=== PATIENT | male | born 1950 | race African-American/Black ===

== ENCOUNTER 2016-07-27 13:54 | Inpatient (IN) | payer OTHER ==
[2016-07-27] MEDS ORDERED: ALBUTEROL SO4 2.5/IPRATROPIUM 0.5 INH SOL 3 ML VIAL.NEB. NEB ONE ×2 (13:58→14:14)
[2016-07-27] MEDS ORDERED: methylPREDNISolone NA SUCC 125 MG/2 ML VIAL ONE (14:02)
[2016-07-27] MEDS ORDERED: ALBUTEROL SO4 0.083% IH SOL 2.5 MG/3 ML VIAL.NEB. NEB ONE ×2 (14:02→14:14)
[2016-07-27] MEDS ORDERED: LEVOFLOXACIN 750 MG IVPB 150 ML IVPB ONE ×2 (14:05→14:11)
[2016-07-27] MEDS ORDERED: DEXAMETHASONE SOD PHOSPHATE 10 MG/1 ML VIAL ONE (14:10)
[2016-07-27] MEDS ORDERED: methylPREDNISolone NA SUCC 125 MG/2 ML VIAL IVPB ONE (14:14)
[2016-07-27 14:16] LABS: VENOUS BLOOD GAS HCO3 17.8 meq/L (19-25)
[2016-07-27 14:17] LABS: VENOUS PH 7.39 (7.32-7.42)
[2016-07-27 14:24] LABS: BASOPHIL 0.1 % (0-2.0); MCH 26.3 pg (25.7-33.7); MCHC 32.4 g/dl (32.0-35.9); MEAN CELL VOLUME 81.2 fl (80-96); MEAN PLT VOLUME 8.1 fl (7.5-11.1); NEUTROPHILS 86.9 % (42.8-82.8); PLATELET COUNT 204 K/MM3 (134-434); RDW 14.3 % (11.9-15.9); WHITE BLOOD COUNT 12.4 K/mm3 (4.0-10.0)
--- NOTE | 2016-07-27 14:40 | PDOC ---
History of Present Illness - History of Present Illness Initial Comments: 07/27/16 14:50 The patient is a 66 year old male, with a significant past medical history of sarcoidosis of the lungs, hypertension, and prior intubations, who presents to the emergency department via ems from home with progressive feeling of generalized body aches and weakness for 6 days with subacute onset of shortness of breath today. The patient presents with who states the patient is febrile and has been experiencing diarrhea and vomiting after eating. The patients states he is noncompliant with medication and reports he was taking coricidin BPH for virus-like symptoms, with no relief. As per ems the patient was placed on CPap and given nebulizer in the field. He denies chest pain, headache and dizziness. He denies fever, chills, and constipation. He denies dysuria, frequency, urgency and hematuria. Allergies: NKDA Social history: social alcohol consumption. Denies tobacco and illicit drug use. PCP - Dr. Campuzano <Claudette Santos - Last Filed: 07/27/16 19:27> <James Ayers - Last Filed: 07/27/16 19:50> <Deric Salazar - Last Filed: 07/27/16 23:10> - General Chief Complaint: Shortness of Breath Stated Complaint: Shortness of Breath Time Seen by Provider: 07/27/16 14:05 Past History <Claudette Santos - Last Filed: 07/27/16 19:27> - Past Medical History Anemia: No Asthma: No Cancer: No Cardiac Disorders: No CVA: No COPD: No CHF: No Dementia: No Diabetes: No GI Disorders: No Disorders: No HTN: Yes Hypercholesterolemia: No Liver Disease: No Seizures: No Thyroid Disease: No - Surgical History Abdominal Surgery: No Appendectomy: No Cardiac Surgery: No Cholecystectomy: No Lung Surgery: No Neurologic Surgery: No Orthopedic Surgery: Yes (L ANKLE ORIF, BILAR SHOULDER ARTHROSCOPY, BILAT KNEE ARHTROSCOPY) - Psycho/Social/Smoking Cessation Hx Anxiety: No Suicidal Ideation: No Smoking History: Never smoked Hx Alcohol Use: No Drug/Substance Use Hx: No Substance Use Type: None Hx Substance Use Treatment: No <James Ayers - Last Filed: 07/27/16 19:50> <Deric Salazar - Last Filed: 07/27/16 23:10> - Past Medical History Allergies/Adverse Reactions: Allergies Allergy/AdvReac Type Severity Reaction Status Date / Time No Known Drug Allergies Allergy Verified 11/26/13 09:46 Home Medications: Ambulatory Orders Nifedipine ER [Procardia XL -] 60 mg PO HS 11/03/13 Cyclobenzaprine HCl [Flexeril -] 10 mg PO TID PRN 11/13/13 Oxycodone HCl/Acetaminophen [Percocet 5-325 mg Tablet -] 1 - 2 tab PO Q4H #20 tablet 11/26/13 Review of Systems - Review of Systems Able to Perform ROS?: No (CPAP in place) <Claudette Santos - Last Filed: 07/27/16 19:27> *Physical Exam - Vital Signs Last Vital Signs Temp Pulse Resp BP Pulse Ox 113 H 100 07/27/16 14:13 07/27/16 14:13 - Physical Exam Comments: 07/27/16 14:51 GENERAL: (+) anxious appearing. Awake, alert, and fully oriented, in no acute distress HEAD: No signs of trauma EYES: PERRLA, EOMI, sclera anicteric, conjunctiva clear ENT: Auricles normal inspection, hearing grossly normal, nares patent, oropharynx clear without exudates. Moist mucosa NECK: Normal ROM, supple, no lymphadenopathy, JVD, or masses LUNGS: (+) course breath sounds. Breath sounds equal, clear to auscultation bilaterally. No wheezes, and no crackles HEART: (+) tachycardic rate and regular rhythm, normal S1 and S2, no murmurs, rubs or gallops ABDOMEN: Soft, nontender, normoactive bowel sounds. No guarding, no rebound. No masses EXTREMITIES: Normal range of motion, no edema. No clubbing or cyanosis. No cords, erythema, or tenderness NEUROLOGICAL: Cranial nerves II through XII grossly intact. Normal speech, normal gait SKIN: Warm, Dry, normal turgor, no rashes or lesions noted. <Claudette Santos - Last Filed: 07/27/16 19:27> - Vital Signs Last Vital Signs Temp Pulse Resp BP Pulse Ox 113 H 100 07/27/16 14:13 07/27/16 14:13 <James Ayers - Last Filed: 07/27/16 19:50> - Vital Signs Last Vital Signs Temp Pulse Resp BP Pulse Ox 104 H 39 H 134/74 92 L 07/27/16 18:07 07/27/16 18:07 07/27/16 23:05 07/27/16 21:20 <Deric Salazar - Last Filed: 07/27/16 23:10> ED Treatment Course - LABORATORY CBC & Chemistry Diagram: 07/27/16 14:15 07/27/16 14:15 - ADDITIONAL ORDERS Additional order review: Laboratory Results 07/27/16 14:10 VBG pH 7.39 POC VBG pCO2 30.4 L POC VBG pO2 44.8 Mixed VBG HCO3 17.8 L 07/27/16 14:15 RBC 5.06 MCV 81.2 MCHC 32.4 RDW 14.3 MPV 8.1 Neutrophils % 86.9 H D Lymphocytes % 7.3 L D Monocytes % 5.7 Eosinophils % 0.0 D Basophils % 0.1 - RADIOLOGY Radiograph Interpretation: 07/27/16 16:57 CXR was read by Dr. Randle at 15:01 Impression: Progressive congestive and infiltrative findings. 07/27/16 18:26 Chest CTA was read by Dr. Choi at 18:20 Impression: extensive bilateral airspace disease with minimal left pleural effusion. Focal nodular mass in the right upper lobe abutting the fissue is again seen measuring 2.2 x 1.5 cm without change. There is no evidence of pulmonary embolism. <Claudette Santos - Last Filed: 07/27/16 19:27> - LABORATORY CBC & Chemistry Diagram: 07/27/16 14:15 07/27/16 14:15 - ADDITIONAL ORDERS Additional order review: Laboratory Results 07/27/16 14:10 VBG pH 7.39 POC VBG pCO2 30.4 L POC VBG pO2 44.8 Mixed VBG HCO3 17.8 L 07/27/16 14:15 RBC 5.06 MCV 81.2 MCHC 32.4 RDW 14.3 MPV 8.1 Neutrophils % 86.9 H D Lymphocytes % 7.3 L D Monocytes % 5.7 Eosinophils % 0.0 D Basophils % 0.1 - RADIOLOGY Radiology Studies Ordered: Category Date Time Status CHEST X-RAY PORTABLE* [RAD] Stat Radiology 07/27/16 14:08 Ordered <ArmenJames - Last Filed: 07/27/16 19:50> - LABORATORY CBC & Chemistry Diagram: 07/27/16 14:15 07/27/16 14:15 - ADDITIONAL ORDERS Additional order review: Laboratory Results 07/27/16 07/27/16 07/27/16 20:40 20:40 18:49 INR PTT (Actin FS) Puncture Site Right radial ABG pH 7.46 H ABG pCO2 at Pt Temp 32.7 L ABG pO2 at Pt Temp 62.0 L ABG HCO3 22.8 ABG O2 Sat (Measured) 90.6 ABG O2 Content 14.5 L ABG Base Excess -0.1 Vazquez Test Positive VBG pH POC VBG pCO2 POC VBG pO2 Mixed VBG HCO3 Carboxyhemoglobin 1.6 Methemoglobin 0.5 O2 Delivery Device Bipap Oxygen Flow Rate [address] Vent Rate 14 PEEP 0.0 Pressure Support Vent 12/8 Sodium Potassium Chloride Carbon Dioxide Anion Gap BUN Creatinine Creat Clearance w eGFR Random Glucose Lactic Acid 5.941 H* Calcium Total Bilirubin AST ALT Alkaline Phosphatase Creatine Kinase Creatine Kinase Index CK-MB (CK-2) CK-MB (CK-2) Rel Index Troponin I Total Protein Albumin 07/27/16 07/27/16 07/27/16 14:15 14:15 14:15 INR PTT (Actin FS) Puncture Site ABG pH ABG pCO2 at Pt Temp ABG pO2 at Pt Temp ABG HCO3 ABG O2 Sat (Measured) ABG O2 Content ABG Base Excess Vazquez Test VBG pH POC VBG pCO2 POC VBG pO2 Mixed VBG HCO3 Carboxyhemoglobin Methemoglobin O2 Delivery Device Oxygen Flow Rate Vent Mode Vent Rate PEEP Pressure Support Vent Sodium 136 Potassium 3.5 Chloride 96 L Carbon Dioxide 19 L D Anion Gap 21 H BUN 22 H D Creatinine 1.4 H D Creat Clearance w eGFR 50.70 Random Glucose 161 H D Lactic Acid 10.414 H* Calcium 8.4 L Total Bilirubin 1.0 D AST 88 H D ALT 33 D Alkaline Phosphatase 102 D Creatine Kinase 657 H Creatine Kinase Index 0.5 CK-MB (CK-2) 3.531 CK-MB (CK-2) Rel Index Cancelled Troponin I 0.08 H Total Protein 7.8 Albumin 3.3 L 07/27/16 07/27/16 14:15 14:10 INR 1.26 H PTT (Actin FS) 26.1 L Puncture Site ABG pH ABG pCO2 at Pt Temp ABG pO2 at Pt Temp ABG HCO3 ABG O2 Sat (Measured) ABG O2 Content ABG Base Excess Vazquez Test VBG pH 7.39 POC VBG pCO2 30.4 L POC VBG pO2 44.8 Mixed VBG HCO3 17.8 L Carboxyhemoglobin Methemoglobin O2 Delivery Device Oxygen Flow Rate Vent Mode Vent Rate PEEP Pressure Support Vent Sodium Potassium Chloride Carbon Dioxide Anion Gap BUN Creatinine Creat Clearance w eGFR Random Glucose Lactic Acid Calcium Total Bilirubin AST ALT Alkaline Phosphatase Creatine Kinase Creatine Kinase Index CK-MB (CK-2) CK-MB (CK-2) Rel Index Troponin I Total Protein Albumin 07/27/16 15:20 Influenza Types A,B Antigen (NIKI) - Final Nasopharyngeal Swab - Final 07/27/16 14:15 RBC 5.06 MCV 81.2 MCHC 32.4 RDW 14.3 MPV 8.1 Neutrophils % 86.9 H D Lymphocytes % 7.3 L D Monocytes % 5.7 Eosinophils % 0.0 D Basophils % 0.1 - Medications Given in the ED: ED Medications Discontinued Medications Generic Name Dose Route Start Last Admin Trade Name Freq PRN Reason Stop Dose Admin Albuterol Sulfate 2 amp 07/27/16 14:14 07/27/16 14:15 Ventolin 0.083% Nebulizer Soln - NEB 07/27/16 14:15 2 amp ONCE ONE Administration Albuterol/Ipratropium 1 amp 07/27/16 14:14 07/27/16 14:00 Duoneb - NEB 07/27/16 14:15 1 amp ONCE ONE Administration Levofloxacin 150 mls @ 100 mls/hr 07/27/16 14:11 07/27/16 14:20 Levaquin 750 Mg Premixed Ivpb - IVPB 07/27/16 15:40 100 mls/hr ONCE ONE Administration Sodium Chloride 3,000 mls @ 1,000 mls/hr 07/27/16 15:20 07/27/16 15:20 Normal Saline - IV 07/27/16 18:19 1,000 mls/hr ASDIR STA Administration Lorazepam 1 mg 07/27/16 17:06 07/27/16 15:20 Ativan Injection - IVPUSH 07/27/16 17:07 1 mg ONCE ONE Administration Lorazepam 1 mg 07/27/16 17:07 07/27/16 17:16 Ativan Injection - IVPUSH 07/27/16 17:08 1 mg ONCE ONE Administration Methylprednisolone Sodium Succinate 125 mg 07/27/16 14:14 07/27/16 14:00 Solu-Medrol - IVPB 07/27/16 14:15 125 mg ONCE ONE Administration Oseltamivir Phosphate 75 mg 07/27/16 15:58 07/27/16 16:32 Tamiflu - PO 07/27/16 15:59 75 mg ONCE ONE Administration <Deric Salazar - Last Filed: 07/27/16 23:10> Medical Decision Making - Medical Decision Making 07/27/16 14:52 The patient is a 66 year old male who presents to the ED via ems with viral like symptoms, generalized body aches and weakness since Sunday. As per the patient's family member, the patient would not come to the ED sooner. The patients medical history is significant for sarcoidosis of the lungs, hypertension, and prior intubations (last in 2004). I will obtain CBC, CMP, VBG, ABG, lactic acid, PTT/INR, to rule out sarcoidosis , viral infection or pneumonia. The patient was placed on BIPAP and is doing well. 07/27/16 19:27 Dr. Mustafa was called at this time and the patient's case was discussed. I believe the patient would benefit from ICU admission and Dr. Mustafa accepts the admission. <Claudette Santos - Last Filed: 07/27/16 19:27> *DC/Admit/Observation/Transfer - Attestations Scribe Attestion: 07/27/16 14:53 Documentation prepared by Claudette Santos, acting as medical pathology teacher for James Ayers MD <Claudette Santos - Last Filed: 07/27/16 19:27> - Discharge Dispostion Admit: Yes - Attestations Physician Attestion: 07/27/16 14:40 I, Dr. James Ayers, attest that this document has been prepared under my direction and personally reviewed by me in its entirety. I further attest, that it accurately reflects all work, treatment, procedures and medical decision -making performed by me. <James Ayers - Last Filed: 07/27/16 19:50> <Deric Salazar - Last Filed: 07/27/16 23:10> Diagnosis at time of Disposition: Pulmonary sarcoidosis, Influenza B, Hypoxia - Discharge Dispostion Condition at time of disposition: Improved - Referrals Referrals: Lemuel Campuzano MD [Primary Care Provider] -
[2016-07-27] MEDS ORDERED: LORAZEPAM CARPU-JECT 2 MG/ML DISP.SYRIN ONE ×2 (15:01→23:40)
[2016-07-27 15:03] LABS: ALBUMIN 3.3 g/dl (3.4-5.0); CALCIUM 8.4 mg/dL (8.5-10.1)
[2016-07-27 15:09] LABS: INR 1.26 (0.82-1.09); PROTHROMBIN TIME (PATIENT) 13.9 SEC (9.98-11.88)
[2016-07-27 15:12] LABS: ACTIVATED PTT 26.1 SECONDS (26.9-34.4)
[2016-07-27] MEDS ORDERED: SODIUM CHLORIDE 3,000 ML IV STA (15:20)
[2016-07-27 15:24] LABS: COCKROFT - GAULT 66.59; CREATININE 1.4 mg/dL (0.7-1.3); TOT PROT 7.8 g/dl (6.4-8.2); TROPONIN I 0.08 ng/ml (0.00-0.05)
[2016-07-27] MEDS ORDERED: OSELTAMIVIR PHOSPHATE 75 MG CAPSULE PO ONE (15:58)
--- NOTE | 2016-07-27 16:11 | EKG ---
Test Reason : Blood Pressure : / mmHG Vent. Rate : 111 BPM Atrial Rate : 111 BPM P-R Int : 142 ms QRS Dur : 086 ms QT Int : 322 ms P-R-T Axes : 053 046 027 degrees QTc Int : 437 ms SINUS TACHYCARDIA NONSPECIFIC T WAVE ABNORMALITY ABNORMAL ECG WHEN COMPARED WITH ECG OF 13-NOV-2013 15:47, NO SIGNIFICANT CHANGE WAS FOUND Confirmed by CATALINO FOLEY MD ([id number]) on 07/27/2016 4:11:08 PM Referred By: Confirmed By:CATALINO FOLEY MD
[2016-07-27] MEDS ORDERED: OSELTAMIVIR PHOSPHATE 75 MG CAPSULE ONE ×2 (16:28→22:53)
[2016-07-27] MEDS ORDERED: LORAZEPAM CARPU-JECT 2 MG/ML DISP.SYRIN IVPUSH ONE ×2 (17:06→17:07)
--- NOTE | 2016-07-27 20:45 | PN ---
<Graciela Dacosta - Last Filed: 07/27/16 20:39> Teaching Attending Note Name of Resident: Leopoldo Zimmerman Problem List - Problems (1) Influenza B Code(s): J10.1 - FLU DUE TO OTH IDENT INFLUENZA VIRUS W OTH RESP MANIFEST (2) Pulmonary sarcoidosis Code(s): D86.0 - SARCOIDOSIS OF LUNG Critical Care Total Critical Care Time (in minutes): 45 Critical Care Statement: The care of this patient involved high complexity decision making to prevent further life threatening deterioration of the patient 's condition and/or to evalute & treat vital organ system(s) failure or risk of failure. <Libby Urbina - Last Filed: 07/27/16 22:14> Teaching Attending Note ATTENDING PHYSICIAN STATEMENT I saw and evaluated the patient. I reviewed the resident's note and discussed the case with the resident. I agree with the resident's findings and plan as documented. SUBJECTIVE: 66 yo M with a PMhx of lung sarcoidosis who presents with generalized weakness for the past 5 days. The patient reports body aches, productive cough (red- tinged), vomiting (nonbloody, nonbilious) and diarrhea during the course of these days. Patient took Nyquil for his cold-like symptoms however denies any relief. Patient states his weakness has progressively worsened and reports new onset SOB today. He presented to the ED for further evaluation. He denies chest pain, headache or dizziness. He denies constipation. He denies dysuria, frequency, urgency or hematuria. PMHx: HTN PSHx: L ankle and R shoulder ORIF Social hx: Denies toxic habits. Retired and living at home. Family hx: Sister (lung sarcoidosis) Allergies: None OBJECTIVE: Last Vital Signs Temp Pulse Resp BP Pulse Ox 104 H 39 H 94/56 90 L 07/27/16 18:07 07/27/16 18:07 07/27/16 18:07 07/27/16 18:07 GENERAL: Awake, alert, and fully oriented, in no acute distress on BiPAP on 50% FiO2. HEENT: Atraumatic. PERRLA, EOMI. Moist mucosa. No JVD LUNGS: +Bilateral basal crackles. No distress, speaks full sentences. HEART: Regular rate and rhythm, normal S1 and S2, no murmurs, rubs or gallops, peripheral pulses normal and equal bilaterally. ABDOMEN: Soft, nontender, normoactive bowel sounds. No guarding, no rebound. No masses EXTREMITIES: +Clubbing of fingernails in RUE and LUE. + R shoulder ORIF and L ankle ORIF. Normal inspection, Normal range of motion, no edema. No r cyanosis. + Normal capillary refill. NEUROLOGICAL: Cranial nerves II through XII grossly intact. Normal speech, gait deffered no focal sensorimotor deficits SKIN: Surgical scar on R shoulder. Warm, Dry, normal turgor, no rashes or lesions noted. CBCD WBC 12.4 K/mm3 (4.0-10.0) H D 07/27/16 14:15 RBC 5.06 M/mm3 (4.00-5.60) 07/27/16 14:15 Hgb 13.3 GM/dL (11.7-16.9) 07/27/16 14:15 Hct 41.1 % (35.4-49) 07/27/16 14:15 MCV 81.2 fl (80-96) 07/27/16 14:15 MCHC 32.4 g/dl (32.0-35.9) 07/27/16 14:15 RDW 14.3 % (11.9-15.9) 07/27/16 14:15 Plt Count 204 K/MM3 (134-434) D 07/27/16 14:15 MPV 8.1 fl (7.5-11.1) 07/27/16 14:15 CMP Sodium 136 mmol/L (136-145) 07/27/16 14:15 Potassium 3.5 mmol/L (3.5-5.1) 07/27/16 14:15 Chloride 96 mmol/L (98-107) L 07/27/16 14:15 Carbon Dioxide 19 mmol/L (21-32) L D 07/27/16 14:15 Anion Gap 21 (8-16) H 07/27/16 14:15 BUN 22 mg/dL (7-18) H D 07/27/16 14:15 Creatinine 1.4 mg/dL (0.7-1.3) H D 07/27/16 14:15 Creat Clearance w eGFR 50.70 (>60) 07/27/16 14:15 Calcium 8.4 mg/dL (8.5-10.1) L 07/27/16 14:15 Total Bilirubin 1.0 mg/dL (0.2-1.0) D 07/27/16 14:15 AST 88 U/L (15-37) H D 07/27/16 14:15 ALT 33 U/L (12-78) D 07/27/16 14:15 Alkaline Phosphatase 102 U/L (45-117) D 07/27/16 14:15 Total Protein 7.8 g/dl (6.4-8.2) 07/27/16 14:15 Albumin 3.3 g/dl (3.4-5.0) L 07/27/16 14:15 Imaging: Chest Xray Impression: Progressive congestive and infiltrative findings. Chest/ Thorax CTA Impression: Limited examination, as described above. There is extensive bilateral airspace disease with minimal left pleural effusion. Focal nodular mass in the right upper lobe abutting the fissure is again seen measuring approximately 2.2 x 1.5 cm , without interval change. Mediastinal lymph nodes, as described above. Findings are compatible with likely worsening sarcoidosis involvement of the lung. Superimposed pneumonia cannot be ruled out. Airspace disease is significantly limiting evaluation of the distal pulmonary artery branches that are also poorly evaluated due to motion/breathing artifacts. There is no gross evidence of a pulmonary embolus within the main pulmonary artery and its proximal bifurcations, bilaterally. ASSESSMENT AND PLAN: 66 yo M with a PMHx of sarcoidosis and HTN who is being admitted for CAP. Continuous fluids at 150 cc/hr Levofloxacin Tamiflu Nebulization Q6 BiPAP as per ICU outreach consultant Recheck lactic Q2 hrs until below 2 Continue home meds Get baseline echocardiogram in AM ID Consult Pulmonary Consult - Lipid panel Documentation prepared by Libby Urbina, acting as certified medical dosimetrist for Graciela Dacosta MD.
[2016-07-27 20:47] LABS: ARTERIAL BLD GAS O2 SATURATION 90.6 % (90-98.9); ARTERIAL BLOOD GAS BASE EXCESS -0.1 meq/l (-2-2); ARTERIAL BLOOD GAS HCO3 22.8 meq/L (22-26); ARTERIAL BLOOD GAS pH 7.46 (7.35-7.45)
[2016-07-27 20:48] LABS: ALLENS TEST POSITIVE; ART PUNCT SITE RIGHT RADIAL; LPM/O2% 50; PT. ON O2? YES; TYPE OF O2 BIPAP; VENT RATE 14
[2016-07-27 20:50] LABS: METHEMOGLOBIN 0.5 % (0.4-1.5)
[2016-07-27] MEDS ORDERED: SODIUM CHLORIDE 1,000 ML IV SCH ×2 (21:30→22:20)
--- NOTE | 2016-07-27 21:56 | HP ---
CHIEF COMPLAINT: generalized weakness and shortness of breath PCP: Dr. Campuzano HISTORY OF PRESENT ILLNESS: 66 y/o M w/PMH of sarcoidosis and HTN presents to ER for progressively worsening generalized weakness and shortness of breath. He began having weakness and cough approximately 5-6 days ago. His cough was productive and sputum was slightly red in color. He also had fevers and chills throughout this time. He also had teary eyes and runny nose 5-6 days ago but no sore throat. He took nyquil with some relief of symptoms. He also felt like he had some shortness of breath yesterday and it has worsened today. He denies these type of symptoms in the past and says this is the first time he has had these symptoms. He did not get his flu vaccine for this year. Pt also had one episode of vomiting and diarrhea, both without blood. He denies CP, abd pain, light-headedness, dizziness, palpitations, pain with deep inspiration. He does not use oxygen at home. ER course was notable for: (1) CXR, Chest CTA (2) ativan, decadron, duo-neb x1, alb neb x1, solu-medrol 125, tamiflu, levaquin 750, NS (3) PAST MEDICAL HISTORY: sarcoidosis, HTN PAST SURGICAL HISTORY: L ankle ORIF, B/L shoulder arthroscopy, B/L knee arthroscopy Social History: Smoking: denies Alcohol: social Drugs: denies Family History: Siblings with sarcoidosis Allergies No Known Drug Allergies Allergy (Verified 11/26/13 09:46) HOME MEDICATIONS: Home Medications Medication Instructions Recorded Nifedipine ER [Procardia XL -] 60 mg PO HS 11/03/13 Cyclobenzaprine HCl [Flexeril -] 10 mg PO TID PRN 11/13/13 Oxycodone HCl/Acetaminophen 1 - 2 tab PO Q4H #20 tablet 11/26/13 [Percocet 5-325 mg Tablet -] REVIEW OF SYSTEMS CONSTITUTIONAL: fevers, chills, generalized weakness Absent: diaphoresis, malaise, loss of appetite, weight change HEENT: rhinorrhea Absent: nasal congestion, throat pain, throat swelling, difficulty swallowing, mouth swelling, ear pain, eye pain, visual changes CARDIOVASCULAR: Absent: chest pain, syncope, palpitations, irregular heart rate, lightheadedness , peripheral edema RESPIRATORY: cough, shortness of breath Absent: dyspnea with exertion, orthopnea, wheezing, stridor GASTROINTESTINAL: vomiting, diarrhea Absent: abdominal pain, abdominal distension, nausea, constipation, melena, hematochezia GENITOURINARY: Absent: dysuria, frequency, urgency, hesitancy, hematuria, flank pain, genital pain MUSCULOSKELETAL: Absent: myalgia, arthralgia, joint swelling, back pain, neck pain SKIN: Absent: rash, itching, pallor HEMATOLOGIC/IMMUNOLOGIC: Absent: easy bleeding, easy bruising, lymphadenopathy, frequent infections ENDOCRINE: Absent: unexplained weight gain, unexplained weight loss, heat intolerance, cold intolerance NEUROLOGIC: Absent: headache, focal weakness or paresthesias, dizziness, unsteady gait, seizure, mental status changes, bladder or bowel incontinence PSYCHIATRIC: Absent: anxiety, depression, suicidal or homicidal ideation, hallucinations. PHYSICAL EXAMINATION Vital Signs Temperature Pulse Rate 104 H 07/27/16 18:07 Respiratory Rate 39 H 07/27/16 18:07 Blood Pressure 94/56 07/27/16 18:07 O2 Sat by Pulse Oximetry (%) 92 L 07/27/16 21:20 GENERAL: Awake, alert, and fully oriented, on bipap HEAD: Normal with no signs of trauma. EYES: extraocular movements intact, sclera anicteric, conjunctiva clear. No lid lag. EARS, NOSE, THROAT: Ears normal, nares patent NECK: Normal range of motion LUNGS: b/l basilar crackles, no wheezing HEART: tachycardic, normal S1 and S2 without murmur (murmurs were difficult to appreciate over bipap inspirations), rub or gallop. ABDOMEN: Soft, nontender, not distended, normoactive bowel sounds, no guarding, no rebound, no masses. No hepatomegaly or splenomegaly. MUSCULOSKELETAL: Normal range of motion at all joints. No CVA tenderness. B/L shoulder ORIF. UPPER EXTREMITIES: 2+ pulses, warm, well-perfused. No cyanosis. No clubbing. No peripheral edema. B/L clubbing of fingernails LOWER EXTREMITIES: 2+ pulses, warm, well-perfused. No calf tenderness. No peripheral edema. NEUROLOGICAL: Cranial nerves II-XII grossly intact. Normal speech. Gait not observed. PSYCHIATRIC: Cooperative. Good eye contact. Appropriate mood and affect. SKIN: Warm, dry, normal turgor, no rashes or lesions noted, normal capillary refill. CBC, BMP 07/27/16 14:15 07/27/16 14:15 INR 07/27/16 14:15 INR 1.26 H LFTs 07/27/16 14:15 AST 88 H D ALT 33 D Alkaline Phosphatase 102 D Lactic Acid 07/27/16 07/27/16 07/27/16 14:15 18:49 23:48 Lactic Acid 10.414 H* 5.941 H* 3.236 H* Laboratory Tests 07/27/16 07/27/16 14:15 23:48 Creatine Kinase 657 H Creatine Kinase Index 0.5 CK-MB (CK-2) 3.531 Troponin I 0.08 H 0.07 H ABG Results ABG pH 7.46 (7.35-7.45) H 07/27/16 20:40 ABG pCO2 at Pt Temp 32.7 mmHg (35-45) L 07/27/16 20:40 ABG pO2 at Pt Temp 62.0 mmHg (80-100) L 07/27/16 20:40 ABG HCO3 22.8 meq/L (22-26) 07/27/16 20:40 ABG O2 Sat (Measured) 90.6 % (90-98.9) 07/27/16 20:40 ABG O2 Content 14.5 % vol (15-22) L 07/27/16 20:40 ABG Base Excess -0.1 meq/l (-2-2) 07/27/16 20:40 Microbiology 07/27/16 15:20 Nasopharyngeal Swab Influenza Types A,B Antigen (NIKI) - Final 07/27/16 15:20 Nasopharyngeal Swab - Final Imaging: CXR 07/27/16: B/L infiltrates, Congestive changes Chest CTA 07/27/16: -paratracheal lymph node w/calcification, 3cm in size, stable -multiple b/l hilar calcified lymph nodes consistent w/sarcoidosis -superimposed pna cannot be ruled out -small L pleural effusion -2.2 x 1.5 cm nodular masslike density in RUL -B/L airspace disease -No evidence of PE Active Medications Chlorhexidine Gluconate (Hibiclens For Decolonization -) 1 applic TP HS [facility] Heparin Sodium (Porcine) (Heparin -) 5,000 unit SQ TID [facility] Sodium Chloride (Normal Saline -) 1,000 mls @ 125 mls/hr IV ASDIR [facility] Levofloxacin (Levaquin 750 Mg Premixed Ivpb -) 150 mls @ 100 mls/hr IVPB DAILY@ 0800 [facility] Mupirocin (Bactroban Ointment (For Decolonization) -) 1 applic NS BID [facility] Stop: 08/01/16 21:59 Oseltamivir Phosphate (Tamiflu -) 75 mg PO BID [facility] Stop: 08/01/16 21:59 ASSESSMENT/PLAN: 66 y/o M w/PMH of sarcoidosis and HTN presents to ER for progressively worsening generalized weakness and shortness of breath. Admitted to ICU for sepsis secondary to flu and CAP with respiratory failure. -Severe sepsis secondary to flu w/superimposed CAP -Tachycardic, WBC elevated, Tachypneic + FLU B+, b/l infiltrates -NS @ 150 ml/hr -Levaquin 750 mg IV qd, ID Consulted (Dr. Ibanez) -Tamiflu 75 mg bid -Trend LA, trending down at this time (10.4 --> 5.9 --> 3.2) -CXR in AM -f/u BCx, SpCx, UCx -Acute hypoxic respiratory failure -secondary to flu, cap -Bipap as per ICU team recommendation -alb nebs q6h PRN -ABG in AM -Pulm consulted (Dr. Campuzano) -Elevated Trops -most likely due to demand ischemia -trend trops (currently 0.08 --> 0.07), lipid panel in AM ordered -Echo -BIANCA -Cr 1.4, baseline ~0.8 -most likely secondary to severe sepsis -monitor, on fluids -avoid nephrotoxic agents -Elevated AST -most likely secondary to severe sepsis; monitor -Hx of Sarcoidosis -Pulm Consulted -HTN -pt on procardia at home, will hold in light of severe sepsis -DVT ppx -Heparin sq tid -FEN -NS @ 150 ml/hr -corrected Ca: 8.96; Hypochloremia: 96, on NS, monitor -Dispo -Admit to ICU Visit type - Emergency Visit Emergency Visit: Yes ED Registration Date: 07/27/16 Care time: The patient presented to the Emergency Department on the above date and was hospitalized for further evaluation of their emergent condition. - New Patient This patient is new to me today: Yes Date on this admission: 07/28/16 - Critical Care Critical Care patient: No
[2016-07-27] MEDS ORDERED: HEPARIN NA (PORCINE) 5,000 UNITS/ML 1ML VIAL ONE (22:53)
[2016-07-27] MEDS: HEPARIN NA (PORCINE) 5,000 UNITS/ML 1ML VIAL SQ SCH (23:04)
[2016-07-27] MEDS: OSELTAMIVIR PHOSPHATE 75 MG CAPSULE PO SCH (23:05)
[2016-07-27 23:28] LABS: URINE APPEARANCE CLEAR; URINE BILIRUBIN NEGATIVE (NEGATIVE); URINE BLOOD NEGATIVE (NEGATIVE); URINE COLOR YELLOW; URINE GLUCOSE (UA) NEGATIVE (NEGATIVE); URINE KETONE NEGATIVE (NEGATIVE); URINE LEUK ESTERASE NEGATIVE (NEGATIVE); URINE NITRITE NEGATIVE (NEGATIVE); URINE PROTEIN 2+ (NEGATIVE); URINE UROBILINOGEN 4.0 E.U/dl E.U./dl (0.2-1.0)
[2016-07-27 23:32] LABS: URINE HYALINE CAST 4 /lpf; URINE MUCUS RARE; URINE RBC 1 /hpf (0-3); URINE WBC 2 /hpf (3-5)
[2016-07-28] MEDS ORDERED: LORAZEPAM CARPU-JECT 2 MG/ML DISP.SYRIN IVPUSH ONE (00:05)
[2016-07-28] MEDS ORDERED: ALBUTEROL SO4 0.083% IH SOL 2.5 MG/3 ML VIAL.NEB. NEB PRN (04:03)
[2016-07-28 06:53] LABS: BASOPHIL 0.1 % (0-2.0); MCH 26.9 pg (25.7-33.7); MCHC 33.5 g/dl (32.0-35.9); MEAN CELL VOLUME 80.3 fl (80-96); MEAN PLT VOLUME 8.5 fl (7.5-11.1); NEUTROPHILS 91.3 % (42.8-82.8); PLATELET COUNT 170 K/MM3 (134-434); RDW 14.4 % (11.9-15.9); WHITE BLOOD COUNT 8.7 K/mm3 (4.0-10.0)
[2016-07-28] MEDS ORDERED: HEPARIN NA (PORCINE) 5,000 UNITS/ML 1ML VIAL ONE (06:55)
[2016-07-28 06:59] LABS: MAGNESIUM 2.5 mg/dL (1.8-2.4); PHOSPHOROUS 2.4 mg/dL (2.5-4.9)
[2016-07-28 07:02] LABS: ALBUMIN 2.9 g/dl (3.4-5.0); ANION GAP 14 (8-16); BILIRUBIN,TOTAL 0.6 mg/dL (0.2-1.0); CALCIUM 7.6 mg/dL (8.5-10.1); CO2 22 mmol/L (21-32); COCKROFT - GAULT 133.19; CREATININE 0.7 mg/dL (0.7-1.3); GLUCOSE,RANDOM 138 mg/dL (74-106); SGOT/AST 68 U/L (15-37); SGPT/ALT 32 U/L (12-78); TOT PROT 7.3 g/dl (6.4-8.2)
[2016-07-28 07:03] LABS: CHOLESTEROL 97 mg/dL (50-200); LDL CHOLESTEROL (ONLY SJRH) 52 mg/dL (5-100)
[2016-07-28 07:05] LABS: ALK PHOS 106 U/L (45-117); TROPONIN I 0.08 ng/ml (0.00-0.05)
[2016-07-28] MEDS: HEPARIN NA (PORCINE) 5,000 UNITS/ML 1ML VIAL SQ SCH ×3 (07:05→21:52)
[2016-07-28 07:14] LABS: ARTERIAL BLOOD GAS BASE EXCESS 0.9 meq/l (-2-2); ARTERIAL BLOOD GAS HCO3 22.9 meq/L (22-26); ARTERIAL BLOOD GAS pH 7.51 (7.35-7.45)
[2016-07-28 07:15] LABS: ALLENS TEST POSITIVE; ART PUNCT SITE RIGHT RADIAL; LPM/O2% 50%; MECH. VENT. BIPAP; PT. ON O2? YES; TYPE OF O2 BIPAP; VENT RATE 14
[2016-07-28 07:20] LABS: ARTERIAL BLOOD GAS PO2 58.1 mmHg (80-100)
[2016-07-28] MEDS ORDERED: LEVOFLOXACIN 750 MG IVPB 150 ML IVPB ONE (08:06)
[2016-07-28] MEDS: LEVOFLOXACIN 750 MG IVPB 150 ML IVPB SCH (08:09)
[2016-07-28] MEDS ORDERED: SODIUM CHLORIDE 1,000 ML IV SCH (09:39)
[2016-07-28] MEDS: OSELTAMIVIR PHOSPHATE 75 MG CAPSULE PO SCH ×2 (10:10→22:08)
[2016-07-28 10:43] VITALS: BMI 24.3
[2016-07-28] MEDS: ACETAMINOPHEN 1000 MG/100 ML VIAL (NON FORMULARY) IVPB PRN ×2 (11:30→21:52)
[2016-07-28] MEDS ORDERED: ACETAMINOPHEN INJECTION 100 ML IVPB ONE (11:53)
[2016-07-28 12:14] LABS: TROPONIN I 0.07 ng/ml (0.00-0.05)
--- NOTE | 2016-07-28 13:44 | PN ---
Teaching Attending Note Name of Resident: Shiva Sidhu ATTENDING PHYSICIAN STATEMENT I saw and evaluated the patient. I reviewed the resident's note and discussed the case with the resident. I agree with the resident's findings and plan as documented. SUBJECTIVE: no fever or chills, feels tired. SOB improved . denies abd pain . anxious OBJECTIVE: minimal distress, using accessory mucles , tachypnic slightly dry MM, no facial droop, symmetric face . CV: regular rhythm , tachycardic . No JVD Lungs: CTAB Abd : soft, NT, slightly distended ext : no edema , no tremor ASSESSMENT AND PLAN: 66 y/o man with h/o HTN, sarcoidosis , who presented with 5-day hx of fever , cough, runny nose and was found to have severe sepsis and Flu B . 1- Severe sepsis: from Flu B, and possible influenza Pneumonia . i this patient with base line abnormal CT scan of chest, superimposed bacterial PNA can 't be r/o . - cont levaquin - check mycoplasma , igM Abxs , and legionella , pneumococcal Ag - follow blood cx . - sputum cx - IVF - lactate normalized - tamiflu x 5 days 2- Acute hypoxic resp failure : due to influenza . Tried venti-mask and Non re- breather which did not help as he remained tachypnic - resume BiPAP . - ICU admission . - monitor ABG 3- trop leak : likely from sepsis . EKG with tachycardia , NL axis , and flat T waves in V4, V5 . - trop trended down, echo reviewed, with no wall motion abnormalities. - no further e/u at this time 4- BIANCA: from sepsis and voume depletion . cr normalized 5- electrolytes abn: replete 6- distended colon on CT scan of abd , will get KUB. to reevaluate ICU level of care Critical Care Total Critical Care Time (in minutes): 50 Critical Care Statement: The care of this patient involved high complexity decision making to prevent further life threatening deterioration of the patient 's condition and/or to evalute & treat vital organ system(s) failure or risk of failure.
[2016-07-28] MEDS ORDERED: traMADol HCL 50 MG TABLET PO ONE (14:30)
--- NOTE | 2016-07-28 15:59 | PN ---
Physical Exam: SUBJECTIVE: Patient seen and examined at bedside feels better OBJECTIVE: Vital Signs Period Temp Pulse Resp BP Sys/Villalobos Pulse Ox Last 24 Hr 98.6 F-100 F 98-113 20-36 119-160/66-79 92-100 GENERAL: The patient is awake, alert, and fully oriented, mild distress seem anxious. NECK: supple. LUNGS: Breath sounds equal CTAB Bronchial breath sounds. HEART: Regular rate and rhythm, S1, S2 without murmur ABDOMEN: Soft, nontender, nondistended, normoactive bowel sounds EXTREMITIES: warm, well-perfused, no edema. 2+ DP pulses on left DP could not be palpated on right but is well perfused NEUROLOGICAL: Cranial nerves II through XII grossly intact. SKIN: Warm, dry Laboratory Results - last 24 hr 07/27/16 07/27/16 07/27/16 20:40 20:40 23:48 WBC RBC Hgb Hct MCV MCHC RDW Plt Count MPV Neutrophils % Lymphocytes % Monocytes % Eosinophils % Basophils % Puncture Site Right radial ABG pH 7.46 H ABG pCO2 at Pt Temp 32.7 L ABG pO2 at Pt Temp 62.0 L ABG HCO3 22.8 ABG O2 Sat (Measured) 90.6 ABG O2 Content 14.5 L ABG Base Excess -0.1 Vazquez Test Positive Carboxyhemoglobin 1.6 Methemoglobin 0.5 O2 Delivery Device Bipap Oxygen Flow Rate [address] Vent Rate 14 Mechanical Rate PEEP 0.0 Pressure Support Vent 12/8 Sodium Potassium Chloride Carbon Dioxide Anion Gap BUN Creatinine Creat Clearance w eGFR Random Glucose Lactic Acid 3.236 H* Calcium Phosphorus Magnesium Total Bilirubin AST ALT Alkaline Phosphatase Creatine Kinase Creatine Kinase Index CK-MB (CK-2) CK-MB (CK-2) Rel Index Troponin I Total Protein Albumin Triglycerides Cholesterol Total LDL Cholesterol HDL Cholesterol 07/27/16 07/28/16 07/28/16 23:48 06:15 06:15 WBC 8.7 RBC 4.50 Hgb 12.1 Hct 36.2 MCV 80.3 MCHC 33.5 RDW 14.4 Plt Count 170 MPV 8.5 Neutrophils % 91.3 H Lymphocytes % 4.7 L D Monocytes % 3.9 Eosinophils % 0.0 Basophils % 0.1 Puncture Site ABG pH ABG pCO2 at Pt Temp ABG pO2 at Pt Temp ABG HCO3 ABG O2 Sat (Measured) ABG O2 Content ABG Base Excess Vazquez Test Carboxyhemoglobin Methemoglobin O2 Delivery Device Oxygen Flow Rate Vent Mode Vent Rate Mechanical Rate PEEP Pressure Support Vent Sodium 140 Potassium 3.8 Chloride 104 Carbon Dioxide 22 Anion Gap 14 BUN 19 H Creatinine 0.7 D Creat Clearance w eGFR > 60 Random Glucose 138 H Lactic Acid Calcium 7.6 L Phosphorus Magnesium Total Bilirubin 0.6 D AST 68 H D ALT 32 Alkaline Phosphatase 106 Creatine Kinase Creatine Kinase Index CK-MB (CK-2) CK-MB (CK-2) Rel Index Troponin I 0.07 H 0.08 H Total Protein 7.3 Albumin 2.9 L Triglycerides Cholesterol Total LDL Cholesterol HDL Cholesterol 07/28/16 07/28/16 07/28/16 06:15 06:15 06:15 WBC RBC Hgb Hct MCV MCHC RDW Plt Count MPV Neutrophils % Lymphocytes % Monocytes % Eosinophils % Basophils % Puncture Site ABG pH ABG pCO2 at Pt Temp ABG pO2 at Pt Temp ABG HCO3 ABG O2 Sat (Measured) ABG O2 Content ABG Base Excess Vazquez Test Carboxyhemoglobin Methemoglobin O2 Delivery Device Oxygen Flow Rate Vent Mode Vent Rate Mechanical Rate PEEP Pressure Support Vent Sodium Potassium Chloride Carbon Dioxide Anion Gap BUN Creatinine Creat Clearance w eGFR Random Glucose Lactic Acid 1.810 Calcium Phosphorus 2.4 L Magnesium 2.5 H Total Bilirubin AST ALT Alkaline Phosphatase Creatine Kinase Creatine Kinase Index CK-MB (CK-2) CK-MB (CK-2) Rel Index Troponin I Total Protein Albumin Triglycerides 79 D Cholesterol 97 D Total LDL Cholesterol 52 D HDL Cholesterol 39 L D 07/28/16 07/28/16 07/28/16 07:00 11:30 11:30 WBC RBC Hgb Hct MCV MCHC RDW Plt Count MPV Neutrophils % Lymphocytes % Monocytes % Eosinophils % Basophils % Puncture Site Right radial ABG pH 7.51 H ABG pCO2 at Pt Temp 28.7 L ABG pO2 at Pt Temp 58.1 L ABG HCO3 22.9 ABG O2 Sat (Measured) 91.0 ABG O2 Content 14.1 L ABG Base Excess 0.9 Vazquez Test Positive Carboxyhemoglobin Methemoglobin O2 Delivery Device Bipap Oxygen Flow Rate 50% Vent Mode S/t Vent Rate 14 Mechanical Rate Bipap PEEP 0.0 Pressure Support Vent 12/8 Sodium Potassium Chloride Carbon Dioxide Anion Gap BUN Creatinine Creat Clearance w eGFR Random Glucose Lactic Acid Calcium Phosphorus Magnesium Total Bilirubin AST ALT Alkaline Phosphatase Creatine Kinase 512 H D Creatine Kinase Index 0.7 CK-MB (CK-2) 3.7 H CK-MB (CK-2) Rel Index Cancelled Troponin I 0.07 H Total Protein Albumin Triglycerides Cholesterol Total LDL Cholesterol HDL Cholesterol Active Medications Generic Name Dose Route Start Last Admin Trade Name Freq PRN Reason Stop Dose Admin Acetaminophen 1,000 mg 07/28/16 10:53 07/28/16 11:30 Ofirmev Injection - IVPB 07/29/16 04:54 1,000 mg Q6H PRN Administration FEVER OR PAIN Albuterol Sulfate 1 amp 07/28/16 04:03 Ventolin 0.083% Nebulizer Soln - NEB Q6H PRN SHORT OF BREATH/WHEEZING Chlorhexidine Gluconate 1 applic 07/27/16 22:00 Hibiclens For Decolonization - TP HS [facility] Heparin Sodium (Porcine) 5,000 unit 07/27/16 22:00 07/28/16 13:18 Heparin - SQ 5,000 unit TID [facility] Administration Levofloxacin 150 mls @ 100 mls/hr 07/28/16 08:00 07/28/16 08:09 Levaquin 750 Mg Premixed Ivpb - IVPB 100 mls/hr DAILY@0800 [facility] Administration Sodium Chloride 1,000 mls @ 75 mls/hr 07/28/16 09:39 07/28/16 10:10 Normal Saline - IV 75 mls/hr ASDIR [facility] Administration Mupirocin 1 applic 07/27/16 22:00 Bactroban Ointment (For Decolonization) - NS 08/01/16 21:59 BID DONAL Nifedipine 60 mg 07/28/16 22:00 Procardia Xl - PO HS [facility] Oseltamivir Phosphate 75 mg 07/27/16 22:00 07/28/16 10:10 Tamiflu - PO 08/01/16 21:59 75 mg BID DONAL Administration ASSESSMENT/PLAN: 66M with history of sarcoidosis and hypertension presents to the ED with a 1 week history of fevers chills productive cough with weakness found to be in severe sepsis and acute hypoxic respiratory failure secondary to influenza type B. Severe sepsis: likely from influenza B but on he differential remains influzenza pneumonia with a superimposed bacterial pneumonia. patient with a significant air space disease on CT chest at baseline and it is very difficult to differentiate pneumonia from lung parenchyma f/u Mycoplasma f/u urine antigens continue tamiflu continue levaquin f/u ID f/u BCx f/u Sputum Cx UA negative ECHO noted with moderate pulmonary hypertension as elevated RV systolic pressure. no heart failure noted continue with IVF but decrease NS to 75ml/hr from 150ml/hr Troponinemia: likely dsecondary to increased demand from dehydration and severe sepsis Troponin stable at 0.07 will stop trending unless patient becomes symptomatic no TX on EKG Echo Noted BIANCA: from dehydration and decreased flow to the kidneys secondary to severe sepsis Cr now WNL with IVF hydration continue IVF for hydration Acute hypoxic repsiratory failure: secondary to influenza and possible influenza PNA possible superimposed bacterial pneumonia patient refusing to go back on BiPAP after he failed ventimask and he was tachypneic currently he is not tachypneic and is saturating 98% on 100% non rebreather titrate down O2 PRN ABG in AM BiPAP PRN HTN: well controlled at this time continue home dose of procardia XL 60mg po HS colon distention seen on lower cuts of Chest CT: KUB noted: mildly dilated bowel liekly from ileus but abdomen is soft nontender and non distended and patien is asymptomatic with bowel sounds tolerating diet would just observe for now FEN: NS @ 75ml/hr hypophosphatemia: will replete and recheck in AM advance to Soft diet PPx: HSQ/SCDs No GI PPx needed no PT consult at this time needed will assess daily need for PT ICU care Visit type - Emergency Visit Emergency Visit: Yes ED Registration Date: 07/27/16 Care time: The patient presented to the Emergency Department on the above date and was hospitalized for further evaluation of their emergent condition. - New Patient This patient is new to me today: Yes Date on this admission: 07/28/16 - Critical Care Critical Care patient: Yes Total Critical Care Time (in minutes): 60 Critical Care Statement: The care of this patient involved high complexity decision making to prevent further life threatening deterioration of the patient 's condition and/or to evalute & treat vital organ system(s) failure or risk of failure. - Discharge Referral Referred to [facility] No
--- NOTE | 2016-07-28 16:04 | MSN ---
Progress Note (SOAP) - Subjective Chief Complaint: Weakness and SOB History of Present Illness: Mr. Solomon is a 66 y/o male with primary MHx of scarcoidosis and hypertension, who presented to the ED for weakness and dyspnea. Pt reports improving SOB and is glad he is off of Bipap. Pt is tolerating his diet. Denies lightheadedness, STEINBERG, chest pain, and abdominal pain. - Current Medications Current Medications: Active Medications Acetaminophen (Ofirmev Injection -) 1,000 mg IVPB Q6H PRN PRN Reason: FEVER OR PAIN Stop: 07/29/16 04:54 Last Admin: 07/28/16 11:30 Dose: 1,000 mg Albuterol Sulfate (Ventolin 0.083% Nebulizer Soln -) 1 amp NEB Q6H PRN PRN Reason: SHORT OF BREATH/WHEEZING Chlorhexidine Gluconate (Hibiclens For Decolonization -) 1 applic TP HS [facility] Heparin Sodium (Porcine) (Heparin -) 5,000 unit SQ TID [facility] Last Admin: 07/28/16 13:18 Dose: 5,000 unit Levofloxacin (Levaquin 750 Mg Premixed Ivpb -) 150 mls @ 100 mls/hr IVPB DAILY@ 0800 [facility] Last Admin: 07/28/16 08:09 Dose: 100 mls/hr Sodium Chloride (Normal Saline -) 1,000 mls @ 75 mls/hr IV ASDIR [facility] Last Admin: 07/28/16 10:10 Dose: 75 mls/hr Mupirocin (Bactroban Ointment (For Decolonization) -) 1 applic NS BID [facility] Stop: 08/01/16 21:59 Nifedipine (Procardia Xl -) 60 mg PO HS [facility] Oseltamivir Phosphate (Tamiflu -) 75 mg PO BID [facility] Stop: 08/01/16 21:59 Last Admin: 07/28/16 10:10 Dose: 75 mg - Objective Vital Signs: Vital Signs Temperature 98.9 F 07/28/16 14:00 Pulse Rate 101 H 07/28/16 14:00 Respiratory Rate 20 07/28/16 14:00 Blood Pressure 128/66 07/28/16 14:00 O2 Sat by Pulse Oximetry (%) 100 07/28/16 13:00 Constitutional: Yes: Mild Distress, Thin Eyes: Yes: EOM Intact HENT: Yes: Atraumatic, Normocephalic Cardiovascular: Yes: Tachycardia. No: Murmur Respiratory: Yes: Tachypnea Gastrointestinal: Yes: Normal Bowel Sounds, Soft Peripheral Pulses WNL: Yes Peripheral Pulses: Left Radial: 2+, Right Radial: 2+, Left Doralis Pedis: 2+, Right Dorsalis Pedis: 2+ Edema: No Neurological: Yes: Alert, Oriented Psychiatric: Yes: WNL Labs Lab Results: CBC,CMP WBC 8.7 K/mm3 (4.0-10.0) 07/28/16 06:15 RBC 4.50 M/mm3 (4.00-5.60) 07/28/16 06:15 Hgb 12.1 GM/dL (11.7-16.9) 07/28/16 06:15 Hct 36.2 % (35.4-49) 07/28/16 06:15 MCV 80.3 fl (80-96) 07/28/16 06:15 MCHC 33.5 g/dl (32.0-35.9) 07/28/16 06:15 RDW 14.4 % (11.9-15.9) 07/28/16 06:15 Plt Count 170 K/MM3 (134-434) 07/28/16 06:15 MPV 8.5 fl (7.5-11.1) 07/28/16 06:15 Neutrophils % 91.3 % (42.8-82.8) H 07/28/16 06:15 Lymphocytes % 4.7 % (8-40) L D 07/28/16 06:15 Monocytes % 3.9 % (3.8-10.2) 07/28/16 06:15 Eosinophils % 0.0 % (0-4.5) 07/28/16 06:15 Basophils % 0.1 % (0-2.0) 07/28/16 06:15 Sodium 140 mmol/L (136-145) 07/28/16 06:15 Potassium 3.8 mmol/L (3.5-5.1) 07/28/16 06:15 Chloride 104 mmol/L (98-107) 07/28/16 06:15 Carbon Dioxide 22 mmol/L (21-32) 07/28/16 06:15 Anion Gap 14 (8-16) 07/28/16 06:15 BUN 19 mg/dL (7-18) H 07/28/16 06:15 Creatinine 0.7 mg/dL (0.7-1.3) D 07/28/16 06:15 Creat Clearance w eGFR > 60 (>60) 07/28/16 06:15 Random Glucose 138 mg/dL (74-106) H 07/28/16 06:15 Lactic Acid 1.810 mmol/L (0.4-2.0) 07/28/16 06:15 Calcium 7.6 mg/dL (8.5-10.1) L 07/28/16 06:15 Phosphorus 2.4 mg/dL (2.5-4.9) L 07/28/16 06:15 Magnesium 2.5 mg/dL (1.8-2.4) H 07/28/16 06:15 Total Bilirubin 0.6 mg/dL (0.2-1.0) D 07/28/16 06:15 AST 68 U/L (15-37) H D 07/28/16 06:15 ALT 32 U/L (12-78) 07/28/16 06:15 Alkaline Phosphatase 106 U/L (45-117) 07/28/16 06:15 Creatine Kinase 512 IU/L (39-308) H D 07/28/16 11:30 Creatine Kinase Index 0.7 % (0.0-5.0) 07/28/16 11:30 CK-MB (CK-2) 3.7 ng/ml (0.5-3.6) H 07/28/16 11:30 CK-MB (CK-2) Rel Index Cancelled 07/27/16 14:15 Troponin I 0.07 ng/ml (0.00-0.05) H 07/28/16 11:30 Total Protein 7.3 g/dl (6.4-8.2) 07/28/16 06:15 Albumin 2.9 g/dl (3.4-5.0) L 07/28/16 06:15 Triglycerides 79 mg/dL (35-160) D 07/28/16 06:15 Cholesterol 97 mg/dL (50-200) D 07/28/16 06:15 Total LDL Cholesterol 52 mg/dL (5-100) D 07/28/16 06:15 HDL Cholesterol 39 mg/dL (40-60) L D 07/28/16 06:15 Vital Signs Temperature 98.9 F 07/28/16 14:00 Pulse Rate 101 H 07/28/16 14:00 Respiratory Rate 20 07/28/16 14:00 Blood Pressure 128/66 07/28/16 14:00 O2 Sat by Pulse Oximetry (%) 100 07/28/16 13:00 Microbiology 07/27/16 15:20 Influenza Types A,B Antigen (NIKI) - Final Nasopharyngeal Swab - Type B Antigen Positive 07/27/16 14:15 Blood Culture - Preliminary Blood - Peripheral Venous NO GROWTH OBTAINED AFTER 24 HOURS, INCUBATION TO CONTINUE FOR 4 DAYS. 07/27/16 14:15 Blood Culture - Preliminary Blood - Peripheral Venous NO GROWTH OBTAINED AFTER 24 HOURS, INCUBATION TO CONTINUE FOR 4 DAYS. Imaging - Results Chest X-ray: Report Reviewed (07/27/16: congestion with bilateral infiltrates) Cat Scan: Report Reviewed (07/28/16: paratracheal LN w/ calcification, multiple b/ l hilar LN calcification-- consistent with sarcoidosis. Small L pleural effusion. B/L airspace disease.) Assessment/Plan Mr. Solomon is a 66 y/o male with primary medical history of sarcoidosis and HTN , who presented to the ED with chief complaint of weakness and SOB. Pt is admitted to the ICU for sepsis secondary to flu with possible concurrent CAP. 1. Sepsis 2/2 Influenza with possible concurrent CAP -NS @ 75cc/hr -WBC 8.7 (12.4) -Continue Levofloxacin 750 IV qd -Tamiflu 75mg BID x 5 days -Lactic acid: 1.8 (10.4) -Pending mycoplasma ab, legionella urine antigen, and pneuococcal tests -Blood, urine, sputum culture pending 2. Acute Respiratory Failure -97% O2 Sat on Non-rebreather at 13L O2, transitioned from bipap -Albuterol Neb QID prn -Repeat ABG in AM 3. BIANCA -Resolved 0.7 (1.4) -Cont IVF 4. Elevated Troponin -Troponin 0.7 (0.8,0.7,0.8) -Likely 2/2 sepsis -ECHO: Preserved LV systolic fn. Minimal Mitral and tricuspid regurg. RV systolic pressure 40-50 5. HTN -Start home dose: procardia Xl 60 mg qhs 6. DVT ppx -Heparin sq
--- NOTE | 2016-07-28 16:33 | CONSULT ---
Consult Consult Specialty:: infectious diseases Reason for Consultation:: sob,hypoxia,inflenza - History of Present Illness Chief Complaint: sob weakness lethargy History of Present Illness: 66 y/o M w/PMH of sarcoidosis and HTN started to have symptoms from sundayight when he started becoming weak with vomiting and fever with generalized weakness Into sunday he became more weaker and started having sob which was then followed by cough with reddish sputum production patient continued to detoriate and became severely hypoxic and came to the hospital and was admitted patient did not get his flu vaccine this year patient currently on non breather on 100 percent and still is tachcardiac and tachypnoeic denies any other issues - History Source History Provided By: Patient, Family Member, Medical Record Limitations to Obtaining History: Clinical Condition - Alcohol/Substance Use Hx Alcohol Use: No - Smoking History Smoking history: Never smoked Have you smoked in the past 12 months: No Home Medications - Allergies Allergies/Adverse Reactions: Allergies Allergy/AdvReac Type Severity Reaction Status Date / Time No Known Drug Allergies Allergy Verified 11/26/13 09:46 - Home Medications Home Medications: Ambulatory Orders Nifedipine ER [Procardia XL -] 60 mg PO HS 11/03/13 Review of Systems - Review of Systems Constitutional: reports: Fever, Lethargy, Weakness Eyes: reports: No Symptoms HENT: reports: No Symptoms Neck: reports: No Symptoms Cardiovascular: reports: No Symptoms Respiratory: reports: Cough, Hemoptysis, SOB, SOB on Exertion Gastrointestinal: reports: No Symptoms Genitourinary: reports: No Symptoms Musculoskeletal: reports: Muscle Weakness Integumentary: reports: No Symptoms Neurological: reports: No Symptoms Endocrine: reports: No Symptoms Hematology/Lymphatic: reports: No Symptoms Psychiatric: reports: No Symptoms Physical Exam Vital Signs: Vital Signs Temperature 98.9 F 07/28/16 14:00 Pulse Rate 101 H 07/28/16 14:00 Respiratory Rate 20 07/28/16 14:00 Blood Pressure 128/66 07/28/16 14:00 O2 Sat by Pulse Oximetry (%) 100 07/28/16 13:00 Constitutional: Yes: Moderate Distress, Thin Eyes: Yes: Conjunctiva Clear HENT: Yes: Atraumatic Neck: Yes: Supple, Trachea Midline Cardiovascular: Yes: Tachycardia Respiratory: Yes: Poor Air Entry, Rhonchi, SOB on Exertion, Other (on non rebreather) Gastrointestinal: Yes: Normal Bowel Sounds, Soft Musculoskeletal: Yes: WNL Extremities: Yes: WNL Integumentary: Yes: WNL Neurological: Yes: Alert, Oriented Psychiatric: Yes: Alert, Oriented Labs: CBC, BMP 07/28/16 06:15 07/28/16 06:15 Imaging - Results Chest X-ray: Report Reviewed, Image Reviewed Cat Scan: Report Reviewed, Image Reviewed Assessment/Plan looked and evaluated the patient patient is critical and he has known history of sarcoidosis patient on non breather is having effort patient started on levaquin patient is not doing well might need intubation if he does not improve pneumonia resp failure influenza sarcoidosis plan will add zosyn continue to monitor closely if he tires out will need intubation resp support ct scan noted await for final cx report cc time 50 min
[2016-07-28] MEDS: MUPIROCIN 2% TOPICAL OINTMENT FOR DECOLONIZATION NS SCH ×3 (17:08→21:43)
[2016-07-28] MEDS: NAPH,MB-DB/K PH,MBDB POWDER PACKET PO SCH ×2 (17:12→22:08)
[2016-07-28] MEDS: PIPERACILLIN/TAZOB 3.375 GM 50 ML IVPB SCH (17:12)
--- NOTE | 2016-07-28 18:03 | PN ---
Physical Exam: SUBJECTIVE: Patient seen and examined 66 y/o M w/PMH of sarcoidosis, HTN presents to ED for progressively worsening generalized weakness and shortness of breath. Patient reports at his normal state of health. He began having weakness and cough 6 days ago. productive cough yellow sputum, no blood, patient coughed dark color sputum after having a chocolate flavored drink. patient reports having progressive fevers, chills, leathergy, SOB, dyspnea for 6 days. Pt also had one episode of non bloody vomiting and diarrhea. He took mucomyst with some relief of symptoms. He denies these type of symptoms in the past and says this is the first time he has had these symptoms. patient reports history of sarcoid with skin manifestation. The patient denies chest pain, headache,dizziness, lightheadedness, The patient denies lower extremity pain/swelling and/or recent prolonged immobilization. He denies CP, abd pain, light-headedness, dizziness, palpitations, pain with deep inspiration. He does not use oxygen at home. No recent flu vaccine. never had pulmonary sarcoid flair, skin mesfistations years ago, followed by [facility] with repeat chest imaging. Last stress test begign 2 months ago, benign colonoscopy 2 years ago. OBJECTIVE: Vital Signs Period Temp Pulse Resp BP Sys/Villalobos Pulse Ox Last 24 Hr 98.6 F-100 F 98-113 20-36 119-160/66-79 92-100 GENERAL: The patient is awake, alert, and fully oriented, in no acute distress. HEAD: Normal with no signs of trauma. EYES: PERRL, extraocular movements intact, sclera anicteric, conjunctiva clear. No ptosis. ENT: Ears normal, nares patent, oropharynx clear without exudates, moist mucous membranes. NECK: Trachea midline, full range of motion, supple. LUNGS: Breath sounds equal, clear to auscultation bilaterally, no wheezes, no crackles, no accessory muscle use. HEART: Regular rate and rhythm, S1, S2 without murmur, rub or gallop. ABDOMEN: Soft, nontender, nondistended, normoactive bowel sounds, no guarding, no rebound, no hepatosplenomegaly, no masses. EXTREMITIES: 2+ pulses, warm, well-perfused, no edema. NEUROLOGICAL: Cranial nerves II through XII grossly intact. Normal speech, gait not observed. PSYCH: Normal mood, normal affect. SKIN: Warm, dry, normal turgor, no rashes or lesions noted Laboratory Results - last 24 hr 07/27/16 07/27/16 07/27/16 20:40 20:40 23:48 WBC RBC Hgb Hct MCV MCHC RDW Plt Count MPV Neutrophils % Lymphocytes % Monocytes % Eosinophils % Basophils % Puncture Site Right radial ABG pH 7.46 H ABG pCO2 at Pt Temp 32.7 L ABG pO2 at Pt Temp 62.0 L ABG HCO3 22.8 ABG O2 Sat (Measured) 90.6 ABG O2 Content 14.5 L ABG Base Excess -0.1 Vazquez Test Positive Carboxyhemoglobin 1.6 Methemoglobin 0.5 O2 Delivery Device Bipap Oxygen Flow Rate [address] Vent Rate 14 Mechanical Rate PEEP 0.0 Pressure Support Vent 12/8 Sodium Potassium Chloride Carbon Dioxide Anion Gap BUN Creatinine Creat Clearance w eGFR Random Glucose Lactic Acid 3.236 H* Calcium Phosphorus Magnesium Total Bilirubin AST ALT Alkaline Phosphatase Creatine Kinase Creatine Kinase Index CK-MB (CK-2) CK-MB (CK-2) Rel Index Troponin I Total Protein Albumin Triglycerides Cholesterol Total LDL Cholesterol HDL Cholesterol 07/27/16 07/28/16 07/28/16 23:48 06:15 06:15 WBC 8.7 RBC 4.50 Hgb 12.1 Hct 36.2 MCV 80.3 MCHC 33.5 RDW 14.4 Plt Count 170 MPV 8.5 Neutrophils % 91.3 H Lymphocytes % 4.7 L D Monocytes % 3.9 Eosinophils % 0.0 Basophils % 0.1 Puncture Site ABG pH ABG pCO2 at Pt Temp ABG pO2 at Pt Temp ABG HCO3 ABG O2 Sat (Measured) ABG O2 Content ABG Base Excess Vazquez Test Carboxyhemoglobin Methemoglobin O2 Delivery Device Oxygen Flow Rate Vent Mode Vent Rate Mechanical Rate PEEP Pressure Support Vent Sodium 140 Potassium 3.8 Chloride 104 Carbon Dioxide 22 Anion Gap 14 BUN 19 H Creatinine 0.7 D Creat Clearance w eGFR > 60 Random Glucose 138 H Lactic Acid Calcium 7.6 L Phosphorus Magnesium Total Bilirubin 0.6 D AST 68 H D ALT 32 Alkaline Phosphatase 106 Creatine Kinase Creatine Kinase Index CK-MB (CK-2) CK-MB (CK-2) Rel Index Troponin I 0.07 H 0.08 H Total Protein 7.3 Albumin 2.9 L Triglycerides Cholesterol Total LDL Cholesterol HDL Cholesterol 07/28/16 07/28/16 07/28/16 06:15 06:15 06:15 WBC RBC Hgb Hct MCV MCHC RDW Plt Count MPV Neutrophils % Lymphocytes % Monocytes % Eosinophils % Basophils % Puncture Site ABG pH ABG pCO2 at Pt Temp ABG pO2 at Pt Temp ABG HCO3 ABG O2 Sat (Measured) ABG O2 Content ABG Base Excess Vazquez Test Carboxyhemoglobin Methemoglobin O2 Delivery Device Oxygen Flow Rate Vent Mode Vent Rate Mechanical Rate PEEP Pressure Support Vent Sodium Potassium Chloride Carbon Dioxide Anion Gap BUN Creatinine Creat Clearance w eGFR Random Glucose Lactic Acid 1.810 Calcium Phosphorus 2.4 L Magnesium 2.5 H Total Bilirubin AST ALT Alkaline Phosphatase Creatine Kinase Creatine Kinase Index CK-MB (CK-2) CK-MB (CK-2) Rel Index Troponin I Total Protein Albumin Triglycerides 79 D Cholesterol 97 D Total LDL Cholesterol 52 D HDL Cholesterol 39 L D 07/28/16 07/28/16 07/28/16 07:00 11:30 11:30 WBC RBC Hgb Hct MCV MCHC RDW Plt Count MPV Neutrophils % Lymphocytes % Monocytes % Eosinophils % Basophils % Puncture Site Right radial ABG pH 7.51 H ABG pCO2 at Pt Temp 28.7 L ABG pO2 at Pt Temp 58.1 L ABG HCO3 22.9 ABG O2 Sat (Measured) 91.0 ABG O2 Content 14.1 L ABG Base Excess 0.9 Vazquez Test Positive Carboxyhemoglobin Methemoglobin O2 Delivery Device Bipap Oxygen Flow Rate 50% Vent Mode S/t Vent Rate 14 Mechanical Rate Bipap PEEP 0.0 Pressure Support Vent 12/8 Sodium Potassium Chloride Carbon Dioxide Anion Gap BUN Creatinine Creat Clearance w eGFR Random Glucose Lactic Acid Calcium Phosphorus Magnesium Total Bilirubin AST ALT Alkaline Phosphatase Creatine Kinase 512 H D Creatine Kinase Index 0.7 CK-MB (CK-2) 3.7 H CK-MB (CK-2) Rel Index Cancelled Troponin I 0.07 H Total Protein Albumin Triglycerides Cholesterol Total LDL Cholesterol HDL Cholesterol Active Medications Generic Name Dose Route Start Last Admin Trade Name Freq PRN Reason Stop Dose Admin Acetaminophen 1,000 mg 07/28/16 10:53 07/28/16 11:30 Ofirmev Injection - IVPB 07/29/16 04:54 1,000 mg Q6H PRN Administration FEVER OR PAIN Albuterol Sulfate 1 amp 07/28/16 04:03 Ventolin 0.083% Nebulizer Soln - NEB Q6H PRN SHORT OF BREATH/WHEEZING Chlorhexidine Gluconate 1 applic 07/27/16 22:00 Hibiclens For Decolonization - TP HS DONAL Heparin Sodium (Porcine) 5,000 unit 07/27/16 22:00 07/28/16 13:18 Heparin - SQ 5,000 unit TID DONAL Administration Levofloxacin 150 mls @ 100 mls/hr 07/28/16 08:00 07/28/16 08:09 Levaquin 750 Mg Premixed Ivpb - IVPB 100 mls/hr DAILY@0800 DONAL Administration Sodium Chloride 1,000 mls @ 75 mls/hr 07/28/16 09:39 07/28/16 10:10 Normal Saline - IV 75 mls/hr ASDIR DONAL Administration Piperacillin Sod/Tazobactam Sod 50 mls @ 100 mls/hr 07/28/16 18:00 07/28/16 17: 12 Zosyn 3.375gm Ivpb (Pre-Docked) IVPB 100 mls/hr Q8H-IV DONAL Administration Protocol Mupirocin 1 applic 07/27/16 22:00 07/28/16 17:08 Bactroban Ointment (For Decolonization) - NS 08/01/16 21:59 Not Given BID DONAL Nifedipine 60 mg 07/28/16 22:00 Procardia Xl - PO HS [facility] Oseltamivir Phosphate 75 mg 07/27/16 22:00 07/28/16 10:10 Tamiflu - PO 08/01/16 21:59 75 mg BID DONAL Administration Potassium Phos/Sodium Phos 2 packet 07/28/16 16:30 07/28/16 17:12 Phos-Nak Packet - PO 07/28/16 22:01 2 packet BID DONAL Administration ASSESSMENT/PLAN:
--- NOTE | 2016-07-28 18:54 | CONSULT ---
Consultation: REQUESTING PROVIDER: CONSULT REQUEST: We have been asked to medically evaluate this patient for ([facility]) . HISTORY OF PRESENT ILLNESS: 66 y/o M w/PMH of sarcoidosis, HTN presents to ED for progressively worsening generalized weakness and shortness of breath. Patient reports at his normal state of health when h began having weakness and cough 6 days ago. productive cough yellow sputum, no blood, patient coughed dark color sputum after having a chocolate flavored drink. patient reports having progressive fevers, chills, leathery, SOB, dyspnea for 6 days. Pt also had one episode of non bloody vomiting and diarrhea. He took mucomyst with some relief of symptoms. He denies these type of symptoms in the past and says this is the first time he has had these symptoms. patient reports history of sarcoid with skin manifestation, never had pulmonary sarcoid flair, skin manifestations 20 years ago, has been aymptomatic, not only any sarcoid therapy, followed by Dr. campuzano with repeat chest imaging. Last stress test benign 2 months ago, benign colonoscopy 2 years ago. The patient denies lower extremity pain/ swelling and/or recent prolonged immobilization. He denies CP, abd pain, light- headedness, dizziness, palpitations, pain with deep inspiration. He does not use oxygen at home. No recent flu vaccine. multiple environmental exposures from asbestos, construction Dust, patient currently on non breather on 100 percent and still is tachycardic and tachypneic REVIEW OF SYSTEMS: CONSTITUTIONAL: fever, chills, diaphoresis, generalized weakness, malaise, Absent: loss of appetite, weight change HEENT: rhinorrhea, nasal congestion, Absent: throat pain, throat swelling, difficulty swallowing, mouth swelling, ear pain, eye pain, visual changes CARDIOVASCULAR: Absent: chest pain, syncope, palpitations, irregular heart rate, lightheadedness , peripheral edema RESPIRATORY: cough, shortness of breath, dyspnea with exertion, Absent: orthopnea, wheezing, stridor, hemoptysis GASTROINTESTINAL: Absent: abdominal pain, abdominal distension, nausea, vomiting, diarrhea, constipation, melena, hematochezia GENITOURINARY: Absent: dysuria, frequency, urgency, hesitancy, hematuria, flank pain, genital pain MUSCULOSKELETAL: Absent: myalgia, arthralgia, joint swelling, back pain, neck pain SKIN: Absent: rash, itching, pallor HEMATOLOGIC/IMMUNOLOGIC: Absent: easy bleeding, easy bruising, lymphadenopathy, frequent infections ENDOCRINE: Absent: unexplained weight gain, unexplained weight loss, heat intolerance, cold intolerance NEUROLOGIC: Absent: headache, focal weakness or paresthesias, dizziness, unsteady gait, seizure, mental status changes, bladder or bowel incontinence PSYCHIATRIC: anxiety, Absent: depression, suicidal or homicidal ideation, hallucinations. PHYSICAL EXAMINATION Vital Signs - 24 hr 07/27/16 07/27/16 07/27/16 21:20 22:45 23:05 Temperature 98.6 F Pulse Rate Pulse Rate [ 101 H Apical] Respiratory 36 H Rate Blood Pressure 134/74 Blood Pressure 134/70 [Left Arm] O2 Sat by Pulse 92 L 98 Oximetry (%) 07/28/16 07/28/16 07/28/16 00:08 04:23 07:01 Temperature 98.6 F Pulse Rate Pulse Rate [ 98 H 106 H Apical] Respiratory 35 H 35 H Rate Blood Pressure Blood Pressure 119/67 136/72 [Left Arm] O2 Sat by Pulse 96 98 Oximetry (%) 07/28/16 07/28/16 07/28/16 07:24 07:40 07:55 Temperature 100 F H Pulse Rate 104 H Pulse Rate [ 104 H 106 H Apical] Respiratory 26 H 28 H Rate Blood Pressure Blood Pressure 132/70 [Left Arm] O2 Sat by Pulse 96 98 99 Oximetry (%) 07/28/16 07/28/16 07/28/16 10:29 10:30 10:47 Temperature 100 F H Pulse Rate 106 H Pulse Rate [ 106 H 113 H Apical] Respiratory 33 H 36 H 28 H Rate Blood Pressure 154/74 Blood Pressure 154/74 136/69 [Left Arm] O2 Sat by Pulse 96 96 96 Oximetry (%) 07/28/16 07/28/16 07/28/16 12:05 12:20 13:00 Temperature 99.1 F Pulse Rate 105 H 100 H Pulse Rate [ Apical] Respiratory 32 H Rate Blood Pressure 160/79 Blood Pressure [Left Arm] O2 Sat by Pulse 97 100 Oximetry (%) 07/28/16 07/28/16 14:00 16:00 Temperature 98.9 F Pulse Rate 101 H 102 H Pulse Rate [ Apical] Respiratory 20 34 H Rate Blood Pressure 128/66 124/66 Blood Pressure [Left Arm] O2 Sat by Pulse Oximetry (%) GENERAL: The patient is awake, alert, and fully oriented, in acute respiratory distress RR ~39 satruting 89%-92% venti mask, anxious, speaks in incomplete sentences HEAD: Normal with no signs of trauma. EYES: extraocular movements intact, sclera anicteric, conjunctiva clear. ENT: Ears normal, nares patent, oropharynx clear without exudates, moist mucous membranes. NECK: Trachea midline, full range of motion, supple. LUNGS: Breath sounds equal, clear to auscultation bilaterally, no wheezes, no crackles, no accessory muscle use. HEART: Regular rate and rhythm, S1, S2 without murmur, rub or gallop. ABDOMEN: Soft, nontender, nondistended, normoactive bowel sounds, no guarding, no rebound, no hepatosplenomegaly, no masses. EXTREMITIES: 2+ pulses, warm, well-perfused, no edema. NEUROLOGICAL: Normal speech, gait not observed. PSYCH: Normal mood, normal affect. anxiety SKIN: Warm, dry, normal turgor, no rashes or lesions noted Laboratory Results - last 24 hr 07/27/16 07/27/16 07/27/16 20:40 20:40 23:48 WBC RBC Hgb Hct MCV MCHC RDW Plt Count MPV Neutrophils % Lymphocytes % Monocytes % Eosinophils % Basophils % Puncture Site Right radial ABG pH 7.46 H ABG pCO2 at Pt Temp 32.7 L ABG pO2 at Pt Temp 62.0 L ABG HCO3 22.8 ABG O2 Sat (Measured) 90.6 ABG O2 Content 14.5 L ABG Base Excess -0.1 Vazquez Test Positive Carboxyhemoglobin 1.6 Methemoglobin 0.5 O2 Delivery Device Bipap Oxygen Flow Rate [address] Vent Rate 14 Mechanical Rate PEEP 0.0 Pressure Support Vent 12/8 Sodium Potassium Chloride Carbon Dioxide Anion Gap BUN Creatinine Creat Clearance w eGFR Random Glucose Lactic Acid 3.236 H* Calcium Phosphorus Magnesium Total Bilirubin AST ALT Alkaline Phosphatase Creatine Kinase Creatine Kinase Index CK-MB (CK-2) CK-MB (CK-2) Rel Index Troponin I Total Protein Albumin Triglycerides Cholesterol Total LDL Cholesterol HDL Cholesterol 07/27/16 07/28/16 07/28/16 23:48 06:15 06:15 WBC 8.7 RBC 4.50 Hgb 12.1 Hct 36.2 MCV 80.3 MCHC 33.5 RDW 14.4 Plt Count 170 MPV 8.5 Neutrophils % 91.3 H Lymphocytes % 4.7 L D Monocytes % 3.9 Eosinophils % 0.0 Basophils % 0.1 Puncture Site ABG pH ABG pCO2 at Pt Temp ABG pO2 at Pt Temp ABG HCO3 ABG O2 Sat (Measured) ABG O2 Content ABG Base Excess Vazquez Test Carboxyhemoglobin Methemoglobin O2 Delivery Device Oxygen Flow Rate Vent Mode Vent Rate Mechanical Rate PEEP Pressure Support Vent Sodium 140 Potassium 3.8 Chloride 104 Carbon Dioxide 22 Anion Gap 14 BUN 19 H Creatinine 0.7 D Creat Clearance w eGFR > 60 Random Glucose 138 H Lactic Acid Calcium 7.6 L Phosphorus Magnesium Total Bilirubin 0.6 D AST 68 H D ALT 32 Alkaline Phosphatase 106 Creatine Kinase Creatine Kinase Index CK-MB (CK-2) CK-MB (CK-2) Rel Index Troponin I 0.07 H 0.08 H Total Protein 7.3 Albumin 2.9 L Triglycerides Cholesterol Total LDL Cholesterol HDL Cholesterol 07/28/16 07/28/16 07/28/16 06:15 06:15 06:15 WBC RBC Hgb Hct MCV MCHC RDW Plt Count MPV Neutrophils % Lymphocytes % Monocytes % Eosinophils % Basophils % Puncture Site ABG pH ABG pCO2 at Pt Temp ABG pO2 at Pt Temp ABG HCO3 ABG O2 Sat (Measured) ABG O2 Content ABG Base Excess Vazquez Test Carboxyhemoglobin Methemoglobin O2 Delivery Device Oxygen Flow Rate Vent Mode Vent Rate Mechanical Rate PEEP Pressure Support Vent Sodium Potassium Chloride Carbon Dioxide Anion Gap BUN Creatinine Creat Clearance w eGFR Random Glucose Lactic Acid 1.810 Calcium Phosphorus 2.4 L Magnesium 2.5 H Total Bilirubin AST ALT Alkaline Phosphatase Creatine Kinase Creatine Kinase Index CK-MB (CK-2) CK-MB (CK-2) Rel Index Troponin I Total Protein Albumin Triglycerides 79 D Cholesterol 97 D Total LDL Cholesterol 52 D HDL Cholesterol 39 L D 07/28/16 07/28/16 07/28/16 07:00 11:30 11:30 WBC RBC Hgb Hct MCV MCHC RDW Plt Count MPV Neutrophils % Lymphocytes % Monocytes % Eosinophils % Basophils % Puncture Site Right radial ABG pH 7.51 H ABG pCO2 at Pt Temp 28.7 L ABG pO2 at Pt Temp 58.1 L ABG HCO3 22.9 ABG O2 Sat (Measured) 91.0 ABG O2 Content 14.1 L ABG Base Excess 0.9 Vazquez Test Positive Carboxyhemoglobin Methemoglobin O2 Delivery Device Bipap Oxygen Flow Rate 50% Vent Mode S/t Vent Rate 14 Mechanical Rate Bipap PEEP 0.0 Pressure Support Vent 12/8 Sodium Potassium Chloride Carbon Dioxide Anion Gap BUN Creatinine Creat Clearance w eGFR Random Glucose Lactic Acid Calcium Phosphorus Magnesium Total Bilirubin AST ALT Alkaline Phosphatase Creatine Kinase 512 H D Creatine Kinase Index 0.7 CK-MB (CK-2) 3.7 H CK-MB (CK-2) Rel Index Cancelled Troponin I 0.07 H Total Protein Albumin Triglycerides Cholesterol Total LDL Cholesterol HDL Cholesterol Active Medications Generic Name Dose Route Start Last Admin Trade Name Freq PRN Reason Stop Dose Admin Acetaminophen 1,000 mg 07/28/16 10:53 07/28/16 11:30 Ofirmev Injection - IVPB 07/29/16 04:54 1,000 mg Q6H PRN Administration FEVER OR PAIN Albuterol Sulfate 1 amp 07/28/16 04:03 Ventolin 0.083% Nebulizer Soln - NEB Q6H PRN SHORT OF BREATH/WHEEZING Chlorhexidine Gluconate 1 applic 07/27/16 22:00 Hibiclens For Decolonization - TP HS DONAL Heparin Sodium (Porcine) 5,000 unit 07/27/16 22:00 07/28/16 13:18 Heparin - SQ 5,000 unit TID DONAL Administration Levofloxacin 150 mls @ 100 mls/hr 07/28/16 08:00 07/28/16 08:09 Levaquin 750 Mg Premixed Ivpb - IVPB 100 mls/hr DAILY@0800 DONAL Administration Sodium Chloride 1,000 mls @ 75 mls/hr 07/28/16 09:39 07/28/16 10:10 Normal Saline - IV 75 mls/hr ASDIR DONAL Administration Piperacillin Sod/Tazobactam Sod 50 mls @ 100 mls/hr 07/28/16 18:00 07/28/16 17: 12 Zosyn 3.375gm Ivpb (Pre-Docked) IVPB 100 mls/hr Q8H-IV DONAL Administration Protocol Ibuprofen 600 mg 07/28/16 18:25 Caldolor Injection - IVPB Q8H PRN FEVER Methylprednisolone Sodium Succinate 60 mg 07/28/16 18:30 Solu-Medrol - IVPB Q8H-IV DONAL Mupirocin 1 applic 07/27/16 22:00 07/28/16 17:08 Bactroban Ointment (For Decolonization) - NS 08/01/16 21:59 Not Given BID DONAL Nifedipine 60 mg 07/28/16 22:00 Procardia Xl - PO HS DONAL Oseltamivir Phosphate 75 mg 07/27/16 22:00 07/28/16 10:10 Tamiflu - PO 08/01/16 21:59 75 mg BID DONAL Administration Potassium Phos/Sodium Phos 2 packet 07/28/16 16:30 07/28/16 17:12 Phos-Nak Packet - PO 07/28/16 22:01 2 packet BID DONAL Administration Microbiology 07/27/16 15:20 Nasopharyngeal Swab Influenza Types A,B Antigen (NIKI) - Final 07/27/16 15:20 Nasopharyngeal Swab - Final 07/27/16 14:15 Blood - Peripheral Venous Blood Culture - Preliminary NO GROWTH OBTAINED AFTER 24 HOURS, INCUBATION TO CONTINUE FOR 4 DAYS. 07/27/16 14:15 Blood - Peripheral Venous Blood Culture - Preliminary NO GROWTH OBTAINED AFTER 24 HOURS, INCUBATION TO CONTINUE FOR 4 DAYS. ASSESSMENT/PLAN: 66 y/o M w/PMH of sarcoidosis and HTN presents to ER for progressively worsening generalized weakness and shortness of breath. Admitted to ICU for sepsis secondary to flinfluenza type B. and CAP with respiratory failure. -Severe sepsis secondary to FLU B+ can not rule out bacterial infection. w/ superimposed CAP. UA negative -Tachycardic, WBC elevated, Tachypneic + FLU B+, b/l infiltrates -Mycobacterium tuberculosis must be excluded in light of history of sarcoidosis.. -Pending mycoplasma ab, legionella urine antigen, and pneuococcal tests -Blood, urine, sputum culture pending -IVF -Levaquin, zosyn and [id number] mg IV qd, continue tamiflu, -ID Consulted -Tamiflu 75 mg bid -Trend LA, trending down at this time (10.4 --> 5.9 --> 3.2) -CXR in AM -f/u BCx, SpCx, UCx -Acute hypoxic respiratory failure,RR~39 conceded will not maintain, -secondary to flu, cap (viral v bacterial) -Bipap as per ICU team recommendation -o2 support for sat >90 -may need intubation if no improvement with BiPAP -f/u echocardiogram -f/u abg -BiPAP to assist in work of breathing -alb nebs q6h PRN -solumedrole IV -ABG in AM -Pulm consulted (Dr. Campuzano) - inhaled bronchodilators - Daily CXR -Elevated Trops -most likely due to demand ischemia -trend trops (currently 0.08 --> 0.07), lipid panel in AM ordered -Echo -BIANCA -Cr 1.4, baseline ~0.8: resolved now 0.7 -most likely secondary to severe sepsis -monitor, on fluids -Elevated AST -most likeley demand ischema secondary to tachycardia and demand induced. -ECHO: Preserved LV systolic fn. Minimal Mitral and tricuspid regurg. elevated RV systolic pressure 40-50 (Moderate pulmonary hHT Dwain elevated RV systolic pressure. -Hx of Sarcoidosis -Pulm Consulted -solumedrole IV -HTN -pt on procardia at home, will hold in light of severe sepsis -DVT ppx -Heparin sq tid -FEN replete electrolyte as needed -NS @ 150 ml/hr -corrected Ca: 8.96; Hypochloremia: 96, on NS, monitor - NPO on Bipap or possible intubation DVT ppx -Heparin sq GI ppx -protonix Dispo: ICU Visit type - Emergency Visit Emergency Visit: Yes ED Registration Date: 07/27/16 Care time: The patient presented to the Emergency Department on the above date and was hospitalized for further evaluation of their emergent condition. - New Patient This patient is new to me today: Yes Date on this admission: 07/27/16 - Critical Care Critical Care patient: Yes Total Critical Care Time (in minutes): 52 Critical Care Statement: The care of this patient involved high complexity decision making to prevent further life threatening deterioration of the patient 's condition and/or to evalute & treat vital organ system(s) failure or risk of failure.
[2016-07-28] MEDS: IBUPROFEN 800 MG/8 ML IJ IVPB PRN (19:03)
[2016-07-28] MEDS: methylPREDNISolone NA SUCC 125 MG/2 ML VIAL IVPB SCH (19:04)
[2016-07-28] MEDS ORDERED: PT OWN MED DRAWER 7, Y5N ONE (20:35)
[2016-07-28] MEDS ORDERED: PANTOPRAZOLE SODIUM 100 ML IVPB SCH (21:00)
--- NOTE | 2016-07-28 21:19 | CONSULT ---
Consult Consult Specialty:: PULM / CRITICAL CARE MEDICINE Referred by:: Dr Otero Reason for Consultation:: Hypoxic respiratory failure - History of Present Illness Chief Complaint: SOB History of Present Illness: 66 male with sarcoid and HTN, presented to the ED with a few days of fever, malaise, productive cough, nausea and SOB. He was hypoxic requiring NRB, was briefly on NIPPV then back to NRB. CXR shows b/l infiltrates. He was found to be flu +. He was started on Tamiflu, Zosyn, LVQ and transferred to the ICU for management. - History Source History Provided By: Patient, Medical Record Limitations to Obtaining History: No Limitations - Past Medical History Cardio/Vascular: Yes: HTN Pulmonary: Yes: Other (Sarcoidosis) - Alcohol/Substance Use Hx Alcohol Use: No - Smoking History Smoking history: Never smoked Have you smoked in the past 12 months: No Home Medications - Allergies Allergies/Adverse Reactions: Allergies Allergy/AdvReac Type Severity Reaction Status Date / Time No Known Drug Allergies Allergy Verified 11/26/13 09:46 - Home Medications Home Medications: Ambulatory Orders Nifedipine ER [Procardia XL -] 60 mg PO HS 11/03/13 Family Disease History - Family Disease History Family History: Unremarkable Review of Systems - Review of Systems Constitutional: reports: Malaise, Weakness HENT: reports: No Symptoms Neck: reports: No Symptoms Cardiovascular: reports: Shortness of Breath Respiratory: reports: Cough, SOB, SOB on Exertion Gastrointestinal: reports: No Symptoms Genitourinary: reports: No Symptoms Musculoskeletal: reports: No Symptoms Integumentary: reports: No Symptoms Neurological: reports: No Symptoms Endocrine: reports: No Symptoms Physical Exam Vital Signs: Vital Signs Temperature 98.9 F 07/28/16 14:00 Pulse Rate 102 H 07/28/16 16:00 Respiratory Rate 34 H 07/28/16 16:00 Blood Pressure 124/66 07/28/16 16:00 O2 Sat by Pulse Oximetry (%) 96 07/28/16 18:25 Constitutional: Yes: Cachectic Eyes: Yes: WNL HENT: Yes: Atraumatic, Normocephalic Neck: Yes: WNL Cardiovascular: Yes: Tachycardia, S1, S2 Respiratory: Yes: Accessory Muscle Use, Cough, Rhonchi Gastrointestinal: Yes: Normal Bowel Sounds, Soft Musculoskeletal: Yes: WNL Extremities: Yes: WNL Edema: No Peripheral Pulses WNL: Yes Integumentary: Yes: WNL Neurological: Yes: WNL Labs: CBC, BMP 07/28/16 06:15 07/28/16 06:15 Imaging - Results Chest X-ray: Report Reviewed, Image Reviewed EKG: Report Reviewed Assessment/Plan Hypoxemia Influenza Multilobar Pneumonia Sarcoidosis HTN -NRB for now - he is keeping up, but will intubate if he tires out -Abx per ID - Tamiflu/LVQ/Zosyn -NPO for now -BP control -GI and DVT PPx Critically Ill Thank you for this interesting consult 50min [facility] Pulm/Critical Care [employer]IST
[2016-07-28] MEDS ORDERED: ALBUTEROL SO4 0.5 % INH SOLN 2.5 MG/0.5 ML VIAL.NEB. NEB PRN (21:28)
[2016-07-28] MEDS ORDERED: ALBUTEROL SO4 0.042% IH SOL 1.25 MG/3 ML VIAL.NEB NEB PRN (21:29)
[2016-07-28] MEDS: CHLORHEXIDINE GLUCONATE 4% CLEANSER FOR DECOLONIZATION TP SCH (21:44)
[2016-07-28] MEDS: NIFEdipine E.R 60 MG TABLET (UD) PO SCH (21:52)
[2016-07-28] MEDS: ALBUTEROL SO4 0.083% IH SOL 2.5 MG/3 ML VIAL.NEB. NEB SCH (23:51)
[2016-07-29] MEDS: ALBUTEROL SO4 0.083% IH SOL 2.5 MG/3 ML VIAL.NEB. NEB SCH ×4 (00:21→17:38)
[2016-07-29] MEDS: methylPREDNISolone NA SUCC 125 MG/2 ML VIAL IVPB SCH (02:21)
[2016-07-29] MEDS: PIPERACILLIN/TAZOB 3.375 GM 50 ML IVPB SCH ×3 (02:23→17:40)
[2016-07-29] MEDS ORDERED: PT OWN MED DRAWER 7, Y5N ONE ×3 (05:29→21:02)
--- NOTE | 2016-07-29 06:17 | PN ---
Progress Note (short form) - Note Progress Note: PULM / CRITICAL CARE MEDICINE PROGRESS NOTE: Pt seen and examined in the ICU 24 HOUR EVENTS: -Breathing is more comfortable, but still with high FiO2 requirements and SOB with movement. Low grade fevers (100). Current Medications Albuterol Sulfate (Ventolin 0.083% Nebulizer Soln -) 1 amp NEB QIDR [facility] Last Admin: 07/29/16 00:21 Dose: 1 amp Albuterol Sulfate (Ventolin 0.042trength) -) 1 amp NEB Q6H PRN PRN Reason: SHORT OF BREATH/WHEEZING Chlorhexidine Gluconate (Hibiclens For Decolonization -) 1 applic TP HS [facility] Last Admin: 07/28/16 21:44 Dose: 1 applic Heparin Sodium (Porcine) (Heparin -) 5,000 unit SQ TID [facility] Last Admin: 07/28/16 21:52 Dose: 5,000 unit Levofloxacin (Levaquin 750 Mg Premixed Ivpb -) 150 mls @ 100 mls/hr IVPB DAILY@ 0800 [facility] Last Admin: 07/28/16 08:09 Dose: 100 mls/hr Sodium Chloride (Normal Saline -) 1,000 mls @ 75 mls/hr IV ASDIR [facility] Last Admin: 07/28/16 10:10 Dose: 75 mls/hr Piperacillin Sod/Tazobactam Sod (Zosyn 3.375gm Ivpb (Pre-Docked)) 50 mls @ 100 mls/hr IVPB Q8H-IV [facility] PRN Reason: Protocol Last Admin: 07/29/16 02:23 Dose: 100 mls/hr Pantoprazole Sodium (Protonix 40mg Ivpb (Pre-Docked)) 100 mls @ 200 mls/hr IVPB DAILY [facility] Last Admin: 07/28/16 21:53 Dose: 200 mls/hr Ibuprofen (Caldolor Injection -) 600 mg IVPB Q8H PRN PRN Reason: FEVER Last Admin: 07/28/16 19:03 Dose: 600 mg Methylprednisolone Sodium Succinate (Solu-Medrol -) 60 mg IVPB Q8H-IV [facility] Last Admin: 07/29/16 02:21 Dose: 60 mg Mupirocin (Bactroban Ointment (For Decolonization) -) 1 applic NS BID [facility] Stop: 08/01/16 21:59 Last Admin: 07/28/16 21:43 Dose: 1 applic Nifedipine (Procardia Xl -) 60 mg PO HS [facility] Last Admin: 07/28/16 21:52 Dose: 60 mg Oseltamivir Phosphate (Tamiflu -) 75 mg PO BID [facility] Stop: 08/01/16 21:59 Last Admin: 07/28/16 22:08 Dose: 75 mg Vital Signs Temp 98.6 F 07/29/16 02:00 Pulse 99 H 07/29/16 04:00 Resp 20 07/29/16 04:00 BP 136/69 07/29/16 04:00 Pulse Ox 100 07/29/16 03:03 Intake & Output 07/28/16 07/28/16 07/29/16 06:59 18:59 06:59 Intake Total 750 462.5 Output Total 1900 400 Balance -1150 62.5 Weight 79.7 kg Intake: IV 750 262.5 Normal Saline - 1,000 ml 750 262.5 @ 75 mls/hr IV ASDIR [facility]AL Rx#:[id number] IVPB 200 Output: Urine 1900 400 Void 1900 400 Other: Voiding Method Urinal Urinal Bowel Movement No Height 6 ft 3 in Body Mass Index (BMI) 24.3 Weight Measurement Method [facility] EXAM: Neuro: alert Chest: diminished, no wheezing Heart: RRR Abd: soft Ext: warm, no edema CBC, BMP 07/28/16 06:15 07/28/16 06:15 Microbiology 07/27/16 15:20 Influenza Types A,B Antigen (NIKI) - Final Nasopharyngeal Swab - Final 07/27/16 14:15 Blood Culture - Preliminary Blood - Peripheral Venous NO GROWTH OBTAINED AFTER 24 HOURS, INCUBATION TO CONTINUE FOR 4 DAYS. 07/27/16 14:15 Blood Culture - Preliminary Blood - Peripheral Venous NO GROWTH OBTAINED AFTER 24 HOURS, INCUBATION TO CONTINUE FOR 4 DAYS. Assessment/Plan Hypoxemia Influenza Multilobar Pneumonia Sarcoidosis HTN -NRB for now - he is keeping up, but will intubate if he tires out -Nebs and steroids - wean -Abx per ID - Tamiflu/LVQ/Zosyn -NPO for now -BP control -GI and DVT PPx Critically Ill 35min [facility] Pulm/Critical Care [employer]
[2016-07-29] MEDS: HEPARIN NA (PORCINE) 5,000 UNITS/ML 1ML VIAL SQ SCH ×3 (06:33→21:57)
[2016-07-29] MEDS: IBUPROFEN 800 MG/8 ML IJ IVPB PRN (06:33)
[2016-07-29 06:38] LABS: MCH 26.8 pg (25.7-33.7); MCHC 33.5 g/dl (32.0-35.9); MEAN PLT VOLUME 8.5 fl (7.5-11.1); PLATELET COUNT 210 K/MM3 (134-434); RDW 14.3 % (11.9-15.9); WHITE BLOOD COUNT 10.2 K/mm3 (4.0-10.0)
[2016-07-29 07:06] LABS: ALBUMIN 2.7 g/dl (3.4-5.0); ALK PHOS 139 U/L (45-117); ANION GAP 11 (8-16); BILIRUBIN,TOTAL 0.7 mg/dL (0.2-1.0); CO2 27 mmol/L (21-32); COCKROFT - GAULT 163; CREATININE 0.5 mg/dL (0.7-1.3); GLUCOSE,RANDOM 144 mg/dL (74-106); PHOSPHOROUS 2.7 mg/dL (2.5-4.9); SGOT/AST 48 U/L (15-37); SGPT/ALT 32 U/L (12-78); TOT PROT 6.7 g/dl (6.4-8.2)
[2016-07-29] MEDS: LEVOFLOXACIN 750 MG IVPB 150 ML IVPB SCH (08:21)
--- NOTE | 2016-07-29 08:30 | PN ---
Teaching Attending Note Name of Resident: Shiva Sidhu ATTENDING PHYSICIAN STATEMENT I saw and evaluated the patient. I reviewed the resident's note and discussed the case with the resident. I agree with the resident's findings and plan as documented. SUBJECTIVE: no fever or chills. he feels better today , no cough . no CP or ABd pain , passed gas, no BM yet . OBJECTIVE: NAD , AAOx3. cooperative , slightly tachypnic ( 18-20 ) MMM, no facial droop CV: regular rhythm , tachycardic . No JVD Lungs: minimal fine crackles on bases reji Left Abd : soft, NT, ND today , nl BS ext : no edema , no tremor ASSESSMENT AND PLAN: 66 y/o man with h/o HTN, sarcoidosis , who presented with 5-day hx of fever , cough, runny nose and was found to have severe sepsis and Flu B . 1- Severe sepsis: from Flu B, and possible influenza Pneumonia . Superimposed bacterial PNA can't be r/o . - cont levaquin , and Zosyn , will d/w ID - mycoplasma , igM Abs pending , reorder legionella , pneumococcal Ag - follow blood cx .and sputum cx - cont IVF - tamiflu day 2/5 2- Acute hypoxic resp failure : due to influenza . RR improved , and Oxygenation has improved . - can decrease FiO2 - monitor closely 3- Trop leak : likely from sepsis . - echo reviewed. pulm HTN and mild vulvular regurgitation - no further w/u at this point - stress test as out pt 4- BIANCA: from sepsis and volume depletion . cr normalized dc NSAIds cont IVF 5- Electrolytes Abn: replete. 6- Ileus : improved abd exam today, passed gas. resume diet monitor Critical Care Total Critical Care Time (in minutes): 35 Critical Care Statement: The care of this patient involved high complexity decision making to prevent further life threatening deterioration of the patient 's condition and/or to evalute & treat vital organ system(s) failure or risk of failure.
[2016-07-29 08:31] LABS: ARTERIAL BLD GAS O2 SATURATION 99.6 % (90-98.9); ARTERIAL BLOOD GAS HCO3 25.5 meq/L (22-26)
[2016-07-29 08:37] LABS: ALLENS TEST POSITIVE; ART PUNCT SITE RIGHT RADIAL; LPM/O2% 100%; PT. ON O2? YES; TYPE OF O2 NONREBREATHER
[2016-07-29] MEDS: OSELTAMIVIR PHOSPHATE 75 MG CAPSULE PO SCH ×2 (09:30→21:57)
[2016-07-29] MEDS: POTASSIUM CHLORIDE TABS 20 MEQ TABLET.ER (FP) PO SCH ×2 (09:30→21:58)
[2016-07-29] MEDS: MUPIROCIN 2% TOPICAL OINTMENT FOR DECOLONIZATION NS SCH ×2 (11:25→21:58)
[2016-07-29] MEDS: traMADol HCL 50 MG TABLET PO PRN ×2 (11:25→21:57)
--- NOTE | 2016-07-29 14:16 | PN ---
Progress Note, Physician History of Present Illness: patient doing better able to complete sentence still requiring venti mask 50 - Current Medication List Current Medications: Active Medications Albuterol Sulfate (Ventolin 0.083% Nebulizer Soln -) 1 amp NEB QIDR [facility] Last Admin: 07/29/16 12:33 Dose: 1 amp Albuterol Sulfate (Ventolin 0.042trength) -) 1 amp NEB Q6H PRN PRN Reason: SHORT OF BREATH/WHEEZING Chlorhexidine Gluconate (Hibiclens For Decolonization -) 1 applic TP HS [facility] Last Admin: 07/28/16 21:44 Dose: 1 applic Heparin Sodium (Porcine) (Heparin -) 5,000 unit SQ TID [facility] Last Admin: 07/29/16 06:33 Dose: 5,000 unit Piperacillin Sod/Tazobactam Sod (Zosyn 3.375gm Ivpb (Pre-Docked)) 50 mls @ 100 mls/hr IVPB Q8H-IV [facility] PRN Reason: Protocol Last Admin: 07/29/16 09:30 Dose: 100 mls/hr Mupirocin (Bactroban Ointment (For Decolonization) -) 1 applic NS BID [facility] Stop: 08/01/16 21:59 Last Admin: 07/29/16 11:25 Dose: 1 applic Nifedipine (Procardia Xl -) 60 mg PO [facility] Last Admin: 07/28/16 21:52 Dose: 60 mg Oseltamivir Phosphate (Tamiflu -) 75 mg PO BID [facility] Stop: 08/01/16 21:59 Last Admin: 07/29/16 09:30 Dose: 75 mg Potassium Chloride (K-Dur -) 40 meq PO BID [facility] Stop: 07/29/16 22:01 Last Admin: 07/29/16 09:30 Dose: 40 meq Tramadol HCl (Ultram -) 50 mg PO Q8H PRN PRN Reason: PAIN Last Admin: 07/29/16 11:25 Dose: 50 mg - Objective Vital Signs: Vital Signs Temperature 98.8 F 07/29/16 09:00 Pulse Rate 85 07/29/16 13:00 Respiratory Rate 22 07/29/16 13:00 Blood Pressure 136/75 07/29/16 13:00 O2 Sat by Pulse Oximetry (%) 100 07/29/16 12:32 Constitutional: Yes: Calm, Mild Distress Cardiovascular: Yes: Regular Rate and Rhythm Respiratory: Yes: On Venti-Mask, Poor Air Entry Gastrointestinal: Yes: Normal Bowel Sounds, Soft Musculoskeletal: Yes: WNL Extremities: Yes: WNL Integumentary: Yes: WNL Neurological: Yes: Alert, Oriented Labs: CBC, BMP 07/29/16 05:00 07/29/16 05:00 INR, PTT INR 1.26 (0.82-1.09) H 07/27/16 14:15 Assessment/Plan looked and evaluated the patient patient is critical and he has known history of sarcoidosis patient on non breather is having effort patient started on levaquin patient is not doing well might need intubation if he does not improve pneumonia resp failure influenza sarcoidosis plan continue zosyn continue to monitor closely still needing venti mask resp support cc time 40 min
--- NOTE | 2016-07-29 16:19 | EKG ---
Test Reason : Blood Pressure : / mmHG Vent. Rate : 094 BPM Atrial Rate : 094 BPM P-R Int : 138 ms QRS Dur : 090 ms QT Int : 326 ms P-R-T Axes : 033 039 009 degrees QTc Int : 407 ms NORMAL SINUS RHYTHM NONSPECIFIC T WAVE ABNORMALITY ABNORMAL ECG WHEN COMPARED WITH ECG OF 28-JUL-2016 10:27, NO SIGNIFICANT CHANGE WAS FOUND Confirmed by MACKENZIE DAMON MD ([id number]) on 07/29/2016 4:18:47 PM Referred By: Hannah MARTÍNEZ Confirmed By:MACKENZIE DAMON MD
--- NOTE | 2016-07-29 16:27 | EKG ---
Test Reason : Blood Pressure : / mmHG Vent. Rate : 103 BPM Atrial Rate : 103 BPM P-R Int : 208 ms QRS Dur : 082 ms QT Int : 344 ms P-R-T Axes : 042 058 024 degrees QTc Int : 450 ms SINUS TACHYCARDIA NONSPECIFIC T WAVE ABNORMALITY ABNORMAL ECG WHEN COMPARED WITH ECG OF 27-JUL-2016 14:09, NO SIGNIFICANT CHANGE WAS FOUND Confirmed by MACKENZIE DAMON MD ([id number]) on 07/29/2016 4:27:36 PM Referred By: SOCRATES MARTIN Confirmed By:MACKENZIE DAMON MD
--- NOTE | 2016-07-29 17:57 | PN ---
Physical Exam: SUBJECTIVE: Patient seen and examined at bedside feelw much better today OBJECTIVE: Vital Signs Period Temp Pulse Resp BP Sys/Villalobos Pulse Ox Last 24 Hr 98.4 F-98.8 F 85-101 18-32 130-149/69-98 96-100 GENERAL: The patient is awake, alert, and fully oriented, mild distress seem anxious. NECK: supple. LUNGS: Breath sounds equal CTAB Bronchial breath sounds. HEART: Regular rate and rhythm, S1, S2 without murmur ABDOMEN: Soft, nontender, nondistended, normoactive bowel sounds EXTREMITIES: warm, well-perfused, no edema. 2+ DP pulses on left DP could not be palpated on right but is well perfused NEUROLOGICAL: Cranial nerves II through XII grossly intact. SKIN: Warm, dry Laboratory Results - last 24 hr 07/29/16 07/29/16 07/29/16 05:00 05:00 08:30 WBC 10.2 H RBC 4.86 Hgb 13.0 Hct 38.9 MCV 80.0 MCHC 33.5 RDW 14.3 Plt Count 210 D MPV 8.5 Puncture Site Right radial ABG pH 7.50 H ABG pCO2 at Pt Temp 33.1 L ABG pO2 at Pt Temp 188.0 H* ABG HCO3 25.5 ABG O2 Sat (Measured) 99.6 H* ABG O2 Content 16.5 ABG Base Excess 3.0 H Vazquez Test Positive O2 Delivery Device Nonrebreather Oxygen Flow Rate 100% PEEP 0.0 Sodium 137 Potassium 3.4 L Chloride 99 Carbon Dioxide 27 D Anion Gap 11 BUN 12 D Creatinine 0.5 L D Creat Clearance w eGFR > 60 Random Glucose 144 H Calcium 8.0 L Phosphorus 2.7 Total Bilirubin 0.7 AST 48 H D ALT 32 Alkaline Phosphatase 139 H D Total Protein 6.7 Albumin 2.7 L Active Medications Generic Name Dose Route Start Last Admin Trade Name Freq PRN Reason Stop Dose Admin Albuterol Sulfate 1 amp 07/28/16 21:45 07/29/16 17:38 Ventolin 0.083% Nebulizer Soln - NEB 1 amp QIDR [facility] Administration Albuterol Sulfate 1 amp 07/28/16 21:29 Ventolin 0.042trength) - NEB Q6H PRN SHORT OF BREATH/WHEEZING Chlorhexidine Gluconate 1 applic 07/27/16 22:00 07/28/16 21:44 Hibiclens For Decolonization - TP 1 applic HS [facility] Administration Heparin Sodium (Porcine) 5,000 unit 07/27/16 22:00 07/29/16 14:10 Heparin - SQ 5,000 unit TID [facility] Administration Piperacillin Sod/Tazobactam Sod 50 mls @ 100 mls/hr 07/28/16 18:00 07/29/16 17: 40 Zosyn 3.375gm Ivpb (Pre-Docked) IVPB 100 mls/hr Q8H-IV [facility] Administration Protocol Mupirocin 1 applic 07/27/16 22:00 07/29/16 11:25 Bactroban Ointment (For Decolonization) - NS 08/01/16 21:59 1 applic BID [facility] Administration Nifedipine 60 mg 07/28/16 22:00 07/28/16 21:52 Procardia Xl - PO 60 mg HS [facility] Administration Oseltamivir Phosphate 75 mg 07/27/16 22:00 07/29/16 09:30 Tamiflu - PO 08/01/16 21:59 75 mg BID [facility] Administration Potassium Chloride 40 meq 07/29/16 10:00 07/29/16 09:30 K-Dur - PO 07/29/16 22:01 40 meq BID [facility] Administration Tramadol HCl 50 mg 07/29/16 10:37 07/29/16 11:25 Ultram - PO 50 mg Q8H PRN Administration PAIN ASSESSMENT/PLAN: 66M with history of sarcoidosis and hypertension presents to the ED with a 1 week history of fevers chills productive cough with weakness found to be in severe sepsis and acute hypoxic respiratory failure secondary to influenza type B. Severe sepsis: likely from influenza B but on he differential remains influzenza pneumonia with a superimposed bacterial pneumonia. patient with a significant air space disease on CT chest at baseline and it is very difficult to differentiate pneumonia from lung parenchyma patient is much improved today off 100% non rebreather now on 50% FM and oxygenating better f/u Mycoplasma f/u urine antigens-negative continue tamiflu discontinue levaquin per ID continue Zosyn per ID f/u BCx-negative so far f/u Sputum Cx UA negative ECHO noted with moderate pulmonary hypertension as elevated RV systolic pressure. no heart failure noted stop IVF Troponinemia: likely secondary to increased demand from dehydration and severe sepsis Troponin stable at 0.07 will stop trending unless patient becomes symptomatic no IN on EKG Echo Noted BIANCA: from dehydration and decreased flow to the kidneys secondary to severe sepsis Cr now WNL with IVF hydration stop IVF Acute hypoxic repsiratory failure: secondary to influenza and possible influenza PNA possible superimposed bacterial pneumonia patient refusing to go back on BiPAP after he failed ventimask and he was tachypneic currently he is not tachypneic and is saturating 98% on 100% non rebreather titrate down O2 PRN ABG in AM BiPAP PRN HTN: well controlled at this time continue home dose of procardia XL 60mg po HS colon distention seen on lower cuts of Chest CT: KUB noted: mildly dilated bowel liekly from ileus but abdomen is soft nontender and non distended and patien is asymptomatic with bowel sounds tolerating diet would just observe for now FEN: stop IVF no electrolyte issues advance to Soft diet PPx: HSQ/SCDs No GI PPx needed no PT consult at this time needed will assess daily need for PT ICU care Visit type - Emergency Visit Emergency Visit: Yes ED Registration Date: 07/27/16 Care time: The patient presented to the Emergency Department on the above date and was hospitalized for further evaluation of their emergent condition. - New Patient This patient is new to me today: No - Critical Care Critical Care patient: Yes Total Critical Care Time (in minutes): 45 Critical Care Statement: The care of this patient involved high complexity decision making to prevent further life threatening deterioration of the patient 's condition and/or to evalute & treat vital organ system(s) failure or risk of failure.
[2016-07-29] MEDS ORDERED: ACETAMINOPHEN 500 MG TABLET (FP) PO PRN (20:57)
[2016-07-29] MEDS: NIFEdipine E.R 60 MG TABLET (UD) PO SCH (21:57)
[2016-07-29] MEDS: CHLORHEXIDINE GLUCONATE 4% CLEANSER FOR DECOLONIZATION TP SCH (21:58)
[2016-07-29] MEDS ORDERED: ACETAMINOPHEN 325 MG TABLET (FP) PO PRN (22:13)
[2016-07-30] MEDS: ALBUTEROL SO4 0.083% IH SOL 2.5 MG/3 ML VIAL.NEB. NEB SCH ×5 (00:12→23:10)
[2016-07-30] MEDS ORDERED: MAG HYDROX/AL HYDROX/SIMETH 30 ML UNIT-DOSE CUP PO ONE (02:35)
[2016-07-30] MEDS: PIPERACILLIN/TAZOB 3.375 GM 50 ML IVPB SCH ×3 (02:40→18:12)
[2016-07-30] MEDS ORDERED: PT OWN MED DRAWER 7, Y5N ONE ×2 (05:25→22:08)
[2016-07-30] MEDS: HEPARIN NA (PORCINE) 5,000 UNITS/ML 1ML VIAL SQ SCH ×3 (05:31→22:17)
[2016-07-30 06:15] LABS: MCH 26.5 pg (25.7-33.7); MCHC 33.3 g/dl (32.0-35.9); MEAN CELL VOLUME 79.5 fl (80-96); PLATELET COUNT 249 K/MM3 (134-434); RDW 14.3 % (11.9-15.9); WHITE BLOOD COUNT 13.8 K/mm3 (4.0-10.0)
[2016-07-30 06:35] LABS: CALCIUM 7.8 mg/dL (8.5-10.1); COCKROFT - GAULT 128.04; CREATININE 0.6 mg/dL (0.7-1.3)
--- NOTE | 2016-07-30 08:06 | PN ---
Progress Note (short form) - Note Progress Note: Seen and examined in the ICU afebrile Denies: STEINBERG, CP, SOB, n/v Did not require NIPPV Currently on Venti 50% Current Medications Acetaminophen (Tylenol -) 650 mg PO Q6H PRN PRN Reason: FEVER OR PAIN Albuterol Sulfate (Ventolin 0.083% Nebulizer Soln -) 1 amp NEB QIDR [facility] Last Admin: 07/30/16 07:05 Dose: Not Given Albuterol Sulfate (Ventolin 0.042trength) -) 1 amp NEB Q6H PRN PRN Reason: SHORT OF BREATH/WHEEZING Chlorhexidine Gluconate (Hibiclens For Decolonization -) 1 applic TP HS [facility] Last Admin: 07/29/16 21:58 Dose: 1 applic Heparin Sodium (Porcine) (Heparin -) 5,000 unit SQ TID [facility] Last Admin: 07/30/16 05:31 Dose: 5,000 unit Piperacillin Sod/Tazobactam Sod (Zosyn 3.375gm Ivpb (Pre-Docked)) 50 mls @ 100 mls/hr IVPB Q8H-IV DONAL PRN Reason: Protocol Last Admin: 07/30/16 02:40 Dose: 100 mls/hr Mupirocin (Bactroban Ointment (For Decolonization) -) 1 applic NS BID [facility] Stop: 08/01/16 21:59 Last Admin: 07/29/16 21:58 Dose: 1 applic Nifedipine (Procardia Xl -) 60 mg PO [facility] Last Admin: 07/29/16 21:57 Dose: 60 mg Oseltamivir Phosphate (Tamiflu -) 75 mg PO BID [facility] Stop: 08/01/16 21:59 Last Admin: 07/29/16 21:57 Dose: 75 mg Tramadol HCl (Ultram -) 50 mg PO Q8H PRN PRN Reason: PAIN Last Admin: 07/29/16 21:57 Dose: 50 mg Vital Signs Period Temp Pulse Resp BP Sys/Villalobos Pulse Ox Last 24 Hr 97.6 F-98.8 F 70-99 18-35 132-164/75-98 95-100 Intake & Output 07/27/16 07/28/16 07/29/16 07/30/16 23:59 23:59 23:59 23:59 Intake Total 1212.5 1565 170 Output Total 2300 1650 700 Balance -1087.5 -85 -530 Weight 90.718 kg 79.7 kg 75.75 kg 74.752 kg Exam: awake, alert and cooperative HEENT: PERRL CV: NSR Pulm: bronchial bilateral lower lobes Abd: SNTND +BS Ext: WWP: no edema Neuro: AOx3, CN grossly intact Micro: Flu B + Assessment/Plan Hypoxemia Influenza Multilobar Pneumonia Sarcoidosis HTN -Venti mask, will attempt wean to NC -Abx per ID - Tamiflu/LVQ/Zosyn -advance diet -BP control -GI and DVT PPx Critically Ill, can transfer to floor if able to tolerate O2 wean 35min
--- NOTE | 2016-07-30 08:58 | PN ---
Progress Note (short form) - Note Progress Note: Subjective: SOB is much better this am , has no cough , no fever or chills, had regular milk and started having bloating and abd discomfort ( lactose intolerant ) Objective: Vital Signs: Last Vital Signs Temp Pulse Resp BP Pulse Ox 97.2 F L 91 H 27 H 145/77 95 07/30/16 08:00 07/30/16 08:00 07/30/16 08:00 07/30/16 08:00 07/30/16 07:05 Laboratory Results - last 24 hr 07/30/16 07/30/16 05:20 05:20 WBC 13.8 H D RBC 5.06 Hgb 13.4 Hct 40.2 MCV 79.5 L MCHC 33.3 RDW 14.3 Plt Count 249 MPV 8.0 Sodium 133 L Potassium 3.6 Chloride 95 L Carbon Dioxide 25 Anion Gap 13 BUN 10 Creatinine 0.6 L Random Glucose 105 D Calcium 7.8 L Physical Exam: NAD , AAOx3. cooperative MMM, no facial droop , MMM CV: RRR . No JVD Lungs: CTAB today Abd : soft, NT, ND, NL BS ext : no edema , no tremor ASSESSMENT AND PLAN: 66 y/o man with h/o HTN, sarcoidosis , who presented with 5-day hx of fever , cough, runny nose and was found to have severe sepsis and Flu B . 1- Severe sepsis: from Flu B, and possible influenza Pneumonia . Superimposed bacterial PNA can't be r/o . - cont Zosyn - mycoplasma , igM Abs pending , legionella Ag pending - placed on NC , now . Sat O2 85-93% . will increase Fio2 and monitor - follow blood cx .and sputum cx - tamiflu day 3 2- Acute hypoxic resp failure : due to influenza . improved - try NC - monitor closely 3- Trop leak : likely from sepsis . - echo with pulm HTN and mild vulvular regurgitation - no further w/u at this point - stress test as out pt 4- BIANCA: from sepsis and volume depletion . cr normalized. off IVF 5- Ileus : resolved monitor will transfer to floor Tele today if he does well on NC Visit type - Emergency Visit Emergency Visit: Yes ED Registration Date: 07/27/16 Care time: The patient presented to the Emergency Department on the above date and was hospitalized for further evaluation of their emergent condition. - New Patient This patient is new to me today: No - Critical Care Critical Care patient: Yes Total Critical Care Time (in minutes): 25
[2016-07-30] MEDS: MUPIROCIN 2% TOPICAL OINTMENT FOR DECOLONIZATION NS SCH (10:32)
[2016-07-30] MEDS: OSELTAMIVIR PHOSPHATE 75 MG CAPSULE PO SCH ×2 (10:32→22:17)
[2016-07-30] MEDS ORDERED: ALBUTEROL SO4 0.042% IH SOL 1.25 MG/3 ML VIAL.NEB NEB PRN (14:28)
[2016-07-30] MEDS ORDERED: ALBUTEROL SO4 0.083% IH SOL 2.5 MG/3 ML VIAL.NEB. NEB ONE (16:35)
--- NOTE | 2016-07-30 17:01 | PN ---
Progress Note, Physician History of Present Illness: patient doing better improving stable still requiring venti mask - Current Medication List Current Medications: Active Medications Acetaminophen (Tylenol -) 650 mg PO Q6H PRN PRN Reason: FEVER OR PAIN Albuterol Sulfate (Ventolin 0.083% Nebulizer Soln -) 1 amp NEB QIDR [facility] Albuterol Sulfate (Ventolin 0.042trength) -) 1 amp NEB Q6H PRN PRN Reason: SHORT OF BREATH/WHEEZING Heparin Sodium (Porcine) (Heparin -) 5,000 unit SQ TID [facility] Piperacillin Sod/Tazobactam Sod (Zosyn 3.375gm Ivpb (Pre-Docked)) 50 mls @ 100 mls/hr IVPB Q8H-IV DONAL PRN Reason: Protocol Nifedipine (Procardia Xl -) 60 mg PO HS [facility] Oseltamivir Phosphate (Tamiflu -) 75 mg PO BID [facility] Stop: 08/01/16 21:59 Tramadol HCl (Ultram -) 50 mg PO Q8H PRN PRN Reason: PAIN - Objective Vital Signs: Vital Signs Temperature 97.3 F L 07/30/16 14:00 Pulse Rate 84 07/30/16 14:00 Respiratory Rate 22 07/30/16 14:00 Blood Pressure 151/78 07/30/16 14:00 O2 Sat by Pulse Oximetry (%) 94 L 07/30/16 14:19 Constitutional: Yes: No Distress, Calm HENT: Yes: Atraumatic Cardiovascular: Yes: Regular Rate and Rhythm Respiratory: Yes: Regular, CTA Bilaterally Musculoskeletal: Yes: WNL Extremities: Yes: WNL Neurological: Yes: Alert, Oriented Psychiatric: Yes: Alert, Oriented Labs: CBC, BMP 07/30/16 05:20 07/30/16 05:20 INR, PTT INR 1.26 (0.82-1.09) H 07/27/16 14:15 Assessment/Plan pneumonia resp failure influenza sarcoidosis plan continue zosyn continue to monitor closely still needing venti mask resp support will stop zosyn tomorrow cc time 40 min
[2016-07-30] MEDS: traMADol HCL 50 MG TABLET PO PRN (18:57)
[2016-07-30] MEDS ORDERED: MUPIROCIN 2% TOPICAL OINTMENT FOR DECOLONIZATION NS SCH (22:00)
[2016-07-30] MEDS ORDERED: CHLORHEXIDINE GLUCONATE 4% CLEANSER FOR DECOLONIZATION TP SCH (22:00)
[2016-07-30] MEDS: NIFEdipine E.R 60 MG TABLET (UD) PO SCH (22:17)
[2016-07-31] MEDS: PIPERACILLIN/TAZOB 3.375 GM 50 ML IVPB SCH ×3 (02:22→18:44)
[2016-07-31] MEDS: HEPARIN NA (PORCINE) 5,000 UNITS/ML 1ML VIAL SQ SCH ×3 (06:22→22:56)
[2016-07-31] MEDS: ALBUTEROL SO4 0.083% IH SOL 2.5 MG/3 ML VIAL.NEB. NEB SCH ×3 (06:35→18:20)
[2016-07-31 07:53] LABS: MCHC 32.3 g/dl (32.0-35.9); MEAN CELL VOLUME 80.6 fl (80-96); MEAN PLT VOLUME 8.4 fl (7.5-11.1); PLATELET COUNT 240 K/MM3 (134-434); RDW 14.1 % (11.9-15.9); WHITE BLOOD COUNT 13.2 K/mm3 (4.0-10.0)
[2016-07-31 07:54] LABS: CALCIUM 8.1 mg/dL (8.5-10.1); MAGNESIUM 2.2 mg/dL (1.8-2.4)
[2016-07-31 07:55] LABS: COCKROFT - GAULT 153.65; CREATININE 0.5 mg/dL (0.7-1.3); PHOSPHOROUS 3.6 mg/dL (2.5-4.9)
[2016-07-31] MEDS: OSELTAMIVIR PHOSPHATE 75 MG CAPSULE PO SCH ×2 (10:55→22:54)
--- NOTE | 2016-07-31 12:43 | PN ---
Progress Note, Physician History of Present Illness: pulmonary alert,dyspneic on 100% nrbm - Current Medication List Current Medications: Active Medications Acetaminophen (Tylenol -) 650 mg PO Q6H PRN PRN Reason: FEVER OR PAIN Albuterol Sulfate (Ventolin 0.083% Nebulizer Soln -) 1 amp NEB QIDR DONAL Last Admin: 07/31/16 06:35 Dose: 1 amp Albuterol Sulfate (Ventolin 0.042trength) -) 1 amp NEB Q6H PRN PRN Reason: SHORT OF BREATH/WHEEZING Heparin Sodium (Porcine) (Heparin -) 5,000 unit SQ TID DONAL Last Admin: 07/31/16 06:22 Dose: 5,000 unit Piperacillin Sod/Tazobactam Sod (Zosyn 3.375gm Ivpb (Pre-Docked)) 50 mls @ 100 mls/hr IVPB Q8H-IV DONAL PRN Reason: Protocol Last Admin: 07/31/16 10:53 Dose: 100 mls/hr Nifedipine (Procardia Xl -) 60 mg PO HS DONAL Last Admin: 07/30/16 22:17 Dose: 60 mg Oseltamivir Phosphate (Tamiflu -) 75 mg PO BID DONAL Stop: 08/01/16 21:59 Last Admin: 07/31/16 10:55 Dose: 75 mg Tramadol HCl (Ultram -) 50 mg PO Q8H PRN PRN Reason: PAIN Last Admin: 07/30/16 18:57 Dose: 50 mg - Objective Vital Signs: Vital Signs Temperature 97.8 F 07/31/16 06:00 Pulse Rate 96 H 07/31/16 06:00 Respiratory Rate 18 07/31/16 06:00 Blood Pressure 140/80 07/31/16 06:00 O2 Sat by Pulse Oximetry (%) 95 07/30/16 20:54 Constitutional: Yes: Calm, Thin Eyes: Yes: WNL HENT: Yes: WNL Neck: Yes: WNL Cardiovascular: Yes: Regular Rate and Rhythm, S1, S2 Respiratory: Yes: Rhonchi ([place] rhonchi r>l) Gastrointestinal: Yes: Normal Bowel Sounds, Soft Extremities: Yes: WNL Edema: No Labs: CBC, BMP 07/31/16 05:35 07/31/16 05:35 INR, PTT INR 1.26 (0.82-1.09) H 07/27/16 14:15 - ....Imaging Chest X-ray: Report Reviewed, Image Reviewed Assessment/Plan Assessment/Plan Hypoxemia Influenza Multilobar Pneumonia Sarcoidosis HTN -Venti mask,. BiPAP - Tamiflu/LVQ/Zosyn -advance diet -BP control -steroids DR MOROCHO
[2016-07-31] MEDS: methylPREDNISolone NA SUCC 40 MG/1 ML VIAL IVPB SCH ×2 (13:30→22:56)
--- NOTE | 2016-07-31 13:33 | MSN ---
Progress Note (SOAP) - Subjective Chief Complaint: SOB and weakness History of Present Illness: Mr. Solomon is a 66 y/o male with primary MHx of sarcoidosis and HTN, who was admitted for sepsis secondary to influenza with possible concurrent bacterial pneumonia. Pt was alert, active, sitting up in bed and transferred himself to the chair. Pt states he is feeling much better; no cough. Pt had a BM yesterday evening; loose, no blood. Denies f/c/matthews/abd pain/palpitations. - Current Medications Current Medications: Active Medications Acetaminophen (Tylenol -) 650 mg PO Q6H PRN PRN Reason: FEVER OR PAIN Albuterol Sulfate (Ventolin 0.083% Nebulizer Soln -) 1 amp NEB QIDR DONAL Last Admin: 07/31/16 06:35 Dose: 1 amp Albuterol Sulfate (Ventolin 0.042trength) -) 1 amp NEB Q6H PRN PRN Reason: SHORT OF BREATH/WHEEZING Heparin Sodium (Porcine) (Heparin -) 5,000 unit SQ TID DONAL Last Admin: 07/31/16 06:22 Dose: 5,000 unit Piperacillin Sod/Tazobactam Sod (Zosyn 3.375gm Ivpb (Pre-Docked)) 50 mls @ 100 mls/hr IVPB Q8H-IV DONAL PRN Reason: Protocol Last Admin: 07/31/16 10:53 Dose: 100 mls/hr Methylprednisolone Sodium Succinate (Solu-Medrol -) 40 mg IVPB BID DONAL Nifedipine (Procardia Xl -) 60 mg PO HS DONAL Last Admin: 07/30/16 22:17 Dose: 60 mg Oseltamivir Phosphate (Tamiflu -) 75 mg PO BID DONAL Stop: 08/01/16 21:59 Last Admin: 07/31/16 10:55 Dose: 75 mg Tramadol HCl (Ultram -) 50 mg PO Q8H PRN PRN Reason: PAIN Last Admin: 07/30/16 18:57 Dose: 50 mg - Objective Vital Signs: Vital Signs Temperature 97.8 F 07/31/16 06:00 Pulse Rate 96 H 07/31/16 06:00 Respiratory Rate 18 07/31/16 06:00 Blood Pressure 140/80 07/31/16 06:00 O2 Sat by Pulse Oximetry (%) 95 07/30/16 20:54 Constitutional: Yes: No Distress, Calm Eyes: Yes: EOM Intact HENT: Yes: Atraumatic, Normocephalic Neck: Yes: Supple, Trachea Midline Cardiovascular: Yes: Tachycardia. No: Gallop, Murmur Respiratory: Yes: Regular, Tachypnea. No: Rales, Rhonchi, Wheezes Gastrointestinal: Yes: Normal Bowel Sounds, Soft. No: Tenderness Musculoskeletal: Yes: Back Pain Extremities: Yes: Other (Clubbing of fingertips bilaterally ) Peripheral Pulses WNL: Yes Peripheral Pulses: Left Radial: 2+, Right Radial: 2+, Left Doralis Pedis: 2+, Right Dorsalis Pedis: 2+ Edema: No Neurological: Yes: Alert, Oriented Psychiatric: Yes: Alert, Oriented Labs Lab Results: Vital Signs Period Temp Pulse Resp BP Sys/Villalobos Pulse Ox Last 24 Hr 97.2 F-98.1 F 84-115 18-24 126-160/78-88 94-95 CBC WBC 13.2 K/mm3 (4.0-10.0) H 07/31/16 05:35 RBC 5.03 M/mm3 (4.00-5.60) 07/31/16 05:35 Hgb 13.1 GM/dL (11.7-16.9) 07/31/16 05:35 Hct 40.6 % (35.4-49) 07/31/16 05:35 MCV 80.6 fl (80-96) 07/31/16 05:35 MCHC 32.3 g/dl (32.0-35.9) 07/31/16 05:35 RDW 14.1 % (11.9-15.9) 07/31/16 05:35 Plt Count 240 K/MM3 (134-434) 07/31/16 05:35 MPV 8.4 fl (7.5-11.1) 07/31/16 05:35 Neutrophils % 91.3 % (42.8-82.8) H 07/28/16 06:15 Lymphocytes % 4.7 % (8-40) L D 07/28/16 06:15 Monocytes % 3.9 % (3.8-10.2) 07/28/16 06:15 Eosinophils % 0.0 % (0-4.5) 07/28/16 06:15 Basophils % 0.1 % (0-2.0) 07/28/16 06:15 CMP Sodium 133 mmol/L (136-145) L 07/31/16 05:35 Potassium 3.8 mmol/L (3.5-5.1) 07/31/16 05:35 Chloride 94 mmol/L (98-107) L 07/31/16 05:35 Carbon Dioxide 25 mmol/L (21-32) 07/31/16 05:35 Anion Gap 14 (8-16) 07/31/16 05:35 BUN 12 mg/dL (7-18) 07/31/16 05:35 Creatinine 0.5 mg/dL (0.7-1.3) L 07/31/16 05:35 Creat Clearance w eGFR > 60 (>60) 07/29/16 05:00 Random Glucose 90 mg/dL (74-106) 07/31/16 05:35 Lactic Acid 1.810 mmol/L (0.4-2.0) 07/28/16 06:15 Calcium 8.1 mg/dL (8.5-10.1) L 07/31/16 05:35 Phosphorus 3.6 mg/dL (2.5-4.9) D 07/31/16 05:35 Magnesium 2.2 mg/dL (1.8-2.4) 07/31/16 05:35 Total Bilirubin 0.7 mg/dL (0.2-1.0) 07/29/16 05:00 AST 48 U/L (15-37) H D 07/29/16 05:00 ALT 32 U/L (12-78) 07/29/16 05:00 Alkaline Phosphatase 139 U/L (45-117) H D 07/29/16 05:00 Creatine Kinase 512 IU/L (39-308) H D 07/28/16 11:30 Creatine Kinase Index 0.7 % (0.0-5.0) 07/28/16 11:30 CK-MB (CK-2) 3.7 ng/ml (0.5-3.6) H 07/28/16 11:30 CK-MB (CK-2) Rel Index Cancelled 07/27/16 14:15 Troponin I 0.07 ng/ml (0.00-0.05) H 07/28/16 11:30 Total Protein 6.7 g/dl (6.4-8.2) 07/29/16 05:00 Albumin 2.7 g/dl (3.4-5.0) L 07/29/16 05:00 Triglycerides 79 mg/dL (35-160) D 07/28/16 06:15 Cholesterol 97 mg/dL (50-200) D 07/28/16 06:15 Total LDL Cholesterol 52 mg/dL (5-100) D 07/28/16 06:15 HDL Cholesterol 39 mg/dL (40-60) L D 07/28/16 06:15 Microbiology 07/27/16 14:15 Blood Culture - Preliminary Blood - Peripheral Venous NO GROWTH OBTAINED AFTER 72 HOURS, INCUBATION TO CONTINUE FOR 2 DAYS. 07/27/16 14:15 Blood Culture - Preliminary Blood - Peripheral Venous NO GROWTH OBTAINED AFTER 72 HOURS, INCUBATION TO CONTINUE FOR 2 DAYS. Legionella and Streptococcus: negative Influenza B antigen: positive Imaging - Results Chest X-ray: Report Reviewed, Image Reviewed (Slightly better aeration of lung with residual interstitial and patchy airspace opacities seen bilaterally) Assessment/Plan Mr. Solomon is a 66 y/o male with primary medical history of sarcoidosis and HTN , who presented to the ED with chief complaint of weakness and SOB. Pt is admitted to the ICU for sepsis secondary to flu with possible concurrent CAP. 1. Sepsis 2/2 Influenza with possible concurrent CAP -WBC 13.2 (10) -Zosyn (last dose today) -Tamiflu 75mg BID x 5 days (day 4) -Lactic acid: 1.8 (10.4) -Influenza B Antigen: positive -Pending mycoplasma ab test. Negative legionella urine antigen and pneuococcal tests. -Blood and sputum culture pending: No growth over 72hrs 2. Acute Respiratory Failure -97% O2 Sat on Non-rebreather at 13L O2. Consider bipap. -Respiratory Rate: 38 -Albuterol Neb QID prn -Solu-medrol 40mg IV BID per Dr. Anderson 3. BIANCA -Resolved 0.7 (1.4) -Cont IVF 4. Elevated Troponin -Troponin 0.7 (0.8,0.7,0.8) -Likely 2/2 sepsis -ECHO: Preserved LV systolic fn. Minimal Mitral and tricuspid regurg. RV systolic pressure 40-50 5. HTN -Start home dose: procardia Xl 60 mg qhs 6. DVT ppx -Heparin sq
--- NOTE | 2016-07-31 14:07 | PN ---
Physical Exam: SUBJECTIVE: Patient seen and examined at bedside OBJECTIVE: Vital Signs Period Temp Pulse Resp BP Sys/Villalobos Pulse Ox Last 24 Hr 97.2 F-98.1 F 90-115 18-24 126-160/79-88 94-100 GENERAL: The patient is awake, alert, and fully oriented, mild distress. NECK: supple. LUNGS: Breath sounds equal CTAB . tachypneic HEART: Regular rate and rhythm, S1, S2 without murmur ABDOMEN: Soft, nontender, nondistended, normoactive bowel sounds EXTREMITIES: warm, well-perfused, no edema. 2+ DP pulses on left DP could not be palpated on right but is well perfused NEUROLOGICAL: Cranial nerves II through XII grossly intact. SKIN: Warm, dry Laboratory Results - last 24 hr 07/31/16 07/31/16 05:35 05:35 WBC 13.2 H RBC 5.03 Hgb 13.1 Hct 40.6 MCV 80.6 MCHC 32.3 RDW 14.1 Plt Count 240 MPV 8.4 Sodium 133 L Potassium 3.8 Chloride 94 L Carbon Dioxide 25 Anion Gap 14 BUN 12 Creatinine 0.5 L Random Glucose 90 Calcium 8.1 L Phosphorus 3.6 D Magnesium 2.2 Active Medications Generic Name Dose Route Start Last Admin Trade Name Freq PRN Reason Stop Dose Admin Acetaminophen 650 mg 07/30/16 14:28 Tylenol - PO Q6H PRN FEVER OR PAIN Albuterol Sulfate 1 amp 07/30/16 18:00 07/31/16 11:20 Ventolin 0.083% Nebulizer Soln - NEB 1 amp QIDR DONAL Administration Albuterol Sulfate 1 amp 07/30/16 14:28 Ventolin 0.042trength) - NEB Q6H PRN SHORT OF BREATH/WHEEZING Heparin Sodium (Porcine) 5,000 unit 07/30/16 22:00 07/31/16 06:22 Heparin - SQ 5,000 unit TID DONAL Administration Piperacillin Sod/Tazobactam Sod 50 mls @ 100 mls/hr 07/30/16 18:00 07/31/16 10: 53 Zosyn 3.375gm Ivpb (Pre-Docked) IVPB 100 mls/hr Q8H-IV DONAL Administration Protocol Methylprednisolone Sodium Succinate 40 mg 07/31/16 13:00 Solu-Medrol - IVPB BID DONAL Nifedipine 60 mg 07/30/16 22:00 07/30/16 22:17 Procardia Xl - PO 60 mg HS DONAL Administration Oseltamivir Phosphate 75 mg 07/30/16 22:00 07/31/16 10:55 Tamiflu - PO 08/01/16 21:59 75 mg BID DONAL Administration Potassium Chloride 40 meq 07/31/16 14:04 K-Dur - PO 07/31/16 14:05 ONCE ONE Tramadol HCl 50 mg 07/30/16 14:28 07/30/16 18:57 Ultram - PO 50 mg Q8H PRN Administration PAIN CXR: slightly improved Aeration ASSESSMENT/PLAN: 66M with history of sarcoidosis and hypertension presents to the ED with a 1 week history of fevers chills productive cough with weakness found to be in severe sepsis and acute hypoxic respiratory failure secondary to influenza type B. Severe sepsis: likely from influenza B but on he differential remains influzenza pneumonia with a superimposed bacterial pneumonia. patient with a significant air space disease on CT chest at baseline and it is very difficult to differentiate pneumonia from lung parenchyma patient is much improved today off 100% non rebreather now as was tachypneic on non-rebreather f/u Mycoplasma-pending f/u urine antigens-negative continue tamiflu discontinue levaquin per ID continue Zosyn per ID f/u BCx-negative so far f/u Sputum Cx UA negative ECHO noted with moderate pulmonary hypertension as elevated RV systolic pressure. no heart failure noted stop IVF place back on BiPAP for support and BiPAP HS Troponinemia: likely secondary to increased demand from dehydration and severe sepsis Troponin stable at 0.07 will stop trending unless patient becomes symptomatic no IN on EKG Echo Noted BIANCA: from dehydration and decreased flow to the kidneys secondary to severe sepsis Cr now WNL with IVF hydration stop IVF Acute hypoxic respiratory failure: secondary to influenza and possible influenza PNA possible superimposed bacterial pneumonia Place back on BiPAP for repsiratory support as he is tachypneic breathing at a rate of 40 and may tire out titrate down O2 PRN Start solumedrol ABG in AM BiPAP PRN Sarcoidosis: Pulmonology consult appreciated Start solumedrol 40mg IV BID HTN: well controlled at this time continue home dose of procardia XL 60mg po HS colon distention seen on lower cuts of Chest CT: KUB noted: mildly dilated bowel liekly from ileus but abdomen is soft nontender and non distended and patien is asymptomatic with bowel sounds tolerating diet Ileus Resolved FEN: stop IVF no electrolyte issues advance to Soft diet PPx: HSQ/SCDs No GI PPx needed no PT consult at this time needed will assess daily need for PT-patient walking Visit type - Emergency Visit Emergency Visit: Yes ED Registration Date: 07/27/16 Care time: The patient presented to the Emergency Department on the above date and was hospitalized for further evaluation of their emergent condition. - New Patient This patient is new to me today: No - Critical Care Critical Care patient: No - Discharge Referral Referred to [facility] Med P.C.: No
[2016-07-31] MEDS ORDERED: POTASSIUM CHLORIDE TABS 20 MEQ TABLET.ER (FP) PO ONE (14:30)
--- NOTE | 2016-07-31 17:35 | PN ---
Teaching Attending Note Name of Resident: Shiva Sidhu ATTENDING PHYSICIAN STATEMENT I saw and evaluated the patient. I reviewed the resident's note and discussed the case with the resident. I agree with the resident's findings and plan as documented. SUBJECTIVE: no fever or chills, he feels better , and has no cough OBJECTIVE: NAD , AAOx3. cooperative, tachypnic MMM, no facial droop , MMM CV: RRR . No JVD Lungs: minimal bibasilar fine crackles Abd : soft, NT, ND, NL BS ext : no edema , no tremor ASSESSMENT AND PLAN: 66 y/o man with h/o HTN, sarcoidosis , who presented with 5-day hx of fever , cough, runny nose and was found to have severe sepsis and Flu B . 1- Severe sepsis: from Flu B, and possible influenza Pneumonia . Superimposed bacterial PNA can't be r/o . - today is day 4 of Abx . probably will stop after 5 days - follow blood cx .and sputum cx - tamiflu day 4/5 2- Acute hypoxic resp failure: due to influenza. -pt 's RR 38 , but sat O2 is nl on non-rebreather . will start BIPAP for few hours then q HS . - monitor closely. - started on steroids per PUlm 3- Trop leak : likely from sepsis . - echo with pulm HTN and mild vulvular regurgitation - no further w/u at this point - stress test as out pt 4- BIANCA: from sepsis and volume depletion . cr normalized. off IVF. 5- Ileus : resolved monitor HLOC
[2016-07-31] MEDS: ALPRAZolam 0.25 MG TABLET PO PRN (18:56)
--- NOTE | 2016-07-31 21:29 | PN ---
Progress Note, Physician History of Present Illness: patient stable still on venti mask respiratory effort still present - Current Medication List Current Medications: Active Medications Acetaminophen (Tylenol -) 650 mg PO Q6H PRN PRN Reason: FEVER OR PAIN Albuterol Sulfate (Ventolin 0.083% Nebulizer Soln -) 1 amp NEB QIDR DONAL Last Admin: 07/31/16 18:20 Dose: 1 amp Albuterol Sulfate (Ventolin 0.042trength) -) 1 amp NEB Q6H PRN PRN Reason: SHORT OF BREATH/WHEEZING Alprazolam (Xanax -) 0.5 mg PO HS PRN PRN Reason: ANXIETY Last Admin: 07/31/16 18:56 Dose: 0.5 mg Heparin Sodium (Porcine) (Heparin -) 5,000 unit SQ TID DONAL Last Admin: 07/31/16 15:30 Dose: 5,000 unit Piperacillin Sod/Tazobactam Sod (Zosyn 3.375gm Ivpb (Pre-Docked)) 50 mls @ 100 mls/hr IVPB Q8H-IV DONAL PRN Reason: Protocol Last Admin: 07/31/16 18:44 Dose: 100 mls/hr Methylprednisolone Sodium Succinate (Solu-Medrol -) 40 mg IVPB BID DONAL Last Admin: 07/31/16 13:30 Dose: 40 mg Nifedipine (Procardia Xl -) 60 mg PO HS DONAL Last Admin: 07/30/16 22:17 Dose: 60 mg Oseltamivir Phosphate (Tamiflu -) 75 mg PO BID [facility] Stop: 08/01/16 21:59 Last Admin: 07/31/16 10:55 Dose: 75 mg Tramadol HCl (Ultram -) 50 mg PO Q8H PRN PRN Reason: PAIN Last Admin: 07/30/16 18:57 Dose: 50 mg - Objective Vital Signs: Vital Signs Temperature 98.8 F 07/31/16 17:00 Pulse Rate 96 H 07/31/16 17:00 Respiratory Rate 18 07/31/16 17:00 Blood Pressure 153/81 07/31/16 17:00 O2 Sat by Pulse Oximetry (%) 100 07/31/16 11:20 Constitutional: Yes: Calm, Mild Distress Cardiovascular: Yes: Regular Rate and Rhythm Respiratory: Yes: Regular, Poor Air Entry, Rhonchi Gastrointestinal: Yes: Normal Bowel Sounds, Soft Musculoskeletal: Yes: WNL Extremities: Yes: WNL Integumentary: Yes: WNL Neurological: Yes: Alert, Oriented Psychiatric: Yes: Alert, Oriented Labs: CBC, BMP 07/31/16 05:35 07/31/16 05:35 INR, PTT INR 1.26 (0.82-1.09) H 07/27/16 14:15 Assessment/Plan pneumonia resp failure influenza sarcoidosis plan continue zosyn continue to monitor closely still needing venti mask resp support incentive alberto
[2016-07-31] MEDS ORDERED: PT OWN MED DRAWER 7, Y5N ONE (22:49)
[2016-07-31] MEDS: NIFEdipine E.R 60 MG TABLET (UD) PO SCH (22:53)
[2016-07-31] MEDS: traMADol HCL 50 MG TABLET PO PRN (22:55)
[2016-08-01] MEDS: ALBUTEROL SO4 0.083% IH SOL 2.5 MG/3 ML VIAL.NEB. NEB SCH ×5 (00:02→23:58)
[2016-08-01] MEDS: PIPERACILLIN/TAZOB 3.375 GM 50 ML IVPB SCH ×3 (03:08→16:59)
[2016-08-01] MEDS: HEPARIN NA (PORCINE) 5,000 UNITS/ML 1ML VIAL SQ SCH ×3 (06:59→21:57)
[2016-08-01 08:30] LABS: BASOPHIL 0.2 % (0-2.0); EOSINOPHIL 0.3 % (0-4.5); MCH 26.3 pg (25.7-33.7); MCHC 33.1 g/dl (32.0-35.9); MEAN CELL VOLUME 79.4 fl (80-96); MEAN PLT VOLUME 7.9 fl (7.5-11.1); NEUTROPHILS 92.5 % (42.8-82.8); PLATELET COUNT 304 K/MM3 (134-434); RDW 14.2 % (11.9-15.9); WHITE BLOOD COUNT 11.6 K/mm3 (4.0-10.0)
[2016-08-01 08:59] LABS: COCKROFT - GAULT 150.3; CREATININE 0.5 mg/dL (0.7-1.3)
[2016-08-01] MEDS: traMADol HCL 50 MG TABLET PO PRN ×2 (09:00→16:58)
[2016-08-01] MEDS: OSELTAMIVIR PHOSPHATE 75 MG CAPSULE PO SCH ×2 (09:01→22:03)
[2016-08-01] MEDS: methylPREDNISolone NA SUCC 40 MG/1 ML VIAL IVPB SCH ×2 (09:01→16:59)
--- NOTE | 2016-08-01 11:44 | PN ---
Physical Exam: SUBJECTIVE: Patient seen and examined at bedside Per nurse patient desaturates when ambulating OBJECTIVE: Vital Signs Period Temp Pulse Resp BP Sys/Villalobos Pulse Ox Last 24 Hr 97.7 F-98.8 F 90-102 18-28 126-153/70-86 95-96 GENERAL: The patient is awake, alert, and fully oriented, mild distress. NECK: supple. LUNGS: Breath sounds equal CTAB . tachypneic but less so than yesterday HEART: Regular rate and rhythm, S1, S2 without murmur ABDOMEN: Soft, nontender, nondistended, normoactive bowel sounds EXTREMITIES: warm, well-perfused, no edema. 2+ DP pulses on left DP could not be palpated on right but is well perfused NEUROLOGICAL: Cranial nerves II through XII grossly intact. SKIN: Warm, dry Laboratory Results - last 24 hr 07/31/16 08/01/16 08/01/16 05:35 06:10 06:10 WBC 11.6 H RBC 4.98 Hgb 13.1 Hct 39.6 MCV 79.4 L MCHC 33.1 RDW 14.2 Plt Count 304 D MPV 7.9 Neutrophils % 92.5 H Lymphocytes % 4.2 L Monocytes % 2.8 L Eosinophils % 0.3 D Basophils % 0.2 Sodium 132 L Potassium 3.8 4.2 Chloride 94 L Carbon Dioxide 25 Anion Gap 13 BUN 11 Creatinine 0.5 L Random Glucose 109 H D Calcium 8.0 L Active Medications Generic Name Dose Route Start Last Admin Trade Name Freq PRN Reason Stop Dose Admin Acetaminophen 650 mg 07/30/16 14:28 Tylenol - PO Q6H PRN FEVER OR PAIN Albuterol Sulfate 1 amp 07/30/16 18:00 08/01/16 06:19 Ventolin 0.083% Nebulizer Soln - NEB 1 amp QIDR DONAL Administration Albuterol Sulfate 1 amp 07/30/16 14:28 Ventolin 0.042trength) - NEB Q6H PRN SHORT OF BREATH/WHEEZING Alprazolam 0.5 mg 07/31/16 15:44 07/31/16 18:56 Xanax - PO 0.5 mg HS PRN Administration ANXIETY Heparin Sodium (Porcine) 5,000 unit 07/30/16 22:00 08/01/16 06:59 Heparin - SQ 5,000 unit TID DONAL Administration Piperacillin Sod/Tazobactam Sod 50 mls @ 100 mls/hr 07/30/16 18:00 08/01/16 09: 01 Zosyn 3.375gm Ivpb (Pre-Docked) IVPB 100 mls/hr Q8H-IV DONAL Administration Protocol Methylprednisolone Sodium Succinate 40 mg 07/31/16 13:00 08/01/16 09:01 Solu-Medrol - IVPB 40 mg BID DONAL Administration Nifedipine 60 mg 07/30/16 22:00 07/31/16 22:53 Procardia Xl - PO 60 mg HS DONAL Administration Oseltamivir Phosphate 75 mg 07/30/16 22:00 08/01/16 09:01 Tamiflu - PO 08/01/16 21:59 75 mg BID DONAL Administration Tramadol HCl 50 mg 07/30/16 14:28 08/01/16 09:00 Ultram - PO 50 mg Q8H PRN Administration PAIN ASSESSMENT/PLAN: 66M with history of sarcoidosis and hypertension presents to the ED with a 1 week history of fevers chills productive cough with weakness found to be in severe sepsis and acute hypoxic respiratory failure secondary to influenza type B. Severe sepsis: likely from influenza B but on he differential remains influzenza pneumonia with a superimposed bacterial pneumonia. patient with a significant air space disease on CT chest at baseline and it is very difficult to differentiate pneumonia from lung parenchyma patient is much improved today wean off non rebreather to 50% FM f/u Mycoplasma-pending f/u urine antigens-negative continue tamiflu-to stop after tonight's dose discontinue levaquin per ID continue Zosyn per ID f/u BCx-negative so far f/u Sputum Cx UA negative ECHO noted with moderate pulmonary hypertension as elevated RV systolic pressure. no heart failure noted continue BiPAP for support and BiPAP HS Troponinemia: likely secondary to increased demand from dehydration and severe sepsis Troponin stable at 0.07 will stop trending unless patient becomes symptomatic no HI on EKG Echo Noted BIANCA: from dehydration and decreased flow to the kidneys secondary to severe sepsis Cr now WNL with IVF hydration stop IVF Acute hypoxic respiratory failure: secondary to influenza and possible influenza PNA possible superimposed bacterial pneumonia Place back on BiPAP for respiratory support as he is tachypneic breathing at a rate of 40 and may tire out titrate down O2 PRN continue solumedrol for now per pulmonology-seems to be improving BiPAP PRN Sarcoidosis: Pulmonology consult appreciated continue solumedrol 40mg IV BID for now as it seems to be improving HTN: well controlled at this time continue home dose of procardia XL 60mg po HS colon distention seen on lower cuts of Chest CT: KUB noted: mildly dilated bowel liekly from ileus but abdomen is soft nontender and non distended and patien is asymptomatic with bowel sounds tolerating diet Ileus Resolved FEN: stop IVF no electrolyte issues advance to Soft diet PPx: HSQ/SCDs No GI PPx needed no PT consult at this time needed will assess daily need for PT-patient walking Visit type Visit type - Emergency Visit Emergency Visit: Yes ED Registration Date: 07/27/16 Care time: The patient presented to the Emergency Department on the above date and was hospitalized for further evaluation of their emergent condition. - New Patient This patient is new to me today: No - Critical Care Critical Care patient: No - Discharge Referral Referred to [facility] Med P.C.: No
--- NOTE | 2016-08-01 12:36 | PN ---
Progress Note, Physician History of Present Illness: pulmonary alert,still very dyspneic with min exertion on 100%nrm - Current Medication List Current Medications: Active Medications Acetaminophen (Tylenol -) 650 mg PO Q6H PRN PRN Reason: FEVER OR PAIN Albuterol Sulfate (Ventolin 0.083% Nebulizer Soln -) 1 amp NEB QIDR DONAL Last Admin: 08/01/16 06:19 Dose: 1 amp Albuterol Sulfate (Ventolin 0.042trength) -) 1 amp NEB Q6H PRN PRN Reason: SHORT OF BREATH/WHEEZING Alprazolam (Xanax -) 0.5 mg PO HS PRN PRN Reason: ANXIETY Last Admin: 07/31/16 18:56 Dose: 0.5 mg Heparin Sodium (Porcine) (Heparin -) 5,000 unit SQ TID DONAL Last Admin: 08/01/16 06:59 Dose: 5,000 unit Piperacillin Sod/Tazobactam Sod (Zosyn 3.375gm Ivpb (Pre-Docked)) 50 mls @ 100 mls/hr IVPB Q8H-IV DONAL PRN Reason: Protocol Last Admin: 08/01/16 09:01 Dose: 100 mls/hr Methylprednisolone Sodium Succinate (Solu-Medrol -) 40 mg IVPB BID [facility] Last Admin: 08/01/16 09:01 Dose: 40 mg Nifedipine (Procardia Xl -) 60 mg PO HS DONAL Last Admin: 07/31/16 22:53 Dose: 60 mg Oseltamivir Phosphate (Tamiflu -) 75 mg PO BID [facility] Stop: 08/01/16 21:59 Last Admin: 08/01/16 09:01 Dose: 75 mg Tramadol HCl (Ultram -) 50 mg PO Q8H PRN PRN Reason: PAIN Last Admin: 08/01/16 09:00 Dose: 50 mg - Objective Vital Signs: Vital Signs Temperature 97.7 F 08/01/16 01:00 Pulse Rate 100 H 08/01/16 10:31 Respiratory Rate 22 08/01/16 06:00 Blood Pressure 126/70 08/01/16 06:00 O2 Sat by Pulse Oximetry (%) 95 08/01/16 10:31 Constitutional: Yes: Well Nourished, Mild Distress Eyes: Yes: WNL HENT: Yes: WNL Neck: Yes: WNL Cardiovascular: Yes: Regular Rate and Rhythm, S1, S2 Respiratory: Yes: Rales (bilateral crackles) Gastrointestinal: Yes: Normal Bowel Sounds, Soft Extremities: Yes: WNL Edema: No Labs: CBC, BMP 08/01/16 06:10 08/01/16 06:10 INR, PTT INR 1.26 (0.82-1.09) H 07/27/16 14:15 Assessment/Plan Assessment/Plan Hypoxemia Influenza Multilobar Pneumonia Sarcoidosis HTN -Venti mask,. BiPAP - Tamiflu/LVQ/Zosyn -advance diet -BP control -continue steroids will increase to q8h DR MOROCHO
--- NOTE | 2016-08-01 15:09 | MSN ---
Progress Note (SOAP) - Subjective Chief Complaint: SOB and generalized weakness History of Present Illness: Mr. Solomon is a 66 y/o male, with past MHx of sarcoidosis and HTN, who is admitted for sepsis 2/2 influenza with possible concurrent bacterial pneumonia. He reports feeling better today and slowly improving his strength. Pt had a loose BM earlier this morning; no blood noted. Pt denies any f/c/n/v/STEINBERG/abd pain. - Current Medications Current Medications: Active Medications Acetaminophen (Tylenol -) 650 mg PO Q6H PRN PRN Reason: FEVER OR PAIN Albuterol Sulfate (Ventolin 0.083% Nebulizer Soln -) 1 amp NEB QIDR DONAL Last Admin: 08/01/16 06:19 Dose: 1 amp Albuterol Sulfate (Ventolin 0.042trength) -) 1 amp NEB Q6H PRN PRN Reason: SHORT OF BREATH/WHEEZING Alprazolam (Xanax -) 0.5 mg PO HS PRN PRN Reason: ANXIETY Last Admin: 07/31/16 18:56 Dose: 0.5 mg Heparin Sodium (Porcine) (Heparin -) 5,000 unit SQ TID DONAL Last Admin: 08/01/16 14:16 Dose: Not Given Piperacillin Sod/Tazobactam Sod (Zosyn 3.375gm Ivpb (Pre-Docked)) 50 mls @ 100 mls/hr IVPB Q8H-IV DONAL PRN Reason: Protocol Last Admin: 08/01/16 09:01 Dose: 100 mls/hr Methylprednisolone Sodium Succinate (Solu-Medrol -) 40 mg IVPB Q8H-IV DONAL Nifedipine (Procardia Xl -) 60 mg PO HS DONAL Last Admin: 07/31/16 22:53 Dose: 60 mg Oseltamivir Phosphate (Tamiflu -) 75 mg PO BID DONAL Stop: 08/01/16 21:59 Last Admin: 08/01/16 09:01 Dose: 75 mg Tramadol HCl (Ultram -) 50 mg PO Q8H PRN PRN Reason: PAIN Last Admin: 08/01/16 09:00 Dose: 50 mg - Objective Vital Signs: Vital Signs Temperature 97.6 F 08/01/16 14:14 Pulse Rate 90 08/01/16 14:14 Respiratory Rate 28 08/01/16 14:14 Blood Pressure 138/84 08/01/16 14:14 O2 Sat by Pulse Oximetry (%) 99 08/01/16 10:31 -On Venti-mask Constitutional: Yes: No Distress, Calm Eyes: Yes: Conjunctiva Clear, EOM Intact HENT: Yes: Atraumatic, Normocephalic Neck: Yes: Supple, Trachea Midline Cardiovascular: Yes: Regular Rate and Rhythm Respiratory: Yes: Regular, On Venti-Mask, SOB on Exertion, Tachypnea. No: Rales , Rhonchi, Stridor, Wheezes Gastrointestinal: Yes: Normal Bowel Sounds, Soft. No: Tenderness Extremities: Yes: Other (Clubbing) Peripheral Pulses WNL: Yes Peripheral Pulses: Left Radial: 2+, Right Radial: 2+, Left Doralis Pedis: 2+, Right Dorsalis Pedis: 2+ Edema: No Neurological: Yes: Alert, Oriented Psychiatric: Yes: Alert, Oriented Labs Lab Results: CBCD WBC 11.6 K/mm3 (4.0-10.0) H 08/01/16 06:10 RBC 4.98 M/mm3 (4.00-5.60) 08/01/16 06:10 Hgb 13.1 GM/dL (11.7-16.9) 08/01/16 06:10 Hct 39.6 % (35.4-49) 08/01/16 06:10 MCV 79.4 fl (80-96) L 08/01/16 06:10 MCHC 33.1 g/dl (32.0-35.9) 08/01/16 06:10 RDW 14.2 % (11.9-15.9) 08/01/16 06:10 Plt Count 304 K/MM3 (134-434) D 08/01/16 06:10 MPV 7.9 fl (7.5-11.1) 08/01/16 06:10 CMP Sodium 132 mmol/L (136-145) L 08/01/16 06:10 Potassium 4.2 mmol/L (3.5-5.1) 08/01/16 06:10 Chloride 94 mmol/L (98-107) L 08/01/16 06:10 Carbon Dioxide 25 mmol/L (21-32) 08/01/16 06:10 Anion Gap 13 (8-16) 08/01/16 06:10 BUN 11 mg/dL (7-18) 08/01/16 06:10 Creatinine 0.5 mg/dL (0.7-1.3) L 08/01/16 06:10 Creat Clearance w eGFR > 60 (>60) 07/29/16 05:00 Calcium 8.0 mg/dL (8.5-10.1) L 08/01/16 06:10 Total Bilirubin 0.7 mg/dL (0.2-1.0) 07/29/16 05:00 AST 48 U/L (15-37) H D 07/29/16 05:00 ALT 32 U/L (12-78) 07/29/16 05:00 Alkaline Phosphatase 139 U/L (45-117) H D 07/29/16 05:00 Total Protein 6.7 g/dl (6.4-8.2) 07/29/16 05:00 Albumin 2.7 g/dl (3.4-5.0) L 07/29/16 05:00 Microbiology 07/27/16 14:15 Blood Culture - Final Blood - Peripheral Venous NO GROWTH AFTER 5 DAYS INCUBATION 07/27/16 14:15 Blood Culture - Final Blood - Peripheral Venous NO GROWTH AFTER 5 DAYS INCUBATION 07/28/16 06:15 Mycoplasma Antibody - Preliminary Serum Legionella and Streptococcus: negative Influenza B antigen: positive Imaging - Results Chest X-ray: Report Reviewed (07/31/16 Image Reviewed (Slightly better aeration of lung with residual interstitial and patchy airspace opacities seen bilaterally)) Assessment/Plan Mr. Solomon is a 66 y/o male with primary medical history of sarcoidosis and HTN , who presented to the ED with chief complaint of weakness and SOB. Pt is admitted to the ICU for sepsis secondary to flu with possible concurrent CAP. 1. Sepsis 2/2 Influenza with possible concurrent CAP -WBC 11.6 (13.2) -Zosyn continue -Tamiflu 75mg BID x 5 days (day 5) -Lactic acid: 1.8 (10.4) -Influenza B Antigen: positive -Pending mycoplasma ab test. Negative legionella urine antigen and pneuococcal tests. -Blood and sputum culture pending: No growth over 72hrs 2. Acute Respiratory Failure -99% O2 Sat on Venti mask. Bipap at night. -Respiratory Rate: 28 -Albuterol Neb QID prn -Solu-medrol 40mg IV, increased to TID per Dr. Anderson 3. BIANCA -Resolved 0.7 (1.4) -Cont IVF 4. Elevated Troponin -Troponin 0.7 (0.8,0.7,0.8) -Likely 2/2 sepsis -ECHO: Preserved LV systolic fn. Minimal Mitral and tricuspid regurg. RV systolic pressure 40-50 5. HTN -Start home dose: procardia Xl 60 mg qhs 6. DVT ppx -Heparin sq
--- NOTE | 2016-08-01 16:57 | PN ---
Teaching Attending Note Name of Resident: Shiva Sidhu ATTENDING PHYSICIAN STATEMENT I saw and evaluated the patient. I reviewed the resident's note and discussed the case with the resident. I agree with the resident's findings and plan as documented. SUBJECTIVE: feels much better , no cough , no fever or chills OBJECTIVE: NAD , AAOx3. cooperative, tachypnic ( but improved ) . MMM, no facial droop , MMM CV: RRR . No JVD Lungs: clear lungs Abd: soft, NT, ND, NL BS Ext: no edema, no tremor ASSESSMENT AND PLAN: 66 y/o man with h/o HTN, sarcoidosis , who presented with 5-day hx of fever , cough, runny nose and was found to have severe sepsis and Flu B . 1- Severe sepsis: from Flu B, and possible influenza Pneumonia . Superimposed bacterial PNA can't be r/o . - off ABx - follow blood cx .and sputum cx - tamiflu day 5/ 2- Acute hypoxic resp failure: due to influenza. possibly his sarcoidosis is playing a role , - improved after starting steroids yesterday - cont steroids - BIPAP q HS , and as needed - cont FiO2 through venti mask 3- Trop leak : likely from sepsis . - echo with pulm HTN and mild vulvular regurgitation - no further w/u at this point - stress test as out pt 4- BIANCA: from sepsis and volume depletion . cr normalized. off IVF. 5- Ileus : resolved monitor HLOC
--- NOTE | 2016-08-01 17:31 | PN ---
Progress Note, Physician History of Present Illness: patient stable much better still requiring oxygen support able to complete sentence no cough - Current Medication List Current Medications: Active Medications Acetaminophen (Tylenol -) 650 mg PO Q6H PRN PRN Reason: FEVER OR PAIN Albuterol Sulfate (Ventolin 0.083% Nebulizer Soln -) 1 amp NEB QIDR DONAL Last Admin: 08/01/16 12:00 Dose: 1 amp Albuterol Sulfate (Ventolin 0.042trength) -) 1 amp NEB Q6H PRN PRN Reason: SHORT OF BREATH/WHEEZING Alprazolam (Xanax -) 0.5 mg PO HS PRN PRN Reason: ANXIETY Last Admin: 07/31/16 18:56 Dose: 0.5 mg Heparin Sodium (Porcine) (Heparin -) 5,000 unit SQ TID [facility] Last Admin: 08/01/16 14:16 Dose: Not Given Methylprednisolone Sodium Succinate (Solu-Medrol -) 40 mg IVPB Q8H-IV DONAL Last Admin: 08/01/16 16:59 Dose: 40 mg Nifedipine (Procardia Xl -) 60 mg PO HS DONAL Last Admin: 07/31/16 22:53 Dose: 60 mg Oseltamivir Phosphate (Tamiflu -) 75 mg PO BID [facility] Stop: 08/01/16 21:59 Last Admin: 08/01/16 09:01 Dose: 75 mg Tramadol HCl (Ultram -) 50 mg PO Q8H PRN PRN Reason: PAIN Last Admin: 08/01/16 16:58 Dose: 50 mg - Objective Vital Signs: Vital Signs Temperature 97.6 F 08/01/16 14:14 Pulse Rate 107 H 08/01/16 14:14 Respiratory Rate 20 08/01/16 14:14 Blood Pressure 138/84 08/01/16 14:14 O2 Sat by Pulse Oximetry (%) 95 08/01/16 14:00 Constitutional: Yes: No Distress, Calm Cardiovascular: Yes: Regular Rate and Rhythm Respiratory: Yes: On Venti-Mask, Poor Air Entry, Other (resp muscles still being used) Gastrointestinal: Yes: Normal Bowel Sounds, Soft Musculoskeletal: Yes: WNL Extremities: Yes: WNL Neurological: Yes: Alert, Oriented Psychiatric: Yes: Alert, Oriented Labs: CBC, BMP 08/01/16 06:10 08/01/16 06:10 INR, PTT INR 1.26 (0.82-1.09) H 07/27/16 14:15 Assessment/Plan pneumonia resp failure influenza sarcoidosis plan stopped abx continue to monitor closely still needing venti mask resp support incentive alberto
[2016-08-01] MEDS: ACETAMINOPHEN 325 MG TABLET (FP) PO PRN (21:10)
[2016-08-01] MEDS ORDERED: PT OWN MED DRAWER 7, Y5N ONE (21:51)
[2016-08-01] MEDS: ALPRAZolam 0.25 MG TABLET PO PRN (21:57)
[2016-08-01] MEDS: NIFEdipine E.R 60 MG TABLET (UD) PO SCH (21:57)
[2016-08-02] MEDS: methylPREDNISolone NA SUCC 40 MG/1 ML VIAL IVPB SCH ×3 (02:46→17:40)
[2016-08-02] MEDS: HEPARIN NA (PORCINE) 5,000 UNITS/ML 1ML VIAL SQ SCH ×3 (06:21→21:10)
[2016-08-02 07:04] LABS: MCH 26.2 pg (25.7-33.7); MEAN CELL VOLUME 79.6 fl (80-96); MEAN PLT VOLUME 7.8 fl (7.5-11.1); PLATELET COUNT 398 K/MM3 (134-434)
[2016-08-02 07:16] LABS: CALCIUM 8.5 mg/dL (8.5-10.1); COCKROFT - GAULT 150.3; CREATININE 0.5 mg/dL (0.7-1.3)
[2016-08-02] MEDS: ALBUTEROL SO4 0.083% IH SOL 2.5 MG/3 ML VIAL.NEB. NEB SCH ×4 (07:24→23:55)
[2016-08-02] MEDS ORDERED: PT OWN MED DRAWER 7, Y5N ONE (08:14)
[2016-08-02] MEDS: traMADol HCL 50 MG TABLET PO PRN ×2 (08:16→18:48)
[2016-08-02] MEDS ORDERED: SODIUM CHLORIDE 1,000 ML IV SCH (10:15)
--- NOTE | 2016-08-02 10:19 | PN ---
Physical Exam: SUBJECTIVE: Patient seen and examined at bedside feels much better today did not use BiPAP last night because he felt he did not need it OBJECTIVE: Vital Signs Period Temp Pulse Resp BP Sys/Villalobos Pulse Ox Last 24 Hr 97.6 F-98.8 F 84-107 18-22 138-159/77-88 95-96 GENERAL: The patient is awake, alert, and fully oriented, mild distress. NECK: supple. LUNGS: Breath sounds equal CTAB . slightly tachypneic-significantly improved. speaking in full sentences HEART: Regular rate and rhythm, S1, S2 without murmur ABDOMEN: Soft, nontender, nondistended, normoactive bowel sounds EXTREMITIES: warm, well-perfused, no edema. 2+ DP pulses bilaterally NEUROLOGICAL: Cranial nerves II through XII grossly intact. SKIN: Warm, dry Laboratory Results - last 24 hr 08/01/16 08/02/16 08/02/16 15:45 05:35 05:35 WBC 14.0 H RBC 5.16 Hgb 13.5 Hct 41.1 MCV 79.6 L MCHC 33.0 RDW 14.0 Plt Count 398 D MPV 7.8 Sodium 129 L Potassium 4.1 Chloride 90 L Carbon Dioxide 26 Anion Gap 13 BUN 11 Creatinine 0.5 L POC Glucometer 203 Random Glucose 101 Calcium 8.5 Active Medications Generic Name Dose Route Start Last Admin Trade Name Freq PRN Reason Stop Dose Admin Acetaminophen 650 mg 07/30/16 14:28 08/01/16 21:10 Tylenol - PO 650 mg Q6H PRN Administration FEVER OR PAIN Albuterol Sulfate 1 amp 07/30/16 18:00 08/02/16 07:24 Ventolin 0.083% Nebulizer Soln - NEB 1 amp QIDR DONAL Administration Albuterol Sulfate 1 amp 07/30/16 14:28 Ventolin 0.042trength) - NEB Q6H PRN SHORT OF BREATH/WHEEZING Alprazolam 0.5 mg 07/31/16 15:44 08/01/16 21:57 Xanax - PO 0.5 mg HS PRN Administration ANXIETY Heparin Sodium (Porcine) 5,000 unit 07/30/16 22:00 08/02/16 06:21 Heparin - SQ 5,000 unit TID DONAL Administration Sodium Chloride 1,000 mls @ 50 mls/hr 08/02/16 10:15 Normal Saline - IV 08/03/16 10:10 ASDIR DONAL Methylprednisolone Sodium Succinate 40 mg 08/01/16 18:00 08/02/16 02:46 Solu-Medrol - IVPB 40 mg Q8H-IV DONAL Administration Nifedipine 60 mg 07/30/16 22:00 08/01/16 21:57 Procardia Xl - PO 60 mg HS DONAL Administration Tramadol HCl 50 mg 07/30/16 14:28 08/02/16 08:16 Ultram - PO 50 mg Q8H PRN Administration PAIN ASSESSMENT/PLAN: 66M with history of sarcoidosis and hypertension presents to the ED with a 1 week history of fevers chills productive cough with weakness found to be in severe sepsis and acute hypoxic respiratory failure secondary to influenza type B. Severe sepsis: likely from influenza B but on he differential remains influzenza pneumonia with a superimposed bacterial pneumonia. patient with a significant air space disease on CT chest at baseline and it is very difficult to differentiate pneumonia from lung parenchyma patient is significantly improved today off facemask today now on 4L NC and saturating at 95% at rest f/u Mycoplasma-pending f/u urine antigens-negative tamiflu course completed was on levaquin and zosyn now stopped per ID Leukocytosis: reactive due to steroids f/u BCx-negative final UA negative ECHO noted with moderate pulmonary hypertension as elevated RV systolic pressure. no heart failure noted continue BiPAP for support PRN and BiPAP HS hyponatremia: asymptomatic start NS @ 50ml/hr for 24 hours and repeat tomorrow Troponinemia: likely secondary to increased demand from dehydration and severe sepsis Troponin stable at 0.07 will stop trending unless patient becomes symptomatic no KS on EKG Echo Noted BIANCA: from dehydration and decreased flow to the kidneys secondary to severe sepsis Cr now WNL with IVF hydration Acute hypoxic respiratory failure: secondary to influenza and possible influenza PNA possible superimposed bacterial pneumonia tachypnea significantly improved on nasal cannula 4L and saturating well continue solumedrol for now per pulmonology-seems to be improving BiPAP PRN Sarcoidosis: Pulmonology consult appreciated on solumedrol 40mg IV [id number] per pulmonology HTN: well controlled at this time continue home dose of procardia XL 60mg po HS colon distention seen on lower cuts of Chest CT: KUB noted: mildly dilated bowel likely from ileus but abdomen is soft nontender and non distended and patien is asymptomatic with bowel sounds tolerating diet Ileus Resolved FEN: NS @ 50ml/hr hyponatremia Soft diet PPx: HSQ/SCDs start protonix while patient is on steroids no PT consult at this time needed will assess daily need for PT-patient walking Visit type - Emergency Visit Emergency Visit: Yes ED Registration Date: 07/27/16 Care time: The patient presented to the Emergency Department on the above date and was hospitalized for further evaluation of their emergent condition. - New Patient This patient is new to me today: No - Critical Care Critical Care patient: No - Discharge Referral Referred to [facility] Med P.C.: No
[2016-08-02] MEDS: PANTOPRAZOLE 40 MG TABLET (FP) PO SCH (11:12)
--- NOTE | 2016-08-02 12:04 | PN ---
Teaching Attending Note Name of Resident: Shiva Sidhu ATTENDING PHYSICIAN STATEMENT I saw and evaluated the patient. I reviewed the resident's note and discussed the case with the resident. I agree with the resident's findings and plan as documented. Patient is comfortable but tachypneic with RR of 26, no cough , no nausea or vomiting. Vital Signs Temperature 98 F 08/02/16 01:00 Pulse Rate 91 H 08/02/16 09:51 Respiratory Rate 20 08/02/16 06:00 Blood Pressure 155/83 08/02/16 06:00 O2 Sat by Pulse Oximetry (%) 96 08/02/16 09:51 CBCD WBC 14.0 K/mm3 (4.0-10.0) H 08/02/16 05:35 RBC 5.16 M/mm3 (4.00-5.60) 08/02/16 05:35 Hgb 13.5 GM/dL (11.7-16.9) 08/02/16 05:35 Hct 41.1 % (35.4-49) 08/02/16 05:35 MCV 79.6 fl (80-96) L 08/02/16 05:35 MCHC 33.0 g/dl (32.0-35.9) 08/02/16 05:35 RDW 14.0 % (11.9-15.9) 08/02/16 05:35 Plt Count 398 K/MM3 (134-434) D 08/02/16 05:35 MPV 7.8 fl (7.5-11.1) 08/02/16 05:35 CMP Sodium 129 mmol/L (136-145) L 08/02/16 05:35 Potassium 4.1 mmol/L (3.5-5.1) 08/02/16 05:35 Chloride 90 mmol/L (98-107) L 08/02/16 05:35 Carbon Dioxide 26 mmol/L (21-32) 08/02/16 05:35 Anion Gap 13 (8-16) 08/02/16 05:35 BUN 11 mg/dL (7-18) 08/02/16 05:35 Creatinine 0.5 mg/dL (0.7-1.3) L 08/02/16 05:35 Creat Clearance w eGFR > 60 (>60) 07/29/16 05:00 Random Glucose 101 mg/dL (74-106) 08/02/16 05:35 Calcium 8.5 mg/dL (8.5-10.1) 08/02/16 05:35 Total Bilirubin 0.7 mg/dL (0.2-1.0) 07/29/16 05:00 AST 48 U/L (15-37) H D 07/29/16 05:00 ALT 32 U/L (12-78) 07/29/16 05:00 Alkaline Phosphatase 139 U/L (45-117) H D 07/29/16 05:00 Total Protein 6.7 g/dl (6.4-8.2) 07/29/16 05:00 Albumin 2.7 g/dl (3.4-5.0) L 07/29/16 05:00 CARDIAC ENZYMES Creatine Kinase 512 IU/L (39-308) H D 07/28/16 11:30 Troponin I 0.07 ng/ml (0.00-0.05) H 07/28/16 11:30 Current Medications Generic Name Dose Route Start Last Admin Trade Name Freq PRN Reason Stop Dose Admin Acetaminophen 650 mg 07/30/16 14:28 08/01/16 21:10 Tylenol - PO 650 mg Q6H PRN Administration FEVER OR PAIN Albuterol Sulfate 1 amp 07/30/16 18:00 08/02/16 11:30 Ventolin 0.083% Nebulizer Soln - NEB 1 amp QIDR DONAL Administration Albuterol Sulfate 1 amp 07/30/16 14:28 Ventolin 0.042trength) - NEB Q6H PRN SHORT OF BREATH/WHEEZING Alprazolam 0.5 mg 07/31/16 15:44 08/01/16 21:57 Xanax - PO 0.5 mg HS PRN Administration ANXIETY Heparin Sodium (Porcine) 5,000 unit 07/30/16 22:00 08/02/16 06:21 Heparin - SQ 5,000 unit TID DONAL Administration Sodium Chloride 1,000 mls @ 50 mls/hr 08/02/16 10:15 08/02/16 11:12 Normal Saline - IV 08/03/16 10:10 50 mls/hr ASDIR DONAL Administration Methylprednisolone Sodium Succinate 40 mg 08/01/16 18:00 08/02/16 10:32 Solu-Medrol - IVPB 40 mg Q8H-IV DONAL Administration Nifedipine 60 mg 07/30/16 22:00 08/01/16 21:57 Procardia Xl - PO 60 mg HS DONAL Administration Pantoprazole Sodium 40 mg 08/02/16 10:30 08/02/16 11:12 Protonix - PO 40 mg DAILY DONAL Administration Tramadol HCl 50 mg 07/30/16 14:28 08/02/16 08:16 Ultram - PO 50 mg Q8H PRN Administration PAIN Home Medications Medication Instructions Recorded Nifedipine ER [Procardia XL -] 60 mg PO HS 11/03/13 Chest: CTA BL Laboratory Tests 07/27/16 07/27/16 07/28/16 14:15 23:48 06:15 Troponin I 0.08 H 0.07 H 0.08 H 07/28/16 11:30 Troponin I 0.07 H Microbiology 07/27/16 14:15 Blood - Peripheral Venous Blood Culture - Final NO GROWTH AFTER 5 DAYS INCUBATION 07/27/16 14:15 Blood - Peripheral Venous Blood Culture - Final NO GROWTH AFTER 5 DAYS INCUBATION 07/28/16 06:15 Serum Mycoplasma Antibody - Preliminary 07/29/16 02:30 Urine - Urine Clean Catch Legionella Antigen - Final 07/29/16 02:30 Urine - Urine Clean Catch Streptococcus pneumoniae Antigen ( M - Final 07/27/16 15:20 Nasopharyngeal Swab Influenza Types A,B Antigen (NIKI) - Final 07/27/16 15:20 Nasopharyngeal Swab - Final ASSESSMENT AND PLAN: Patient is a 66 y/o man with h/o HTN, sarcoidosis , who presented with 5-day hx of fever , cough, runny nose and was found to have severe sepsis and Flu B . # s/p severe sepsis: due to Influenza B, and bacterial Pneumonia ; completed IV ABx, blood cx negative so far completed tamiflu day 08/25. on NC # Acute hypoxic respiratory failure: due to influenza /with hx of sarcoidosis on IV steroids now, Bipap prn. # s/p ARF: due to sepsis and volume depletion , with back to normal creatinine s /p IVF # Mild elevation of troponin most likely due to ARF on admission with sespis; Echo result with pulm HTN and mild vulvular regurgitation - no further w/u at this point ; stress test as out pt #s/p Ileus : resolved # Acute Hyponatremia will monitor # Hx of Sarcoidosis will continue his steroid at this time. As per Pulmonary need: inpatient pulmonary rehab post discharge DVTPx; Heparin sq
--- NOTE | 2016-08-02 13:23 | PN ---
Progress Note, Physician History of Present Illness: improving still needing support for breathing bipap and venti mask use sob on minor exertion - Current Medication List Current Medications: Active Medications Acetaminophen (Tylenol -) 650 mg PO Q6H PRN PRN Reason: FEVER OR PAIN Last Admin: 08/01/16 21:10 Dose: 650 mg Albuterol Sulfate (Ventolin 0.083% Nebulizer Soln -) 1 amp NEB QIDR DONAL Last Admin: 08/02/16 11:30 Dose: 1 amp Albuterol Sulfate (Ventolin 0.042trength) -) 1 amp NEB Q6H PRN PRN Reason: SHORT OF BREATH/WHEEZING Alprazolam (Xanax -) 0.5 mg PO HS PRN PRN Reason: ANXIETY Last Admin: 08/01/16 21:57 Dose: 0.5 mg Heparin Sodium (Porcine) (Heparin -) 5,000 unit SQ TID [facility] Last Admin: 08/02/16 06:21 Dose: 5,000 unit Sodium Chloride (Normal Saline -) 1,000 mls @ 50 mls/hr IV ASDIR [facility] Stop: 08/03/16 10:10 Last Admin: 08/02/16 11:12 Dose: 50 mls/hr Methylprednisolone Sodium Succinate (Solu-Medrol -) 40 mg IVPB Q8H-IV DONAL Last Admin: 08/02/16 10:32 Dose: 40 mg Nifedipine (Procardia Xl -) 60 mg PO HS [facility] Last Admin: 08/01/16 21:57 Dose: 60 mg Pantoprazole Sodium (Protonix -) 40 mg PO DAILY [facility] Last Admin: 08/02/16 11:12 Dose: 40 mg Tramadol HCl (Ultram -) 50 mg PO Q8H PRN PRN Reason: PAIN Last Admin: 08/02/16 08:16 Dose: 50 mg - Objective Vital Signs: Vital Signs Temperature 98.0 F 08/02/16 10:00 Pulse Rate 86 08/02/16 10:00 Respiratory Rate 22 08/02/16 10:00 Blood Pressure 149/83 08/02/16 10:00 O2 Sat by Pulse Oximetry (%) 96 08/02/16 09:51 Constitutional: Yes: Calm, Mild Distress Cardiovascular: Yes: Regular Rate and Rhythm Respiratory: Yes: Regular, Poor Air Entry, Rhonchi Gastrointestinal: Yes: Normal Bowel Sounds, Soft Musculoskeletal: Yes: WNL Extremities: Yes: WNL Neurological: Yes: Alert, Oriented Psychiatric: Yes: Alert, Oriented Labs: CBC, BMP 08/02/16 05:35 08/02/16 05:35 INR, PTT INR 1.26 (0.82-1.09) H 07/27/16 14:15 Assessment/Plan pneumonia resp failure influenza sarcoidosis plan stable off of abx continue to monitor closely resp support incentive alberto rest as per pul
--- NOTE | 2016-08-02 13:32 | PN ---
Progress Note, Physician History of Present Illness: pulmonary alert,dyspneic on nasal o2 - Current Medication List Current Medications: Active Medications Acetaminophen (Tylenol -) 650 mg PO Q6H PRN PRN Reason: FEVER OR PAIN Last Admin: 08/01/16 21:10 Dose: 650 mg Albuterol Sulfate (Ventolin 0.083% Nebulizer Soln -) 1 amp NEB QIDR DONAL Last Admin: 08/02/16 11:30 Dose: 1 amp Albuterol Sulfate (Ventolin 0.042trength) -) 1 amp NEB Q6H PRN PRN Reason: SHORT OF BREATH/WHEEZING Alprazolam (Xanax -) 0.5 mg PO HS PRN PRN Reason: ANXIETY Last Admin: 08/01/16 21:57 Dose: 0.5 mg Heparin Sodium (Porcine) (Heparin -) 5,000 unit SQ TID [facility] Last Admin: 08/02/16 06:21 Dose: 5,000 unit Sodium Chloride (Normal Saline -) 1,000 mls @ 50 mls/hr IV ASDIR [facility] Stop: 08/03/16 10:10 Last Admin: 08/02/16 11:12 Dose: 50 mls/hr Methylprednisolone Sodium Succinate (Solu-Medrol -) 40 mg IVPB Q8H-IV DONAL Last Admin: 08/02/16 10:32 Dose: 40 mg Nifedipine (Procardia Xl -) 60 mg PO HS [facility] Last Admin: 08/01/16 21:57 Dose: 60 mg Pantoprazole Sodium (Protonix -) 40 mg PO DAILY [facility] Last Admin: 08/02/16 11:12 Dose: 40 mg Tramadol HCl (Ultram -) 50 mg PO Q8H PRN PRN Reason: PAIN Last Admin: 08/02/16 08:16 Dose: 50 mg - Objective Vital Signs: Vital Signs Temperature 98.0 F 08/02/16 10:00 Pulse Rate 86 08/02/16 10:00 Respiratory Rate 22 08/02/16 10:00 Blood Pressure 149/83 08/02/16 10:00 O2 Sat by Pulse Oximetry (%) 96 08/02/16 09:51 Constitutional: Yes: Calm, Thin Eyes: Yes: Occular Prosthesis HENT: Yes: WNL Neck: Yes: WNL Cardiovascular: Yes: Regular Rate and Rhythm, S1, S2 Respiratory: Yes: Rales (kameron crackles) Gastrointestinal: Yes: Normal Bowel Sounds, Soft Extremities: Yes: WNL Edema: No Labs: CBC, BMP 08/02/16 05:35 08/02/16 05:35 INR, PTT INR 1.26 (0.82-1.09) H 07/27/16 14:15 Assessment/Plan Assessment/Plan Hypoxemia Influenza Multilobar Pneumonia Sarcoidosis HTN Hyponatremia -Venti mask,. BiPAP - LVQ/Zosyn -advance diet -BP control -continue steroids q8h -inpatient pulmonary rehab post discharge monitor kody avila DR
--- NOTE | 2016-08-02 15:41 | MSN ---
Progress Note (SOAP) - Subjective Chief Complaint: SOB, Generalized weakness History of Present Illness: 66 y/o m w/ PMHx of HTN and sarcoidosis, who is admitted for sepsis 2/2 influenza. Pt appears alert and oriented, sitting upright in bed eating breakfast. Pt states his breathing has improved since yesterday and he is gaining his strength back. Pt still complains of intermittent back pain that helps with medication. Pt's last BM was yesterday; was soft, no blood. Pt denies matthews/f/chills/cp/abd pain/light headedness. - Current Medications Current Medications: Active Medications Acetaminophen (Tylenol -) 650 mg PO Q6H PRN PRN Reason: FEVER OR PAIN Last Admin: 08/01/16 21:10 Dose: 650 mg Albuterol Sulfate (Ventolin 0.083% Nebulizer Soln -) 1 amp NEB QIDR DONAL Last Admin: 08/02/16 11:30 Dose: 1 amp Albuterol Sulfate (Ventolin 0.042trength) -) 1 amp NEB Q6H PRN PRN Reason: SHORT OF BREATH/WHEEZING Alprazolam (Xanax -) 0.5 mg PO HS PRN PRN Reason: ANXIETY Last Admin: 08/01/16 21:57 Dose: 0.5 mg Heparin Sodium (Porcine) (Heparin -) 5,000 unit SQ TID DONAL Last Admin: 08/02/16 14:11 Dose: 5,000 unit Sodium Chloride (Normal Saline -) 1,000 mls @ 50 mls/hr IV ASDIR DONAL Stop: 08/03/16 10:10 Last Admin: 08/02/16 11:12 Dose: 50 mls/hr Methylprednisolone Sodium Succinate (Solu-Medrol -) 40 mg IVPB Q8H-IV DONAL Last Admin: 08/02/16 10:32 Dose: 40 mg Nifedipine (Procardia Xl -) 60 mg PO HS DONAL Last Admin: 08/01/16 21:57 Dose: 60 mg Pantoprazole Sodium (Protonix -) 40 mg PO DAILY DONAL Last Admin: 08/02/16 11:12 Dose: 40 mg Tramadol HCl (Ultram -) 50 mg PO Q8H PRN PRN Reason: PAIN Last Admin: 08/02/16 08:16 Dose: 50 mg - Objective Vital Signs: Vital Signs Temperature 98.0 F 08/02/16 10:00 Pulse Rate 86 08/02/16 10:00 Respiratory Rate 26 08/02/16 10:00 Blood Pressure 149/83 08/02/16 10:00 O2 Sat by Pulse Oximetry (%) 96 08/02/16 09:51 Constitutional: Yes: No Distress, Calm Eyes: Yes: Conjunctiva Clear, EOM Intact HENT: Yes: Atraumatic, Normocephalic Neck: Yes: Supple, Trachea Midline Cardiovascular: Yes: Regular Rate and Rhythm Respiratory: Yes: Regular, Tachypnea. No: Orthopnea, Rales, Rhonchi, Stridor, Wheezes Gastrointestinal: Yes: Normal Bowel Sounds, Soft. No: Tenderness Peripheral Pulses WNL: Yes Peripheral Pulses: Left Radial: 2+, Right Radial: 2+, Left Doralis Pedis: 2+, Right Dorsalis Pedis: 2+ Edema: No Neurological: Yes: Alert, Oriented Psychiatric: Yes: Alert, Oriented Labs Lab Results: CBC, BMP 08/02/16 05:35 08/02/16 05:35 Imaging - Results Chest X-ray: Other (No new images at this time) Assessment/Plan Mr. Solomon is a 66 y/o male with primary medical history of sarcoidosis and HTN , who presented to the ED with chief complaint of weakness and SOB. Pt is admitted to the ICU for sepsis secondary to flu with possible concurrent CAP. 1. Sepsis 2/2 Influenza with possible concurrent CAP -WBC 14 (11.6), likely secondary to steroids -Finished course of Zosyn and Tamiflu -Influenza B Antigen: positive -Pending mycoplasma ab test. Negative legionella urine antigen and pneuococcal tests. -Blood and sputum culture pending: No growth after 5 days 2. Acute Respiratory Failure -96% O2 Sat on 6L, nasal canula -Respiratory Rate: 26 -Albuterol Neb QID prn -Solu-medrol 40mg IV, increased to TID per Dr. Anderson 3. BIANCA -Resolved 0.7 (1.4) -Cont IVF 4. Elevated Troponin -Troponin 0.7 (0.8,0.7,0.8) -Likely 2/2 sepsis -ECHO: Preserved LV systolic fn. Minimal Mitral and tricuspid regurg. RV systolic pressure 40-50 5. HTN -Start home dose: procardia Xl 60 mg qhs 6. DVT ppx -Heparin sq
[2016-08-02] MEDS: NIFEdipine E.R 60 MG TABLET (UD) PO SCH (21:09)
[2016-08-02] MEDS: ALPRAZolam 0.25 MG TABLET PO PRN (21:09)
[2016-08-03] MEDS: methylPREDNISolone NA SUCC 40 MG/1 ML VIAL IVPB SCH ×2 (02:20→09:00)
[2016-08-03] MEDS: traMADol HCL 50 MG TABLET PO PRN ×3 (04:21→22:25)
[2016-08-03] MEDS: HEPARIN NA (PORCINE) 5,000 UNITS/ML 1ML VIAL SQ SCH ×3 (06:19→22:26)
[2016-08-03] MEDS: ALBUTEROL SO4 0.083% IH SOL 2.5 MG/3 ML VIAL.NEB. NEB SCH ×4 (06:45→23:39)
[2016-08-03 08:02] LABS: MCH 26.5 pg (25.7-33.7); MCHC 33.1 g/dl (32.0-35.9); MEAN CELL VOLUME 80.1 fl (80-96); MEAN PLT VOLUME 7.8 fl (7.5-11.1); PLATELET COUNT 417 K/MM3 (134-434); RDW 14.1 % (11.9-15.9)
[2016-08-03 08:30] LABS: COCKROFT - GAULT 150.3; CREATININE 0.5 mg/dL (0.7-1.3)
--- NOTE | 2016-08-03 08:35 | MSN ---
Progress Note (SOAP) - Subjective Chief Complaint: SOB and generalized weakness History of Present Illness: Effort is a 66 y/o m with pmhx of sarcoidosis and htn, who is admitted for sepsis 2/2 influenza. Pt was awake, alert, eating breakfast in bed this morning. Pt is wondering if he can go to outpt rehab after discharge to increase his strength. Had a BM yesterday night; no blood was noted. Denies f/c/ n/v/abd pain/chest pain. - Current Medications Current Medications: Active Medications Acetaminophen (Tylenol -) 650 mg PO Q6H PRN PRN Reason: FEVER OR PAIN Last Admin: 08/01/16 21:10 Dose: 650 mg Albuterol Sulfate (Ventolin 0.083% Nebulizer Soln -) 1 amp NEB QIDR DONAL Last Admin: 08/03/16 06:45 Dose: Not Given Albuterol Sulfate (Ventolin 0.042trength) -) 1 amp NEB Q6H PRN PRN Reason: SHORT OF BREATH/WHEEZING Alprazolam (Xanax -) 0.5 mg PO HS PRN PRN Reason: ANXIETY Last Admin: 08/02/16 21:09 Dose: 0.5 mg Heparin Sodium (Porcine) (Heparin -) 5,000 unit SQ TID DONAL Last Admin: 08/03/16 06:19 Dose: 5,000 unit Sodium Chloride (Normal Saline -) 1,000 mls @ 50 mls/hr IV ASDIR DONAL Stop: 08/03/16 10:10 Last Admin: 08/02/16 11:12 Dose: 50 mls/hr Methylprednisolone Sodium Succinate (Solu-Medrol -) 40 mg IVPB Q8H-IV DONAL Last Admin: 08/03/16 02:20 Dose: 40 mg Nifedipine (Procardia Xl -) 60 mg PO HS DONAL Last Admin: 08/02/16 21:09 Dose: 60 mg Pantoprazole Sodium (Protonix -) 40 mg PO DAILY DONAL Last Admin: 08/02/16 11:12 Dose: 40 mg Tramadol HCl (Ultram -) 50 mg PO Q8H PRN PRN Reason: PAIN Last Admin: 08/03/16 04:21 Dose: 50 mg - Objective Vital Signs: Vital Signs Temperature 97.5 F L 08/03/16 06:00 Pulse Rate 90 08/03/16 06:00 Respiratory Rate 20 08/03/16 06:00 Blood Pressure 155/64 08/03/16 06:00 O2 Sat by Pulse Oximetry (%) 100 08/02/16 23:00 Constitutional: Yes: No Distress, Calm Eyes: Yes: Conjunctiva Clear, EOM Intact HENT: Yes: Atraumatic, Normocephalic Neck: Yes: Supple, Trachea Midline Cardiovascular: Yes: Regular Rate and Rhythm Respiratory: Yes: Regular, Tachypnea. No: Rales, Stridor, Wheezes Gastrointestinal: Yes: Normal Bowel Sounds, Soft. No: Tenderness Peripheral Pulses WNL: Yes Peripheral Pulses: Left Radial: 2+, Right Radial: 2+, Left Doralis Pedis: 2+, Right Dorsalis Pedis: 2+ Edema: No Neurological: Yes: Alert, Oriented Psychiatric: Yes: Alert, Oriented Labs Lab Results: CBC, BMP 08/03/16 05:35 Imaging - Results Chest X-ray: Other (No new images to review at this time) Assessment/Plan Mr. Solomon is a 66 y/o male with primary medical history of sarcoidosis and HTN , who presented to the ED with chief complaint of weakness and SOB. Pt is admitted to the ICU for sepsis secondary to flu with possible concurrent CAP. 1. Sepsis 2/2 Influenza with possible concurrent CAP -WBC 13 (14), likely secondary to steroids -Finished course of Zosyn and Tamiflu -Influenza B Antigen: positive -Negative mycoplasma, legionella urine antigen and pneuococcal tests. -Blood and sputum culture pending: No growth after 5 days 2. Acute Respiratory Failure -96% O2 Sat on 6L, nasal canula -Respiratory Rate: 30 -Albuterol Neb QID prn -Solu-medrol 40mg IV, increased to TID per Dr. Anderson 3. BIANCA -Resolved 0.7 (1.4) -Cont IVF 4. Elevated Troponin -Troponin 0.7 (0.8,0.7,0.8) -Likely 2/2 sepsis -ECHO: Preserved LV systolic fn. Minimal Mitral and tricuspid regurg. RV systolic pressure 40-50 5. HTN -Continue home dose: procardia Xl 60 mg qhs 6. DVT ppx -Heparin sq
[2016-08-03] MEDS ORDERED: PT OWN MED DRAWER 7, Y5N ONE (08:58)
[2016-08-03] MEDS: PANTOPRAZOLE 40 MG TABLET (FP) PO SCH (08:59)
[2016-08-03] MEDS: ACETAMINOPHEN 325 MG TABLET (FP) PO PRN (08:59)
--- NOTE | 2016-08-03 14:28 | PN ---
Progress Note (short form) - Note Progress Note: PULMONARY Remains short of breath but improved from yesterday. No fevers or chills. Last Vital Signs Temp Pulse Resp BP Pulse Ox 97.4 F L 97 H 20 131/95 90 L 08/03/16 14:12 08/03/16 14:12 08/03/16 14:12 08/03/16 14:12 08/03/16 11:17 Gen: tachypneic at rest Heart: RRR Lung: scattered rales Abd: soft, nontender Ext: no edema CBC, BMP 08/03/16 05:35 08/03/16 05:35 Active Medications Acetaminophen (Tylenol -) 650 mg PO Q6H PRN PRN Reason: FEVER OR PAIN Last Admin: 08/03/16 08:59 Dose: 650 mg Albuterol Sulfate (Ventolin 0.083% Nebulizer Soln -) 1 amp NEB QIDR DONAL Last Admin: 08/03/16 11:18 Dose: 1 amp Albuterol Sulfate (Ventolin 0.042trength) -) 1 amp NEB Q6H PRN PRN Reason: SHORT OF BREATH/WHEEZING Alprazolam (Xanax -) 0.5 mg PO HS PRN PRN Reason: ANXIETY Last Admin: 08/02/16 21:09 Dose: 0.5 mg Heparin Sodium (Porcine) (Heparin -) 5,000 unit SQ TID [facility] Last Admin: 08/03/16 06:19 Dose: 5,000 unit Methylprednisolone Sodium Succinate (Solu-Medrol -) 40 mg IVPB Q8H-IV DONAL Last Admin: 08/03/16 09:00 Dose: 40 mg Nifedipine (Procardia Xl -) 60 mg PO HS DONAL Last Admin: 08/02/16 21:09 Dose: 60 mg Pantoprazole Sodium (Protonix -) 40 mg PO DAILY DONAL Last Admin: 08/03/16 08:59 Dose: 40 mg Tramadol HCl (Ultram -) 50 mg PO Q8H PRN PRN Reason: PAIN Last Admin: 08/03/16 04:21 Dose: 50 mg A/P Influenza Multilobar Pneumonia Sarcoidosis HTN Hyponatremia - s/p antibiotics - medrol taper - inhaled bronchodilators - O2 to keep SpO2 >90% - BiPAP to assist in work of breathing - monitor lytes - agree with pulmonary rehab
--- NOTE | 2016-08-03 15:38 | PN ---
Physical Exam: SUBJECTIVE: Patient seen and examined at bedside OBJECTIVE: Vital Signs Period Temp Pulse Resp BP Sys/Villalobos Pulse Ox Last 24 Hr 97.3 F-98.0 F 86-99 18-20 131-160/64-97 90-100 GENERAL: The patient is awake, alert, and fully oriented, mild distress. NECK: supple. LUNGS: Breath sounds equal bibasilar crackles tachypneic ABDOMEN: Soft, nontender, nondistended, normoactive bowel sounds EXTREMITIES: warm, well-perfused, no edema. 2+ DP pulses bilaterally NEUROLOGICAL: Cranial nerves II through XII grossly intact. SKIN: Warm, dry Laboratory Results - last 24 hr 08/03/16 08/03/16 05:35 05:35 WBC 13.0 H RBC 4.90 Hgb 13.0 Hct 39.2 MCV 80.1 MCHC 33.1 RDW 14.1 Plt Count 417 MPV 7.8 Sodium 131 L Potassium 4.5 Chloride 94 L Carbon Dioxide 27 Anion Gap 10 BUN 12 Creatinine 0.5 L Random Glucose 105 Calcium 8.0 L Active Medications Generic Name Dose Route Start Last Admin Trade Name Freq PRN Reason Stop Dose Admin Acetaminophen 650 mg 07/30/16 14:28 08/03/16 08:59 Tylenol - PO 650 mg Q6H PRN Administration FEVER OR PAIN Albuterol Sulfate 1 amp 07/30/16 18:00 08/03/16 11:18 Ventolin 0.083% Nebulizer Soln - NEB 1 amp QIDR DONAL Administration Albuterol Sulfate 1 amp 07/30/16 14:28 Ventolin 0.042trength) - NEB Q6H PRN SHORT OF BREATH/WHEEZING Alprazolam 0.5 mg 07/31/16 15:44 08/02/16 21:09 Xanax - PO 0.5 mg HS PRN Administration ANXIETY Heparin Sodium (Porcine) 5,000 unit 07/30/16 22:00 08/03/16 14:54 Heparin - SQ 5,000 unit TID DONAL Administration Methylprednisolone Sodium Succinate 60 mg 08/03/16 15:36 Solu-Medrol - IVPB Q8H-IV DONAL Nifedipine 60 mg 07/30/16 22:00 08/02/16 21:09 Procardia Xl - PO 60 mg HS DONAL Administration Pantoprazole Sodium 40 mg 08/02/16 10:30 08/03/16 08:59 Protonix - PO 40 mg DAILY DONAL Administration Tramadol HCl 50 mg 07/30/16 14:28 08/03/16 14:56 Ultram - PO 50 mg Q8H PRN Administration PAIN ASSESSMENT/PLAN: 66M with history of sarcoidosis and hypertension presents to the ED with a 1 week history of fevers chills productive cough with weakness found to be in severe sepsis and acute hypoxic respiratory failure secondary to influenza type B. Severe sepsis: likely from influenza B but on he differential remains influzenza pneumonia with a superimposed bacterial pneumonia. patient with a significant air space disease on CT chest at baseline and it is very difficult to differentiate pneumonia from lung parenchyma alternates between 100% non rebreather and nasal cannula. Still short of breath on ambulation f/u Mycoplasma-negative f/u urine antigens-negative tamiflu course completed was on levaquin and zosyn now stopped per ID Leukocytosis: reactive due to steroids f/u BCx-negative final UA negative ECHO noted with moderate pulmonary hypertension as elevated RV systolic pressure. no heart failure noted continue BiPAP for support PRN and BiPAP HS hyponatremia: asymptomatic improved stoop Normal saline Troponinemia: likely secondary to increased demand from dehydration and severe sepsis Troponin stable at 0.07 will stop trending unless patient becomes symptomatic no WI on EKG Echo Noted BIANCA: from dehydration and decreased flow to the kidneys secondary to severe sepsis Cr now WNL with IVF hydration Acute hypoxic respiratory failure: secondary to influenza and possible influenza PNA possible superimposed bacterial pneumonia still tachypneic Nebulizers continue BiPAP HS and PRN increase solumedrol to 60mg IV q8h Sarcoidosis: Pulmonology consult appreciated on solumedrol 40mg IV [id number] per pulmonology HTN: well controlled at this time continue home dose of procardia XL 60mg po HS colon distention seen on lower cuts of Chest CT from ileus: Resolved FEN: off IVF hyponatremia-improved Soft diet PPx: HSQ/SCDs start protonix while patient is on steroids refused PT consult as he is short of breath Dispo: needs pulmonary rehab Visit type - Emergency Visit Emergency Visit: Yes ED Registration Date: 07/27/16 Care time: The patient presented to the Emergency Department on the above date and was hospitalized for further evaluation of their emergent condition. - New Patient This patient is new to me today: No - Critical Care Critical Care patient: No - Discharge Referral Referred to [facility] Med P.C[facility] No
--- NOTE | 2016-08-03 16:06 | PN ---
Progress Note, Physician History of Present Illness: still continues to be sob coughing requiring resp support sob on exertion - Current Medication List Current Medications: Active Medications Acetaminophen (Tylenol -) 650 mg PO Q6H PRN PRN Reason: FEVER OR PAIN Last Admin: 08/03/16 08:59 Dose: 650 mg Albuterol Sulfate (Ventolin 0.083% Nebulizer Soln -) 1 amp NEB QIDR DONAL Last Admin: 08/03/16 11:18 Dose: 1 amp Albuterol Sulfate (Ventolin 0.042trength) -) 1 amp NEB Q6H PRN PRN Reason: SHORT OF BREATH/WHEEZING Alprazolam (Xanax -) 0.5 mg PO HS PRN PRN Reason: ANXIETY Last Admin: 08/02/16 21:09 Dose: 0.5 mg Heparin Sodium (Porcine) (Heparin -) 5,000 unit SQ TID [facility] [place] Last Admin: 08/03/16 14:54 Dose: 5,000 unit Methylprednisolone Sodium Succinate (Solu-Medrol -) 60 mg IVPB Q8H-IV DONAL Nifedipine (Procardia Xl -) 60 mg PO HS [facility] [place] Last Admin: 08/02/16 21:09 Dose: 60 mg Pantoprazole Sodium (Protonix -) 40 mg PO DAILY [facility] [place] Last Admin: 08/03/16 08:59 Dose: 40 mg Tramadol HCl (Ultram -) 50 mg PO Q8H PRN PRN Reason: PAIN Last Admin: 08/03/16 14:56 Dose: 50 mg - Objective Vital Signs: Vital Signs Temperature 97.4 F L 08/03/16 14:12 Pulse Rate 97 H 08/03/16 14:12 Respiratory Rate 20 08/03/16 14:12 Blood Pressure 131/95 08/03/16 14:12 O2 Sat by Pulse Oximetry (%) 90 L 08/03/16 11:17 Constitutional: Yes: Calm, Mild Distress Cardiovascular: Yes: Regular Rate and Rhythm Respiratory: Yes: Poor Air Entry, Rhonchi, Other Gastrointestinal: Yes: Normal Bowel Sounds, Soft Musculoskeletal: Yes: WNL Extremities: Yes: WNL Neurological: Yes: Alert, Oriented Psychiatric: Yes: Alert, Oriented Labs: CBC, BMP 08/03/16 05:35 08/03/16 05:35 INR, PTT INR 1.26 (0.82-1.09) H 07/27/16 14:15 Assessment/Plan pneumonia resp failure influenza sarcoidosis plan stable off of abx continue to monitor closely still needing venti mask resp support incentive alberto rest as per pul
[2016-08-03] MEDS: methylPREDNISolone NA SUCC 125 MG/2 ML VIAL IVPB SCH (17:33)
--- NOTE | 2016-08-03 19:19 | PN ---
Teaching Attending Note Name of Resident: Shiva Sidhu ATTENDING PHYSICIAN STATEMENT I saw and evaluated the patient. I reviewed the resident's note and discussed the case with the resident. I agree with the resident's findings and plan as documented. Patietn is feeling better but continues to have shortness of breath with breathing with an effort. Vital Signs Temperature 97.4 F L 08/03/16 14:12 Pulse Rate 97 H 08/03/16 14:12 Respiratory Rate 20 08/03/16 14:12 Blood Pressure 131/95 08/03/16 14:12 O2 Sat by Pulse Oximetry (%) 98 08/03/16 18:57 CBCD WBC 13.0 K/mm3 (4.0-10.0) H 08/03/16 05:35 RBC 4.90 M/mm3 (4.00-5.60) 08/03/16 05:35 Hgb 13.0 GM/dL (11.7-16.9) 08/03/16 05:35 Hct 39.2 % (35.4-49) 08/03/16 05:35 MCV 80.1 fl (80-96) 08/03/16 05:35 MCHC 33.1 g/dl (32.0-35.9) 08/03/16 05:35 RDW 14.1 % (11.9-15.9) 08/03/16 05:35 Plt Count 417 K/MM3 (134-434) 08/03/16 05:35 MPV 7.8 fl (7.5-11.1) 08/03/16 05:35 CMP Sodium 131 mmol/L (136-145) L 08/03/16 05:35 Potassium 4.5 mmol/L (3.5-5.1) 08/03/16 05:35 Chloride 94 mmol/L (98-107) L 08/03/16 05:35 Carbon Dioxide 27 mmol/L (21-32) 08/03/16 05:35 Anion Gap 10 (8-16) 08/03/16 05:35 BUN 12 mg/dL (7-18) 08/03/16 05:35 Creatinine 0.5 mg/dL (0.7-1.3) L 08/03/16 05:35 Creat Clearance w eGFR > 60 (>60) 07/29/16 05:00 Random Glucose 105 mg/dL (74-106) 08/03/16 05:35 Calcium 8.0 mg/dL (8.5-10.1) L 08/03/16 05:35 Total Bilirubin 0.7 mg/dL (0.2-1.0) 07/29/16 05:00 AST 48 U/L (15-37) H D 07/29/16 05:00 ALT 32 U/L (12-78) 07/29/16 05:00 Alkaline Phosphatase 139 U/L (45-117) H D 07/29/16 05:00 Total Protein 6.7 g/dl (6.4-8.2) 07/29/16 05:00 Albumin 2.7 g/dl (3.4-5.0) L 07/29/16 05:00 CARDIAC ENZYMES Creatine Kinase 512 IU/L (39-308) H D 07/28/16 11:30 Troponin I 0.07 ng/ml (0.00-0.05) H 07/28/16 11:30 Current Medications Generic Name Dose Route Start Last Admin Trade Name Freq PRN Reason Stop Dose Admin Acetaminophen 650 mg 07/30/16 14:28 08/03/16 08:59 Tylenol - PO 650 mg Q6H PRN Administration FEVER OR PAIN Albuterol Sulfate 1 amp 07/30/16 18:00 08/03/16 18:57 Ventolin 0.083% Nebulizer Soln - NEB 1 amp QIDR DONAL Administration Albuterol Sulfate 1 amp 07/30/16 14:28 Ventolin 0.042trength) - NEB Q6H PRN SHORT OF BREATH/WHEEZING Alprazolam 0.5 mg 07/31/16 15:44 08/02/16 21:09 Xanax - PO 0.5 mg HS PRN Administration ANXIETY Heparin Sodium (Porcine) 5,000 unit 07/30/16 22:00 08/03/16 14:54 Heparin - SQ 5,000 unit TID DONAL Administration Methylprednisolone Sodium Succinate 60 mg 08/03/16 18:00 08/03/16 17:33 Solu-Medrol - IVPB 60 mg Q8H-IV DONAL Administration Nifedipine 60 mg 07/30/16 22:00 08/02/16 21:09 Procardia Xl - PO 60 mg HS DONAL Administration Pantoprazole Sodium 40 mg 08/02/16 10:30 08/03/16 08:59 Protonix - PO 40 mg DAILY DONAL Administration Tramadol HCl 50 mg 07/30/16 14:28 08/03/16 14:56 Ultram - PO 50 mg Q8H PRN Administration PAIN Home Medications Medication Instructions Recorded Nifedipine ER [Procardia XL -] 60 mg PO HS 11/03/13 CHEST: decreased BS at the basis, otherwise CTA BL Microbiology 07/28/16 06:15 Serum Mycoplasma Antibody - Final 07/27/16 14:15 Blood - Peripheral Venous Blood Culture - Final NO GROWTH AFTER 5 DAYS INCUBATION 07/27/16 14:15 Blood - Peripheral Venous Blood Culture - Final NO GROWTH AFTER 5 DAYS INCUBATION 07/29/16 02:30 Urine - Urine Clean Catch Legionella Antigen - Final 07/29/16 02:30 Urine - Urine Clean Catch Streptococcus pneumoniae Antigen ( M - Final 07/27/16 15:20 Nasopharyngeal Swab Influenza Types A,B Antigen (NIKI) - Final 07/27/16 15:20 Nasopharyngeal Swab - Final ASSESSMENT AND PLAN: Patient is a 66 y/o man with h/o HTN, sarcoidosis , who presented with 5-day hx of fever , cough, runny nose and was found to have severe sepsis and Flu B . # Acute hypoxic respiratory failure: due to influenza /with hx of sarcoidosis on IV steroids will increase the dose of Soul medrol to 60mg q8 from 40mg q8, , Bipap prn. # Hx of Sarcoidosis will increase his steroid at this time. As per Pulmonary patient needs inpatient pulmonary rehab post discharge # s/p severe sepsis: due to Influenza B, and bacterial Pneumonia ; completed IV ABx, blood cx negative so far.completed tamiflu day 08/25. on VM # s/p ARF: due to sepsis and volume depletion, with back to normal creatinine s/ p IVF # Mild elevation of troponin most likely due to ARF on admission with sespis; Echo result with pulm HTN and mild vulvular regurgitation - no further w/u at this point ; stress test as out pt #s/p Ileus : resolved # Acute Hyponatremia will monitor DVTPx; Heparin sq
[2016-08-03] MEDS: NIFEdipine E.R 60 MG TABLET (UD) PO SCH (22:25)
[2016-08-03] MEDS: ALPRAZolam 0.25 MG TABLET PO PRN (22:26)
[2016-08-04] MEDS: methylPREDNISolone NA SUCC 125 MG/2 ML VIAL IVPB SCH ×3 (01:10→17:51)
[2016-08-04] MEDS: ACETAMINOPHEN 325 MG TABLET (FP) PO PRN ×2 (01:15→15:07)
[2016-08-04] MEDS: HEPARIN NA (PORCINE) 5,000 UNITS/ML 1ML VIAL SQ SCH ×3 (05:58→22:18)
[2016-08-04] MEDS: ALBUTEROL SO4 0.083% IH SOL 2.5 MG/3 ML VIAL.NEB. NEB SCH ×3 (06:28→18:00)
--- NOTE | 2016-08-04 07:37 | MSN ---
Progress Note (SOAP) - Subjective Chief Complaint: SOB and generalized weakness History of Present Illness: Effort is a 66 y/o m with PMHx of sarcoidosis and HTN who is admitted for sepsis 2/2 influenza. Pt is alert, sitting upright in bed eating breakfast. Pt reports his breathing and strength have been gradually improving. Tolerating nasal canula, uses non-rebreather as needed. Looking forward to PT today. His last BM was last night; no blood or watery diarrhea was noted. Denies f/c/abd pain/cp/matthews/light headedness. - Current Medications Current Medications: Active Medications Acetaminophen (Tylenol -) 650 mg PO Q6H PRN PRN Reason: FEVER OR PAIN Last Admin: 08/04/16 01:15 Dose: 650 mg Albuterol Sulfate (Ventolin 0.083% Nebulizer Soln -) 1 amp NEB QIDR DONAL Last Admin: 08/04/16 06:28 Dose: 1 amp Albuterol Sulfate (Ventolin 0.042trength) -) 1 amp NEB Q6H PRN PRN Reason: SHORT OF BREATH/WHEEZING Alprazolam (Xanax -) 0.5 mg PO HS PRN PRN Reason: ANXIETY Last Admin: 08/03/16 22:26 Dose: 0.5 mg Heparin Sodium (Porcine) (Heparin -) 5,000 unit SQ TID [facility]AL Last Admin: 08/04/16 05:58 Dose: 5,000 unit Methylprednisolone Sodium Succinate (Solu-Medrol -) 60 mg IVPB Q8H-IV DONAL Last Admin: 08/04/16 01:10 Dose: 60 mg Nifedipine (Procardia Xl -) 60 mg PO HS [facility]AL Last Admin: 08/03/16 22:25 Dose: 60 mg Pantoprazole Sodium (Protonix -) 40 mg PO DAILY [facility] Last Admin: 08/03/16 08:59 Dose: 40 mg Tramadol HCl (Ultram -) 50 mg PO Q8H PRN PRN Reason: PAIN Last Admin: 08/03/16 22:25 Dose: 50 mg - Objective Vital Signs: Vital Signs Temperature 98.5 F 08/04/16 05:00 Pulse Rate 87 08/04/16 05:00 Respiratory Rate 20 08/04/16 05:00 Blood Pressure 148/79 08/04/16 05:00 O2 Sat by Pulse Oximetry (%) 100 08/03/16 22:00 Constitutional: Yes: No Distress, Calm Eyes: Yes: Conjunctiva Clear, EOM Intact HENT: Yes: Atraumatic, Normocephalic Neck: Yes: Supple, Trachea Midline Cardiovascular: Yes: Regular Rate and Rhythm Respiratory: Yes: Tachypnea. No: Rales, Rhonchi, Wheezes Gastrointestinal: Yes: Normal Bowel Sounds, Soft Peripheral Pulses WNL: Yes Peripheral Pulses: Left Radial: 2+, Right Radial: 2+, Left Doralis Pedis: 2+, Right Dorsalis Pedis: 2+ Edema: No Neurological: Yes: Alert, Oriented Labs Lab Results: CBC, BMP 08/04/16 05:48 08/04/16 05:48 Imaging - Results Chest X-ray: Other Assessment/Plan Mr. Solomon is a 66 y/o male with primary medical history of sarcoidosis and HTN , who presented to the ED with chief complaint of weakness and SOB. Pt is admitted to the ICU for sepsis secondary to flu with possible concurrent CAP. 1. Sepsis 2/2 Influenza with possible concurrent CAP -WBC 12.6 (13) -Finished course of Zosyn and Tamiflu -Influenza B Antigen: positive -Negative mycoplasma, legionella urine antigen and pneuococcal tests. -Blood and sputum culture pending: No growth after 5 days 2. Acute Respiratory Failure -96% O2 Sat on 6L, nasal canula -Respiratory Rate: 30 -Albuterol Neb QID prn -Solu-medrol increased to 60mg IV TID 3. BIANCA -Resolved 0.7 (1.4) -Cont IVF 4. Elevated Troponin -Troponin 0.7 (0.8,0.7,0.8) -Likely 2/2 sepsis -ECHO: Preserved LV systolic fn. Minimal Mitral and tricuspid regurg. RV systolic pressure 40-50 5. HTN -Continue home dose: procardia Xl 60 mg qhs 6. FEN -Na 128 (131) -NS, NaCl tablets -cont to monitor electrolytes 6. DVT ppx -Heparin sq
[2016-08-04 07:52] LABS: MCHC 33.6 g/dl (32.0-35.9); MEAN CELL VOLUME 80.2 fl (80-96); MEAN PLT VOLUME 7.9 fl (7.5-11.1); PLATELET COUNT 484 K/MM3 (134-434); RDW 14.3 % (11.9-15.9); WHITE BLOOD COUNT 12.6 K/mm3 (4.0-10.0)
[2016-08-04 08:18] LABS: CALCIUM 8.3 mg/dL (8.5-10.1); COCKROFT - GAULT 121.2; CREATININE 0.6 mg/dL (0.7-1.3)
[2016-08-04] MEDS: traMADol HCL 50 MG TABLET PO PRN ×2 (08:29→19:58)
[2016-08-04] MEDS ORDERED: SODIUM CHLORIDE 1,000 ML IV SCH (09:30)
--- NOTE | 2016-08-04 10:03 | PN ---
Physical Exam: SUBJECTIVE: Patient seen and examined at bedside feels well today gets short of breath when ambulating to the bathroom OBJECTIVE: Vital Signs Period Temp Pulse Resp BP Sys/Villalobos Pulse Ox Last 24 Hr 97 F-98.5 F 85-97 18-24 131-150/76-95 90-100 GENERAL: The patient is awake, alert, and fully oriented, mild distress. NECK: supple. LUNGS: CLear to auscultation on right left side has basilar crackles ABDOMEN: Soft, nontender, nondistended, normoactive bowel sounds EXTREMITIES: warm, well-perfused, no edema. 2+ DP pulses bilaterally NEUROLOGICAL: Cranial nerves II through XII grossly intact. SKIN: Warm, dry Laboratory Results - last 24 hr 08/04/16 08/04/16 05:48 05:48 WBC 12.6 H RBC 5.01 Hgb 13.5 Hct 40.2 MCV 80.2 MCHC 33.6 RDW 14.3 Plt Count 484 H MPV 7.9 Sodium 128 L Potassium 5.0 Chloride 91 L Carbon Dioxide 27 Anion Gap 10 BUN 15 D Creatinine 0.6 L Random Glucose 112 H Calcium 8.3 L Active Medications Generic Name Dose Route Start Last Admin Trade Name Freq PRN Reason Stop Dose Admin Acetaminophen 650 mg 07/30/16 14:28 08/04/16 01:15 Tylenol - PO 650 mg Q6H PRN Administration FEVER OR PAIN Albuterol Sulfate 1 amp 07/30/16 18:00 08/04/16 06:28 Ventolin 0.083% Nebulizer Soln - NEB 1 amp QIDR DONAL Administration Albuterol Sulfate 1 amp 07/30/16 14:28 Ventolin 0.042trength) - NEB Q6H PRN SHORT OF BREATH/WHEEZING Alprazolam 0.5 mg 07/31/16 15:44 08/03/16 22:26 Xanax - PO 0.5 mg HS PRN Administration ANXIETY Azithromycin 500 mg 08/04/16 09:57 Zithromax - PO 08/04/16 09:58 ONCE ONE Azithromycin 250 mg 08/05/16 10:00 Zithromax - PO 08/08/16 10:01 DAILY DONAL Heparin Sodium (Porcine) 5,000 unit 07/30/16 22:00 08/04/16 05:58 Heparin - SQ 5,000 unit TID DONAL Administration Methylprednisolone Sodium Succinate 60 mg 08/03/16 18:00 08/04/16 01:10 Solu-Medrol - IVPB 60 mg Q8H-IV DONAL Administration Nifedipine 60 mg 07/30/16 22:00 08/03/16 22:25 Procardia Xl - PO 60 mg HS DONAL Administration Pantoprazole Sodium 40 mg 08/02/16 10:30 08/03/16 08:59 Protonix - PO 40 mg DAILY DONAL Administration Sodium Chloride 1 gm 08/04/16 10:00 Sodium Chloride Tablet - PO 08/05/16 22:01 BID DONAL Sodium Chloride 1 gm 08/06/16 10:00 Sodium Chloride Tablet - PO DAILY DONAL Tramadol HCl 50 mg 07/30/16 14:28 08/04/16 08:29 Ultram - PO 50 mg Q8H PRN Administration PAIN ASSESSMENT/PLAN: 66M with history of sarcoidosis and hypertension presents to the ED with a 1 week history of fevers chills productive cough with weakness found to be in severe sepsis and acute hypoxic respiratory failure secondary to influenza type B. Severe sepsis: likely from influenza B but on he differential remains influzenza pneumonia with a superimposed bacterial pneumonia. patient with a significant air space disease on CT chest at baseline and it is very difficult to differentiate pneumonia from lung parenchyma alternates between 100% non rebreather and nasal cannula. Still short of breath on ambulation f/u Mycoplasma-negative f/u urine antigens-negative tamiflu course completed was on levaquin and zosyn now stopped per ID Start on azithromycin PO 500mg po once then 250mg po for 4 days Leukocytosis: reactive due to steroids f/u BCx-negative final UA negative ECHO noted with moderate pulmonary hypertension as elevated RV systolic pressure. no heart failure noted continue BiPAP for support PRN and BiPAP HS hyponatremia: asymptomatic sodium dropped back down to 128 start sodium chloride tablets 1 tab po BID for 2 days then 1 tab po daily Troponinemia: likely secondary to increased demand from dehydration and severe sepsis Troponin stable at 0.07 will stop trending unless patient becomes symptomatic no SC on EKG Echo Noted BIANCA: from dehydration and decreased flow to the kidneys secondary to severe sepsis Cr now WNL Resolved Acute hypoxic respiratory failure: secondary to influenza and possible influenza PNA possible superimposed bacterial pneumonia still tachypneic Nebulizers continue BiPAP HS and PRN continue solumedrol 60mg IV q8h for now as he is improving with steroids CXR- no change from 4 days ago Sarcoidosis: Pulmonology consult appreciated on solumedrol 60mg IV Q8h HTN: well controlled at this time continue home dose of procardia XL 60mg po HS colon distention seen on lower cuts of Chest CT from ileus: Resolved FEN: off IVF hyponatremia-see above for plan Soft diet PPx: HSQ/SCDs protonix while patient is on steroids PT consult for rehab placement Dispo: needs pulmonary rehab Visit type - Emergency Visit Emergency Visit: Yes ED Registration Date: 07/27/16 Care time: The patient presented to the Emergency Department on the above date and was hospitalized for further evaluation of their emergent condition. - New Patient This patient is new to me today: No - Critical Care Critical Care patient: No - Discharge Referral Referred to [facility] No
[2016-08-04] MEDS: PANTOPRAZOLE 40 MG TABLET (FP) PO SCH (10:37)
[2016-08-04] MEDS ORDERED: AZITHROMYCIN 250 MG TABLET (FP) PO ONE (11:00)
[2016-08-04] MEDS: SODIUM CHLORIDE 1 GM TABLET PO SCH ×2 (11:38→22:18)
--- NOTE | 2016-08-04 12:03 | PN ---
Progress Note, Physician History of Present Illness: pulmonary alert,very dyspneic,on 100%nrm - Current Medication List Current Medications: Active Medications Acetaminophen (Tylenol -) 650 mg PO Q6H PRN PRN Reason: FEVER OR PAIN Last Admin: 08/04/16 01:15 Dose: 650 mg Albuterol Sulfate (Ventolin 0.083% Nebulizer Soln -) 1 amp NEB QIDR DONAL Last Admin: 08/04/16 06:28 Dose: 1 amp Albuterol Sulfate (Ventolin 0.042trength) -) 1 amp NEB Q6H PRN PRN Reason: SHORT OF BREATH/WHEEZING Alprazolam (Xanax -) 0.5 mg PO HS PRN PRN Reason: ANXIETY Last Admin: 08/03/16 22:26 Dose: 0.5 mg Azithromycin (Zithromax -) 250 mg PO DAILY [facility] Stop: 08/08/16 10:01 Heparin Sodium (Porcine) (Heparin -) 5,000 unit SQ TID [facility] Last Admin: 08/04/16 05:58 Dose: 5,000 unit Methylprednisolone Sodium Succinate (Solu-Medrol -) 60 mg IVPB Q8H-IV [facility] Last Admin: 08/04/16 10:37 Dose: 60 mg Nifedipine (Procardia Xl -) 60 mg PO HS [facility] Last Admin: 08/03/16 22:25 Dose: 60 mg Pantoprazole Sodium (Protonix -) 40 mg PO DAILY [facility] Last Admin: 08/04/16 10:37 Dose: 40 mg Sodium Chloride (Sodium Chloride Tablet -) 1 gm PO BID [facility] Stop: 08/05/16 22:01 Last Admin: 08/04/16 11:38 Dose: 1 gm Sodium Chloride (Sodium Chloride Tablet -) 1 gm PO DAILY [facility] Tramadol HCl (Ultram -) 50 mg PO Q8H PRN PRN Reason: PAIN Last Admin: 08/04/16 08:29 Dose: 50 mg - Objective Vital Signs: Vital Signs Temperature 98.2 F 08/04/16 09:00 Pulse Rate 92 H 08/04/16 09:00 Respiratory Rate 20 08/04/16 09:00 Blood Pressure 136/68 08/04/16 09:00 O2 Sat by Pulse Oximetry (%) 100 08/03/16 22:00 Constitutional: Yes: Calm, Mild Distress, Thin Eyes: Yes: WNL HENT: Yes: WNL Neck: Yes: WNL Cardiovascular: Yes: Regular Rate and Rhythm, S1, S2 Respiratory: Yes: Rales (bibasilar crackles), SOB on Exertion Extremities: Yes: WNL Edema: No Labs: CBC, BMP 08/04/16 05:48 08/04/16 05:48 INR, PTT INR 1.26 (0.82-1.09) H 07/27/16 14:15 - ....Imaging Chest X-ray: Report Reviewed, Image Reviewed Assessment/Plan Assessment/Plan Hypoxemia Influenza Multilobar Pneumonia Sarcoidosis HTN Hyponatremia -Venti mask,. BiPAP -continue steroids q8h -inpatient pulmonary rehab post discharge monitor kody avila DR
--- NOTE | 2016-08-04 13:59 | PN ---
Teaching Attending Note Name of Resident: Shiva Sidhu ATTENDING PHYSICIAN STATEMENT I saw and evaluated the patient. I reviewed the resident's note and discussed the case with the resident. I agree with the resident's findings and plan as documented. Vital Signs Temperature 98.2 F 08/04/16 09:00 Pulse Rate 83 08/04/16 12:10 Respiratory Rate 20 08/04/16 09:00 Blood Pressure 136/68 08/04/16 09:00 O2 Sat by Pulse Oximetry (%) 100 08/04/16 12:10 CBCD WBC 12.6 K/mm3 (4.0-10.0) H 08/04/16 05:48 RBC 5.01 M/mm3 (4.00-5.60) 08/04/16 05:48 Hgb 13.5 GM/dL (11.7-16.9) 08/04/16 05:48 Hct 40.2 % (35.4-49) 08/04/16 05:48 MCV 80.2 fl (80-96) 08/04/16 05:48 MCHC 33.6 g/dl (32.0-35.9) 08/04/16 05:48 RDW 14.3 % (11.9-15.9) 08/04/16 05:48 Plt Count 484 K/MM3 (134-434) H 08/04/16 05:48 MPV 7.9 fl (7.5-11.1) 08/04/16 05:48 CMP Sodium 128 mmol/L (136-145) L 08/04/16 05:48 Potassium 5.0 mmol/L (3.5-5.1) 08/04/16 05:48 Chloride 91 mmol/L (98-107) L 08/04/16 05:48 Carbon Dioxide 27 mmol/L (21-32) 08/04/16 05:48 Anion Gap 10 (8-16) 08/04/16 05:48 BUN 15 mg/dL (7-18) D 08/04/16 05:48 Creatinine 0.6 mg/dL (0.7-1.3) L 08/04/16 05:48 Creat Clearance w eGFR > 60 (>60) 07/29/16 05:00 Random Glucose 112 mg/dL (74-106) H 08/04/16 05:48 Calcium 8.3 mg/dL (8.5-10.1) L 08/04/16 05:48 Total Bilirubin 0.7 mg/dL (0.2-1.0) 07/29/16 05:00 AST 48 U/L (15-37) H D 07/29/16 05:00 ALT 32 U/L (12-78) 07/29/16 05:00 Alkaline Phosphatase 139 U/L (45-117) H D 07/29/16 05:00 Total Protein 6.7 g/dl (6.4-8.2) 07/29/16 05:00 Albumin 2.7 g/dl (3.4-5.0) L 07/29/16 05:00 CARDIAC ENZYMES Creatine Kinase 512 IU/L (39-308) H D 07/28/16 11:30 Troponin I 0.07 ng/ml (0.00-0.05) H 07/28/16 11:30 Current Medications Generic Name Dose Route Start Last Admin Trade Name Freq PRN Reason Stop Dose Admin Acetaminophen 650 mg 07/30/16 14:28 08/04/16 01:15 Tylenol - PO 650 mg Q6H PRN Administration FEVER OR PAIN Albuterol Sulfate 1 amp 07/30/16 18:00 08/04/16 12:10 Ventolin 0.083% Nebulizer Soln - NEB 1 amp QIDR DONAL Administration Albuterol Sulfate 1 amp 07/30/16 14:28 Ventolin 0.042trength) - NEB Q6H PRN SHORT OF BREATH/WHEEZING Alprazolam 0.5 mg 07/31/16 15:44 08/03/16 22:26 Xanax - PO 0.5 mg HS PRN Administration ANXIETY Azithromycin 250 mg 08/05/16 10:00 Zithromax - PO 08/08/16 10:01 DAILY DONAL Heparin Sodium (Porcine) 5,000 unit 07/30/16 22:00 08/04/16 13:16 Heparin - SQ 5,000 unit TID DONAL Administration Methylprednisolone Sodium Succinate 60 mg 08/03/16 18:00 08/04/16 10:37 Solu-Medrol - IVPB 60 mg Q8H-IV DONAL Administration Nifedipine 60 mg 07/30/16 22:00 08/03/16 22:25 Procardia Xl - PO 60 mg HS DONAL Administration Pantoprazole Sodium 40 mg 08/02/16 10:30 08/04/16 10:37 Protonix - PO 40 mg DAILY DONAL Administration Sodium Chloride 1 gm 08/04/16 10:00 08/04/16 11:38 Sodium Chloride Tablet - PO 08/05/16 22:01 1 gm BID DONAL Administration Sodium Chloride 1 gm 08/06/16 10:00 Sodium Chloride Tablet - PO DAILY DONAL Tramadol HCl 50 mg 07/30/16 14:28 08/04/16 08:29 Ultram - PO 50 mg Q8H PRN Administration PAIN Home Medications Medication Instructions Recorded Nifedipine ER [Procardia XL -] 60 mg PO HS 11/03/13 ASSESSMENT AND PLAN: Patient is a 66 y/o man with h/o HTN, sarcoidosis , who presented with 5-day hx of fever , cough, runny nose and was found to have severe sepsis and Flu B . # Acute hypoxic respiratory failure: due to influenza was treated for 5/5 days with hx of sarcoidosis on IV steroids will increase the dose of Solu medrol to 60mg q8 from 40mg q8, Bipap prn. # Hx of Sarcoidosis will increase his steroid 60mg IV q8 , As per Pulmonary patient needs inpatient pulmonary rehab post discharge # s/p severe sepsis: due to Influenza B, and bacterial Pneumonia ; completed IV ABx, blood cx negative so far.completed tamiflu day 08/25. on VM will start him on Zithromax po 5 day course # s/p ARF: due to sepsis and volume depletion, with back to normal creatinine s/ p IVF # Mild elevation of troponin most likely due to ARF on admission with sepsis; Echo result with pulm HTN and mild vulvular regurgitation no further w/u at this point ; stress test as an out pt #s/p Ileus: resolved # Acute Hyponatremia will add sodium tablets 1gm po bid per daily DVT Px; Heparin sq
[2016-08-04] MEDS: ALPRAZolam 0.25 MG TABLET PO PRN (22:18)
[2016-08-04] MEDS: NIFEdipine E.R 60 MG TABLET (UD) PO SCH (22:18)
[2016-08-05] MEDS: ACETAMINOPHEN 325 MG TABLET (FP) PO PRN (02:16)
[2016-08-05] MEDS: methylPREDNISolone NA SUCC 125 MG/2 ML VIAL IVPB SCH ×3 (02:17→17:52)
[2016-08-05] MEDS: ALBUTEROL SO4 0.083% IH SOL 2.5 MG/3 ML VIAL.NEB. NEB SCH ×5 (05:48→23:57)
[2016-08-05] MEDS: HEPARIN NA (PORCINE) 5,000 UNITS/ML 1ML VIAL SQ SCH ×3 (05:50→22:01)
[2016-08-05 08:16] LABS: MCH 26.9 pg (25.7-33.7); MCHC 33.6 g/dl (32.0-35.9); MEAN CELL VOLUME 80.3 fl (80-96); MEAN PLT VOLUME 7.6 fl (7.5-11.1); PLATELET COUNT 532 K/MM3 (134-434); RDW 14.7 % (11.9-15.9); WHITE BLOOD COUNT 16.5 K/mm3 (4.0-10.0)
[2016-08-05 08:36] LABS: CALCIUM 8.4 mg/dL (8.5-10.1); COCKROFT - GAULT 121.2; CREATININE 0.6 mg/dL (0.7-1.3)
[2016-08-05] MEDS: traMADol HCL 50 MG TABLET PO PRN ×2 (09:51→20:49)
[2016-08-05] MEDS: PANTOPRAZOLE 40 MG TABLET (FP) PO SCH (09:51)
[2016-08-05] MEDS: AZITHROMYCIN 250 MG TABLET (FP) PO SCH (09:52)
[2016-08-05] MEDS ORDERED: PT OWN MED DRAWER 7, Y5N ONE (09:54)
[2016-08-05] MEDS: SODIUM CHLORIDE 1 GM TABLET PO SCH ×2 (12:20→22:01)
--- NOTE | 2016-08-05 13:15 | PN ---
Progress Note (short form) - Note Progress Note: PULMONARY Remains short of breath, current on NRB. No fevers or chills. Minimal cough. Last Vital Signs Temp Pulse Resp BP Pulse Ox 98.2 F 92 H 22 142/74 98 08/05/16 08:44 08/05/16 08:44 08/05/16 08:44 08/05/16 08:44 08/04/16 22:00 Intake & Output 08/02/16 08/03/16 08/04/16 08/05/16 23:59 23:59 23:59 23:59 Intake Total 830 1210 770 430 Output Total 1900 500 825 950 Balance -1070 710 -55 -520 Weight 156 lb Gen: tachypneic at rest Heart: RRR Lung: scattered rales Abd: soft, nontender Ext: no edema CBC, BMP 08/05/16 06:05 08/05/16 06:05 Active Medications Acetaminophen (Tylenol -) 650 mg PO Q6H PRN PRN Reason: FEVER OR PAIN Last Admin: 08/05/16 02:16 Dose: 650 mg Albuterol Sulfate (Ventolin 0.083% Nebulizer Soln -) 1 amp NEB QIDR DONAL Last Admin: 08/05/16 11:43 Dose: 1 amp Albuterol Sulfate (Ventolin 0.042trength) -) 1 amp NEB Q6H PRN PRN Reason: SHORT OF BREATH/WHEEZING Alprazolam (Xanax -) 0.5 mg PO HS PRN PRN Reason: ANXIETY Last Admin: 08/04/16 22:18 Dose: 0.5 mg Azithromycin (Zithromax -) 250 mg PO DAILY [facility] Stop: 08/08/16 10:01 Last Admin: 08/05/16 09:52 Dose: 250 mg Heparin Sodium (Porcine) (Heparin -) 5,000 unit SQ TID DONAL Last Admin: 08/05/16 05:50 Dose: 5,000 unit Methylprednisolone Sodium Succinate (Solu-Medrol -) 60 mg IVPB Q8H-IV DONAL Last Admin: 08/05/16 09:52 Dose: 60 mg Nifedipine (Procardia Xl -) 60 mg PO HS DONAL Last Admin: 08/04/16 22:18 Dose: 60 mg Pantoprazole Sodium (Protonix -) 40 mg PO DAILY DONAL Last Admin: 08/05/16 09:51 Dose: 40 mg Sodium Chloride (Sodium Chloride Tablet -) 1 gm PO BID DONAL Stop: 08/05/16 22:01 Last Admin: 08/04/16 22:18 Dose: 1 gm Sodium Chloride (Sodium Chloride Tablet -) 1 gm PO DAILY DONAL Tramadol HCl (Ultram -) 50 mg PO Q8H PRN PRN Reason: PAIN Last Admin: 08/05/16 09:51 Dose: 50 mg A/P Acute Hypoxic Respiratory Failure Influenza Multilobar Pneumonia Sarcoidosis HTN Hyponatremia - s/p antibiotics - slow medrol taper - inhaled bronchodilators - O2 to keep SpO2 >90% - BiPAP to assist in work of breathing - monitor lytes - agree with pulmonary rehab when stable
--- NOTE | 2016-08-05 14:41 | PN ---
Progress Note, Physician History of Present Illness: feels a bit better still sob - Current Medication List Current Medications: Active Medications Acetaminophen (Tylenol -) 650 mg PO Q6H PRN PRN Reason: FEVER OR PAIN Last Admin: 08/05/16 02:16 Dose: 650 mg Albuterol Sulfate (Ventolin 0.083% Nebulizer Soln -) 1 amp NEB QIDR DONAL Last Admin: 08/05/16 11:43 Dose: 1 amp Albuterol Sulfate (Ventolin 0.042trength) -) 1 amp NEB Q6H PRN PRN Reason: SHORT OF BREATH/WHEEZING Alprazolam (Xanax -) 0.5 mg PO HS PRN PRN Reason: ANXIETY Last Admin: 08/04/16 22:18 Dose: 0.5 mg Azithromycin (Zithromax -) 250 mg PO DAILY [facility] [place] Stop: 08/08/16 10:01 Last Admin: 08/05/16 09:52 Dose: 250 mg Heparin Sodium (Porcine) (Heparin -) 5,000 unit SQ TID [facility] [place] Last Admin: 08/05/16 14:20 Dose: 5,000 unit Methylprednisolone Sodium Succinate (Solu-Medrol -) 60 mg IVPB Q8H-IV [facility] [place] Last Admin: 08/05/16 09:52 Dose: 60 mg Nifedipine (Procardia Xl -) 60 mg PO HS [facility] [place] Last Admin: 08/04/16 22:18 Dose: 60 mg Pantoprazole Sodium (Protonix -) 40 mg PO DAILY [facility] Last Admin: 08/05/16 09:51 Dose: 40 mg Sodium Chloride (Sodium Chloride Tablet -) 1 gm PO BID [facility] [place] Stop: 08/05/16 22:01 Last Admin: 08/05/16 12:20 Dose: 1 gm Sodium Chloride (Sodium Chloride Tablet -) 1 gm PO DAILY [facility] [place] Tramadol HCl (Ultram -) 50 mg PO Q8H PRN PRN Reason: PAIN Last Admin: 08/05/16 09:51 Dose: 50 mg - Objective Vital Signs: Vital Signs Temperature 98.2 F 08/05/16 08:44 Pulse Rate 92 H 08/05/16 08:44 Respiratory Rate 22 08/05/16 08:44 Blood Pressure 142/74 08/05/16 08:44 O2 Sat by Pulse Oximetry (%) 95 08/05/16 10:00 Constitutional: Yes: Calm, Mild Distress Cardiovascular: Yes: Regular Rate and Rhythm Respiratory: Yes: Regular, On Venti-Mask, Poor Air Entry, Wheezes Gastrointestinal: Yes: Normal Bowel Sounds, Soft Musculoskeletal: Yes: WNL Extremities: Yes: WNL Neurological: Yes: Alert, Oriented Psychiatric: Yes: Alert, Oriented Labs: CBC, BMP 08/05/16 06:05 08/05/16 06:05 INR, PTT INR 1.26 (0.82-1.09) H 07/27/16 14:15 Assessment/Plan pneumonia resp failure influenza sarcoidosis plan stable off of abx continue to monitor closely resp support incentive alberto rest as per pul
--- NOTE | 2016-08-05 14:43 | PN ---
Progress Note, Physician History of Present Illness: feels a bit better still sob coughing thin whitish sputum - Current Medication List Current Medications: Active Medications Acetaminophen (Tylenol -) 650 mg PO Q6H PRN PRN Reason: FEVER OR PAIN Last Admin: 08/05/16 02:16 Dose: 650 mg Albuterol Sulfate (Ventolin 0.083% Nebulizer Soln -) 1 amp NEB QIDR DONAL Last Admin: 08/05/16 11:43 Dose: 1 amp Albuterol Sulfate (Ventolin 0.042trength) -) 1 amp NEB Q6H PRN PRN Reason: SHORT OF BREATH/WHEEZING Alprazolam (Xanax -) 0.5 mg PO HS PRN PRN Reason: ANXIETY Last Admin: 08/04/16 22:18 Dose: 0.5 mg Azithromycin (Zithromax -) 250 mg PO DAILY [facility] Stop: 08/08/16 10:01 Last Admin: 08/05/16 09:52 Dose: 250 mg Heparin Sodium (Porcine) (Heparin -) 5,000 unit SQ TID [facility] Last Admin: 08/05/16 14:20 Dose: 5,000 unit Methylprednisolone Sodium Succinate (Solu-Medrol -) 60 mg IVPB Q8H-IV [facility] Last Admin: 08/05/16 09:52 Dose: 60 mg Nifedipine (Procardia Xl -) 60 mg PO HS [facility] Last Admin: 08/04/16 22:18 Dose: 60 mg Pantoprazole Sodium (Protonix -) 40 mg PO DAILY [facility] Last Admin: 08/05/16 09:51 Dose: 40 mg Sodium Chloride (Sodium Chloride Tablet -) 1 gm PO BID [facility] Stop: 08/05/16 22:01 Last Admin: 08/05/16 12:20 Dose: 1 gm Sodium Chloride (Sodium Chloride Tablet -) 1 gm PO DAILY [facility] Tramadol HCl (Ultram -) 50 mg PO Q8H PRN PRN Reason: PAIN Last Admin: 08/05/16 09:51 Dose: 50 mg - Objective Vital Signs: Vital Signs Temperature 98.2 F 08/05/16 08:44 Pulse Rate 92 H 08/05/16 08:44 Respiratory Rate 22 08/05/16 08:44 Blood Pressure 142/74 08/05/16 08:44 O2 Sat by Pulse Oximetry (%) 95 04/15/17 10:00 Constitutional: Yes: Calm, Mild Distress Eyes: Yes: Conjunctiva Clear Cardiovascular: Yes: Regular Rate and Rhythm Respiratory: Yes: Regular, Poor Air Entry, Rales, Wheezes Gastrointestinal: Yes: Normal Bowel Sounds, Soft Musculoskeletal: Yes: WNL Extremities: Yes: WNL Neurological: Yes: Alert, Oriented Psychiatric: Yes: Alert, Oriented Labs: CBC, BMP 08/05/16 06:05 08/05/16 06:05 INR, PTT INR 1.26 (0.82-1.09) H 07/27/16 14:15 Assessment/Plan pneumonia resp failure influenza sarcoidosis plan stable off of abx continue to monitor closely resp support incentive alberto rest as per pul consider if patient is in failure
--- NOTE | 2016-08-05 18:59 | PN ---
Physical Exam: SUBJECTIVE: Patient seen and examined Patient is feeling better, but still short of breath. Sob ON EXERTION. OBJECTIVE: Vital Signs Temperature 98 F 08/05/16 14:10 Pulse Rate 101 H 08/05/16 14:10 Respiratory Rate 19 08/05/16 14:10 Blood Pressure 140/79 08/05/16 14:10 O2 Sat by Pulse Oximetry (%) 93 L 08/05/16 16:24 GENERAL: The patient is awake, alert, and fully oriented, LABORED BREATHING ON EXERTION. HEAD: Normal with no signs of trauma. EYES: PERRL, extraocular movements intact, sclera anicteric, conjunctiva clear. No ptosis. ENT: Ears normal, oropharynx clear without exudates, moist mucous membranes. NECK: Trachea midline, full range of motion, supple. LUNGS: DECREASED Bs BL , no wheezes, no crackles, no accessory muscle use. HEART: Regular rate and rhythm, S1, S2 without murmur, rub or gallop. ABDOMEN: Soft, nontender, nondistended, normoactive bowel sounds, no guarding, no rebound, no masses appreciated . EXTREMITIES: 2+ pulses, warm, well-perfused, no edema. NEUROLOGICAL: Cranial nerves II through XII grossly intact. Normal speech, gait not observed. PSYCH: Normal mood, normal affect. SKIN: Warm, dry, normal turgor, no rashes or lesions noted Laboratory Results - last 24 hr 08/05/16 08/05/16 06:05 06:05 WBC 16.5 H D RBC 4.84 Hgb 13.0 Hct 38.9 MCV 80.3 MCHC 33.6 RDW 14.7 Plt Count 532 H MPV 7.6 Sodium 127 L Potassium 4.9 Chloride 90 L Carbon Dioxide 28 Anion Gap 9 BUN 12 Creatinine 0.6 L Random Glucose 118 H Calcium 8.4 L Active Medications Generic Name Dose Route Start Last Admin Trade Name Freq PRN Reason Stop Dose Admin Acetaminophen 650 mg 07/30/16 14:28 08/05/16 02:16 Tylenol - PO 650 mg Q6H PRN Administration FEVER OR PAIN Albuterol Sulfate 1 amp 07/30/16 18:00 08/05/16 17:53 Ventolin 0.083% Nebulizer Soln - NEB 1 amp QIDR DONAL Administration Albuterol Sulfate 1 amp 07/30/16 14:28 Ventolin 0.042trength) - NEB Q6H PRN SHORT OF BREATH/WHEEZING Alprazolam 0.5 mg 07/31/16 15:44 08/04/16 22:18 Xanax - PO 0.5 mg HS PRN Administration ANXIETY Azithromycin 250 mg 08/05/16 10:00 08/05/16 09:52 Zithromax - PO 08/08/16 10:01 250 mg DAILY [facility] Administration Heparin Sodium (Porcine) 5,000 unit 07/30/16 22:00 08/05/16 14:20 Heparin - SQ 5,000 unit TID DONAL Administration Methylprednisolone Sodium Succinate 60 mg 08/03/16 18:00 08/05/16 17:52 Solu-Medrol - IVPB 60 mg Q8H-IV DONAL Administration Nifedipine 60 mg 07/30/16 22:00 08/04/16 22:18 Procardia Xl - PO 60 mg HS DONAL Administration Pantoprazole Sodium 40 mg 08/02/16 10:30 08/05/16 09:51 Protonix - PO 40 mg DAILY [facility] Administration Sodium Chloride 1 gm 08/04/16 10:00 08/05/16 12:20 Sodium Chloride Tablet - PO 08/05/16 22:01 1 gm BID DONAL Administration Sodium Chloride 1 gm 08/06/16 10:00 Sodium Chloride Tablet - PO DAILY [facility] Tramadol HCl 50 mg 07/30/16 14:28 08/05/16 09:51 Ultram - PO 50 mg Q8H PRN Administration PAIN ASSESSMENT/PLAN: Patient is a 66 y/o man with h/o HTN, sarcoidosis , who presented with 5-day hx of fever , cough, runny nose and was found to have severe sepsis and Flu B . # Acute hypoxic respiratory failure: due to influenza and sarcoidosis was treated for 5/5 days with hx of sarcoidosis on IV steroids will continue with IV Solu medrol 60mg continue for now, need slow taper of IV steroid. Bipap prn. # Hx of Sarcoidosis continue IV steroid 60mg IV q8 , As per Pulmonary patient needs inpatient pulmonary rehab post discharge # s/p severe sepsis: due to Influenza B, and bacterial Pneumonia ; completed IV ABx, completed tamiflu day 5/5. and completed Zithromax po 5 day course # s/p ARF: due to sepsis and volume depletion, with back to normal creatinine s/ p IVF # Mild elevation of troponin most likely due to ARF on admission with sepsis; Echo result with pulm HTN and mild vulvular regurgitation no further w/u at this point ; stress test as an out pt #s/p Ileus: resolved # Acute Hyponatremia increase sodium tablets 1gm po tid DVT Px; Heparin sq Visit type - Emergency Visit Emergency Visit: Yes ED Registration Date: 07/27/16 Care time: The patient presented to the Emergency Department on the above date and was hospitalized for further evaluation of their emergent condition. - New Patient This patient is new to me today: No - Critical Care Critical Care patient: No
[2016-08-05] MEDS: NIFEdipine E.R 60 MG TABLET (UD) PO SCH (22:01)
[2016-08-06] MEDS: ACETAMINOPHEN 325 MG TABLET (FP) PO PRN (00:30)
[2016-08-06] MEDS: ALPRAZolam 0.25 MG TABLET PO PRN (01:24)
[2016-08-06] MEDS: methylPREDNISolone NA SUCC 125 MG/2 ML VIAL IVPB SCH ×3 (01:24→18:20)
[2016-08-06] MEDS: traMADol HCL 50 MG TABLET PO PRN ×3 (05:51→22:11)
[2016-08-06] MEDS: HEPARIN NA (PORCINE) 5,000 UNITS/ML 1ML VIAL SQ SCH ×3 (05:51→22:04)
[2016-08-06] MEDS: ALBUTEROL SO4 0.083% IH SOL 2.5 MG/3 ML VIAL.NEB. NEB SCH ×3 (07:04→18:05)
[2016-08-06 08:48] LABS: MCH 26.5 pg (25.7-33.7); MCHC 32.9 g/dl (32.0-35.9); MEAN CELL VOLUME 80.4 fl (80-96); MEAN PLT VOLUME 7.4 fl (7.5-11.1); PLATELET COUNT 597 K/MM3 (134-434); RDW 14.6 % (11.9-15.9); WHITE BLOOD COUNT 15.9 K/mm3 (4.0-10.0)
[2016-08-06] MEDS ORDERED: PT OWN MED DRAWER 7, Y5N ONE (09:18)
[2016-08-06 09:28] LABS: CALCIUM 8.5 mg/dL (8.5-10.1); COCKROFT - GAULT 145.4; CREATININE 0.5 mg/dL (0.7-1.3)
[2016-08-06] MEDS: PANTOPRAZOLE 40 MG TABLET (FP) PO SCH (09:41)
[2016-08-06] MEDS: SODIUM CHLORIDE 1 GM TABLET PO SCH (09:41)
[2016-08-06] MEDS: AZITHROMYCIN 250 MG TABLET (FP) PO SCH (09:42)
[2016-08-06] MEDS ORDERED: SODIUM CHLORIDE 1 GM TABLET PO SCH (10:00)
[2016-08-06] MEDS ORDERED: SODIUM CHLORIDE 1 GM TABLET PO ONE (10:00)
--- NOTE | 2016-08-06 12:25 | PN ---
Physical Exam: SUBJECTIVE: Patient seen and examined at bedside feels better OBJECTIVE: Vital Signs Period Temp Pulse Resp BP Sys/Villalobos Pulse Ox Last 24 Hr 97.6 F-98.8 F 91-101 18-20 140-154/71-91 93-97 GENERAL: The patient is awake, alert, and fully oriented, mild distress. NECK: supple. LUNGS: Right sided coarse breath sounds. Left side has minimal crackles. tachypneic but less so than yesterday ABDOMEN: Soft, nontender, nondistended, normoactive bowel sounds EXTREMITIES: warm, well-perfused, no edema. 2+ DP pulses bilaterally NEUROLOGICAL: Cranial nerves II through XII grossly intact. SKIN: Warm, dry Laboratory Results - last 24 hr 08/06/16 08/06/16 06:20 06:20 WBC 15.9 H RBC 4.88 Hgb 12.9 Hct 39.2 MCV 80.4 MCHC 32.9 RDW 14.6 Plt Count 597 H MPV 7.4 L Sodium 127 L Potassium 4.9 Chloride 90 L Carbon Dioxide 26 Anion Gap 11 BUN 12 Creatinine 0.5 L Random Glucose 111 H Calcium 8.5 Active Medications Generic Name Dose Route Start Last Admin Trade Name Freq PRN Reason Stop Dose Admin Acetaminophen 650 mg 07/30/16 14:28 08/06/16 00:30 Tylenol - PO 650 mg Q6H PRN Administration FEVER OR PAIN Albuterol Sulfate 1 amp 07/30/16 18:00 08/06/16 07:04 Ventolin 0.083% Nebulizer Soln - NEB 1 amp QIDR DONAL Administration Albuterol Sulfate 1 amp 07/30/16 14:28 Ventolin 0.042trength) - NEB Q6H PRN SHORT OF BREATH/WHEEZING Alprazolam 0.5 mg 07/31/16 15:44 08/06/16 01:24 Xanax - PO 0.5 mg HS PRN Administration ANXIETY Azithromycin 250 mg 08/05/16 10:00 08/06/16 09:42 Zithromax - PO 08/08/16 10:01 250 mg DAILY DONAL Administration Heparin Sodium (Porcine) 5,000 unit 07/30/16 22:00 08/06/16 05:51 Heparin - SQ 5,000 unit TID DONAL Administration Methylprednisolone Sodium Succinate 60 mg 08/03/16 18:00 08/06/16 09:42 Solu-Medrol - IVPB 60 mg Q8H-IV DONAL Administration Nifedipine 60 mg 07/30/16 22:00 08/05/16 22:01 Procardia Xl - PO 60 mg HS DONAL Administration Pantoprazole Sodium 40 mg 08/02/16 10:30 08/06/16 09:41 Protonix - PO 40 mg DAILY DONAL Administration Sodium Chloride 1 gm 08/05/16 22:00 08/06/16 09:41 Sodium Chloride Tablet - PO 1 gm BID DONAL Administration Tramadol HCl 25 mg 08/05/16 19:58 08/06/16 05:51 Ultram - PO 25 mg Q8H PRN Administration PAIN ASSESSMENT/PLAN: 66M with history of sarcoidosis and hypertension presents to the ED with a 1 week history of fevers chills productive cough with weakness found to be in severe sepsis and acute hypoxic respiratory failure secondary to influenza type B. Severe sepsis: likely from influenza B but on he differential remains influenza pneumonia with a superimposed bacterial pneumonia. patient with a significant air space disease on CT chest at baseline and it is very difficult to differentiate pneumonia from lung parenchyma alternates between 100% non rebreather and nasal cannula. Still short of breath on ambulation-but improving f/u Mycoplasma-negative f/u urine antigens-negative tamiflu course completed was on levaquin and zosyn now stopped per ID continue azithromycin IV Leukocytosis: reactive due to steroids f/u BCx-negative final UA negative ECHO noted with moderate pulmonary hypertension as elevated RV systolic pressure. no heart failure noted continue BiPAP for support PRN and BiPAP HS hyponatremia: asymptomatic sodium 127 continue sodium chloride tablets BID Troponinemia: likely secondary to increased demand from dehydration and severe sepsis Troponin stable at 0.07 will stop trending unless patient becomes symptomatic no [place] on EKG Echo Noted BIANCA: from dehydration and decreased flow to the kidneys secondary to severe sepsis Cr now WNL Resolved Acute hypoxic respiratory failure: secondary to influenza and possible influenza PNA possible superimposed bacterial pneumonia still tachypneic Nebulizers continue BiPAP HS and PRN continue solumedrol 60mg IV q8h for now as he is improving with steroids will need a very slow taper CXR- no change from 4 days ago Sarcoidosis: Pulmonology consult appreciated on solumedrol 60mg IV Q8h HTN: well controlled at this time continue home dose of procardia XL 60mg po HS colon distention seen on lower cuts of Chest CT from ileus: Resolved FEN: off IVF hyponatremia-see above for plan Soft diet PPx: HSQ/SCDs protonix while patient is on steroids PT consult for rehab placement Dispo: needs pulmonary rehab Visit type - Emergency Visit Emergency Visit: Yes ED Registration Date: 07/27/16 Care time: The patient presented to the Emergency Department on the above date and was hospitalized for further evaluation of their emergent condition. - New Patient This patient is new to me today: No - Critical Care Critical Care patient: No
--- NOTE | 2016-08-06 13:10 | PN ---
Progress Note (short form) - Note Progress Note: PULMONARY Remains short of breath, currently on partial NRB. No fevers or chills. Denies cough or wheezing. Last Vital Signs Temp Pulse Resp BP Pulse Ox 98.0 F 93 H 20 152/91 97 08/06/16 08:44 08/06/16 08:44 08/06/16 08:47 08/06/16 08:44 08/06/16 06:00 Gen: tachypneic at rest Heart: RRR Lung: scattered rales Abd: soft, nontender Ext: no edema CBC, BMP 08/06/16 06:20 08/06/16 06:20 Active Medications Acetaminophen (Tylenol -) 650 mg PO Q6H PRN PRN Reason: FEVER OR PAIN Last Admin: 08/06/16 00:30 Dose: 650 mg Albuterol Sulfate (Ventolin 0.083% Nebulizer Soln -) 1 amp NEB QIDR DONAL Last Admin: 08/06/16 07:04 Dose: 1 amp Albuterol Sulfate (Ventolin 0.042trength) -) 1 amp NEB Q6H PRN PRN Reason: SHORT OF BREATH/WHEEZING Alprazolam (Xanax -) 0.5 mg PO HS PRN PRN Reason: ANXIETY Last Admin: 08/06/16 01:24 Dose: 0.5 mg Heparin Sodium (Porcine) (Heparin -) 5,000 unit SQ TID [facility] Last Admin: 08/06/16 05:51 Dose: 5,000 unit Azithromycin 250 mg/ Dextrose 250 mls @ 250 mls/hr IVPB ONCE ONE Stop: 08/06/16 14:59 Azithromycin (Zithromax 500mg Ivpb (Pre-Docked)) 250 mls @ 250 mls/hr IVPB DAILY [facility] Stop: 08/08/16 10:59 Methylprednisolone Sodium Succinate (Solu-Medrol -) 60 mg IVPB Q8H-IV DONAL Last Admin: 08/06/16 09:42 Dose: 60 mg Nifedipine (Procardia Xl -) 60 mg PO HS [facility] Last Admin: 08/05/16 22:01 Dose: 60 mg Pantoprazole Sodium (Protonix -) 40 mg PO DAILY [facility] Last Admin: 08/06/16 09:41 Dose: 40 mg Sodium Chloride (Sodium Chloride Tablet -) 1 gm PO BID [facility] Last Admin: 08/06/16 09:41 Dose: 1 gm Tramadol HCl (Ultram -) 25 mg PO Q8H PRN PRN Reason: PAIN Last Admin: 08/06/16 05:51 Dose: 25 mg A/P Acute Hypoxic Respiratory Failure Influenza Multilobar Pneumonia Sarcoidosis HTN Hyponatremia - s/p antibiotics - slow medrol taper - inhaled bronchodilators - O2 to keep SpO2 >90% - BiPAP to assist in work of breathing - monitor lytes - agree with pulmonary rehab when stable
[2016-08-06] MEDS ORDERED: AZITHROMYCIN IVPB 250 MG in DEXTROSE 5%-WATER - 250 ML IVPB ONE (14:00)
--- NOTE | 2016-08-06 15:09 | PN ---
Progress Note, Physician History of Present Illness: slightly better still requiring support ventimask - Current Medication List Current Medications: Active Medications Acetaminophen (Tylenol -) 650 mg PO Q6H PRN PRN Reason: FEVER OR PAIN Last Admin: 08/06/16 00:30 Dose: 650 mg Albuterol Sulfate (Ventolin 0.083% Nebulizer Soln -) 1 amp NEB QIDR DONAL Last Admin: 08/06/16 12:20 Dose: 1 amp Albuterol Sulfate (Ventolin 0.042trength) -) 1 amp NEB Q6H PRN PRN Reason: SHORT OF BREATH/WHEEZING Alprazolam (Xanax -) 0.5 mg PO HS PRN PRN Reason: ANXIETY Last Admin: 08/06/16 01:24 Dose: 0.5 mg Heparin Sodium (Porcine) (Heparin -) 5,000 unit SQ TID COUNTS INCLUDE 234 BEDS AT THE [facility] Last Admin: 08/06/16 13:45 Dose: 5,000 unit Azithromycin (Zithromax 500mg Ivpb (Pre-Docked)) 250 mls @ 250 mls/hr IVPB DAILY COUNTS INCLUDE 234 BEDS AT THE [facility] Stop: 08/08/16 10:59 Methylprednisolone Sodium Succinate (Solu-Medrol -) 60 mg IVPB Q8H-IV DONAL Last Admin: 08/06/16 09:42 Dose: 60 mg Nifedipine (Procardia Xl -) 60 mg PO HS [facility] Last Admin: 08/05/16 22:01 Dose: 60 mg Pantoprazole Sodium (Protonix -) 40 mg PO DAILY [facility] Last Admin: 08/06/16 09:41 Dose: 40 mg Sodium Chloride (Sodium Chloride Tablet -) 1 gm PO BID [facility]AL Last Admin: 08/06/16 09:41 Dose: 1 gm Tramadol HCl (Ultram -) 25 mg PO Q8H PRN PRN Reason: PAIN Last Admin: 08/06/16 13:52 Dose: 25 mg - Objective Vital Signs: Vital Signs Temperature 98.2 F 08/06/16 14:52 Pulse Rate 90 08/06/16 14:52 Respiratory Rate 20 08/06/16 14:52 Blood Pressure 147/75 08/06/16 14:52 O2 Sat by Pulse Oximetry (%) 97 08/06/16 06:00 Constitutional: Yes: Calm, Mild Distress Cardiovascular: Yes: Regular Rate and Rhythm Respiratory: Yes: Regular, Poor Air Entry, Rhonchi, Wheezes Gastrointestinal: Yes: Normal Bowel Sounds, Soft Musculoskeletal: Yes: WNL Extremities: Yes: WNL Neurological: Yes: Alert, Oriented Psychiatric: Yes: Alert, Oriented Labs: CBC, BMP 08/06/16 06:20 08/06/16 06:20 INR, PTT INR 1.26 (0.82-1.09) H 07/27/16 14:15 Assessment/Plan pneumonia resp failure influenza sarcoidosis plan stable off of abx continue to monitor closely resp support incentive alberto rest as per pul nebulizers
--- NOTE | 2016-08-06 15:58 | PN ---
Teaching Attending Note Name of Resident: Shiva Sidhu ATTENDING PHYSICIAN STATEMENT I saw and evaluated the patient. I reviewed the resident's note and discussed the case with the resident. I agree with the resident's findings and plan as documented. Patient is having difficulty breathing better than before though. Vital Signs Temperature 98.2 F 08/06/16 14:52 Pulse Rate 90 08/06/16 14:52 Respiratory Rate 20 08/06/16 14:52 Blood Pressure 147/75 08/06/16 14:52 O2 Sat by Pulse Oximetry (%) 97 08/06/16 06:00 CBCD WBC 15.9 K/mm3 (4.0-10.0) H 08/06/16 06:20 RBC 4.88 M/mm3 (4.00-5.60) 08/06/16 06:20 Hgb 12.9 GM/dL (11.7-16.9) 08/06/16 06:20 Hct 39.2 % (35.4-49) 08/06/16 06:20 MCV 80.4 fl (80-96) 08/06/16 06:20 MCHC 32.9 g/dl (32.0-35.9) 08/06/16 06:20 RDW 14.6 % (11.9-15.9) 08/06/16 06:20 Plt Count 597 K/MM3 (134-434) H 08/06/16 06:20 MPV 7.4 fl (7.5-11.1) L 08/06/16 06:20 CMP Sodium 127 mmol/L (136-145) L 08/06/16 06:20 Potassium 4.9 mmol/L (3.5-5.1) 08/06/16 06:20 Chloride 90 mmol/L (98-107) L 08/06/16 06:20 Carbon Dioxide 26 mmol/L (21-32) 08/06/16 06:20 Anion Gap 11 (8-16) 08/06/16 06:20 BUN 12 mg/dL (7-18) 08/06/16 06:20 Creatinine 0.5 mg/dL (0.7-1.3) L 08/06/16 06:20 Creat Clearance w eGFR > 60 (>60) 07/29/16 05:00 Random Glucose 111 mg/dL (74-106) H 08/06/16 06:20 Calcium 8.5 mg/dL (8.5-10.1) 08/06/16 06:20 Total Bilirubin 0.7 mg/dL (0.2-1.0) 07/29/16 05:00 AST 48 U/L (15-37) H D 07/29/16 05:00 ALT 32 U/L (12-78) 07/29/16 05:00 Alkaline Phosphatase 139 U/L (45-117) H D 07/29/16 05:00 Total Protein 6.7 g/dl (6.4-8.2) 07/29/16 05:00 Albumin 2.7 g/dl (3.4-5.0) L 07/29/16 05:00 CARDIAC ENZYMES Creatine Kinase 512 IU/L (39-308) H D 07/28/16 11:30 Troponin I 0.07 ng/ml (0.00-0.05) H 07/28/16 11:30 Current Medications Generic Name Dose Route Start Last Admin Trade Name Freq PRN Reason Stop Dose Admin Acetaminophen 650 mg 07/30/16 14:28 08/06/16 00:30 Tylenol - PO 650 mg Q6H PRN Administration FEVER OR PAIN Albuterol Sulfate 1 amp 07/30/16 18:00 08/06/16 12:20 Ventolin 0.083% Nebulizer Soln - NEB 1 amp QIDR DONAL Administration Albuterol Sulfate 1 amp 07/30/16 14:28 Ventolin 0.042trength) - NEB Q6H PRN SHORT OF BREATH/WHEEZING Heparin Sodium (Porcine) 5,000 unit 07/30/16 22:00 08/06/16 13:45 Heparin - SQ 5,000 unit TID DONAL Administration Azithromycin 250 mls @ 250 mls/hr 08/07/16 10:00 Zithromax 500mg Ivpb (Pre-Docked) IVPB 08/08/16 10:59 DAILY DONAL Methylprednisolone Sodium Succinate 60 mg 08/03/16 18:00 08/06/16 09:42 Solu-Medrol - IVPB 60 mg Q8H-IV DONAL Administration Nifedipine 60 mg 07/30/16 22:00 08/05/16 22:01 Procardia Xl - PO 60 mg HS DONAL Administration Pantoprazole Sodium 40 mg 08/02/16 10:30 08/06/16 09:41 Protonix - PO 40 mg DAILY DONAL Administration Sodium Chloride 1 gm 08/05/16 22:00 08/06/16 09:41 Sodium Chloride Tablet - PO 1 gm BID DONAL Administration Tramadol HCl 25 mg 08/05/16 19:58 08/06/16 13:52 Ultram - PO 25 mg Q8H PRN Administration PAIN Home Medications Medication Instructions Recorded Nifedipine ER [Procardia XL -] 60 mg PO HS 11/03/13 CXR: GAE BL but right side positive for crackles. ASSESSMENT AND PLAN: Patient is a 66 y/o man with h/o HTN, sarcoidosis , who presented with 5-day hx of fever , cough, runny nose and was found to have severe sepsis and Flu B . # Acute hypoxic respiratory failure improving due to influenza and worsening of sarcoidosis (s/p treatment of Tamiflu treated 5/ days) & now is on IV steroids for sarcoidosis with IV Solu medrol 60mg IV q8, continue for now , will need slow taper of IV steroid since is taking a long time to improve , Bipap prn. # Hx of Sarcoidosis continue IV steroid 60mg IV q8 ,once better will send the patient to inpatient pulmonary rehab post discharge # s/p severe sepsis: due to Influenza B, and bacterial Pneumonia ; completed IV ABx, completed tamiflu day 08/25. # s/p ARF: due to sepsis and volume depletion, with back to normal creatinine s/ p IVF # Mild elevation of troponin most likely due to ARF on admission with sepsis; Echo result with pulm HTN and mild vulvular regurgitation, no further w/u at this point ; stress test as an out pt #s/p Ileus: resolved # Acute Hyponatremia increase sodium tablets 1gm po bid DVT Px; Heparin sq
--- NOTE | 2016-08-06 19:48 | CONSULT ---
Consult Consult Specialty:: Nephrology Reason for Consultation:: hyponatremia and proteinuria - History of Present Illness Chief Complaint: generalized body aches and weakness History of Present Illness: Pt is a 66 year old male with pmhx of sarcoid and hypertension who was admitted for dyspnea. He was found to have respiratory failure and PNA. He developed hyponatremia and it did not improve with medical management. He denies history of hyponatremia. He says he tries to drink as much water as possible. On average he drinks over 3 liters per day, amongst other fluids. He has shortness of breath and is on oxygen. He denie slower extremity edema. He denies dysuria or hematuria. He denies history of CKD. - History Source History Provided By: Patient, Family Member, Medical Record - Past Medical History Cardio/Vascular: Yes: HTN Pulmonary: Yes: Other (Sarcoidosis) - Alcohol/Substance Use Hx Alcohol Use: No - Smoking History Smoking history: Never smoked Have you smoked in the past 12 months: No Home Medications - Allergies Allergies/Adverse Reactions: Allergies Allergy/AdvReac Type Severity Reaction Status Date / Time No Known Drug Allergies Allergy Verified 11/26/13 09:46 lactose AdvReac Verified 07/29/16 21:58 - Home Medications Home Medications: Ambulatory Orders Nifedipine ER [Procardia XL -] 60 mg PO HS 11/03/13 Family Disease History - Family Disease History Family History: Denies Review of Systems - Review of Systems Constitutional: reports: Malaise Eyes: reports: No Symptoms HENT: reports: No Symptoms Neck: reports: No Symptoms Cardiovascular: reports: Shortness of Breath. denies: Chest Pain, Edema Respiratory: reports: Cough, SOB, SOB on Exertion Genitourinary: reports: No Symptoms Musculoskeletal: reports: No Symptoms Integumentary: reports: No Symptoms Neurological: reports: No Symptoms Endocrine: reports: No Symptoms Hematology/Lymphatic: reports: No Symptoms Psychiatric: reports: No Symptoms Physical Exam Vital Signs: Vital Signs Temperature 98.2 F 08/06/16 14:52 Pulse Rate 90 08/06/16 14:52 Respiratory Rate 20 08/06/16 14:52 Blood Pressure 147/75 08/06/16 14:52 O2 Sat by Pulse Oximetry (%) 97 08/06/16 06:00 Constitutional: Yes: Calm Eyes: Yes: Conjunctiva Clear HENT: Yes: Atraumatic Neck: Yes: Supple Cardiovascular: Yes: S1, S2 Respiratory: Yes: On Venti-Mask, Rhonchi Gastrointestinal: Yes: Soft Renal/: Yes: WNL Musculoskeletal: Yes: WNL Extremities: Yes: WNL Edema: No Neurological: Yes: Oriented Psychiatric: Yes: Oriented Labs: CBC, BMP 08/06/16 06:20 08/06/16 06:20 Laboratory Tests 07/27/16 07/27/16 07/28/16 14:15 16:56 06:15 WBC Hgb Plt Count Sodium 136 140 Potassium Chloride Carbon Dioxide Anion Gap BUN Urine Color Yellow Urine Appearance Clear Urine pH 5.0 Ur Specific Gal[place] 1.035 Urine Protein 2+ H Urine Glucose (UA) Negative Urine Ketones Negative Urine Blood Negative Urine Nitrite Negative Urine Bilirubin Negative 07/29/16 07/30/16 07/31/16 05:00 05:20 05:35 WBC Hgb Plt Count Sodium 137 133 L 133 L Potassium Chloride Carbon Dioxide Anion Gap BUN Urine Color Urine Appearance Urine pH Ur Specific Galien Urine Protein Urine Glucose (UA) Urine Ketones Urine Blood Urine Nitrite Urine Bilirubin 08/01/16 08/02/16 08/03/16 06:10 05:35 05:35 WBC Hgb Plt Count Sodium 132 L 129 L 131 L Potassium Chloride Carbon Dioxide Anion Gap BUN Urine Color Urine Appearance Urine pH Ur Specific Gal[place] Urine Protein Urine Glucose (UA) Urine Ketones Urine Blood Urine Nitrite Urine Bilirubin 08/04/16 08/05/16 08/06/16 05:48 06:05 06:20 WBC 15.9 H Hgb 12.9 Plt Count 597 H Sodium 128 L 127 L Potassium Chloride Carbon Dioxide Anion Gap BUN Urine Color Urine Appearance Urine pH Ur Specific [place] Urine Protein Urine Glucose (UA) Urine Ketones Urine Blood Urine Nitrite Urine Bilirubin 08/06/16 06:20 WBC Hgb Plt Count Sodium 127 L Potassium 4.9 Chloride 90 L Carbon Dioxide 26 Anion Gap 11 BUN 12 Urine Color Urine Appearance Urine pH Ur Specific Galien Urine Protein Urine Glucose (UA) Urine Ketones Urine Blood Urine Nitrite Urine Bilirubin Imaging - Results Chest X-ray: Report Reviewed Assessment/Plan Current Medications Generic Name Dose Route Start Last Admin Trade Name Freq PRN Reason Stop Dose Admin Acetaminophen 650 mg 07/30/16 14:28 08/06/16 00:30 Tylenol - PO 650 mg Q6H PRN Administration FEVER OR PAIN Albuterol Sulfate 1 amp 07/30/16 18:00 08/06/16 18:05 Ventolin 0.083% Nebulizer Soln - NEB 1 amp QIDR DONAL Administration Albuterol Sulfate 1 amp 07/30/16 14:28 Ventolin 0.042trength) - NEB Q6H PRN SHORT OF BREATH/WHEEZING Heparin Sodium (Porcine) 5,000 unit 07/30/16 22:00 08/06/16 13:45 Heparin - SQ 5,000 unit TID DONAL Administration Azithromycin 250 mls @ 250 mls/hr 08/07/16 10:00 Zithromax 500mg Ivpb (Pre-Docked) IVPB 08/08/16 10:59 DAILY DONAL Methylprednisolone Sodium Succinate 60 mg 08/03/16 18:00 08/06/16 18:20 Solu-Medrol - IVPB 60 mg Q8H-IV DONAL Administration Nifedipine 60 mg 07/30/16 22:00 08/05/16 22:01 Procardia Xl - PO 60 mg HS DONAL Administration Pantoprazole Sodium 40 mg 08/02/16 10:30 08/06/16 09:41 Protonix - PO 40 mg DAILY DONAL Administration Sodium Chloride 1 gm 08/05/16 22:00 08/06/16 09:41 Sodium Chloride Tablet - PO 1 gm BID DONAL Administration Tramadol HCl 25 mg 08/05/16 19:58 08/06/16 13:52 Ultram - PO 25 mg Q8H PRN Administration PAIN Impression 1. hyponatremia 2. sarcoidosis 3. proteinuria 4. HTN 5. hypoxic respiratory failure 6. PNA 7. sepsis 8. proteinuria Plan - will send workup for hyponatremia - can hold off salt tabs for now - will start fluid restriction - check plasma and urine osm, tsh and cortisol - repeat labs in am - will repeat ua and send protein to creatinine ratio - will comment on etiology of hyponatremia after more data is gathered, lung pathology and steroids can contribute - will follow Dr Mccord
[2016-08-06] MEDS: NIFEdipine E.R 60 MG TABLET (UD) PO SCH (22:04)
[2016-08-07] MEDS: methylPREDNISolone NA SUCC 125 MG/2 ML VIAL IVPB SCH ×3 (02:30→17:32)
[2016-08-07] MEDS: traMADol HCL 50 MG TABLET PO PRN ×2 (05:43→17:31)
[2016-08-07] MEDS: HEPARIN NA (PORCINE) 5,000 UNITS/ML 1ML VIAL SQ SCH ×3 (05:44→20:59)
[2016-08-07] MEDS: ALBUTEROL SO4 0.083% IH SOL 2.5 MG/3 ML VIAL.NEB. NEB SCH ×3 (06:00→11:14)
[2016-08-07 07:05] LABS: MCH 26.9 pg (25.7-33.7); MCHC 33.4 g/dl (32.0-35.9); MEAN CELL VOLUME 80.5 fl (80-96); MEAN PLT VOLUME 7.2 fl (7.5-11.1); PLATELET COUNT 651 K/MM3 (134-434); RDW 14.9 % (11.9-15.9); WHITE BLOOD COUNT 15.7 K/mm3 (4.0-10.0)
[2016-08-07 07:44] LABS: ALK PHOS 99 U/L (45-117); ANION GAP 10 (8-16); BILIRUBIN,TOTAL 0.8 mg/dL (0.2-1.0); CALCIUM 8.7 mg/dL (8.5-10.1); CO2 29 mmol/L (21-32); COCKROFT - GAULT 121.2; CREATININE 0.6 mg/dL (0.7-1.3); GLUCOSE,RANDOM 135 mg/dL (74-106); SGOT/AST 28 U/L (15-37); SGPT/ALT 98 U/L (12-78); TOT PROT 7.2 g/dl (6.4-8.2)
[2016-08-07] MEDS: PANTOPRAZOLE 40 MG TABLET (FP) PO SCH (10:42)
[2016-08-07] MEDS: AZITHROMYCIN IVPB 500MG/250 ML IVPB SCH (10:44)
--- NOTE | 2016-08-07 11:34 | PN ---
Progress Note, Physician History of Present Illness: pulmonary alert,still dyspneic on 50% vm ,o2 sat 88% - Current Medication List Current Medications: Active Medications Acetaminophen (Tylenol -) 650 mg PO Q6H PRN PRN Reason: FEVER OR PAIN Last Admin: 08/06/16 00:30 Dose: 650 mg Albuterol Sulfate (Ventolin 0.083% Nebulizer Soln -) 1 amp NEB QIDR DONAL Last Admin: 08/07/16 06:00 Dose: Not Given Albuterol Sulfate (Ventolin 0.042trength) -) 1 amp NEB Q6H PRN PRN Reason: SHORT OF BREATH/WHEEZING Heparin Sodium (Porcine) (Heparin -) 5,000 unit SQ TID DONAL Last Admin: 08/07/16 05:44 Dose: 5,000 unit Azithromycin (Zithromax 500mg Ivpb (Pre-Docked)) 250 mls @ 250 mls/hr IVPB DAILY [facility] Stop: 08/08/16 10:59 Last Admin: 08/07/16 10:44 Dose: 250 mls/hr Methylprednisolone Sodium Succinate (Solu-Medrol -) 60 mg IVPB Q8H-IV DONAL Last Admin: 08/07/16 10:42 Dose: 60 mg Nifedipine (Procardia Xl -) 60 mg PO HS DONAL Last Admin: 08/06/16 22:04 Dose: 60 mg Pantoprazole Sodium (Protonix -) 40 mg PO DAILY [facility] Last Admin: 08/07/16 10:42 Dose: 40 mg Tramadol HCl (Ultram -) 25 mg PO Q8H PRN PRN Reason: PAIN Last Admin: 08/07/16 05:43 Dose: 25 mg - Objective Vital Signs: Vital Signs Temperature 98.1 F 08/07/16 06:00 Pulse Rate 92 H 08/07/16 06:00 Respiratory Rate 22 08/07/16 06:00 Blood Pressure 150/78 08/07/16 06:00 O2 Sat by Pulse Oximetry (%) 97 08/06/16 06:00 Constitutional: Yes: Calm, Mild Distress, Thin Eyes: Yes: WNL HENT: Yes: WNL Neck: Yes: WNL Cardiovascular: Yes: Regular Rate and Rhythm, S1, S2 Respiratory: Yes: Rales (bibasilar crackles) Gastrointestinal: Yes: Normal Bowel Sounds, Soft Extremities: Yes: WNL Edema: No Labs: CBC, BMP 08/07/16 05:35 08/07/16 05:35 INR, PTT INR 1.26 (0.82-1.09) H 07/27/16 14:15 Assessment/Plan Assessment/Plan Hypoxemic respiratory failure Influenza Multilobar Pneumonia Sarcoidosis HTN Hyponatremia -Venti mask,. BiPAP -continue steroids q8h -inpatient pulmonary rehab post discharge monitor lytes,na chest x-ray today dvt prophylaxis DR MOROCHO
--- NOTE | 2016-08-07 11:45 | PN ---
Physical Exam: SUBJECTIVE: Patient seen and examined still tachypneic and oxygen dependent with minimal improvement OBJECTIVE: Vital Signs Period Temp Pulse Resp BP Sys/Villalobos Pulse Ox Last 24 Hr 98.1 F-98.8 F 87-94 18-22 136-150/61-78 GENERAL: The patient is awake, alert, and fully oriented, mild distress. NECK: supple. LUNGS: slight b/l crackles. tachypneic but less so than yesterday ABDOMEN: Soft, nontender, nondistended, normoactive bowel sounds EXTREMITIES: warm, well-perfused, no edema. 2+ DP pulses bilaterally NEUROLOGICAL: Cranial nerves II through XII grossly intact. SKIN: Warm, dry Laboratory Results - last 24 hr 08/06/16 08/06/16 08/07/16 21:48 21:48 05:35 WBC 15.7 H RBC 4.90 Hgb 13.2 Hct 39.4 MCV 80.5 MCHC 33.4 RDW 14.9 Plt Count 651 H MPV 7.2 L Sodium Potassium Chloride Carbon Dioxide Anion Gap BUN Creatinine Creat Clearance w eGFR Random Glucose Serum Osmolality 269 L Calcium Total Bilirubin AST ALT Alkaline Phosphatase Total Protein Albumin TSH 0.59 Urine Osmolality Cancelled 08/07/16 05:35 WBC RBC Hgb Hct MCV MCHC RDW Plt Count MPV Sodium 129 L Potassium 5.3 H Chloride 90 L Carbon Dioxide 29 Anion Gap 10 BUN 15 D Creatinine 0.6 L Creat Clearance w eGFR > 60 Random Glucose 135 H D Serum Osmolality Calcium 8.7 Total Bilirubin 0.8 AST 28 D ALT 98 H D Alkaline Phosphatase 99 D Total Protein 7.2 Albumin 3.0 L TSH Urine Osmolality Active Medications Generic Name Dose Route Start Last Admin Trade Name Freq PRN Reason Stop Dose Admin Acetaminophen 650 mg 07/30/16 14:28 08/06/16 00:30 Tylenol - PO 650 mg Q6H PRN Administration FEVER OR PAIN Albuterol Sulfate 1 amp 07/30/16 18:00 08/07/16 06:00 Ventolin 0.083% Nebulizer Soln - NEB Not Given QIDR DONAL Albuterol Sulfate 1 amp 07/30/16 14:28 Ventolin 0.042trength) - NEB Q6H PRN SHORT OF BREATH/WHEEZING Heparin Sodium (Porcine) 5,000 unit 07/30/16 22:00 08/07/16 05:44 Heparin - SQ 5,000 unit TID DONAL Administration Azithromycin 250 mls @ 250 mls/hr 08/07/16 10:00 08/07/16 10:44 Zithromax 500mg Ivpb (Pre-Docked) IVPB 08/08/16 10:59 250 mls/hr DAILY DONAL Administration Methylprednisolone Sodium Succinate 60 mg 08/03/16 18:00 08/07/16 10:42 Solu-Medrol - IVPB 60 mg Q8H-IV DONAL Administration Nifedipine 60 mg 07/30/16 22:00 08/06/16 22:04 Procardia Xl - PO 60 mg HS DONAL Administration Pantoprazole Sodium 40 mg 08/02/16 10:30 08/07/16 10:42 Protonix - PO 40 mg DAILY DONAL Administration Tramadol HCl 25 mg 08/05/16 19:58 08/07/16 05:43 Ultram - PO 25 mg Q8H PRN Administration PAIN ASSESSMENT/PLAN: 66M with history of sarcoidosis and hypertension presents to the ED with a 1 week history of fevers chills productive cough with weakness found to be in severe sepsis and acute hypoxic respiratory failure secondary to influenza type B. Severe sepsis: likely from influenza B but on he differential remains influenza pneumonia with a superimposed bacterial pneumonia. patient with a significant air space disease on CT chest at baseline and it is very difficult to differentiate pneumonia from lung parenchyma alternates between 100% non rebreather and nasal cannula. Still short of breath on ambulation f/u Mycoplasma-negative f/u urine antigens-negative tamiflu course completed was on levaquin and zosyn now stopped per ID continue azithromycin IV -tomorrow last day Leukocytosis: reactive due to steroids f/u BCx-negative final UA negative ECHO noted with moderate pulmonary hypertension as elevated RV systolic pressure. no heart failure noted continue BiPAP for support PRN and BiPAP HS hyponatremia: asymptomatic hypo-osmolar hyponatremia sodium 129 today nephrology consult appreciated work up in progress f/u Urine studies sodium atblets discontinues cause it likely multifactorial patient drink about 3 liters of water a day- polydipsia also fluid retention with steroids and gievn the fact the patient has sarcoidosis he may have an elevated ADH level. 1.5 liter fluid restriction f/u AM cortisol level-pending Troponinemia: likely secondary to increased demand from dehydration and severe sepsis Troponin stable at 0.07 will stop trending unless patient becomes symptomatic no VT on EKG Echo Noted BIANCA: from dehydration and decreased flow to the kidneys secondary to severe sepsis Cr now WNL Resolved Acute hypoxic respiratory failure: secondary to influenza and possible influenza PNA possible superimposed bacterial pneumonia and history of sarcoidosis still tachypneic Nebulizers continue BiPAP HS and PRN continue solumedrol 60mg IV q8h for now will need a very slow taper CXR- slight improvement of bilateral infiltrates Sarcoidosis: Pulmonology consult appreciated on solumedrol 60mg IV Q8h HTN: well controlled at this time continue home dose of procardia XL 60mg po HS colon distention seen on lower cuts of Chest CT from ileus: Resolved FEN: off IVF hyponatremia-see above for plan Soft diet PPx: HSQ/SCDs protonix while patient is on steroids PT consult for rehab placement Dispo: needs pulmonary rehab Visit type - Emergency Visit Emergency Visit: Yes ED Registration Date: 07/27/16 Care time: The patient presented to the Emergency Department on the above date and was hospitalized for further evaluation of their emergent condition. - New Patient This patient is new to me today: No - Critical Care Critical Care patient: No
--- NOTE | 2016-08-07 13:07 | PN ---
Progress Note, Physician History of Present Illness: Pt seen and examined at bedside. He does not feel that his shortness of breath is improving. - Current Medication List Current Medications: Active Medications Acetaminophen (Tylenol -) 650 mg PO Q6H PRN PRN Reason: FEVER OR PAIN Last Admin: 08/06/16 00:30 Dose: 650 mg Albuterol Sulfate (Ventolin 0.083% Nebulizer Soln -) 1 amp NEB QIDR DONAL Last Admin: 08/07/16 06:00 Dose: Not Given Albuterol Sulfate (Ventolin 0.042trength) -) 1 amp NEB Q6H PRN PRN Reason: SHORT OF BREATH/WHEEZING Heparin Sodium (Porcine) (Heparin -) 5,000 unit SQ TID DONAL Last Admin: 08/07/16 05:44 Dose: 5,000 unit Azithromycin (Zithromax 500mg Ivpb (Pre-Docked)) 250 mls @ 250 mls/hr IVPB DAILY DONAL Stop: 08/08/16 10:59 Last Admin: 08/07/16 10:44 Dose: 250 mls/hr Methylprednisolone Sodium Succinate (Solu-Medrol -) 60 mg IVPB Q8H-IV DONAL Last Admin: 08/07/16 10:42 Dose: 60 mg Nifedipine (Procardia Xl -) 60 mg PO HS [facility] Last Admin: 08/06/16 22:04 Dose: 60 mg Pantoprazole Sodium (Protonix -) 40 mg PO DAILY DONAL Last Admin: 08/07/16 10:42 Dose: 40 mg Tramadol HCl (Ultram -) 25 mg PO Q8H PRN PRN Reason: PAIN Last Admin: 08/07/16 05:43 Dose: 25 mg - Objective Vital Signs: Vital Signs Temperature 98.1 F 08/07/16 06:00 Pulse Rate 92 H 08/07/16 06:00 Respiratory Rate 22 08/07/16 06:00 Blood Pressure 150/78 08/07/16 06:00 O2 Sat by Pulse Oximetry (%) 97 08/06/16 06:00 Constitutional: Yes: Calm Eyes: Yes: Conjunctiva Clear HENT: Yes: Atraumatic Cardiovascular: Yes: S1, S2 Respiratory: Yes: On Venti-Mask Gastrointestinal: Yes: Soft Genitourinary: Yes: WNL Musculoskeletal: Yes: WNL Edema: No Neurological: Yes: Oriented Psychiatric: Yes: Oriented Labs: CBC, BMP 08/07/16 05:35 08/07/16 05:35 INR, PTT INR 1.26 (0.82-1.09) H 07/27/16 14:15 Assessment/Plan Current Medications Generic Name Dose Route Start Last Admin Trade Name Freq PRN Reason Stop Dose Admin Acetaminophen 650 mg 07/30/16 14:28 08/06/16 00:30 Tylenol - PO 650 mg Q6H PRN Administration FEVER OR PAIN Albuterol Sulfate 1 amp 07/30/16 18:00 08/07/16 06:00 Ventolin 0.083% Nebulizer Soln - NEB Not Given QIDR DONAL Albuterol Sulfate 1 amp 07/30/16 14:28 Ventolin 0.042trength) - NEB Q6H PRN SHORT OF BREATH/WHEEZING Heparin Sodium (Porcine) 5,000 unit 07/30/16 22:00 08/07/16 05:44 Heparin - SQ 5,000 unit TID DONAL Administration Azithromycin 250 mls @ 250 mls/hr 08/07/16 10:00 08/07/16 10:44 Zithromax 500mg Ivpb (Pre-Docked) IVPB 08/08/16 10:59 250 mls/hr DAILY DONAL Administration Methylprednisolone Sodium Succinate 60 mg 08/03/16 18:00 08/07/16 10:42 Solu-Medrol - IVPB 60 mg Q8H-IV DONAL Administration Nifedipine 60 mg 07/30/16 22:00 08/06/16 22:04 Procardia Xl - PO 60 mg HS DONAL Administration Pantoprazole Sodium 40 mg 08/02/16 10:30 08/07/16 10:42 Protonix - PO 40 mg DAILY DONAL Administration Tramadol HCl 25 mg 08/05/16 19:58 08/07/16 05:43 Ultram - PO 25 mg Q8H PRN Administration PAIN Laboratory Tests 08/06/16 08/06/16 08/07/16 21:48 21:48 05:35 Sodium 129 L Potassium 5.3 H Random Glucose 135 H D Serum Osmolality 269 L TSH 0.59 Cortisol AM Sample Urine Osmolality Cancelled 08/07/16 05:35 Sodium Potassium Random Glucose Serum Osmolality TSH Cortisol AM Sample Pending Urine Osmolality Impression 1. hyponatremia 2. sarcoidosis 3. proteinuria 4. HTN 5. hypoxic respiratory failure 6. PNA 7. sepsis 8. proteinuria Plan - hypo-osmolar hyponatremia - will re-order urine studies, unclear why cancelled - cont with fluid restriction - steroids with taper as tolerated - low potassium diet for now - will follow Dr Mccord
--- NOTE | 2016-08-07 16:51 | PN ---
Teaching Attending Note Name of Resident: Shiva Sidhu ATTENDING PHYSICIAN STATEMENT I saw and evaluated the patient. I reviewed the resident's note and discussed the case with the resident. I agree with the resident's findings and plan as documented. Patient is feeling better, still is having shortness of breath when tries to ambulate. Vital Signs Temperature 97.8 F 08/07/16 15:00 Pulse Rate 95 H 08/07/16 15:00 Respiratory Rate 22 08/07/16 15:00 Blood Pressure 159/72 08/07/16 15:00 O2 Sat by Pulse Oximetry (%) 94 L 08/07/16 10:13 CBCD WBC 15.7 K/mm3 (4.0-10.0) H 08/07/16 05:35 RBC 4.90 M/mm3 (4.00-5.60) 08/07/16 05:35 Hgb 13.2 GM/dL (11.7-16.9) 08/07/16 05:35 Hct 39.4 % (35.4-49) 08/07/16 05:35 MCV 80.5 fl (80-96) 08/07/16 05:35 MCHC 33.4 g/dl (32.0-35.9) 08/07/16 05:35 RDW 14.9 % (11.9-15.9) 08/07/16 05:35 Plt Count 651 K/MM3 (134-434) H 08/07/16 05:35 MPV 7.2 fl (7.5-11.1) L 08/07/16 05:35 CMP Sodium 129 mmol/L (136-145) L 08/07/16 05:35 Potassium 5.3 mmol/L (3.5-5.1) H 08/07/16 05:35 Chloride 90 mmol/L (98-107) L 08/07/16 05:35 Carbon Dioxide 29 mmol/L (21-32) 08/07/16 05:35 Anion Gap 10 (8-16) 08/07/16 05:35 BUN 15 mg/dL (7-18) D 08/07/16 05:35 Creatinine 0.6 mg/dL (0.7-1.3) L 08/07/16 05:35 Creat Clearance w eGFR > 60 (>60) 08/07/16 05:35 Random Glucose 135 mg/dL (74-106) H D 08/07/16 05:35 Calcium 8.7 mg/dL (8.5-10.1) 08/07/16 05:35 Total Bilirubin 0.8 mg/dL (0.2-1.0) 08/07/16 05:35 AST 28 U/L (15-37) D 08/07/16 05:35 ALT 98 U/L (12-78) H D 08/07/16 05:35 Alkaline Phosphatase 99 U/L (45-117) D 08/07/16 05:35 Total Protein 7.2 g/dl (6.4-8.2) 08/07/16 05:35 Albumin 3.0 g/dl (3.4-5.0) L 08/07/16 05:35 CARDIAC ENZYMES Creatine Kinase 512 IU/L (39-308) H D 07/28/16 11:30 Troponin I 0.07 ng/ml (0.00-0.05) H 07/28/16 11:30 Current Medications Generic Name Dose Route Start Last Admin Trade Name Freq PRN Reason Stop Dose Admin Acetaminophen 650 mg 07/30/16 14:28 08/06/16 00:30 Tylenol - PO 650 mg Q6H PRN Administration FEVER OR PAIN Albuterol Sulfate 1 amp 07/30/16 18:00 08/07/16 11:14 Ventolin 0.083% Nebulizer Soln - NEB 1 amp QIDR DONAL Administration Albuterol Sulfate 1 amp 07/30/16 14:28 Ventolin 0.042trength) - NEB Q6H PRN SHORT OF BREATH/WHEEZING Heparin Sodium (Porcine) 5,000 unit 07/30/16 22:00 08/07/16 15:32 Heparin - SQ 5,000 unit TID DONAL Administration Azithromycin 250 mls @ 250 mls/hr 08/07/16 10:00 08/07/16 10:44 Zithromax 500mg Ivpb (Pre-Docked) IVPB 08/08/16 10:59 250 mls/hr DAILY DONAL Administration Methylprednisolone Sodium Succinate 60 mg 08/03/16 18:00 08/07/16 10:42 Solu-Medrol - IVPB 60 mg Q8H-IV DONAL Administration Nifedipine 60 mg 07/30/16 22:00 08/06/16 22:04 Procardia Xl - PO 60 mg HS DONAL Administration Pantoprazole Sodium 40 mg 08/02/16 10:30 08/07/16 10:42 Protonix - PO 40 mg DAILY DONAL Administration Tramadol HCl 25 mg 08/05/16 19:58 08/07/16 05:43 Ultram - PO 25 mg Q8H PRN Administration PAIN Home Medications Medication Instructions Recorded Nifedipine ER [Procardia XL -] 60 mg PO HS 11/03/13 CHEST: better air entry BL, positive for crackles on the right >left. No w/r/r Echo result with pulm HTN and mild vulvular regurgitation, ASSESSMENT AND PLAN: Patient is a 66 y/o man with h/o HTN, sarcoidosis , who presented with 5-day hx of fever , cough, runny nose and was found to have severe sepsis and Influenza B . # Acute exacerbation of sarcoidosis continues, continue with IV steroid 60mg IV q8 for now, discussed with to continue for now ,once improves will send the patient to inpatient pulmonary rehab post discharge # Acute hypoxic respiratory failure improving due to influenza with exacerbation of sarcoidosis (s/p treatment of Tamiflu treated 08/25 days) & now is on IV steroids for sarcoidosis with IV Solu medrol 60mg IV q8 will continue on this dose ,will need slow taper of IV steroid since is taking a long time to improve, Bipap prn. # Acute Hyponatremia with sodium of 129 improving , consult was ordered. Off NACL tablets. # s/p severe sepsis: due to Influenza B, and bacterial Pneumonia ; completed IV ABx, completed tamiflu day 08/25. # s/p ARF: due to sepsis and volume depletion, with back to normal creatinine s/ p IVF # Mild elevation of troponin most likely due to ARF on admission with sepsis; Echo result with pulm HTN and mild vulvular regurgitation, no further w/u at this point ; stress test as an out pt #s/p Ileus: resolved DVT Px; Heparin sq
[2016-08-07] MEDS: ACETAMINOPHEN 325 MG TABLET (FP) PO PRN ×2 (17:31→23:15)
--- NOTE | 2016-08-07 18:31 | PN ---
Progress Note, Physician History of Present Illness: slightly better still requiring support patient doing much better - Current Medication List Current Medications: Active Medications Acetaminophen (Tylenol -) 650 mg PO Q6H PRN PRN Reason: FEVER OR PAIN Last Admin: 08/07/16 17:31 Dose: 650 mg Albuterol Sulfate (Ventolin 0.083% Nebulizer Soln -) 1 amp NEB QIDR DONAL Last Admin: 08/07/16 11:14 Dose: 1 amp Albuterol Sulfate (Ventolin 0.042trength) -) 1 amp NEB Q6H PRN PRN Reason: SHORT OF BREATH/WHEEZING Heparin Sodium (Porcine) (Heparin -) 5,000 unit SQ TID DONAL Last Admin: 08/07/16 15:32 Dose: 5,000 unit Azithromycin (Zithromax 500mg Ivpb (Pre-Docked)) 250 mls @ 250 mls/hr IVPB DAILY [facility] Stop: 08/08/16 10:59 Last Admin: 08/07/16 10:44 Dose: 250 mls/hr Methylprednisolone Sodium Succinate (Solu-Medrol -) 60 mg IVPB Q8H-IV DONAL Last Admin: 08/07/16 17:32 Dose: 60 mg Nifedipine (Procardia Xl -) 60 mg PO HS DONAL Last Admin: 08/06/16 22:04 Dose: 60 mg Pantoprazole Sodium (Protonix -) 40 mg PO DAILY [facility] Last Admin: 08/07/16 10:42 Dose: 40 mg Tramadol HCl (Ultram -) 25 mg PO Q8H PRN PRN Reason: PAIN Last Admin: 08/07/16 17:31 Dose: 25 mg - Objective Vital Signs: Vital Signs Temperature 97.8 F 08/07/16 15:00 Pulse Rate 95 H 08/07/16 15:00 Respiratory Rate 22 08/07/16 15:00 Blood Pressure 159/72 08/07/16 15:00 O2 Sat by Pulse Oximetry (%) 94 L 08/07/16 10:13 Constitutional: Yes: No Distress Neck: Yes: Supple Cardiovascular: Yes: Regular Rate and Rhythm Respiratory: Yes: Regular, On Nasal O2, On Venti-Mask, Other (crackles) Gastrointestinal: Yes: Normal Bowel Sounds, Soft Musculoskeletal: Yes: WNL Extremities: Yes: WNL Neurological: Yes: Alert, Oriented Psychiatric: Yes: Alert Labs: CBC, BMP 08/07/16 05:35 08/07/16 05:35 INR, PTT INR 1.26 (0.82-1.09) H 07/27/16 14:15 Assessment/Plan pneumonia resp failure influenza sarcoidosis plan stable off of abx continue to monitor closely resp support incentive alberto rest as per pul nebulizers
[2016-08-07] MEDS: NIFEdipine E.R. 30 MG TABLET (FP) PO SCH (20:59)
[2016-08-08] MEDS: ALBUTEROL SO4 0.083% IH SOL 2.5 MG/3 ML VIAL.NEB. NEB SCH ×5 (00:23→23:15)
[2016-08-08] MEDS: methylPREDNISolone NA SUCC 125 MG/2 ML VIAL IVPB SCH ×3 (01:13→17:40)
[2016-08-08] MEDS: traMADol HCL 50 MG TABLET PO PRN ×2 (05:47→16:30)
[2016-08-08] MEDS: HEPARIN NA (PORCINE) 5,000 UNITS/ML 1ML VIAL SQ SCH ×3 (05:47→22:23)
[2016-08-08 08:04] LABS: MCH 27.2 pg (25.7-33.7); MCHC 33.9 g/dl (32.0-35.9); MEAN CELL VOLUME 80.1 fl (80-96); MEAN PLT VOLUME 7.1 fl (7.5-11.1); PLATELET COUNT 664 K/MM3 (134-434); RDW 14.5 % (11.9-15.9); WHITE BLOOD COUNT 11.8 K/mm3 (4.0-10.0)
[2016-08-08 08:20] LABS: CALCIUM 8.8 mg/dL (8.5-10.1); COCKROFT - GAULT 121.3; CREATININE 0.6 mg/dL (0.7-1.3)
[2016-08-08] MEDS ORDERED: ALPRAZolam 0.25 MG TABLET PO ONE (08:45)
[2016-08-08] MEDS: PANTOPRAZOLE 40 MG TABLET (FP) PO SCH (09:26)
[2016-08-08] MEDS: AZITHROMYCIN IVPB 500MG/250 ML IVPB SCH (10:10)
--- NOTE | 2016-08-08 10:45 | PN ---
Progress Note (short form) - Note Progress Note: Awake and alert on partial NRBM. Has not been able to use NIPPV due to the straps bothering his previous neck injury site. Dry cough and some left rib discomfort due to cough. No hemoptysis. CXR : Some radiographic improvement in bilateral airspace disease Intake & Output 08/05/16 08/06/16 08/07/16 08/08/16 23:59 23:59 23:59 23:59 Intake Total 1030 1480 550 550 Output Total 1450 2675 1000 Balance -420 -1195 -450 550 Weight 156 lb 2 oz Last Vital Signs Temp Pulse Resp BP Pulse Ox 97.9 F 92 H 18 148/62 95 08/07/16 22:00 08/07/16 22:00 08/07/16 22:00 08/07/16 22:00 08/07/16 21:00 Active Medications Acetaminophen (Tylenol -) 650 mg PO Q6H PRN PRN Reason: FEVER OR PAIN Last Admin: 08/07/16 23:15 Dose: 650 mg Albuterol Sulfate (Ventolin 0.083% Nebulizer Soln -) 1 amp NEB QIDR DONAL Last Admin: 08/08/16 06:58 Dose: 1 amp Albuterol Sulfate (Ventolin 0.042trength) -) 1 amp NEB Q6H PRN PRN Reason: SHORT OF BREATH/WHEEZING Heparin Sodium (Porcine) (Heparin -) 5,000 unit SQ TID DOANL Last Admin: 08/08/16 05:47 Dose: 5,000 unit Azithromycin (Zithromax 500mg Ivpb (Pre-Docked)) 250 mls @ 250 mls/hr IVPB DAILY DONAL Stop: 08/08/16 10:59 Last Admin: 08/08/16 10:10 Dose: 250 mls/hr Methylprednisolone Sodium Succinate (Solu-Medrol -) 60 mg IVPB Q8H-IV DONAL Last Admin: 08/08/16 09:26 Dose: 60 mg Nifedipine (Procardia Xl -) 60 mg PO HS DONAL Last Admin: 08/07/16 20:59 Dose: 60 mg Pantoprazole Sodium (Protonix -) 40 mg PO DAILY DONAL Last Admin: 08/08/16 09:26 Dose: 40 mg Tramadol HCl (Ultram -) 25 mg PO Q8H PRN PRN Reason: PAIN Last Admin: 08/08/16 05:47 Dose: 25 mg Constitutional: Yes: Mildly tachypneic at rest, Thin Eyes: Yes: WNL HENT: Yes: WNL Neck: Yes: WNL Cardiovascular: Yes: Regular Rate and Rhythm, S1, S2 Respiratory: Yes: Scattered bilateral rhonchi, no wheezing Gastrointestinal: Yes: Normal Bowel Sounds, Soft Extremities: Yes: WNL Edema: No Labs: Laboratory Results - last 24 hr 08/07/16 08/07/16 08/08/16 05:35 17:30 07:10 WBC RBC Hgb Hct MCV MCHC RDW Plt Count MPV Sodium 127 L Potassium 4.9 Chloride 91 L Carbon Dioxide 27 Anion Gap 9 BUN 16 Creatinine 0.6 L Random Glucose 137 H Calcium 8.8 Cortisol AM Sample 6.0 Urine Osmolality 824 08/08/16 07:10 WBC 11.8 H RBC 5.03 Hgb 13.7 Hct 40.3 MCV 80.1 MCHC 33.9 RDW 14.5 Plt Count 664 H MPV 7.1 L Sodium Potassium Chloride Carbon Dioxide Anion Gap BUN Creatinine Random Glucose Calcium Cortisol AM Sample Urine Osmolality Assessment/Plan Hypoxemic respiratory failure Influenza Multilobar Pneumonia Sarcoidosis HTN Hyponatremia Tapar O2 as able -> keep saturation 88% to 92% to avoid worsening V/Q mismatch Ideally he would have some benefit by using NIPPV to decrease his WOB -> would continue to encourage even brief/intermittent use Continue Medrol at current dose Continue BD TX Will likely need inpatient pulmonary rehab post discharge VTE prophylaxis If hypoxemia remains refractory -> May have to consider adding nonglucocorticoid agents Dr Mustafa
--- NOTE | 2016-08-08 12:57 | PN ---
Physical Exam: SUBJECTIVE: Patient seen and examined at bedside states he felt better yesterday upset he is on fluid restriction OBJECTIVE: Vital Signs Period Temp Pulse Resp BP Sys/Villalobos Pulse Ox Last 24 Hr 97.6 F-97.9 F 92-96 18-22 142-159/62-72 88-95 GENERAL: The patient is awake, alert, and fully oriented, mild distress. NECK: supple. LUNGS: Scattered rhonchi. tachypneic ABDOMEN: Soft, nontender, nondistended, normoactive bowel sounds EXTREMITIES: warm, well-perfused, no edema. 2+ DP pulses bilaterally NEUROLOGICAL: Cranial nerves II through XII grossly intact. SKIN: Warm, dry Laboratory Results - last 24 hr 08/07/16 08/07/16 08/08/16 05:35 17:30 07:10 WBC RBC Hgb Hct MCV MCHC RDW Plt Count MPV Sodium 127 L Potassium 4.9 Chloride 91 L Carbon Dioxide 27 Anion Gap 9 BUN 16 Creatinine 0.6 L Random Glucose 137 H Calcium 8.8 Cortisol AM Sample 6.0 Urine Osmolality 824 08/08/16 07:10 WBC 11.8 H RBC 5.03 Hgb 13.7 Hct 40.3 MCV 80.1 MCHC 33.9 RDW 14.5 Plt Count 664 H MPV 7.1 L Sodium Potassium Chloride Carbon Dioxide Anion Gap BUN Creatinine Random Glucose Calcium Cortisol AM Sample Urine Osmolality Active Medications Generic Name Dose Route Start Last Admin Trade Name Freq PRN Reason Stop Dose Admin Acetaminophen 650 mg 08/07/16 18:54 08/07/16 23:15 Tylenol - PO 650 mg Q6H PRN Administration FEVER OR PAIN Albuterol Sulfate 1 amp 08/08/16 00:00 08/08/16 11:10 Ventolin 0.083% Nebulizer Soln - NEB 1 amp QIDR DONAL Administration Albuterol Sulfate 1 amp 08/07/16 18:54 Ventolin 0.042trength) - NEB Q6H PRN SHORT OF BREATH/WHEEZING Heparin Sodium (Porcine) 5,000 unit 08/07/16 22:00 08/08/16 05:47 Heparin - SQ 5,000 unit TID DONAL Administration Methylprednisolone Sodium Succinate 60 mg 08/08/16 02:00 08/08/16 09:26 Solu-Medrol - IVPB 60 mg Q8H-IV DONAL Administration Nifedipine 60 mg 08/07/16 22:00 08/07/16 20:59 Procardia Xl - PO 60 mg HS DONAL Administration Pantoprazole Sodium 40 mg 08/08/16 10:00 08/08/16 09:26 Protonix - PO 40 mg DAILY DONAL Administration Tramadol HCl 25 mg 08/05/16 19:58 08/08/16 05:47 Ultram - PO 25 mg Q8H PRN Administration PAIN ASSESSMENT/PLAN: 66M with history of sarcoidosis and hypertension presents to the ED with a 1 week history of fevers chills productive cough with weakness found to be in severe sepsis and acute hypoxic respiratory failure secondary to influenza type B. Severe sepsis: likely from influenza B but on he differential remains influenza pneumonia with a superimposed bacterial pneumonia. patient with a significant air space disease on CT chest at baseline and it is very difficult to differentiate pneumonia from lung parenchyma alternates between 100% non rebreather and face mask-spoke to nurse to stop placeing non rebreather on patient and told her he needs intermittent bipap Still short of breath on ambulation f/u Mycoplasma-negative f/u urine antigens-negative tamiflu course completed was on levaquin and zosyn now stopped per ID continue azithromycin IV -today last day Leukocytosis: reactive due to steroids improving f/u BCx-negative final UA negative ECHO noted with moderate pulmonary hypertension as elevated RV systolic pressure. no heart failure noted continue BiPAP for support PRN and BiPAP HS hyponatremia: asymptomatic hypo-osmolar hyponatremia sodium 127 today nephrology consult appreciated work up in progress f/u Urine studies sodium tablets discontinued cause it likely multifactorial patient drink about 3 liters of water a day- polydipsia also fluid retention with steroids and given the fact the patient has sarcoidosis he may have an elevated ADH level. 1.5 liter fluid restriction AM cortisol level-6 Troponinemia: likely secondary to increased demand from dehydration and severe sepsis Troponin stable at 0.07 will stop trending unless patient becomes symptomatic no NM on EKG Echo Noted BIANCA: from dehydration and decreased flow to the kidneys secondary to severe sepsis Cr now WNL Resolved Acute hypoxic respiratory failure: secondary to influenza and possible influenza PNA possible superimposed bacterial pneumonia and history of sarcoidosis still tachypneic Nebulizers continue BiPAP HS and PRN continue solumedrol 60mg IV q8h for now-start taper tomorrow will need a very slow taper CXR- slight improvement of bilateral infiltrates Sarcoidosis: Pulmonology consult appreciated on solumedrol 60mg IV Q8h HTN: well controlled at this time continue home dose of procardia XL 60mg po HS colon distention seen on lower cuts of Chest CT from ileus: Resolved FEN: off IVF hyponatremia-see above for plan Soft diet PPx: HSQ/SCDs protonix while patient is on steroids PT consult for rehab placement Dispo: needs pulmonary rehab Visit type - Emergency Visit Emergency Visit: Yes ED Registration Date: 07/27/16 Care time: The patient presented to the Emergency Department on the above date and was hospitalized for further evaluation of their emergent condition. - New Patient This patient is new to me today: No - Critical Care Critical Care patient: No - Discharge Referral Referred to [facility] No
--- NOTE | 2016-08-08 13:04 | PN ---
Teaching Attending Note Name of Resident: Shiva Sidhu ATTENDING PHYSICIAN STATEMENT I saw and evaluated the patient. I reviewed the resident's note and discussed the case with the resident. I agree with the resident's findings and plan as documented. SUBJECTIVE: Patient is fatigued. He complains of left-sided rib pain with cough. OBJECTIVE: Vital Signs Period Temp Pulse Resp BP Sys/Villalobos Pulse Ox Last 24 Hr 97.6 F-97.9 F 92-96 18-22 142-159/62-72 88-95 HEART: S1 S2, RRR LUNGS: Bilateral rhonchi ABDOMEN: Soft, non-tender, non-distended, normal BS EXTREMITIES: No edema ASSESSMENT AND PLAN: Patient is a 66 y/o man with h/o HTN, sarcoidosis , who presented with 5-day hx of fever , cough, runny nose and was found to have severe sepsis and Influenza B . # Acute exacerbation of sarcoidosis continues, continue with IV steroid 60mg IV q8 for now, discussed with to continue for now ,once improves will send the patient to inpatient pulmonary rehab post discharge # Acute hypoxic respiratory failure improving due to influenza with exacerbation of sarcoidosis (s/p treatment of Tamiflu treated 5/ days) & now is on IV steroids for sarcoidosis with IV Solu medrol 60mg IV q8 will continue on this dose ,will need slow taper of IV steroid since is taking a long time to improve, Bipap prn. # Acute Hyponatremia with sodium of 129 improving , consult was ordered. Off NACL tablets. # s/p severe sepsis: due to Influenza B, and bacterial Pneumonia ; completed IV ABx, completed tamiflu day 08/25. # s/p ARF: due to sepsis and volume depletion, with back to normal creatinine s/ p IVF # Mild elevation of troponin most likely due to ARF on admission with sepsis; Echo result with pulm HTN and mild vulvular regurgitation, no further w/u at this point ; stress test as an out pt #s/p Ileus: resolved DVT Px; Heparin sq
--- NOTE | 2016-08-08 16:28 | PN ---
Progress Note, Physician History of Present Illness: patient complaining of chest pain says heart going boom boom feels very uncomfortable - Current Medication List Current Medications: Active Medications Acetaminophen (Tylenol -) 650 mg PO Q6H PRN PRN Reason: FEVER OR PAIN Last Admin: 08/07/16 23:15 Dose: 650 mg Albuterol Sulfate (Ventolin 0.083% Nebulizer Soln -) 1 amp NEB QIDR DONAL Last Admin: 08/08/16 11:10 Dose: 1 amp Albuterol Sulfate (Ventolin 0.042trength) -) 1 amp NEB Q6H PRN PRN Reason: SHORT OF BREATH/WHEEZING Heparin Sodium (Porcine) (Heparin -) 5,000 unit SQ TID [facility] Last Admin: 08/08/16 14:27 Dose: 5,000 unit Methylprednisolone Sodium Succinate (Solu-Medrol -) 60 mg IVPB Q8H-IV [facility] Last Admin: 08/08/16 09:26 Dose: 60 mg Nifedipine (Procardia Xl -) 60 mg PO HS [facility] Last Admin: 08/07/16 20:59 Dose: 60 mg Pantoprazole Sodium (Protonix -) 40 mg PO DAILY [facility] Last Admin: 08/08/16 09:26 Dose: 40 mg Tramadol HCl (Ultram -) 25 mg PO Q8H PRN PRN Reason: PAIN Last Admin: 08/08/16 05:47 Dose: 25 mg - Objective Vital Signs: Vital Signs Temperature 97.5 F L 08/08/16 14:21 Pulse Rate 95 H 08/08/16 14:21 Respiratory Rate 22 08/08/16 10:00 Blood Pressure 157/60 08/08/16 14:21 O2 Sat by Pulse Oximetry (%) 90 L 08/08/16 11:49 Constitutional: Yes: Calm, Moderate Distress Cardiovascular: Yes: Regular Rate and Rhythm, Tachycardia Respiratory: Yes: On Venti-Mask, Poor Air Entry, Other Gastrointestinal: Yes: Normal Bowel Sounds, Soft Musculoskeletal: Yes: WNL Extremities: Yes: WNL Neurological: Yes: Alert, Oriented Psychiatric: Yes: Alert, Oriented Labs: CBC, BMP 08/08/16 07:10 08/08/16 07:10 INR, PTT INR 1.26 (0.82-1.09) H 07/27/16 14:15 Assessment/Plan pneumonia resp failure influenza sarcoidosis plan stable off of abx continue to monitor closely resp support incentive alberto rest as per pul nebulizers close watch for chest pain left sided pain no pain elicited on pressure
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
--- NOTE | 2016-08-08 20:01 | PN ---
Progress Note, Physician History of Present Illness: Pt seen and examined at bedside. He is awake and alert. He remains on oxygen. - Current Medication List Current Medications: Active Medications Acetaminophen (Tylenol -) 650 mg PO Q6H PRN PRN Reason: FEVER OR PAIN Last Admin: 08/07/16 23:15 Dose: 650 mg Albuterol Sulfate (Ventolin 0.083% Nebulizer Soln -) 1 amp NEB QIDR DONAL Last Admin: 08/08/16 17:55 Dose: 1 amp Albuterol Sulfate (Ventolin 0.042trength) -) 1 amp NEB Q6H PRN PRN Reason: SHORT OF BREATH/WHEEZING Heparin Sodium (Porcine) (Heparin -) 5,000 unit SQ TID [facility] Last Admin: 08/08/16 14:27 Dose: 5,000 unit Methylprednisolone Sodium Succinate (Solu-Medrol -) 60 mg IVPB Q8H-IV [facility] Last Admin: 08/08/16 17:40 Dose: 60 mg Nifedipine (Procardia Xl -) 60 mg PO HS [facility] Last Admin: 08/07/16 20:59 Dose: 60 mg Pantoprazole Sodium (Protonix -) 40 mg PO DAILY [facility] Last Admin: 08/08/16 09:26 Dose: 40 mg Tramadol HCl (Ultram -) 25 mg PO Q8H PRN PRN Reason: PAIN Last Admin: 08/08/16 16:30 Dose: 25 mg - Objective Vital Signs: Vital Signs Temperature 97.9 F 08/08/16 18:37 Pulse Rate 97 H 08/08/16 18:37 Respiratory Rate 20 08/08/16 18:37 Blood Pressure 147/71 08/08/16 18:37 O2 Sat by Pulse Oximetry (%) 90 L 08/08/16 17:52 Constitutional: Yes: Calm Eyes: Yes: Conjunctiva Clear HENT: Yes: Atraumatic Neck: Yes: Supple Cardiovascular: Yes: S1, S2 Respiratory: Yes: On Venti-Mask Gastrointestinal: Yes: Soft Genitourinary: Yes: WNL Edema: No Neurological: Yes: Oriented Psychiatric: Yes: Oriented Labs: CBC, BMP 08/08/16 07:10 08/08/16 07:10 INR, PTT INR 1.26 (0.82-1.09) H 07/27/16 14:15 Assessment/Plan Current Medications Generic Name Dose Route Start Last Admin Trade Name Freq PRN Reason Stop Dose Admin Acetaminophen 650 mg 08/07/16 18:54 08/07/16 23:15 Tylenol - PO 650 mg Q6H PRN Administration FEVER OR PAIN Albuterol Sulfate 1 amp 08/08/16 00:00 08/08/16 17:55 Ventolin 0.083% Nebulizer Soln - NEB 1 amp QIDR DONAL Administration Albuterol Sulfate 1 amp 08/07/16 18:54 Ventolin 0.042trength) - NEB Q6H PRN SHORT OF BREATH/WHEEZING Heparin Sodium (Porcine) 5,000 unit 08/07/16 22:00 08/08/16 14:27 Heparin - SQ 5,000 unit TID [facility] Administration Methylprednisolone Sodium Succinate 60 mg 08/08/16 02:00 08/08/16 17:40 Solu-Medrol - IVPB 60 mg Q8H-IV [facility] Administration Nifedipine 60 mg 08/07/16 22:00 08/07/16 20:59 Procardia Xl - PO 60 mg HS [facility] Administration Pantoprazole Sodium 40 mg 08/08/16 10:00 08/08/16 09:26 Protonix - PO 40 mg DAILY [facility] Administration Tramadol HCl 25 mg 08/05/16 19:58 08/08/16 16:30 Ultram - PO 25 mg Q8H PRN Administration PAIN Laboratory Tests 08/06/16 08/06/16 08/07/16 21:48 21:48 05:35 Serum Osmolality 269 L TSH 0.59 Cortisol AM Sample 6.0 Urine Osmolality 08/07/16 17:30 Serum Osmolality TSH Cortisol AM Sample Urine Osmolality 824 Impression 1. hyponatremia 2. sarcoidosis 3. proteinuria 4. HTN 5. hypoxic respiratory failure 6. PNA 7. sepsis 8. proteinuria Plan - pt has a markedly concentrated urine in the setting of a dilute plasma. The urine sodium is not back. He likely has increased ADH causing these finding - will fluid restrict - repeat labs in am - taper steroids as tolerated - will follow - will re-order urine studies Dr Mccord
[2016-08-08 21:30] LABS: URINE CREATININE 95.5 mg/dL
[2016-08-08] MEDS: NIFEdipine E.R. 30 MG TABLET (FP) PO SCH (22:23)
[2016-08-09] MEDS: methylPREDNISolone NA SUCC 125 MG/2 ML VIAL IVPB SCH ×3 (01:32→17:14)
[2016-08-09] MEDS: traMADol HCL 50 MG TABLET PO PRN ×2 (03:14→17:20)
[2016-08-09] MEDS: HEPARIN NA (PORCINE) 5,000 UNITS/ML 1ML VIAL SQ SCH ×3 (05:44→21:15)
[2016-08-09] MEDS ORDERED: ALPRAZolam 0.25 MG TABLET PO ONE ×2 (05:51→11:15)
[2016-08-09] MEDS: ALBUTEROL SO4 0.083% IH SOL 2.5 MG/3 ML VIAL.NEB. NEB SCH ×3 (06:04→18:03)
[2016-08-09 08:12] LABS: MCH 27.1 pg (25.7-33.7); MCHC 33.6 g/dl (32.0-35.9); MEAN CELL VOLUME 80.5 fl (80-96); MEAN PLT VOLUME 7.1 fl (7.5-11.1); PLATELET COUNT 661 K/MM3 (134-434); RDW 14.6 % (11.9-15.9); WHITE BLOOD COUNT 15.6 K/mm3 (4.0-10.0)
[2016-08-09 08:45] LABS: CALCIUM 8.8 mg/dL (8.5-10.1); COCKROFT - GAULT 147.31; CREATININE 0.5 mg/dL (0.7-1.3)
[2016-08-09] MEDS: ALBUTEROL SO4 0.042% IH SOL 1.25 MG/3 ML VIAL.NEB NEB PRN (09:05)
[2016-08-09 09:34] LABS: URINE APPEARANCE SLCLOUDY; URINE BILIRUBIN NEGATIVE (NEGATIVE); URINE BLOOD NEGATIVE (NEGATIVE); URINE COLOR LTYELLOW; URINE GLUCOSE (UA) NEGATIVE (NEGATIVE); URINE KETONE NEGATIVE (NEGATIVE); URINE LEUK ESTERASE NEGATIVE (NEGATIVE); URINE NITRITE NEGATIVE (NEGATIVE); URINE PROTEIN NEGATIVE (NEGATIVE); URINE UROBILINOGEN NEGATIVE E.U./dl (0.2-1.0)
[2016-08-09] MEDS: PANTOPRAZOLE 40 MG TABLET (FP) PO SCH (09:53)
[2016-08-09 10:30] LABS: URINE CREATININE 42.2 mg/dL
--- NOTE | 2016-08-09 11:22 | PN ---
Progress Note, Physician History of Present Illness: still not able to maintain oxygen on nasal canula needs venti mask was able to sit in the chair - Current Medication List Current Medications: Active Medications Acetaminophen (Tylenol -) 650 mg PO Q6H PRN PRN Reason: FEVER OR PAIN Last Admin: 08/07/16 23:15 Dose: 650 mg Albuterol Sulfate (Ventolin 0.083% Nebulizer Soln -) 1 amp NEB QIDR DONAL Last Admin: 08/09/16 06:04 Dose: Not Given Albuterol Sulfate (Ventolin 0.042trength) -) 1 amp NEB Q6H PRN PRN Reason: SHORT OF BREATH/WHEEZING Last Admin: 08/09/16 09:05 Dose: 1 amp Heparin Sodium (Porcine) (Heparin -) 5,000 unit SQ TID [facility] Last Admin: 08/09/16 05:44 Dose: 5,000 unit Methylprednisolone Sodium Succinate (Solu-Medrol -) 60 mg IVPB Q8H-IV [facility] Last Admin: 08/09/16 09:53 Dose: 60 mg Nifedipine (Procardia Xl -) 60 mg PO HS [facility] Last Admin: 08/08/16 22:23 Dose: 60 mg Pantoprazole Sodium (Protonix -) 40 mg PO DAILY [facility] Last Admin: 08/09/16 09:53 Dose: 40 mg Tramadol HCl (Ultram -) 25 mg PO Q8H PRN PRN Reason: PAIN Last Admin: 08/09/16 03:14 Dose: 25 mg - Objective Vital Signs: Vital Signs Temperature 98.0 F 08/09/16 09:08 Pulse Rate 90 08/09/16 09:08 Respiratory Rate 20 08/09/16 09:08 Blood Pressure 141/74 08/09/16 09:08 O2 Sat by Pulse Oximetry (%) 94 L 08/08/16 22:00 Constitutional: Yes: No Distress, Calm HENT: Yes: Atraumatic Cardiovascular: Yes: Regular Rate and Rhythm Respiratory: Yes: Regular, On Venti-Mask, Poor Air Entry Gastrointestinal: Yes: Normal Bowel Sounds, Soft Musculoskeletal: Yes: WNL Extremities: Yes: WNL Integumentary: Yes: WNL Neurological: Yes: Alert, Oriented Psychiatric: Yes: Alert, Oriented Labs: CBC, BMP 08/09/16 06:30 08/09/16 06:20 INR, PTT INR 1.26 (0.82-1.09) H 07/27/16 14:15 Assessment/Plan pneumonia resp failure influenza sarcoidosis plan stable off of abx continue to monitor closely resp support incentive alberto rest as per pul nebulizers
--- NOTE | 2016-08-09 13:14 | PN ---
Progress Note, Physician History of Present Illness: Pt seen and examined at bedside. He is awake and alert. He still has shortness of breath and requires the venti mask. - Current Medication List Current Medications: Active Medications Acetaminophen (Tylenol -) 650 mg PO Q6H PRN PRN Reason: FEVER OR PAIN Last Admin: 08/07/16 23:15 Dose: 650 mg Albuterol Sulfate (Ventolin 0.083% Nebulizer Soln -) 1 amp NEB QIDR DONAL Last Admin: 08/09/16 11:33 Dose: Not Given Albuterol Sulfate (Ventolin 0.042trength) -) 1 amp NEB Q6H PRN PRN Reason: SHORT OF BREATH/WHEEZING Last Admin: 08/09/16 09:05 Dose: 1 amp Heparin Sodium (Porcine) (Heparin -) 5,000 unit SQ TID [facility] Last Admin: 08/09/16 05:44 Dose: 5,000 unit Methylprednisolone Sodium Succinate (Solu-Medrol -) 60 mg IVPB Q8H-IV [facility] Last Admin: 08/09/16 09:53 Dose: 60 mg Nifedipine (Procardia Xl -) 60 mg PO HS [facility] Last Admin: 08/08/16 22:23 Dose: 60 mg Pantoprazole Sodium (Protonix -) 40 mg PO DAILY [facility] Last Admin: 08/09/16 09:53 Dose: 40 mg Tramadol HCl (Ultram -) 25 mg PO Q8H PRN PRN Reason: PAIN Last Admin: 08/09/16 03:14 Dose: 25 mg - Objective Vital Signs: Vital Signs Temperature 98.0 F 08/09/16 09:08 Pulse Rate 90 08/09/16 09:08 Respiratory Rate 20 08/09/16 09:08 Blood Pressure 141/74 08/09/16 09:08 O2 Sat by Pulse Oximetry (%) 96 08/09/16 11:32 Constitutional: Yes: Calm Eyes: Yes: Conjunctiva Clear HENT: Yes: Atraumatic Neck: Yes: Supple Cardiovascular: Yes: S1, S2 Respiratory: Yes: On Venti-Mask, Wheezes Gastrointestinal: Yes: Soft Genitourinary: Yes: WNL Extremities: Yes: WNL Edema: No Neurological: Yes: Oriented Psychiatric: Yes: Oriented Labs: CBC, BMP 08/09/16 06:30 08/09/16 06:20 INR, PTT INR 1.26 (0.82-1.09) H 07/27/16 14:15 Assessment/Plan Current Medications Generic Name Dose Route Start Last Admin Trade Name Zeny PRN Reason Stop Dose Admin Acetaminophen 650 mg 08/07/16 18:54 08/07/16 23:15 Tylenol - PO 650 mg Q6H PRN Administration FEVER OR PAIN Albuterol Sulfate 1 amp 08/08/16 00:00 08/09/16 11:33 Ventolin 0.083% Nebulizer Soln - NEB Not Given QIDR DONAL Albuterol Sulfate 1 amp 08/07/16 18:54 08/09/16 09:05 Ventolin 0.042trength) - NEB 1 amp Q6H PRN Administration SHORT OF BREATH/WHEEZING Heparin Sodium (Porcine) 5,000 unit 08/07/16 22:00 08/09/16 05:44 Heparin - SQ 5,000 unit TID [facility] Administration Methylprednisolone Sodium Succinate 60 mg 08/08/16 02:00 08/09/16 09:53 Solu-Medrol - IVPB 60 mg Q8H-IV [facility] Administration Nifedipine 60 mg 08/07/16 22:00 08/08/16 22:23 Procardia Xl - PO 60 mg HS [facility] Administration Pantoprazole Sodium 40 mg 08/08/16 10:00 08/09/16 09:53 Protonix - PO 40 mg DAILY [facility] Administration Tramadol HCl 25 mg 08/05/16 19:58 08/09/16 03:14 Ultram - PO 25 mg Q8H PRN Administration PAIN Laboratory Tests 08/09/16 07:00 Urine Color Ltyellow Urine Appearance Slcloudy Urine pH 8.0 D Ur Specific [place] 1.013 Urine Protein Negative Urine Glucose (UA) Negative Urine Ketones Negative Urine Blood Negative Urine Nitrite Negative Urine Bilirubin Negative Urine Urobilinogen Negative Ur Leukocyte Esterase Negative Impression 1. hyponatremia 2. sarcoidosis 3. proteinuria 4. HTN 5. hypoxic respiratory failure 6. PNA 7. sepsis 8. proteinuria Plan - cont with fluid restriction - monitor bmp - cont steroids with taper as tolerated - repeat labs in am - will follow - repeat ua negative for protein Dr Mccord
--- NOTE | 2016-08-09 16:59 | PN ---
Progress Note, Physician History of Present Illness: pulmonary alert,no change,dyspneic at rest,hypoxemic on nasal o2 - Current Medication List Current Medications: Active Medications Acetaminophen (Tylenol -) 650 mg PO Q6H PRN PRN Reason: FEVER OR PAIN Last Admin: 08/07/16 23:15 Dose: 650 mg Albuterol Sulfate (Ventolin 0.083% Nebulizer Soln -) 1 amp NEB QIDR [facility] Last Admin: 08/09/16 11:33 Dose: Not Given Albuterol Sulfate (Ventolin 0.042trength) -) 1 amp NEB Q6H PRN PRN Reason: SHORT OF BREATH/WHEEZING Last Admin: 08/09/16 09:05 Dose: 1 amp Heparin Sodium (Porcine) (Heparin -) 5,000 unit SQ TID [facility] Last Admin: 08/09/16 13:49 Dose: 5,000 unit Methylprednisolone Sodium Succinate (Solu-Medrol -) 60 mg IVPB Q8H-IV [facility] Last Admin: 08/09/16 09:53 Dose: 60 mg Nifedipine (Procardia Xl -) 60 mg PO HS [facility] Last Admin: 08/08/16 22:23 Dose: 60 mg Pantoprazole Sodium (Protonix -) 40 mg PO DAILY [facility] Last Admin: 08/09/16 09:53 Dose: 40 mg Tramadol HCl (Ultram -) 25 mg PO Q8H PRN PRN Reason: PAIN Last Admin: 08/09/16 03:14 Dose: 25 mg - Objective Vital Signs: Vital Signs Temperature 97.8 F 08/09/16 14:33 Pulse Rate 85 08/09/16 14:33 Respiratory Rate 20 08/09/16 14:33 Blood Pressure 153/67 08/09/16 14:33 O2 Sat by Pulse Oximetry (%) 96 08/09/16 11:32 Constitutional: Yes: Calm, Mild Distress Eyes: Yes: WNL HENT: Yes: WNL Neck: Yes: WNL Cardiovascular: Yes: Regular Rate and Rhythm, S1, S2 Respiratory: Yes: Rales, Rhonchi (bilateral crackles and scattered kameron rhonchi) Gastrointestinal: Yes: Normal Bowel Sounds, Soft Extremities: Yes: WNL Edema: No Labs: CBC, BMP 08/09/16 06:30 08/09/16 06:20 INR, PTT INR 1.26 (0.82-1.09) H 07/27/16 14:15 Assessment/Plan Assessment/Plan Hypoxemic respiratory failure Influenza Multilobar Pneumonia Sarcoidosis HTN Hyponatremia -Venti mask,. BiPAP -continue steroids q8h -inpatient pulmonary rehab post discharge monitor lytes,na chest x-ray today dvt prophylaxis methotrexate DR MOROCHO
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
--- NOTE | 2016-08-09 17:58 | PN ---
Physical Exam: SUBJECTIVE: Patient seen and examined at bedside tried patient on nasal cannula desaturated to 59% still requiring 40% Face mask Refusing BiPAP OBJECTIVE: Vital Signs Period Temp Pulse Resp BP Sys/Villalobos Pulse Ox Last 24 Hr 97.8 F-98.3 F 85-97 20-20 141-153/67-74 56-96 GENERAL: The patient is awake, alert, and fully oriented, mild distress. NECK: supple. LUNGS: tachypneic. Right sided crackles left side clear ABDOMEN: Soft, nontender, nondistended, normoactive bowel sounds EXTREMITIES: warm, well-perfused, no edema. 2+ DP pulses bilaterally NEUROLOGICAL: Cranial nerves II through XII grossly intact. SKIN: Warm, dry Laboratory Results - last 24 hr 08/08/16 08/08/16 08/09/16 20:15 20:15 06:20 WBC RBC Hgb Hct MCV MCHC RDW Plt Count MPV Sodium 127 L Potassium 4.9 Chloride 90 L Carbon Dioxide 28 Anion Gap 9 BUN 16 Creatinine 0.5 L Random Glucose 122 H Calcium 8.8 Urine Color Urine Appearance Urine pH Ur Specific [place] Urine Protein Urine Glucose (UA) Urine Ketones Urine Blood Urine Nitrite Urine Bilirubin Urine Urobilinogen Ur Leukocyte Esterase U Random Total Protein 25 H Ur Random Sodium 50 Ur Random Potassium 36.9 Ur Random Chloride 25 Urine Creatinine 95.5 Protein/Creatinin Ratio 0.26 08/09/16 08/09/16 08/09/16 06:30 07:00 07:00 WBC 15.6 H D RBC 4.89 Hgb 13.2 Hct 39.4 MCV 80.5 MCHC 33.6 RDW 14.6 Plt Count 661 H MPV 7.1 L Sodium Potassium Chloride Carbon Dioxide Anion Gap BUN Creatinine Random Glucose Calcium Urine Color Urine Appearance Urine pH Ur Specific Parshall Urine Protein Urine Glucose (UA) Urine Ketones Urine Blood Urine Nitrite Urine Bilirubin Urine Urobilinogen Ur Leukocyte Esterase U Random Total Protein 21 H Cancelled Ur Random Sodium 61 Ur Random Potassium 40.4 Ur Random Chloride 52 Urine Creatinine 42.2 Cancelled Protein/Creatinin Ratio 0.5 Cancelled 08/09/16 07:00 WBC RBC Hgb Hct MCV MCHC RDW Plt Count MPV Sodium Potassium Chloride Carbon Dioxide Anion Gap BUN Creatinine Random Glucose Calcium Urine Color Ltyellow Urine Appearance Slcloudy Urine pH 8.0 D Ur Specific Parshall 1.013 Urine Protein Negative Urine Glucose (UA) Negative Urine Ketones Negative Urine Blood Negative Urine Nitrite Negative Urine Bilirubin Negative Urine Urobilinogen Negative Ur Leukocyte Esterase Negative U Random Total Protein Ur Random Sodium Ur Random Potassium Ur Random Chloride Urine Creatinine Protein/Creatinin Ratio Active Medications Generic Name Dose Route Start Last Admin Trade Name Freq PRN Reason Stop Dose Admin Acetaminophen 650 mg 08/07/16 18:54 08/07/16 23:15 Tylenol - PO 650 mg Q6H PRN Administration FEVER OR PAIN Albuterol Sulfate 1 amp 08/08/16 00:00 08/09/16 11:33 Ventolin 0.083% Nebulizer Soln - NEB Not Given QIDR DONAL Albuterol Sulfate 1 amp 08/07/16 18:54 08/09/16 09:05 Ventolin 0.042trength) - NEB 1 amp Q6H PRN Administration SHORT OF BREATH/WHEEZING Heparin Sodium (Porcine) 5,000 unit 08/07/16 22:00 08/09/16 13:49 Heparin - SQ 5,000 unit TID DONAL Administration Methylprednisolone Sodium Succinate 60 mg 08/08/16 02:00 08/09/16 17:14 Solu-Medrol - IVPB 60 mg Q8H-IV DONAL Administration Nifedipine 60 mg 08/07/16 22:00 08/08/16 22:23 Procardia Xl - PO 60 mg HS DONAL Administration Pantoprazole Sodium 40 mg 08/08/16 10:00 08/09/16 09:53 Protonix - PO 40 mg DAILY DONAL Administration Tramadol HCl 25 mg 08/05/16 19:58 08/09/16 17:20 Ultram - PO 25 mg Q8H PRN Administration PAIN ASSESSMENT/PLAN: 66M with history of sarcoidosis and hypertension presents to the ED with a 1 week history of fevers chills productive cough with weakness found to be in severe sepsis and acute hypoxic respiratory failure secondary to influenza type B. Severe sepsis: likely from influenza B but on he differential remains influenza pneumonia with a superimposed bacterial pneumonia. patient with a significant air space disease on CT chest at baseline and it is very difficult to differentiate pneumonia from lung parenchyma desaturating on nasal cannula requiring 40% FIo2 Face mask f/u Mycoplasma-negative f/u urine antigens-negative tamiflu course completed ABx Azithromycin levaquin and zosyn completed Leukocytosis: reactive due to steroids f/u BCx-negative final UA negative ECHO noted with moderate pulmonary hypertension as elevated RV systolic pressure. no heart failure noted continue BiPAP for support PRN and BiPAP HS-refusing will give xanax with BiPAP at night Acute hypoxic respiratory failure: secondary to influenza and possible influenza PNA possible superimposed bacterial pneumonia and history of sarcoidosis Sarcoidosis is likely the cause of the patients respiratory status still tachypneic Nebulizers continue BiPAP HS and PRN continue solumedrol 60mg IV q8h will need a very slow taper Pulmonary consult appreciated-agree with rheumatology consult will likely start methotrexate for sarcoidosis to see if patient's respiratory status improves patient had a CTA on admission which did not show PE but will have to consider re-scanning the patient if he does not improve Sarcoidosis: Pulmonology consult appreciated on solumedrol 60mg IV [id number] continue f/u Dr. Davis for nonglucocorticoid managment methotrexate vs azothioprine vs biological agents hyponatremia: asymptomatic hypo-osmolar hyponatremia sodium 127 today nephrology consult appreciated sodium tablets discontinued cause it likely multifactorial patient drink about 3 liters of water a day- polydipsia also fluid retention with steroids and given the fact the patient has sarcoidosis he may have an elevated ADH level. 1 liter fluid restriction AM cortisol level-6 Troponinemia: likely secondary to increased demand from dehydration and severe sepsis Troponin stable at 0.07 will stop trending unless patient becomes symptomatic no DE on EKG Echo Noted BIANCA: from dehydration and decreased flow to the kidneys secondary to severe sepsis Cr now WNL Resolved HTN: well controlled at this time continue home dose of procardia XL 60mg po HS colon distention seen on lower cuts of Chest CT from ileus: Resolved FEN: off IVF hyponatremia-see above for plan Soft diet PPx: HSQ/SCDs protonix while patient is on steroids PT consult for rehab placement Dispo: needs inpatient pulmonary rehab Visit type - Emergency Visit Emergency Visit: Yes ED Registration Date: 07/27/16 Care time: The patient presented to the Emergency Department on the above date and was hospitalized for further evaluation of their emergent condition. - New Patient This patient is new to me today: No - Critical Care Critical Care patient: No
--- NOTE | 2016-08-09 18:09 | PN ---
Teaching Attending Note Name of Resident: Shiva Sidhu ATTENDING PHYSICIAN STATEMENT I saw and evaluated the patient. I reviewed the resident's note and discussed the case with the resident. I agree with the resident's findings and plan as documented. SUBJECTIVE: no fever or chills, no abd pain , no cough. cont to have SOB . sat in chair this am . desat to 52% on NC. had to be placed on 40 % venti mask OBJECTIVE: NAD , AAOx3. cooperative no facial droop , MMM CV: RRR . No JVD Lungs: crackles at R base Abd: soft, NT, ND, NL BS Ext: no edema, no tremor ASSESSMENT AND PLAN: 66 y/o man with h/o HTN, sarcoidosis , who presented with 5-day hx of fever , cough, runny nose and was found to have severe sepsis and Flu B . 1- Severe sepsis: from Flu B, and possible influenza Pneumonia. - finished abx for CAP - finished tamiflu course 2- Acute hypoxic resp failure: due to influenza and possibly sarcoidosis is playing a big role still unable to wean off venti mask despite high dose steroids for days - cont current dose steroids - Dr. Issa consult for Recs ofn steroid sparing agents , possibly MTX - encouraged pt to use BIPAP at night 3- Hypotonic Hyponatremia : the patient looks euvolemic , and has Increased urine osmolality. possibly his lung disease ( sarcoidosis ) is contributing to SIADH picture - cont with fluid restriction 1 L /day - appreciate renal input - pt is asymptomatic 4- Trop leak : likely from sepsis . - echo with pulm HTN and mild vulvular regurgitation - no further w/u at this point - stress test as out pt 5- BIANCA: from sepsis and volume depletion . resolved
[2016-08-09] MEDS: NIFEdipine E.R. 30 MG TABLET (FP) PO SCH (21:15)
[2016-08-10] MEDS: ALBUTEROL SO4 0.083% IH SOL 2.5 MG/3 ML VIAL.NEB. NEB SCH ×5 (00:11→23:27)
[2016-08-10] MEDS: traMADol HCL 50 MG TABLET PO PRN (01:52)
[2016-08-10] MEDS: methylPREDNISolone NA SUCC 125 MG/2 ML VIAL IVPB SCH ×2 (01:52→10:05)
[2016-08-10] MEDS: HEPARIN NA (PORCINE) 5,000 UNITS/ML 1ML VIAL SQ SCH ×3 (05:59→21:14)
[2016-08-10] MEDS: ACETAMINOPHEN 325 MG TABLET (FP) PO PRN ×2 (05:59→23:47)
[2016-08-10 07:09] LABS: BASOPHIL 0.2 % (0-2.0); MCH 27.3 pg (25.7-33.7); MCHC 34.1 g/dl (32.0-35.9); MEAN CELL VOLUME 80.2 fl (80-96); NEUTROPHILS 95.9 % (42.8-82.8); PLATELET COUNT 561 K/MM3 (134-434); RDW 14.6 % (11.9-15.9); WHITE BLOOD COUNT 14.9 K/mm3 (4.0-10.0)
[2016-08-10 07:24] LABS: CALCIUM 8.4 mg/dL (8.5-10.1); COCKROFT - GAULT 147.5; CREATININE 0.5 mg/dL (0.7-1.3)
[2016-08-10] MEDS: PANTOPRAZOLE 40 MG TABLET (FP) PO SCH (10:06)
--- NOTE | 2016-08-10 10:28 | PN ---
Progress Note (short form) - Note Progress Note: Awake and alert on 50 VM O2. Not able tolerate NIPPV. CT : significant motion artifact, but no filling defects noted. Increased parenchymal opacification especially at the bases (significant increase from his CT 01/2014). Intake & Output 08/07/16 08/08/16 08/09/16 08/10/16 23:59 23:59 23:59 23:59 Intake Total 550 1250 820 Output Total 6268 928 6313 550 Balance -450 550 -680 -550 Weight 156 lb 2 oz 158 lb 158 lb 3.2 oz Last Vital Signs Temp Pulse Resp BP Pulse Ox 97.9 F 98 H 22 148/67 93 L 08/09/16 22:00 08/10/16 09:41 08/10/16 06:00 08/10/16 06:00 08/10/16 09:41 Active Medications Acetaminophen (Tylenol -) 650 mg PO Q6H PRN PRN Reason: FEVER OR PAIN Last Admin: 08/10/16 05:59 Dose: 650 mg Albuterol Sulfate (Ventolin 0.083% Nebulizer Soln -) 1 amp NEB QIDR DONAL Last Admin: 08/10/16 06:00 Dose: Not Given Albuterol Sulfate (Ventolin 0.042trength) -) 1 amp NEB Q6H PRN PRN Reason: SHORT OF BREATH/WHEEZING Last Admin: 08/09/16 09:05 Dose: 1 amp Heparin Sodium (Porcine) (Heparin -) 5,000 unit SQ TID DONAL Last Admin: 08/10/16 05:59 Dose: 5,000 unit Methylprednisolone Sodium Succinate (Solu-Medrol -) 60 mg IVPB Q8H-IV DONAL Last Admin: 08/10/16 10:05 Dose: 60 mg Nifedipine (Procardia Xl -) 60 mg PO HS DONAL Last Admin: 08/09/16 21:15 Dose: 60 mg Pantoprazole Sodium (Protonix -) 40 mg PO DAILY DONAL Last Admin: 08/10/16 10:06 Dose: 40 mg Tramadol HCl (Ultram -) 25 mg PO Q8H PRN PRN Reason: PAIN Last Admin: 08/10/16 01:52 Dose: 25 mg Constitutional: Yes: Mildly tachypneic at rest, Thin Eyes: Yes: WNL HENT: Yes: WNL Neck: Yes: WNL Cardiovascular: Yes: Regular Rate and Rhythm, S1, S2 Respiratory: Yes: Scattered bilateral rhonchi, no wheezing Gastrointestinal: Yes: Normal Bowel Sounds, Soft Extremities: Yes: WNL Edema: No Labs: Laboratory Results - last 24 hr 08/09/16 08/10/16 08/10/16 07:00 06:30 06:30 WBC 14.9 H RBC 4.65 Hgb 12.7 Hct 37.3 MCV 80.2 MCHC 34.1 RDW 14.6 Plt Count 561 H MPV 7.0 L Neutrophils % 95.9 H Lymphocytes % 2.1 L D Monocytes % 1.8 L Eosinophils % 0.0 D Basophils % 0.2 Sodium 127 L Potassium 4.7 Chloride 91 L Carbon Dioxide 25 Anion Gap 11 BUN 16 Creatinine 0.5 L Random Glucose 131 H Calcium 8.4 L U Random Total Protein 21 H Ur Random Sodium 61 Ur Random Potassium 40.4 Ur Random Chloride 52 Urine Creatinine 42.2 Protein/Creatinin Ratio 0.5 Assessment/Plan Hypoxemic respiratory failure Influenza Multilobar Pneumonia Sarcoidosis HTN Hyponatremia Start Mycophenolate 500mg BID Taper O2 as able -> keep saturation 88% to 92% to avoid worsening V/Q mismatch Ideally he would have some benefit by using NIPPV to decrease his WOB -> would continue to encourage even brief/intermittent use Continue Medrol at current dose Continue BD TX Will likely need inpatient pulmonary rehab post discharge VTE prophylaxis Dr Mustafa
[2016-08-10] MEDS: ALPRAZolam 0.25 MG TABLET PO PRN ×2 (12:01→21:14)
[2016-08-10] MEDS: MYCOPHENOLATE MOFETIL 250 MG CAPSULE PO SCH ×2 (12:02→21:14)
--- NOTE | 2016-08-10 13:41 | PN ---
Progress Note, Physician History of Present Illness: patient still continues to be hypoxic unable to get off of venti mask patient still very weak - Current Medication List Current Medications: Active Medications Acetaminophen (Tylenol -) 650 mg PO Q6H PRN PRN Reason: FEVER OR PAIN Last Admin: 08/10/16 05:59 Dose: 650 mg Albuterol Sulfate (Ventolin 0.083% Nebulizer Soln -) 1 amp NEB QIDR DONAL Last Admin: 08/10/16 11:40 Dose: 1 amp Albuterol Sulfate (Ventolin 0.042trength) -) 1 amp NEB Q6H PRN PRN Reason: SHORT OF BREATH/WHEEZING Last Admin: 08/09/16 09:05 Dose: 1 amp Alprazolam (Xanax -) 0.5 mg PO Q8H PRN PRN Reason: ANXIETY Last Admin: 08/10/16 12:01 Dose: 0.5 mg Heparin Sodium (Porcine) (Heparin -) 5,000 unit SQ TID DONAL Last Admin: 08/10/16 13:15 Dose: 5,000 unit Vancomycin HCl 1,250 mg/ (Dextrose) 250 mls @ 250 mls/hr IVPB DAILY DONAL PRN Reason: Protocol Piperacillin Sod/Tazobactam (Sod 3.375 gm/ Dextrose) 50 mls @ 100 mls/hr IVPB Q8H-IV DONAL PRN Reason: Protocol Methylprednisolone Sodium Succinate (Solu-Medrol -) 60 mg IVPB Q8H-IV DONAL Last Admin: 08/10/16 10:05 Dose: 60 mg Mycophenolate Mofetil (Cellcept -) 500 mg PO BID DONAL Last Admin: 08/10/16 12:02 Dose: 500 mg Nifedipine (Procardia Xl -) 60 mg PO HS DONAL Last Admin: 08/09/16 21:15 Dose: 60 mg Pantoprazole Sodium (Protonix -) 40 mg PO DAILY DONAL Last Admin: 08/10/16 10:06 Dose: 40 mg Tramadol HCl (Ultram -) 25 mg PO Q8H PRN PRN Reason: PAIN Last Admin: 08/10/16 01:52 Dose: 25 mg - Objective Vital Signs: Vital Signs Temperature 97.9 F 08/09/16 22:00 Pulse Rate 98 H 08/10/16 09:41 Respiratory Rate 22 08/10/16 06:00 Blood Pressure 148/67 08/10/16 06:00 O2 Sat by Pulse Oximetry (%) 93 L 08/10/16 09:41 Constitutional: Yes: Calm HENT: Yes: Atraumatic Cardiovascular: Yes: Regular Rate and Rhythm Respiratory: Yes: On Venti-Mask, Poor Air Entry, Rhonchi Gastrointestinal: Yes: Normal Bowel Sounds, Soft Musculoskeletal: Yes: WNL Extremities: Yes: WNL Integumentary: Yes: WNL Neurological: Yes: Alert, Oriented Psychiatric: Yes: Alert, Oriented Labs: CBC, BMP 08/10/16 06:30 08/10/16 06:30 INR, PTT INR 1.26 (0.82-1.09) H 07/27/16 14:15 Assessment/Plan pneumonia resp failure influenza sarcoidosis multilobar pneumonia i have looked at both ct scan there is gross change from the last ct scan i am very worried that this is could be pneumonia and also there is a chance this could be mrsa. plan will start on braod spectrum abx also close watch on how he behaves also could be sarcoid flare but with his condition cannot take a chance will see in couple of days how patient behaves
--- NOTE | 2016-08-10 15:56 | PN ---
Progress Note, Physician History of Present Illness: Pt seen and examined at bedside. He is awake and alert. He still requires oxygen. He remains on steroids. - Current Medication List Current Medications: Active Medications Acetaminophen (Tylenol -) 650 mg PO Q6H PRN PRN Reason: FEVER OR PAIN Last Admin: 08/10/16 05:59 Dose: 650 mg Albuterol Sulfate (Ventolin 0.083% Nebulizer Soln -) 1 amp NEB QIDR DONAL Last Admin: 08/10/16 11:40 Dose: 1 amp Albuterol Sulfate (Ventolin 0.042trength) -) 1 amp NEB Q6H PRN PRN Reason: SHORT OF BREATH/WHEEZING Last Admin: 08/09/16 09:05 Dose: 1 amp Alprazolam (Xanax -) 0.5 mg PO Q8H PRN PRN Reason: ANXIETY Last Admin: 08/10/16 12:01 Dose: 0.5 mg Heparin Sodium (Porcine) (Heparin -) 5,000 unit SQ TID DONAL Last Admin: 08/10/16 13:15 Dose: 5,000 unit Vancomycin HCl 1,250 mg/ (Dextrose) 250 mls @ 125 mls/hr IVPB DAILY@1500 DONAL PRN Reason: Protocol Piperacillin Sod/Tazobactam Sod (Zosyn 3.375gm Ivpb (Pre-Docked)) 50 mls @ 100 mls/hr IVPB Q8H-IV DONAL PRN Reason: Protocol Methylprednisolone Sodium Succinate (Solu-Medrol -) 60 mg IVPB Q8H-IV DONAL Last Admin: 08/10/16 10:05 Dose: 60 mg Mycophenolate Mofetil (Cellcept -) 500 mg PO BID DONAL Last Admin: 08/10/16 12:02 Dose: 500 mg Nifedipine (Procardia Xl -) 60 mg PO HS DONAL Last Admin: 08/09/16 21:15 Dose: 60 mg Pantoprazole Sodium (Protonix -) 40 mg PO DAILY DONAL Last Admin: 08/10/16 10:06 Dose: 40 mg Tramadol HCl (Ultram -) 25 mg PO Q8H PRN PRN Reason: PAIN Last Admin: 08/10/16 01:52 Dose: 25 mg - Objective Vital Signs: Vital Signs Temperature 98.1 F 08/10/16 14:28 Pulse Rate 94 H 08/10/16 14:28 Respiratory Rate 22 08/10/16 06:00 Blood Pressure 142/71 08/10/16 14:28 O2 Sat by Pulse Oximetry (%) 93 L 08/10/16 09:41 Constitutional: Yes: Calm Eyes: Yes: Conjunctiva Clear HENT: Yes: Atraumatic Neck: Yes: Supple Cardiovascular: Yes: S1, S2 Respiratory: Yes: On Venti-Mask Gastrointestinal: Yes: Soft Genitourinary: Yes: WNL Musculoskeletal: Yes: WNL Edema: No Neurological: Yes: Oriented Psychiatric: Yes: Oriented Labs: CBC, BMP 08/10/16 06:30 08/10/16 06:30 INR, PTT INR 1.26 (0.82-1.09) H 07/27/16 14:15 Assessment/Plan Current Medications Generic Name Dose Route Start Last Admin Trade Name Freq PRN Reason Stop Dose Admin Acetaminophen 650 mg 08/07/16 18:54 08/10/16 05:59 Tylenol - PO 650 mg Q6H PRN Administration FEVER OR PAIN Albuterol Sulfate 1 amp 08/08/16 00:00 08/10/16 11:40 Ventolin 0.083% Nebulizer Soln - NEB 1 amp QIDR DONAL Administration Albuterol Sulfate 1 amp 08/07/16 18:54 08/09/16 09:05 Ventolin 0.042trength) - NEB 1 amp Q6H PRN Administration SHORT OF BREATH/WHEEZING Alprazolam 0.5 mg 08/10/16 11:26 08/10/16 12:01 Xanax - PO 0.5 mg Q8H PRN Administration ANXIETY Heparin Sodium (Porcine) 5,000 unit 08/07/16 22:00 08/10/16 13:15 Heparin - SQ 5,000 unit TID DONAL Administration Vancomycin HCl 1,250 mg/ 250 mls @ 125 mls/hr 08/10/16 15:00 Dextrose IVPB DAILY@1500 DONAL Protocol Piperacillin Sod/Tazobactam Sod 50 mls @ 100 mls/hr 08/10/16 14:00 Zosyn 3.375gm Ivpb (Pre-Docked) IVPB Q8H-IV DNOAL Protocol Methylprednisolone Sodium Succinate 60 mg 08/08/16 02:00 08/10/16 10:05 Solu-Medrol - IVPB 60 mg Q8H-IV DONAL Administration Mycophenolate Mofetil 500 mg 08/10/16 10:30 08/10/16 12:02 Cellcept - PO 500 mg BID DONAL Administration Nifedipine 60 mg 08/07/16 22:00 08/09/16 21:15 Procardia Xl - PO 60 mg HS DONAL Administration Pantoprazole Sodium 40 mg 08/08/16 10:00 08/10/16 10:06 Protonix - PO 40 mg DAILY DONAL Administration Tramadol HCl 25 mg 08/05/16 19:58 08/10/16 01:52 Ultram - PO 25 mg Q8H PRN Administration PAIN Impression 1. hyponatremia 2. sarcoidosis 3. proteinuria 4. HTN 5. hypoxic respiratory failure 6. PNA 7. sepsis 8. proteinuria Plan - sodium has not changed much - cont with fluid retriction - will repeat urine studies - taper steroids as tolerated - repeat labs in am - will follow - richard siadh from pulmonary process Dr Mccord
--- NOTE | 2016-08-10 16:06 | PN ---
Physical Exam: SUBJECTIVE: Patient seen and examined at bedside still requriing Face mask O2 OBJECTIVE: Vital Signs Period Temp Pulse Resp BP Sys/Villalobos Pulse Ox Last 24 Hr 97.9 F-98.5 F 91-107 20-22 142-160/67-77 90-93 GENERAL: The patient is awake, alert, and fully oriented, mild distress. NECK: supple. LUNGS: tachypneic. Right sided crackles left side clear ABDOMEN: Soft, nontender, nondistended, normoactive bowel sounds EXTREMITIES: warm, well-perfused, no edema. 2+ DP pulses bilaterally NEUROLOGICAL: Cranial nerves II through XII grossly intact. SKIN: Warm, dry Laboratory Results - last 24 hr 08/10/16 08/10/16 06:30 06:30 WBC 14.9 H RBC 4.65 Hgb 12.7 Hct 37.3 MCV 80.2 MCHC 34.1 RDW 14.6 Plt Count 561 H MPV 7.0 L Neutrophils % 95.9 H Lymphocytes % 2.1 L D Monocytes % 1.8 L Eosinophils % 0.0 D Basophils % 0.2 Sodium 127 L Potassium 4.7 Chloride 91 L Carbon Dioxide 25 Anion Gap 11 BUN 16 Creatinine 0.5 L Random Glucose 131 H Calcium 8.4 L Active Medications Generic Name Dose Route Start Last Admin Trade Name Freq PRN Reason Stop Dose Admin Acetaminophen 650 mg 08/07/16 18:54 08/10/16 05:59 Tylenol - PO 650 mg Q6H PRN Administration FEVER OR PAIN Albuterol Sulfate 1 amp 08/08/16 00:00 08/10/16 11:40 Ventolin 0.083% Nebulizer Soln - NEB 1 amp QIDR DONAL Administration Albuterol Sulfate 1 amp 08/07/16 18:54 08/09/16 09:05 Ventolin 0.042trength) - NEB 1 amp Q6H PRN Administration SHORT OF BREATH/WHEEZING Alprazolam 0.5 mg 08/10/16 11:26 08/10/16 12:01 Xanax - PO 0.5 mg Q8H PRN Administration ANXIETY Heparin Sodium (Porcine) 5,000 unit 08/07/16 22:00 08/10/16 13:15 Heparin - SQ 5,000 unit TID DONAL Administration Vancomycin HCl 1,250 mg/ 250 mls @ 125 mls/hr 08/10/16 15:00 Dextrose IVPB DAILY@1500 [facility] Protocol Piperacillin Sod/Tazobactam Sod 50 mls @ 100 mls/hr 08/10/16 14:00 Zosyn 3.375gm Ivpb (Pre-Docked) IVPB Q8H-IV DONAL Protocol Methylprednisolone Sodium Succinate 60 mg 08/08/16 02:00 08/10/16 10:05 Solu-Medrol - IVPB 60 mg Q8H-IV DONAL Administration Mycophenolate Mofetil 500 mg 08/10/16 10:30 08/10/16 12:02 Cellcept - PO 500 mg BID DONAL Administration Nifedipine 60 mg 08/07/16 22:00 08/09/16 21:15 Procardia Xl - PO 60 mg HS DONAL Administration Pantoprazole Sodium 40 mg 08/08/16 10:00 08/10/16 10:06 Protonix - PO 40 mg DAILY DONAL Administration Tramadol HCl 25 mg 08/05/16 19:58 08/10/16 01:52 Ultram - PO 25 mg Q8H PRN Administration PAIN ASSESSMENT/PLAN: 66M with history of sarcoidosis and hypertension presents to the ED with a 1 week history of fevers chills productive cough with weakness found to be in severe sepsis and acute hypoxic respiratory failure secondary to influenza type B. Severe sepsis: likely from influenza B but on he differential remains influenza pneumonia with a superimposed bacterial pneumonia. patient with a significant air space disease on CT chest at baseline and it is very difficult to differentiate pneumonia from lung parenchyma continue Face mask f/u Mycoplasma-negative f/u urine antigens-negative tamiflu course completed ABx Azithromycin levaquin and zosyn completed ID consult appreciated started on vanco zosyn again today-will speak to ID about holding off to see if cellcept works first Leukocytosis: reactive due to steroids f/u BCx-negative final UA negative ECHO noted with moderate pulmonary hypertension as elevated RV systolic pressure. no heart failure noted continue BiPAP for support PRN and BiPAP HS- give xanax with BiPAP at night Acute hypoxic respiratory failure: secondary to influenza and possible influenza PNA possible superimposed bacterial pneumonia and history of sarcoidosis Sarcoidosis is likely the cause of the patients respiratory status still tachypneic Nebulizers continue BiPAP HS and PRN continue solumedrol 60mg IV q8h will need a very slow taper Rheum consult appreciated on cellcept 500mg po BID patient had a CTA on admission which did not show PE and reepat CTA last night did not show PE Sarcoidosis: Pulmonology consult appreciated on solumedrol 60mg IV [id number] continue f/u Dr. Davis consult appreciated start cell cept 500mg po BID hyponatremia: asymptomatic hypo-osmolar hyponatremia sodium still 127 today nephrology consult appreciated sodium tablets discontinued cause it likely multifactorial patient drink about 3 liters of water a day- polydipsia also fluid retention with steroids and given the fact the patient has sarcoidosis he may have an elevated ADH level. 1 liter fluid restriction AM cortisol level-6 Troponinemia: likely secondary to increased demand from dehydration and severe sepsis Troponin stable at 0.07 will stop trending unless patient becomes symptomatic no IN on EKG Echo Noted BIANCA: from dehydration and decreased flow to the kidneys secondary to severe sepsis Cr now WNL Resolved HTN: well controlled at this time continue home dose of procardia XL 60mg po HS colon distention seen on lower cuts of Chest CT from ileus: Resolved FEN: off IVF-fluid restrict hyponatremia-see above for plan Soft diet PPx: HSQ/SCDs protonix while patient is on steroids PT consult for rehab placement Dispo: needs inpatient pulmonary rehab Visit type - Emergency Visit Emergency Visit: Yes ED Registration Date: 07/27/16 Care time: The patient presented to the Emergency Department on the above date and was hospitalized for further evaluation of their emergent condition. - New Patient This patient is new to me today: No - Critical Care Critical Care patient: No - Discharge Referral Referred to [facility] Med P.C[facility] No
[2016-08-10] MEDS: PIPERACILLIN/TAZOB 3.375 GM 50 ML IVPB SCH (18:10)
[2016-08-10] MEDS: VANCOMYCIN 1,250 MG in DEXTROSE 5%-WATER - 250 ML IVPB SCH (18:28)
--- NOTE | 2016-08-10 19:12 | PN ---
Teaching Attending Note Name of Resident: Shiva Sidhu ATTENDING PHYSICIAN STATEMENT I saw and evaluated the patient. I reviewed the resident's note and discussed the case with the resident. I agree with the resident's findings and plan as documented. SUBJECTIVE: cont to have SOB OBJECTIVE: NAD , AAOx3. cooperative no facial droop , MMM CV: RRR . No JVD Lungs: crackles at R base Abd: soft, NT, ND, NL BS Ext: no edema, no tremor ASSESSMENT AND PLAN: 66 y/o man with h/o HTN, sarcoidosis , who presented with 5-day hx of fever , cough, runny nose and was found to have severe sepsis and Flu B . 1- Severe sepsis: from Flu B, and possible influenza Pneumonia. pt failed to respond to high dose steroids and his CT scan showed worsening infiltrate reji on R side . which increase suspicion for bacterial pNA . - case was d/w Dr. Ibanez in details - abx started vanc+ zosyn 2- Acute hypoxic resp failure: due to influenza and likely bacterial pNA , and possibly sarcoidosis is playing a big role still unable to wean off venti mask despite high dose steroids for days - Abx -cont mycophynolate - cont steroids at current dose for 48 hrs after starting mycophynolate, d/w Dr. Feliciano - encouraged pt to use BIPAP at night 3- Hypotonic Hyponatremia : the patient looks euvolemic , and has Increased urine osmolality. possibly his lung disease ( sarcoidosis ) is contributing to SIADH picture - cont with fluid restriction 1 L /day - appreciate renal input - pt is asymptomatic 4- Trop leak : likely from sepsis . - echo with pulm HTN and mild vulvular regurgitation - no further w/u at this point - stress test as out pt 5- BIANCA: from sepsis and volume depletion . resolved
[2016-08-10] MEDS: NIFEdipine E.R. 30 MG TABLET (FP) PO SCH (21:13)
[2016-08-10] MEDS ORDERED: methylPREDNISolone NA SUCC 40 MG/1 ML VIAL IVPB SCH (22:00)
[2016-08-11] MEDS: PIPERACILLIN/TAZOB 3.375 GM 50 ML IVPB SCH ×3 (01:48→17:21)
[2016-08-11] MEDS: methylPREDNISolone NA SUCC 40 MG/1 ML VIAL IVPB SCH ×3 (02:10→17:18)
[2016-08-11] MEDS: ALBUTEROL SO4 0.042% IH SOL 1.25 MG/3 ML VIAL.NEB NEB PRN (03:35)
[2016-08-11] MEDS: HEPARIN NA (PORCINE) 5,000 UNITS/ML 1ML VIAL SQ SCH ×3 (06:12→21:09)
[2016-08-11] MEDS: ALBUTEROL SO4 0.083% IH SOL 2.5 MG/3 ML VIAL.NEB. NEB SCH ×4 (06:35→23:43)
[2016-08-11 07:13] LABS: CALCIUM 8.2 mg/dL (8.5-10.1); COCKROFT - GAULT 145.4; CREATININE 0.5 mg/dL (0.7-1.3)
[2016-08-11 07:37] LABS: MCH 26.7 pg (25.7-33.7); MCHC 33.3 g/dl (32.0-35.9); MEAN CELL VOLUME 80.4 fl (80-96); MEAN PLT VOLUME 7.3 fl (7.5-11.1); PLATELET COUNT 544 K/MM3 (134-434); RDW 14.5 % (11.9-15.9); WHITE BLOOD COUNT 14.3 K/mm3 (4.0-10.0)
[2016-08-11] MEDS: PANTOPRAZOLE 40 MG TABLET (FP) PO SCH (09:53)
[2016-08-11] MEDS ORDERED: SODIUM CHLORIDE 1,000 ML IV SCH (10:15)
[2016-08-11] MEDS ORDERED: PT OWN MED DRAWER 7, Y5N ONE ×3 (10:53→21:04)
--- NOTE | 2016-08-11 10:53 | PN ---
Progress Note, Physician History of Present Illness: patient very tired still needing ventimask - Current Medication List Current Medications: Active Medications Acetaminophen (Tylenol -) 650 mg PO Q6H PRN PRN Reason: FEVER OR PAIN Last Admin: 08/10/16 23:47 Dose: 650 mg Albuterol Sulfate (Ventolin 0.083% Nebulizer Soln -) 1 amp NEB QIDR DONAL Last Admin: 08/11/16 06:35 Dose: 1 amp Albuterol Sulfate (Ventolin 0.042trength) -) 1 amp NEB Q6H PRN PRN Reason: SHORT OF BREATH/WHEEZING Last Admin: 08/11/16 03:35 Dose: 1 amp Alprazolam (Xanax -) 0.5 mg PO Q8H PRN PRN Reason: ANXIETY Last Admin: 08/10/16 21:14 Dose: 0.5 mg Heparin Sodium (Porcine) (Heparin -) 5,000 unit SQ TID DONAL Last Admin: 08/11/16 06:12 Dose: 5,000 unit Vancomycin HCl 1,250 mg/ (Dextrose) 250 mls @ 125 mls/hr IVPB DAILY@1500 DONAL PRN Reason: Protocol Last Admin: 08/10/16 18:28 Dose: 125 mls/hr Piperacillin Sod/Tazobactam Sod (Zosyn 3.375gm Ivpb (Pre-Docked)) 50 mls @ 100 mls/hr IVPB Q8H-IV DONAL PRN Reason: Protocol Last Admin: 08/11/16 01:48 Dose: 100 mls/hr Sodium Chloride (Normal Saline -) 1,000 mls @ 100 mls/hr IV ASDIR DONAL Stop: 08/12/16 10:14 Methylprednisolone Sodium Succinate (Solu-Medrol -) 60 mg IVPB Q8H-IV DONAL Last Admin: 08/11/16 09:53 Dose: 60 mg Mycophenolate Mofetil (Cellcept -) 500 mg PO BID DONAL Last Admin: 08/10/16 21:14 Dose: 500 mg Nifedipine (Procardia Xl -) 60 mg PO HS [facility] Last Admin: 08/10/16 21:13 Dose: 60 mg Pantoprazole Sodium (Protonix -) 40 mg PO DAILY DONAL Last Admin: 08/11/16 09:53 Dose: 40 mg Polyethylene Glycol (Miralax (For Daily Use) -) 17 gm PO DAILY DONAL - Objective Vital Signs: Vital Signs Temperature 97.7 F 08/11/16 09:13 Pulse Rate 86 08/11/16 09:13 Respiratory Rate 20 08/11/16 09:13 Blood Pressure 133/57 08/11/16 09:13 O2 Sat by Pulse Oximetry (%) 92 L 08/10/16 22:00 Constitutional: Yes: Calm, Mild Distress Cardiovascular: Yes: Regular Rate and Rhythm Respiratory: Yes: On Venti-Mask, Poor Air Entry, Rhonchi Gastrointestinal: Yes: Normal Bowel Sounds, Soft Musculoskeletal: Yes: WNL Extremities: Yes: WNL Neurological: Yes: Alert, Oriented Psychiatric: Yes: Alert, Oriented Labs: CBC, BMP 08/11/16 06:05 08/11/16 06:05 INR, PTT INR 1.26 (0.82-1.09) H 07/27/16 14:15 Assessment/Plan pneumonia resp failure influenza sarcoidosis multilobar pneumonia plan conitnue current mgmt close watch on the patient
[2016-08-11] MEDS: ACETAMINOPHEN 325 MG TABLET (FP) PO PRN ×2 (11:00→17:08)
[2016-08-11] MEDS: MYCOPHENOLATE MOFETIL 250 MG CAPSULE PO SCH ×2 (11:02→21:09)
[2016-08-11] MEDS: POLYETHYLENE GLYCOL 3350 119 GM BTL PO SCH (11:04)
--- NOTE | 2016-08-11 13:21 | PN ---
Physical Exam: SUBJECTIVE: Patient seen and examined at bedside no events overnight patient is very frustrated but feels overall better afebrile refusing BiPAP still requiring 50% FM FiO2 "I feel like my lung is healing from the inside" OBJECTIVE: Vital Signs Period Temp Pulse Resp BP Sys/Villalobos Pulse Ox Last 24 Hr 97.7 F-98.1 F 86-97 20-22 122-155/57-82 92-98 GENERAL: The patient is awake, alert, and fully oriented, mild distress. NECK: supple. LUNGS: tachypneic. Right sided crackles-improved left side clear ABDOMEN: Soft, nontender, nondistended, normoactive bowel sounds EXTREMITIES: warm, well-perfused, no edema. 2+ DP pulses bilaterally NEUROLOGICAL: Cranial nerves II through XII grossly intact. SKIN: Warm, dry Laboratory Results - last 24 hr 08/11/16 08/11/16 06:05 06:05 WBC 14.3 H RBC 4.73 Hgb 12.6 Hct 38.0 MCV 80.4 MCHC 33.3 RDW 14.5 Plt Count 544 H MPV 7.3 L Sodium 123 L* Potassium 4.6 Chloride 89 L Carbon Dioxide 25 Anion Gap 9 BUN 15 Creatinine 0.5 L Random Glucose 129 H Calcium 8.2 L Active Medications Generic Name Dose Route Start Last Admin Trade Name Freq PRN Reason Stop Dose Admin Acetaminophen 650 mg 08/07/16 18:54 08/11/16 11:00 Tylenol - PO 650 mg Q6H PRN Administration FEVER OR PAIN Albuterol Sulfate 1 amp 08/08/16 00:00 08/11/16 11:51 Ventolin 0.083% Nebulizer Soln - NEB 1 amp QIDR DONAL Administration Albuterol Sulfate 1 amp 08/07/16 18:54 08/11/16 03:35 Ventolin 0.042trength) - NEB 1 amp Q6H PRN Administration SHORT OF BREATH/WHEEZING Alprazolam 0.5 mg 08/10/16 11:26 08/10/16 21:14 Xanax - PO 0.5 mg Q8H PRN Administration ANXIETY Heparin Sodium (Porcine) 5,000 unit 08/07/16 22:00 08/11/16 06:12 Heparin - SQ 5,000 unit TID DONAL Administration Vancomycin HCl 1,250 mg/ 250 mls @ 125 mls/hr 08/10/16 15:00 08/10/16 18:28 Dextrose IVPB 125 mls/hr DAILY@1500 DONAL Administration Protocol Piperacillin Sod/Tazobactam Sod 50 mls @ 100 mls/hr 08/10/16 14:00 08/11/16 11: 01 Zosyn 3.375gm Ivpb (Pre-Docked) IVPB 100 mls/hr Q8H-IV DONAL Administration Protocol Sodium Chloride 1,000 mls @ 100 mls/hr 08/11/16 10:15 08/11/16 10:55 Normal Saline - IV 08/12/16 10:14 100 mls/hr ASDIR DONAL Administration Methylprednisolone Sodium Succinate 60 mg 08/11/16 02:00 08/11/16 09:53 Solu-Medrol - IVPB 60 mg Q8H-IV DONAL Administration Mycophenolate Mofetil 500 mg 08/10/16 10:30 08/11/16 11:02 Cellcept - PO 500 mg BID DONAL Administration Nifedipine 60 mg 08/07/16 22:00 08/10/16 21:13 Procardia Xl - PO 60 mg HS DONAL Administration Pantoprazole Sodium 40 mg 08/08/16 10:00 08/11/16 09:53 Protonix - PO 40 mg DAILY DONAL Administration Polyethylene Glycol 17 gm 08/11/16 10:15 08/11/16 11:04 Miralax (For Daily Use) - PO 17 grams DAILY DONAL Administration ASSESSMENT/PLAN: 66M with history of sarcoidosis and hypertension presents to the ED with a 1 week history of fevers chills productive cough with weakness found to be in severe sepsis and acute hypoxic respiratory failure secondary to influenza type B. Severe sepsis: likely from influenza B but on he differential remains influenza pneumonia with a superimposed bacterial pneumonia. patient with a significant air space disease on CT chest at baseline and it is very difficult to differentiate pneumonia from lung parenchyma continue Face mask f/u Mycoplasma-negative f/u urine antigens-negative tamiflu course completed ABx Azithromycin levaquin and zosyn completed ID consult appreciated started on vanco zosyn day 2 agree with ABx for now as patient's CT scan has worsened since admission and he has not improved despite being on high dose steroids Leukocytosis: reactive due to steroids f/u BCx-negative final UA negative ECHO noted with moderate pulmonary hypertension as elevated RV systolic pressure. no heart failure noted continue BiPAP for support PRN and BiPAP HS- give xanax with BiPAP at night Acute hypoxic respiratory failure: secondary to influenza and possible influenza PNA possible superimposed bacterial pneumonia and history of sarcoidosis Sarcoidosis is likely the cause of the patients respiratory status still tachypneic Nebulizers continue BiPAP HS and PRN-refusing. patient counselled on intermittent BiPAP use to decrease his work of breathing so he doesnt tire out. patient became very frustrated and started yelling continue solumedrol 60mg IV q8h will need a very slow taper Rheum consult appreciated on cellcept 500mg po BID patient had a CTA on admission which did not show PE and reepat CTA last night did not show PE Sarcoidosis: Pulmonology consult appreciated on solumedrol 60mg IV [id number] to pulmonary about decreasing the dose awaiting recommendations. he may still require this high of a dose until cellcept beings to work f/u Dr. Davis consult appreciated continue cellcept 500mg po BID hyponatremia: asymptomatic hypo-osmolar hyponatremia sodium still 123 today which is significantly worse despite being fluid restricted for the past few days nephrology consult appreciated sodium tablets discontinued cause it likely multifactorial patient drink about 3 liters of water a day- polydipsia also fluid retention with steroids and given the fact the patient has sarcoidosis he may have an elevated ADH level. 1 liter fluid restriction AM cortisol level-6 start normal saline at 100ml/hr for 24 hours and recheck sodium tomorrow Troponinemia: likely secondary to increased demand from dehydration and severe sepsis Troponin stable at 0.07 will stop trending unless patient becomes symptomatic no PA on EKG Echo Noted BIANCA: from dehydration and decreased flow to the kidneys secondary to severe sepsis Cr now WNL Resolved HTN: well controlled at this time continue home dose of procardia XL 60mg po HS colon distention seen on lower cuts of Chest CT from ileus: Resolved constipation: last BM 2 days ago give miralax FEN: off IVF-fluid restrict hyponatremia-see above for plan Soft diet PPx: HSQ/SCDs protonix while patient is on steroids PT consult for rehab placement-patient too Short of breath to participate in rehab and has been refusing. encouraged him to atleast try and he was able to take 5 steps from the head to foot of bed yesterday Dispo: needs inpatient pulmonary rehab Visit type - Emergency Visit Emergency Visit: Yes ED Registration Date: 07/27/16 Care time: The patient presented to the Emergency Department on the above date and was hospitalized for further evaluation of their emergent condition. - New Patient This patient is new to me today: No - Critical Care Critical Care patient: No - Discharge Referral Referred to [facility] No
[2016-08-11] MEDS: VANCOMYCIN 1,250 MG in DEXTROSE 5%-WATER - 250 ML IVPB SCH (14:23)
--- NOTE | 2016-08-11 17:02 | PN ---
Progress Note, Physician History of Present Illness: PULMONARY ALERT,FEELING BETTER,LESS DYSPNEIC - Current Medication List Current Medications: Active Medications Acetaminophen (Tylenol -) 650 mg PO Q6H PRN PRN Reason: FEVER OR PAIN Last Admin: 08/11/16 11:00 Dose: 650 mg Albuterol Sulfate (Ventolin 0.083% Nebulizer Soln -) 1 amp NEB QIDR DONAL Last Admin: 08/11/16 11:51 Dose: 1 amp Albuterol Sulfate (Ventolin 0.042trength) -) 1 amp NEB Q6H PRN PRN Reason: SHORT OF BREATH/WHEEZING Last Admin: 08/11/16 03:35 Dose: 1 amp Alprazolam (Xanax -) 0.5 mg PO Q8H PRN PRN Reason: ANXIETY Last Admin: 08/10/16 21:14 Dose: 0.5 mg Heparin Sodium (Porcine) (Heparin -) 5,000 unit SQ TID DONAL Last Admin: 08/11/16 14:21 Dose: 5,000 unit Vancomycin HCl 1,250 mg/ (Dextrose) 250 mls @ 125 mls/hr IVPB DAILY@1500 DONAL PRN Reason: Protocol Last Admin: 08/11/16 14:23 Dose: 125 mls/hr Piperacillin Sod/Tazobactam Sod (Zosyn 3.375gm Ivpb (Pre-Docked)) 50 mls @ 100 mls/hr IVPB Q8H-IV DONAL PRN Reason: Protocol Last Admin: 08/11/16 11:01 Dose: 100 mls/hr Sodium Chloride (Normal Saline -) 1,000 mls @ 100 mls/hr IV ASDIR [facility] Stop: 08/12/16 10:14 Last Admin: 08/11/16 10:55 Dose: 100 mls/hr Methylprednisolone Sodium Succinate (Solu-Medrol -) 60 mg IVPB Q8H-IV DONAL Last Admin: 08/11/16 09:53 Dose: 60 mg Mycophenolate Mofetil (Cellcept -) 500 mg PO BID [facility] Last Admin: 08/11/16 11:02 Dose: 500 mg Nifedipine (Procardia Xl -) 60 mg PO HS [facility] Last Admin: 08/10/16 21:13 Dose: 60 mg Pantoprazole Sodium (Protonix -) 40 mg PO DAILY [facility] Last Admin: 08/11/16 09:53 Dose: 40 mg Polyethylene Glycol (Miralax (For Daily Use) -) 17 gm PO DAILY DONAL Last Admin: 08/11/16 11:04 Dose: 17 grams - Objective Vital Signs: Vital Signs Temperature 98.2 F 08/11/16 13:59 Pulse Rate 92 H 08/11/16 13:59 Respiratory Rate 20 08/11/16 09:13 Blood Pressure 148/65 08/11/16 13:59 O2 Sat by Pulse Oximetry (%) 98 08/11/16 11:50 Constitutional: Yes: Calm, Thin Eyes: Yes: WNL HENT: Yes: Nasal Congestion Neck: Yes: WNL Cardiovascular: Yes: Regular Rate and Rhythm, S1, S2 Respiratory: Yes: Rales (RAFAEL CRACKLES) Gastrointestinal: Yes: Normal Bowel Sounds, Soft Extremities: Yes: WNL Edema: No Labs: CBC, BMP 08/11/16 06:05 08/11/16 12:05 INR, PTT INR 1.26 (0.82-1.09) H 07/27/16 14:15 Assessment/Plan Assessment/Plan Hypoxemic respiratory failure Influenza Multilobar Pneumonia Sarcoidosis HTN Hyponatremia -Venti mask, BiPAP -continue steroids q8h -inpatient pulmonary rehab post discharge - monitor lytes,na - dvt prophylaxis - continue mycophenolate DR MOROCHO
--- NOTE | 2016-08-11 17:25 | PN ---
Progress Note, Physician History of Present Illness: Pt seen and examined at bedside. He is awake and alert. He says that he feels better today from a respiratory standpoint. - Current Medication List Current Medications: Active Medications Acetaminophen (Tylenol -) 650 mg PO Q6H PRN PRN Reason: FEVER OR PAIN Last Admin: 08/11/16 17:08 Dose: 650 mg Albuterol Sulfate (Ventolin 0.083% Nebulizer Soln -) 1 amp NEB QIDR DONAL Last Admin: 08/11/16 11:51 Dose: 1 amp Albuterol Sulfate (Ventolin 0.042trength) -) 1 amp NEB Q6H PRN PRN Reason: SHORT OF BREATH/WHEEZING Last Admin: 08/11/16 03:35 Dose: 1 amp Alprazolam (Xanax -) 0.5 mg PO Q8H PRN PRN Reason: ANXIETY Last Admin: 08/10/16 21:14 Dose: 0.5 mg Heparin Sodium (Porcine) (Heparin -) 5,000 unit SQ TID DONAL Last Admin: 08/11/16 14:21 Dose: 5,000 unit Vancomycin HCl 1,250 mg/ (Dextrose) 250 mls @ 125 mls/hr IVPB DAILY@1500 DONAL PRN Reason: Protocol Last Admin: 08/11/16 14:23 Dose: 125 mls/hr Piperacillin Sod/Tazobactam Sod (Zosyn 3.375gm Ivpb (Pre-Docked)) 50 mls @ 100 mls/hr IVPB Q8H-IV DONAL PRN Reason: Protocol Last Admin: 08/11/16 17:21 Dose: 100 mls/hr Sodium Chloride (Normal Saline -) 1,000 mls @ 100 mls/hr IV ASDIR DONAL Stop: 08/12/16 10:14 Last Admin: 08/11/16 10:55 Dose: 100 mls/hr Methylprednisolone Sodium Succinate (Solu-Medrol -) 60 mg IVPB Q8H-IV DONAL Last Admin: 08/11/16 17:18 Dose: 60 mg Mycophenolate Mofetil (Cellcept -) 500 mg PO BID DONAL Last Admin: 08/11/16 11:02 Dose: 500 mg Nifedipine (Procardia Xl -) 60 mg PO HS DONAL Last Admin: 08/10/16 21:13 Dose: 60 mg Pantoprazole Sodium (Protonix -) 40 mg PO DAILY [facility] Last Admin: 08/11/16 09:53 Dose: 40 mg Polyethylene Glycol (Miralax (For Daily Use) -) 17 gm PO DAILY [facility] Last Admin: 08/11/16 11:04 Dose: 17 grams - Objective Vital Signs: Vital Signs Temperature 98.2 F 08/11/16 13:59 Pulse Rate 92 H 08/11/16 13:59 Respiratory Rate 20 08/11/16 09:13 Blood Pressure 148/65 08/11/16 13:59 O2 Sat by Pulse Oximetry (%) 98 08/11/16 11:50 Constitutional: Yes: Calm Eyes: Yes: Conjunctiva Clear HENT: Yes: Atraumatic Neck: Yes: Supple Cardiovascular: Yes: S1, S2 Respiratory: Yes: On Venti-Mask, Rhonchi Gastrointestinal: Yes: Soft Genitourinary: Yes: WNL Musculoskeletal: Yes: WNL Edema: No Neurological: Yes: Oriented Psychiatric: Yes: Oriented Labs: CBC, BMP 08/11/16 06:05 08/11/16 12:05 INR, PTT INR 1.26 (0.82-1.09) H 07/27/16 14:15 Assessment/Plan Current Medications Generic Name Dose Route Start Last Admin Trade Name Freq PRN Reason Stop Dose Admin Acetaminophen 650 mg 08/07/16 18:54 08/11/16 17:08 Tylenol - PO 650 mg Q6H PRN Administration FEVER OR PAIN Albuterol Sulfate 1 amp 08/08/16 00:00 08/11/16 11:51 Ventolin 0.083% Nebulizer Soln - NEB 1 amp QIDR DONAL Administration Albuterol Sulfate 1 amp 08/07/16 18:54 08/11/16 03:35 Ventolin 0.042trength) - NEB 1 amp Q6H PRN Administration SHORT OF BREATH/WHEEZING Alprazolam 0.5 mg 08/10/16 11:26 08/10/16 21:14 Xanax - PO 0.5 mg Q8H PRN Administration ANXIETY Heparin Sodium (Porcine) 5,000 unit 08/07/16 22:00 08/11/16 14:21 Heparin - SQ 5,000 unit TID DONAL Administration Vancomycin HCl 1,250 mg/ 250 mls @ 125 mls/hr 08/10/16 15:00 08/11/16 14:23 Dextrose IVPB 125 mls/hr DAILY@1500 DONAL Administration Protocol Piperacillin Sod/Tazobactam Sod 50 mls @ 100 mls/hr 08/10/16 14:00 08/11/16 17: 21 Zosyn 3.375gm Ivpb (Pre-Docked) IVPB 100 mls/hr Q8H-IV DONAL Administration Protocol Sodium Chloride 1,000 mls @ 100 mls/hr 08/11/16 10:15 08/11/16 10:55 Normal Saline - IV 08/12/16 10:14 100 mls/hr ASDIR DONAL Administration Methylprednisolone Sodium Succinate 60 mg 08/11/16 02:00 08/11/16 17:18 Solu-Medrol - IVPB 60 mg Q8H-IV DONAL Administration Mycophenolate Mofetil 500 mg 08/10/16 10:30 08/11/16 11:02 Cellcept - PO 500 mg BID DONAL Administration Nifedipine 60 mg 08/07/16 22:00 08/10/16 21:13 Procardia Xl - PO 60 mg HS DONAL Administration Pantoprazole Sodium 40 mg 08/08/16 10:00 08/11/16 09:53 Protonix - PO 40 mg DAILY DONAL Administration Polyethylene Glycol 17 gm 08/11/16 10:15 08/11/16 11:04 Miralax (For Daily Use) - PO 17 grams DAILY DONAL Administration Impression 1. hyponatremia SIADH 2. sarcoidosis 3. proteinuria 4. HTN 5. hypoxic respiratory failure 6. PNA 7. sepsis 8. proteinuria Plan - cont free water restriction - sodium is lower today - trial of saline, repeat bmp, discussed with resident - will follow - monitor pulse chidi - richard siadh from pulmonary process Dr Mccord
[2016-08-11 18:00] LABS: CALCIUM 8.8 mg/dL (8.5-10.1); COCKROFT - GAULT 145.4; CREATININE 0.5 mg/dL (0.7-1.3)
--- NOTE | 2016-08-11 18:14 | PN ---
Teaching Attending Note Name of Resident: Shiva Sidhu ATTENDING PHYSICIAN STATEMENT I saw and evaluated the patient. I reviewed the resident's note and discussed the case with the resident. I agree with the resident's findings and plan as documented. SUBJECTIVE: no fever or chills, still SOB and frustrated OBJECTIVE: NAD CV : RRR, Lungs : R basilar crackles Ext : no edema A/P 66 y/o man with h/o HTN, sarcoidosis , who presented with 5-day hx of fever , cough, runny nose and was found to have severe sepsis and Flu B . 1- Severe sepsis: from Flu B, and possible bacterial PNA with worsening infiltrates on chest CT . -Cont abx vanc+ zosyn 2- Acute hypoxic resp failure: due to influenza and likely bacterial pNA , and possibly sarcoidosis is playing a big role still unable to wean off venti mask despite high dose steroids for days - Abx -cont mycophynolate -cont steroids 3- Hypotonic Hyponatremia : although has an SIADH picture dependng on urine studies. his Na has dropped with fluid restriction. Likely he is volume depleted now on top of this due to his respiratory condition and not taking enough pO - try NS x 24 hrs. repeat Na now and in am - appreciate renal input 4- Trop leak : likely from sepsis . - echo with pulm HTN and mild vulvular regurgitation - no further w/u at this point - stress test as out pt 5- BIANCA: from sepsis and volume depletion . resolved
[2016-08-11] MEDS: ALPRAZolam 0.25 MG TABLET PO PRN (21:09)
[2016-08-11] MEDS: NIFEdipine E.R. 30 MG TABLET (FP) PO SCH (21:09)
[2016-08-12] MEDS: PIPERACILLIN/TAZOB 3.375 GM 50 ML IVPB SCH ×3 (01:32→18:14)
[2016-08-12] MEDS: methylPREDNISolone NA SUCC 40 MG/1 ML VIAL IVPB SCH ×3 (02:16→17:32)
[2016-08-12] MEDS: HEPARIN NA (PORCINE) 5,000 UNITS/ML 1ML VIAL SQ SCH ×3 (06:09→21:47)
[2016-08-12] MEDS: ALBUTEROL SO4 0.083% IH SOL 2.5 MG/3 ML VIAL.NEB. NEB SCH ×4 (07:00→23:01)
[2016-08-12 08:21] LABS: BASOPHIL 1.3 % (0-2.0); MCH 26.9 pg (25.7-33.7); MCHC 33.7 g/dl (32.0-35.9); MEAN CELL VOLUME 79.8 fl (80-96); MEAN PLT VOLUME 7.1 fl (7.5-11.1); NEUTROPHILS 94.9 % (42.8-82.8); PLATELET COUNT 484 K/MM3 (134-434); RDW 14.4 % (11.9-15.9); WHITE BLOOD COUNT 11.2 K/mm3 (4.0-10.0)
[2016-08-12 08:51] LABS: CALCIUM 8.6 mg/dL (8.5-10.1)
[2016-08-12 08:52] LABS: COCKROFT - GAULT 184.43; CREATININE 0.4 mg/dL (0.7-1.3)
[2016-08-12] MEDS ORDERED: PT OWN MED DRAWER 7, Y5N ONE ×3 (09:50→21:42)
[2016-08-12] MEDS: PANTOPRAZOLE 40 MG TABLET (FP) PO SCH (09:56)
[2016-08-12] MEDS: MYCOPHENOLATE MOFETIL 250 MG CAPSULE PO SCH ×2 (09:57→21:47)
[2016-08-12] MEDS: POLYETHYLENE GLYCOL 3350 119 GM BTL PO SCH (09:58)
--- NOTE | 2016-08-12 11:13 | PN ---
Progress Note, Physician History of Present Illness: patient still needing ventimask according to family slightly better no new events still very weak - Current Medication List Current Medications: Active Medications Acetaminophen (Tylenol -) 650 mg PO Q6H PRN PRN Reason: FEVER OR PAIN Last Admin: 08/11/16 17:08 Dose: 650 mg Albuterol Sulfate (Ventolin 0.083% Nebulizer Soln -) 1 amp NEB QIDR DONAL Last Admin: 08/12/16 07:00 Dose: 1 amp Albuterol Sulfate (Ventolin 0.042trength) -) 1 amp NEB Q6H PRN PRN Reason: SHORT OF BREATH/WHEEZING Last Admin: 08/11/16 03:35 Dose: 1 amp Alprazolam (Xanax -) 0.5 mg PO Q8H PRN PRN Reason: ANXIETY Last Admin: 08/11/16 21:09 Dose: 0.5 mg Heparin Sodium (Porcine) (Heparin -) 5,000 unit SQ TID DONAL Last Admin: 08/12/16 06:09 Dose: 5,000 unit Vancomycin HCl 1,250 mg/ (Dextrose) 250 mls @ 125 mls/hr IVPB DAILY@1500 DONAL PRN Reason: Protocol Last Admin: 08/11/16 14:23 Dose: 125 mls/hr Piperacillin Sod/Tazobactam Sod (Zosyn 3.375gm Ivpb (Pre-Docked)) 50 mls @ 100 mls/hr IVPB Q8H-IV DONAL PRN Reason: Protocol Last Admin: 08/12/16 10:29 Dose: 100 mls/hr Methylprednisolone Sodium Succinate (Solu-Medrol -) 60 mg IVPB Q8H-IV DONAL Last Admin: 08/12/16 09:56 Dose: 60 mg Mycophenolate Mofetil (Cellcept -) 500 mg PO BID DONAL Last Admin: 08/12/16 09:57 Dose: 500 mg Nifedipine (Procardia Xl -) 60 mg PO HS DONAL Last Admin: 08/11/16 21:09 Dose: 60 mg Pantoprazole Sodium (Protonix -) 40 mg PO DAILY DONAL Last Admin: 08/12/16 09:56 Dose: 40 mg Polyethylene Glycol (Miralax (For Daily Use) -) 17 gm PO DAILY DONAL Last Admin: 08/12/16 09:58 Dose: Not Given - Objective Vital Signs: Vital Signs Temperature 97.6 F 08/12/16 06:00 Pulse Rate 95 H 08/12/16 06:00 Respiratory Rate 20 08/12/16 06:00 Blood Pressure 133/69 08/12/16 06:00 O2 Sat by Pulse Oximetry (%) 97 08/11/16 22:00 Constitutional: Yes: Calm, Mild Distress Cardiovascular: Yes: Regular Rate and Rhythm Respiratory: Yes: Regular, Poor Air Entry Gastrointestinal: Yes: Normal Bowel Sounds, Soft Musculoskeletal: Yes: WNL Extremities: Yes: WNL Neurological: Yes: Alert, Oriented Psychiatric: Yes: Alert, Oriented Labs: CBC, BMP 08/12/16 07:00 08/12/16 07:00 INR, PTT INR 1.26 (0.82-1.09) H 07/27/16 14:15 Assessment/Plan pneumonia resp failure influenza sarcoidosis multilobar pneumonia plan conitnue current mgmt close watch on the patient will check vanco trough resp physio
--- NOTE | 2016-08-12 12:10 | PN ---
Progress Note, Physician History of Present Illness: pulmonary alert,feeling better,less dyspneic,on vm o2 sat 95% - Current Medication List Current Medications: Active Medications Acetaminophen (Tylenol -) 650 mg PO Q6H PRN PRN Reason: FEVER OR PAIN Last Admin: 08/11/16 17:08 Dose: 650 mg Albuterol Sulfate (Ventolin 0.083% Nebulizer Soln -) 1 amp NEB QIDR DONAL Last Admin: 08/12/16 11:30 Dose: 1 amp Albuterol Sulfate (Ventolin 0.042trength) -) 1 amp NEB Q6H PRN PRN Reason: SHORT OF BREATH/WHEEZING Last Admin: 08/11/16 03:35 Dose: 1 amp Alprazolam (Xanax -) 0.5 mg PO Q8H PRN PRN Reason: ANXIETY Last Admin: 08/11/16 21:09 Dose: 0.5 mg Heparin Sodium (Porcine) (Heparin -) 5,000 unit SQ TID DONAL Last Admin: 08/12/16 06:09 Dose: 5,000 unit Vancomycin HCl 1,250 mg/ (Dextrose) 250 mls @ 125 mls/hr IVPB DAILY@1500 DONAL PRN Reason: Protocol Last Admin: 08/11/16 14:23 Dose: 125 mls/hr Piperacillin Sod/Tazobactam Sod (Zosyn 3.375gm Ivpb (Pre-Docked)) 50 mls @ 100 mls/hr IVPB Q8H-IV DONAL PRN Reason: Protocol Last Admin: 08/12/16 10:29 Dose: 100 mls/hr Methylprednisolone Sodium Succinate (Solu-Medrol -) 60 mg IVPB Q8H-IV DONAL Last Admin: 08/12/16 09:56 Dose: 60 mg Mycophenolate Mofetil (Cellcept -) 500 mg PO BID DONAL Last Admin: 08/12/16 09:57 Dose: 500 mg Nifedipine (Procardia Xl -) 60 mg PO HS DONAL Last Admin: 08/11/16 21:09 Dose: 60 mg Pantoprazole Sodium (Protonix -) 40 mg PO DAILY DONAL Last Admin: 08/12/16 09:56 Dose: 40 mg Polyethylene Glycol (Miralax (For Daily Use) -) 17 gm PO DAILY DONAL Last Admin: 08/12/16 09:58 Dose: Not Given - Objective Vital Signs: Vital Signs Temperature 97.6 F 08/12/16 06:00 Pulse Rate 95 H 08/12/16 06:00 Respiratory Rate 20 08/12/16 06:00 Blood Pressure 133/69 08/12/16 06:00 O2 Sat by Pulse Oximetry (%) 95 08/12/16 11:30 Constitutional: Yes: Calm, Thin Eyes: Yes: WNL HENT: Yes: WNL Neck: Yes: WNL Cardiovascular: Yes: Regular Rate and Rhythm, S1, S2 Respiratory: Yes: Rales, Rhonchi ([place] crackles,few scattered rhonchi) Gastrointestinal: Yes: Normal Bowel Sounds, Soft Extremities: Yes: WNL Edema: No Labs: CBC, BMP 08/12/16 07:00 08/12/16 07:00 INR, PTT INR 1.26 (0.82-1.09) H 07/27/16 14:15 Assessment/Plan Assessment/Plan Hypoxemic respiratory failure Influenza Multilobar Pneumonia Sarcoidosis HTN Hyponatremia -Venti mask, BiPAP -continue steroids q8h, will consider taper in am if feeling better -inpatient pulmonary rehab post discharge - monitor lytes,na - dvt prophylaxis - continue mycophenolate DR MOROCHO
--- NOTE | 2016-08-12 12:36 | PN ---
Progress Note, Physician History of Present Illness: Renal F/U Pt in no distress with VM in place No N/V or diarrhea He is eating his lunch Serum Sodium is higher - Current Medication List Current Medications: Active Medications Acetaminophen (Tylenol -) 650 mg PO Q6H PRN PRN Reason: FEVER OR PAIN Last Admin: 08/11/16 17:08 Dose: 650 mg Albuterol Sulfate (Ventolin 0.083% Nebulizer Soln -) 1 amp NEB QIDR DONAL Last Admin: 08/12/16 11:30 Dose: 1 amp Albuterol Sulfate (Ventolin 0.042trength) -) 1 amp NEB Q6H PRN PRN Reason: SHORT OF BREATH/WHEEZING Last Admin: 08/11/16 03:35 Dose: 1 amp Alprazolam (Xanax -) 0.5 mg PO Q8H PRN PRN Reason: ANXIETY Last Admin: 08/11/16 21:09 Dose: 0.5 mg Heparin Sodium (Porcine) (Heparin -) 5,000 unit SQ TID DONAL Last Admin: 08/12/16 06:09 Dose: 5,000 unit Vancomycin HCl 1,250 mg/ (Dextrose) 250 mls @ 125 mls/hr IVPB DAILY@1500 DONAL PRN Reason: Protocol Last Admin: 08/11/16 14:23 Dose: 125 mls/hr Piperacillin Sod/Tazobactam Sod (Zosyn 3.375gm Ivpb (Pre-Docked)) 50 mls @ 100 mls/hr IVPB Q8H-IV DONAL PRN Reason: Protocol Last Admin: 08/12/16 10:29 Dose: 100 mls/hr Methylprednisolone Sodium Succinate (Solu-Medrol -) 60 mg IVPB Q8H-IV DONAL Last Admin: 08/12/16 09:56 Dose: 60 mg Mycophenolate Mofetil (Cellcept -) 500 mg PO BID DONAL Last Admin: 08/12/16 09:57 Dose: 500 mg Nifedipine (Procardia Xl -) 60 mg PO HS DONAL Last Admin: 08/11/16 21:09 Dose: 60 mg Pantoprazole Sodium (Protonix -) 40 mg PO DAILY DONAL Last Admin: 08/12/16 09:56 Dose: 40 mg Polyethylene Glycol (Miralax (For Daily Use) -) 17 gm PO DAILY DONAL Last Admin: 08/12/16 09:58 Dose: Not Given - Objective Vital Signs: Vital Signs Temperature 97.6 F 08/12/16 06:00 Pulse Rate 95 H 08/12/16 06:00 Respiratory Rate 20 08/12/16 06:00 Blood Pressure 133/69 08/12/16 06:00 O2 Sat by Pulse Oximetry (%) 95 08/12/16 11:30 Constitutional: Yes: No Distress, Calm Cardiovascular: Yes: S1, S2. No: JVD Respiratory: Yes: Other (Occasional rhonchi) Edema: No Labs: CBC, BMP 08/12/16 07:00 08/12/16 07:00 INR, PTT INR 1.26 (0.82-1.09) H 07/27/16 14:15 Assessment/Plan Impression 1. 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 sarcoidosis 3. proteinuria 4. HTN 5. hypoxic respiratory failure 6. PNA 7. sepsis Plan Rpt labs in am Continue fluid restriction as ordered Dr Rey
[2016-08-12] MEDS ORDERED: SODIUM CHLORIDE 1,000 ML IV SCH ×2 (14:15→14:16)
--- NOTE | 2016-08-12 14:16 | PN ---
Progress Note (short form) - Note Progress Note: Subjective: feels a little better Objective: Vital Signs: Last Vital Signs Temp Pulse Resp BP Pulse Ox 97.6 F 95 H 20 133/69 95 08/12/16 06:00 08/12/16 06:00 08/12/16 06:00 08/12/16 06:00 08/12/16 11:30 Laboratory Results - last 24 hr 08/11/16 08/12/16 08/12/16 17:26 07:00 07:00 WBC 11.2 H RBC 4.52 Hgb 12.2 Hct 36.1 MCV 79.8 L MCHC 33.7 RDW 14.4 Plt Count 484 H MPV 7.1 L Neutrophils % 94.9 H Lymphocytes % 2.1 L Monocytes % 1.7 L Eosinophils % 0.0 Basophils % 1.3 D Sodium 125 L 130 L Potassium 4.7 4.6 Chloride 89 L 93 L Carbon Dioxide 24 24 Anion Gap 12 13 BUN 13 11 Creatinine 0.5 L 0.4 L Random Glucose 154 H 127 H Calcium 8.8 8.6 Current Medications Generic Name Dose Route Start Last Admin Trade Name Freq PRN Reason Stop Dose Admin Acetaminophen 650 mg 08/07/16 18:54 08/11/16 17:08 Tylenol - PO 650 mg Q6H PRN Administration FEVER OR PAIN Albuterol Sulfate 1 amp 08/08/16 00:00 08/12/16 11:30 Ventolin 0.083% Nebulizer Soln - NEB 1 amp QIDR DONAL Administration Albuterol Sulfate 1 amp 08/07/16 18:54 08/11/16 03:35 Ventolin 0.042trength) - NEB 1 amp Q6H PRN Administration SHORT OF BREATH/WHEEZING Alprazolam 0.5 mg 08/10/16 11:26 08/11/16 21:09 Xanax - PO 0.5 mg Q8H PRN Administration ANXIETY Heparin Sodium (Porcine) 5,000 unit 08/07/16 22:00 08/12/16 06:09 Heparin - SQ 5,000 unit TID DONAL Administration Vancomycin HCl 1,250 mg/ 250 mls @ 125 mls/hr 08/10/16 15:00 08/11/16 14:23 Dextrose IVPB 125 mls/hr DAILY@1500 DONAL Administration Protocol Piperacillin Sod/Tazobactam Sod 50 mls @ 100 mls/hr 08/10/16 14:00 08/12/16 10: 29 Zosyn 3.375gm Ivpb (Pre-Docked) IVPB 100 mls/hr Q8H-IV DONAL Administration Protocol Sodium Chloride 1,000 mls @ 75 mls/hr 08/12/16 14:15 Normal Saline - IV ASDIR DONAL Methylprednisolone Sodium Succinate 60 mg 08/11/16 02:00 08/12/16 09:56 Solu-Medrol - IVPB 60 mg Q8H-IV DONAL Administration Mycophenolate Mofetil 500 mg 08/10/16 10:30 08/12/16 09:57 Cellcept - PO 500 mg BID DONAL Administration Nifedipine 60 mg 08/07/16 22:00 08/11/16 21:09 Procardia Xl - PO 60 mg HS DONAL Administration Pantoprazole Sodium 40 mg 08/08/16 10:00 08/12/16 09:56 Protonix - PO 40 mg DAILY DONAL Administration Polyethylene Glycol 17 gm 08/11/16 10:15 08/12/16 09:58 Miralax (For Daily Use) - PO Not Given DAILY DONAL Physical Exam: NAD CV : RRR, Lungs : R basilar crackles Ext : no edema A/P 66 y/o man with h/o HTN, sarcoidosis , who presented with 5-day hx of fever , cough, runny nose and was found to have severe sepsis and Flu B . 1- Severe sepsis: from Flu B, and possible bacterial PNA with worsening infiltrates on chest CT . -Cont abx vanc+ zosyn 2- Acute hypoxic resp failure: due to influenza and likely bacterial pNA , and possibly sarcoidosis is playing a big role cont to require Venti mask - Abx -cont mycophynolate -cont steroids 3- Hypotonic Hyponatremia : urine studies indicated SIADH picture , but Na level dropped owith fluid restriction after improving . Level improved with starting NS yesterday indicating some volume depletion - give more IVF x 24 hrs and reassess - check Na at 10 pm then am 4- Trop leak : likely from sepsis . - echo with pulm HTN and mild vulvular regurgitation - no further w/u at this point - stress test as out pt 5- BIANCA: from sepsis and volume depletion . resolved HLOC Visit type - Emergency Visit Emergency Visit: Yes ED Registration Date: 07/27/16 Care time: The patient presented to the Emergency Department on the above date and was hospitalized for further evaluation of their emergent condition. - New Patient This patient is new to me today: No - Critical Care Critical Care patient: No
[2016-08-12] MEDS: VANCOMYCIN 1,250 MG in DEXTROSE 5%-WATER - 250 ML IVPB SCH (15:12)
[2016-08-12] MEDS: ALPRAZolam 0.25 MG TABLET PO PRN (17:33)
[2016-08-12] MEDS: NIFEdipine E.R. 30 MG TABLET (FP) PO SCH (21:47)
[2016-08-13] MEDS: ALPRAZolam 0.25 MG TABLET PO PRN ×3 (00:24→22:30)
[2016-08-13] MEDS: methylPREDNISolone NA SUCC 40 MG/1 ML VIAL IVPB SCH ×3 (01:30→18:28)
[2016-08-13] MEDS: PIPERACILLIN/TAZOB 3.375 GM 50 ML IVPB SCH ×3 (01:30→17:50)
[2016-08-13] MEDS: HEPARIN NA (PORCINE) 5,000 UNITS/ML 1ML VIAL SQ SCH ×3 (05:51→22:22)
[2016-08-13] MEDS: ACETAMINOPHEN 325 MG TABLET (FP) PO PRN (05:52)
[2016-08-13] MEDS: ALBUTEROL SO4 0.083% IH SOL 2.5 MG/3 ML VIAL.NEB. NEB SCH ×4 (06:46→23:37)
[2016-08-13 08:54] LABS: BASOPHIL 0.6 % (0-2.0); MCH 27.2 pg (25.7-33.7); MCHC 33.4 g/dl (32.0-35.9); MEAN CELL VOLUME 81.3 fl (80-96); NEUTROPHILS 94.8 % (42.8-82.8); PLATELET COUNT 488 K/MM3 (134-434); RDW 14.3 % (11.9-15.9); WHITE BLOOD COUNT 9.1 K/mm3 (4.0-10.0)
[2016-08-13 09:19] LABS: CALCIUM 8.5 mg/dL (8.5-10.1); COCKROFT - GAULT 151.04; CREATININE 0.5 mg/dL (0.7-1.3)
[2016-08-13] MEDS: PANTOPRAZOLE 40 MG TABLET (FP) PO SCH (10:08)
[2016-08-13] MEDS: POLYETHYLENE GLYCOL 3350 119 GM BTL PO SCH (10:09)
[2016-08-13] MEDS ORDERED: PT OWN MED DRAWER 7, Y5N ONE (10:13)
[2016-08-13] MEDS: MYCOPHENOLATE MOFETIL 250 MG CAPSULE PO SCH ×2 (10:19→22:21)
--- NOTE | 2016-08-13 11:42 | PN ---
Progress Note, Physician History of Present Illness: Renal F/U Pt in no distress with VM in place Serum sodium is higher with fluid restriction and some NS IV - Current Medication List Current Medications: Active Medications Acetaminophen (Tylenol -) 650 mg PO Q6H PRN PRN Reason: FEVER OR PAIN Last Admin: 08/13/16 05:52 Dose: 650 mg Albuterol Sulfate (Ventolin 0.083% Nebulizer Soln -) 1 amp NEB QIDR DONAL Last Admin: 08/13/16 11:26 Dose: 1 amp Albuterol Sulfate (Ventolin 0.042trength) -) 1 amp NEB Q6H PRN PRN Reason: SHORT OF BREATH/WHEEZING Last Admin: 08/11/16 03:35 Dose: 1 amp Alprazolam (Xanax -) 0.5 mg PO Q8H PRN PRN Reason: ANXIETY Last Admin: 08/13/16 10:08 Dose: 0.5 mg Heparin Sodium (Porcine) (Heparin -) 5,000 unit SQ TID DONAL Last Admin: 08/13/16 05:51 Dose: 5,000 unit Vancomycin HCl 1,250 mg/ (Dextrose) 250 mls @ 125 mls/hr IVPB DAILY@1500 DONAL PRN Reason: Protocol Last Admin: 08/12/16 15:12 Dose: 125 mls/hr Piperacillin Sod/Tazobactam Sod (Zosyn 3.375gm Ivpb (Pre-Docked)) 50 mls @ 100 mls/hr IVPB Q8H-IV DONAL PRN Reason: Protocol Last Admin: 08/13/16 10:09 Dose: 100 mls/hr Sodium Chloride (Normal Saline -) 1,000 mls @ 75 mls/hr IV ASDIR DONAL Stop: 08/13/16 14:14 Last Admin: 08/12/16 21:47 Dose: 75 mls/hr Methylprednisolone Sodium Succinate (Solu-Medrol -) 60 mg IVPB Q8H-IV DONAL Last Admin: 08/13/16 11:05 Dose: 60 mg Mycophenolate Mofetil (Cellcept -) 500 mg PO BID DONAL Last Admin: 08/13/16 10:19 Dose: 500 mg Nifedipine (Procardia Xl -) 60 mg PO HS DONAL Last Admin: 08/12/16 21:47 Dose: 60 mg Pantoprazole Sodium (Protonix -) 40 mg PO DAILY [facility] Last Admin: 08/13/16 10:08 Dose: 40 mg Polyethylene Glycol (Miralax (For Daily Use) -) 17 gm PO DAILY [facility] Last Admin: 08/13/16 10:09 Dose: 17 grams - Objective Vital Signs: Vital Signs Temperature 97.4 F L 08/13/16 06:00 Pulse Rate 89 08/13/16 06:00 Respiratory Rate 20 08/13/16 06:00 Blood Pressure 133/74 08/13/16 06:00 O2 Sat by Pulse Oximetry (%) 98 08/13/16 11:25 Constitutional: Yes: No Distress, Calm Cardiovascular: Yes: S1, S2. No: JVD Respiratory: Yes: Other (Occasional rhonchi) Gastrointestinal: Yes: Soft. No: Tenderness, Rebound Edema: No Labs: CBC, BMP 08/13/16 07:30 08/13/16 07:30 INR, PTT INR 1.26 (0.82-1.09) H 07/27/16 14:15 Assessment/Plan Impression 1. 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 Sarcoidosis 3. Proteinuria 4. HTN 5. hHypoxic respiratory failure 6. PNA 7. Sepsis Plan Rpt labs in am Continue fluid restriction as ordered Consider tapering off the NS Dr Rey
[2016-08-13] MEDS ORDERED: SODIUM CHLORIDE 1,000 ML IV SCH (12:47)
--- NOTE | 2016-08-13 12:54 | PN ---
Progress Note, Physician History of Present Illness: PULMONARY ALERT,FEELING BETTER,LESS DYSPNEIC, ON 50%VM O2 SAT 98% - Current Medication List Current Medications: Active Medications Acetaminophen (Tylenol -) 650 mg PO Q6H PRN PRN Reason: FEVER OR PAIN Last Admin: 08/13/16 05:52 Dose: 650 mg Albuterol Sulfate (Ventolin 0.083% Nebulizer Soln -) 1 amp NEB QIDR DONAL Last Admin: 08/13/16 11:26 Dose: 1 amp Albuterol Sulfate (Ventolin 0.042trength) -) 1 amp NEB Q6H PRN PRN Reason: SHORT OF BREATH/WHEEZING Last Admin: 08/11/16 03:35 Dose: 1 amp Alprazolam (Xanax -) 0.5 mg PO Q8H PRN PRN Reason: ANXIETY Last Admin: 08/13/16 10:08 Dose: 0.5 mg Heparin Sodium (Porcine) (Heparin -) 5,000 unit SQ TID DONAL Last Admin: 08/13/16 05:51 Dose: 5,000 unit Vancomycin HCl 1,250 mg/ (Dextrose) 250 mls @ 125 mls/hr IVPB DAILY@1500 DONAL PRN Reason: Protocol Last Admin: 08/12/16 15:12 Dose: 125 mls/hr Piperacillin Sod/Tazobactam Sod (Zosyn 3.375gm Ivpb (Pre-Docked)) 50 mls @ 100 mls/hr IVPB Q8H-IV DONAL PRN Reason: Protocol Last Admin: 08/13/16 10:09 Dose: 100 mls/hr Sodium Chloride (Normal Saline -) 1,000 mls @ 40 mls/hr IV ASDIR DONAL Stop: 08/13/16 14:15 Methylprednisolone Sodium Succinate (Solu-Medrol -) 60 mg IVPB Q8H-IV DONAL Last Admin: 08/13/16 11:05 Dose: 60 mg Mycophenolate Mofetil (Cellcept -) 500 mg PO BID DONAL Last Admin: 08/13/16 10:19 Dose: 500 mg Nifedipine (Procardia Xl -) 60 mg PO HS DONAL Last Admin: 08/12/16 21:47 Dose: 60 mg Pantoprazole Sodium (Protonix -) 40 mg PO DAILY DONAL Last Admin: 08/13/16 10:08 Dose: 40 mg Polyethylene Glycol (Miralax (For Daily Use) -) 17 gm PO DAILY DONAL Last Admin: 08/13/16 10:09 Dose: 17 grams - Objective Vital Signs: Vital Signs Temperature 97.4 F L 08/13/16 06:00 Pulse Rate 89 08/13/16 06:00 Respiratory Rate 20 08/13/16 06:00 Blood Pressure 133/74 08/13/16 06:00 O2 Sat by Pulse Oximetry (%) 98 08/13/16 11:25 Constitutional: Yes: Calm, Thin Eyes: Yes: WNL HENT: Yes: WNL Neck: Yes: WNL Cardiovascular: Yes: Regular Rate and Rhythm, S1, S2 Respiratory: Yes: Rales Gastrointestinal: Yes: Normal Bowel Sounds, Soft Extremities: Yes: WNL Edema: No Labs: CBC, BMP 08/13/16 07:30 08/13/16 07:30 INR, PTT INR 1.26 (0.82-1.09) H 07/27/16 14:15 Assessment/Plan Assessment/Plan Hypoxemic respiratory failure Influenza Multilobar Pneumonia Sarcoidosis HTN Hyponatremia -Venti mask, BiPAP - steroid taper -inpatient pulmonary rehab post discharge - monitor lytes,na - dvt prophylaxis - continue mycophenolate DR MOROCHO
--- NOTE | 2016-08-13 13:29 | PN ---
Progress Note, Physician History of Present Illness: still very sob resp effort continues on ventimask - Current Medication List Current Medications: Active Medications Acetaminophen (Tylenol -) 650 mg PO Q6H PRN PRN Reason: FEVER OR PAIN Last Admin: 08/13/16 05:52 Dose: 650 mg Albuterol Sulfate (Ventolin 0.083% Nebulizer Soln -) 1 amp NEB QIDR DONAL Last Admin: 08/13/16 11:26 Dose: 1 amp Albuterol Sulfate (Ventolin 0.042trength) -) 1 amp NEB Q6H PRN PRN Reason: SHORT OF BREATH/WHEEZING Last Admin: 08/11/16 03:35 Dose: 1 amp Alprazolam (Xanax -) 0.5 mg PO Q8H PRN PRN Reason: ANXIETY Last Admin: 08/13/16 10:08 Dose: 0.5 mg Heparin Sodium (Porcine) (Heparin -) 5,000 unit SQ TID DONAL Last Admin: 08/13/16 05:51 Dose: 5,000 unit Vancomycin HCl 1,250 mg/ (Dextrose) 250 mls @ 125 mls/hr IVPB DAILY@1500 DONAL PRN Reason: Protocol Last Admin: 08/12/16 15:12 Dose: 125 mls/hr Piperacillin Sod/Tazobactam Sod (Zosyn 3.375gm Ivpb (Pre-Docked)) 50 mls @ 100 mls/hr IVPB Q8H-IV DONAL PRN Reason: Protocol Last Admin: 08/13/16 10:09 Dose: 100 mls/hr Sodium Chloride (Normal Saline -) 1,000 mls @ 40 mls/hr IV ASDIR [facility] Stop: 08/13/16 14:15 Methylprednisolone Sodium Succinate (Solu-Medrol -) 40 mg IVPB Q8H-IV DONAL Mycophenolate Mofetil (Cellcept -) 500 mg PO BID DONAL Last Admin: 08/13/16 10:19 Dose: 500 mg Nifedipine (Procardia Xl -) 60 mg PO HS [facility] Last Admin: 08/12/16 21:47 Dose: 60 mg Pantoprazole Sodium (Protonix -) 40 mg PO DAILY [facility] Last Admin: 08/13/16 10:08 Dose: 40 mg Polyethylene Glycol (Miralax (For Daily Use) -) 17 gm PO DAILY [facility] Last Admin: 08/13/16 10:09 Dose: 17 grams - Objective Vital Signs: Vital Signs Temperature 97.4 F L 08/13/16 06:00 Pulse Rate 89 08/13/16 06:00 Respiratory Rate 20 08/13/16 06:00 Blood Pressure 133/74 08/13/16 06:00 O2 Sat by Pulse Oximetry (%) 98 08/13/16 11:25 Constitutional: Yes: Calm, Mild Distress Cardiovascular: Yes: Regular Rate and Rhythm Respiratory: Yes: On Venti-Mask, Poor Air Entry Gastrointestinal: Yes: Normal Bowel Sounds, Soft Musculoskeletal: Yes: WNL Extremities: Yes: WNL Neurological: Yes: Alert, Oriented Psychiatric: Yes: Alert, Oriented Labs: CBC, BMP 08/13/16 07:30 08/13/16 07:30 INR, PTT INR 1.26 (0.82-1.09) H 07/27/16 14:15 Assessment/Plan pneumonia resp failure influenza sarcoidosis multilobar pneumonia plan conitnue current mgmt close watch on the patient vanco trough noted increased dose of vanco resp physio we should repeat a chest ct on sunday patient on mycophenalate
[2016-08-13] MEDS: VANCOMYCIN 1,250 MG in DEXTROSE 5%-WATER - 250 ML IVPB SCH (15:19)
--- NOTE | 2016-08-13 16:05 | PN ---
Progress Note (short form) - Note Progress Note: Subjective: feels a little better . constipated Objective: Vital Signs: Last Vital Signs Temp Pulse Resp BP Pulse Ox 97.5 F L 94 H 20 133/74 98 08/13/16 15:18 08/13/16 15:18 08/13/16 06:00 08/13/16 06:00 08/13/16 11:25 Laboratory Results - last 24 hr 08/12/16 08/13/16 08/13/16 21:25 07:30 07:30 WBC 9.1 RBC 4.60 Hgb 12.5 Hct 37.4 MCV 81.3 MCHC 33.4 RDW 14.3 Plt Count 488 H MPV 7.0 L Neutrophils % 94.8 H Lymphocytes % 2.9 L D Monocytes % 1.7 L Eosinophils % 0.0 Basophils % 0.6 Sodium 130 L 131 L Potassium 4.4 Chloride 95 L Carbon Dioxide 28 Anion Gap 8 BUN 12 Creatinine 0.5 L D Random Glucose 135 H Calcium 8.5 Vancomycin Trough 2.539 L* Physical Exam: NAD CV: RRR Lungs: R basilar crackles Ext : no edema A/P 66 y/o man with h/o HTN, sarcoidosis , who presented with 5-day hx of fever , cough, runny nose and was found to have severe sepsis and Flu B . 1- Severe sepsis: from Flu B, and possible bacterial PNA with worsening infiltrates on chest CT . -Cont abx vanc+ zosyn 2- Acute hypoxic resp failure: due to influenza and likely bacterial pNA , and possibly sarcoidosis cont to require Venti mask - Abx -cont mycophynolate -cont steroids . hopefully we can taper steroids tomorrow 3- Hypotonic Hyponatremia : urine studies indicated SIADH picture , but Na level dropped with fluid restriction after initial improvement . Level improved with starting NS. - decrease dose of IVF today . may be able to stop tomorrow - will ask renal about salt tablets after stopping IVF 4- Trop leak: likely from sepsis . - echo with pulm HTN and mild vulvular regurgitation - no further w/u at this point - stress test as out pt 5- BIANCA: resolved HLOC Visit type - Emergency Visit Emergency Visit: Yes ED Registration Date: 07/27/16 Care time: The patient presented to the Emergency Department on the above date and was hospitalized for further evaluation of their emergent condition. - New Patient This patient is new to me today: No - Critical Care Critical Care patient: No
[2016-08-13] MEDS: NIFEdipine E.R. 30 MG TABLET (FP) PO SCH (22:21)
[2016-08-14] MEDS: VANCOMYCIN 1,250 MG in DEXTROSE 5%-WATER - 250 ML IVPB SCH ×2 (01:16→14:21)
[2016-08-14] MEDS: methylPREDNISolone NA SUCC 40 MG/1 ML VIAL IVPB SCH ×3 (01:16→17:59)
[2016-08-14] MEDS: PIPERACILLIN/TAZOB 3.375 GM 50 ML IVPB SCH ×3 (03:05→17:58)
[2016-08-14] MEDS: HEPARIN NA (PORCINE) 5,000 UNITS/ML 1ML VIAL SQ SCH ×3 (05:57→22:06)
[2016-08-14] MEDS: ALBUTEROL SO4 0.083% IH SOL 2.5 MG/3 ML VIAL.NEB. NEB SCH ×3 (07:17→16:45)
[2016-08-14 08:10] LABS: BASOPHIL 0.2 % (0-2.0); EOSINOPHIL 0.1 % (0-4.5); MCH 27.1 pg (25.7-33.7); MCHC 33.6 g/dl (32.0-35.9); MEAN CELL VOLUME 80.7 fl (80-96); MEAN PLT VOLUME 7.1 fl (7.5-11.1); NEUTROPHILS 93.3 % (42.8-82.8); PLATELET COUNT 453 K/MM3 (134-434); RDW 14.1 % (11.9-15.9); WHITE BLOOD COUNT 9.7 K/mm3 (4.0-10.0)
[2016-08-14 08:29] LABS: CALCIUM 8.9 mg/dL (8.5-10.1)
[2016-08-14 08:32] LABS: COCKROFT - GAULT 192.52; CREATININE 0.4 mg/dL (0.7-1.3)
[2016-08-14] MEDS ORDERED: PT OWN MED DRAWER 7, Y5N ONE ×2 (09:59→22:02)
[2016-08-14] MEDS: POLYETHYLENE GLYCOL 3350 119 GM BTL PO SCH (10:18)
[2016-08-14] MEDS: ALPRAZolam 0.25 MG TABLET PO PRN (10:20)
[2016-08-14] MEDS: MYCOPHENOLATE MOFETIL 250 MG CAPSULE PO SCH ×2 (10:21→23:03)
[2016-08-14] MEDS: PANTOPRAZOLE 40 MG TABLET (FP) PO SCH (10:21)
--- NOTE | 2016-08-14 12:18 | PN ---
Progress Note (short form) - Note Progress Note: PULMONARY Remains short of breath, currently on 50% ventimask. No fevers or chills. Denies cough or wheezing. Last Vital Signs Temp Pulse Resp BP Pulse Ox 98.3 F 85 20 138/85 96 08/14/16 06:05 08/14/16 11:36 08/14/16 10:00 08/14/16 10:00 08/14/16 11:36 Intake & Output 08/11/16 08/12/16 08/13/16 08/14/16 23:59 23:59 23:59 23:59 Intake Total 2500 2175 450 700 Output Total 800 2250 2500 1000 Balance 3232 -80 -3180 -300 Weight 156 lb 158 lb 4 oz 162 lb 165 lb 3 oz Gen: tachypneic at rest Heart: RRR Lung: scattered rales Abd: soft, nontender Ext: no edema CBC, BMP 08/14/16 06:50 08/14/16 06:50 Active Medications Acetaminophen (Tylenol -) 650 mg PO Q6H PRN PRN Reason: FEVER OR PAIN Last Admin: 08/13/16 05:52 Dose: 650 mg Albuterol Sulfate (Ventolin 0.083% Nebulizer Soln -) 1 amp NEB QIDR DONAL Last Admin: 08/14/16 11:36 Dose: Not Given Albuterol Sulfate (Ventolin 0.042trength) -) 1 amp NEB Q6H PRN PRN Reason: SHORT OF BREATH/WHEEZING Last Admin: 08/11/16 03:35 Dose: 1 amp Alprazolam (Xanax -) 0.5 mg PO Q8H PRN PRN Reason: ANXIETY Last Admin: 08/14/16 10:20 Dose: 0.5 mg Heparin Sodium (Porcine) (Heparin -) 5,000 unit SQ TID DONAL Last Admin: 08/14/16 05:57 Dose: 5,000 unit Piperacillin Sod/Tazobactam Sod (Zosyn 3.375gm Ivpb (Pre-Docked)) 50 mls @ 100 mls/hr IVPB Q8H-IV DONAL PRN Reason: Protocol Last Admin: 08/14/16 10:21 Dose: 100 mls/hr Vancomycin HCl 1,250 mg/ (Dextrose) 250 mls @ 166.667 mls/hr IVPB Q12H [facility] PRN Reason: Protocol Last Admin: 08/14/16 01:16 Dose: 166.667 mls/hr Methylprednisolone Sodium Succinate (Solu-Medrol -) 40 mg IVPB Q8H-IV DONAL Last Admin: 08/14/16 10:21 Dose: 40 mg Mycophenolate Mofetil (Cellcept -) 500 mg PO BID [facility] Last Admin: 08/14/16 10:21 Dose: 500 mg Nifedipine (Procardia Xl -) 60 mg PO HS [facility] Last Admin: 08/13/16 22:21 Dose: 60 mg Pantoprazole Sodium (Protonix -) 40 mg PO DAILY [facility] Last Admin: 08/14/16 10:21 Dose: 40 mg Polyethylene Glycol (Miralax (For Daily Use) -) 17 gm PO DAILY [facility] Last Admin: 08/14/16 10:18 Dose: 17 grams A/P Acute Hypoxic Respiratory Failure Influenza treated Multilobar Pneumonia Sarcoidosis HTN Hyponatremia - s/p antibiotics - slow medrol taper, continue at current dose today - inhaled bronchodilators - O2 to keep SpO2 >90% - BiPAP to assist in work of breathing - monitor lytes - pulmonary rehab when stable
--- NOTE | 2016-08-14 14:04 | PN ---
Physical Exam: SUBJECTIVE: Patient seen and examined at bedside feels better today "I feel like I'm getting better" remains short of breath requiring 50% FM O2 still refusing bipap OBJECTIVE: Vital Signs Period Temp Pulse Resp BP Sys/Villalobos Pulse Ox Last 24 Hr 97.5 F-98.3 F 85-99 18-22 132-151/76-85 95-97 GENERAL: The patient is awake, alert, and fully oriented, mild distress. NECK: supple. LUNGS: tachypneic. slight right sided crackles-improving left side clear ABDOMEN: Soft, nontender, nondistended, normoactive bowel sounds EXTREMITIES: warm, well-perfused, no edema. 2+ DP pulses bilaterally NEUROLOGICAL: Cranial nerves II through XII grossly intact. SKIN: Warm, dry Laboratory Results - last 24 hr 08/14/16 08/14/16 06:50 06:50 WBC 9.7 RBC 4.42 Hgb 12.0 Hct 35.7 MCV 80.7 MCHC 33.6 RDW 14.1 Plt Count 453 H MPV 7.1 L Neutrophils % 93.3 H Lymphocytes % 3.9 L D Monocytes % 2.5 L Eosinophils % 0.1 D Basophils % 0.2 Sodium 134 L Potassium 4.3 Chloride 95 L Carbon Dioxide 25 Anion Gap 14 BUN 14 Creatinine 0.4 L Random Glucose 113 H Calcium 8.9 Active Medications Generic Name Dose Route Start Last Admin Trade Name Freq PRN Reason Stop Dose Admin Acetaminophen 650 mg 08/07/16 18:54 08/13/16 05:52 Tylenol - PO 650 mg Q6H PRN Administration FEVER OR PAIN Albuterol Sulfate 1 amp 08/08/16 00:00 08/14/16 11:36 Ventolin 0.083% Nebulizer Soln - NEB Not Given QIDR DONAL Albuterol Sulfate 1 amp 08/07/16 18:54 08/11/16 03:35 Ventolin 0.042trength) - NEB 1 amp Q6H PRN Administration SHORT OF BREATH/WHEEZING Alprazolam 0.5 mg 08/10/16 11:26 08/14/16 10:20 Xanax - PO 0.5 mg Q8H PRN Administration ANXIETY Heparin Sodium (Porcine) 5,000 unit 08/07/16 22:00 08/14/16 05:57 Heparin - SQ 5,000 unit TID DONAL Administration Piperacillin Sod/Tazobactam Sod 50 mls @ 100 mls/hr 08/10/16 14:00 08/14/16 10: 21 Zosyn 3.375gm Ivpb (Pre-Docked) IVPB 100 mls/hr Q8H-IV DONAL Administration Protocol Vancomycin HCl 1,250 mg/ 250 mls @ 166.667 mls/hr 08/13/16 14:00 08/14/16 01:16 Dextrose IVPB 166.667 mls/hr Q12H DONAL Administration Protocol Methylprednisolone Sodium Succinate 40 mg 08/13/16 12:54 08/14/16 10:21 Solu-Medrol - IVPB 40 mg Q8H-IV DONAL Administration Mycophenolate Mofetil 500 mg 08/10/16 10:30 08/14/16 10:21 Cellcept - PO 500 mg BID DONAL Administration Nifedipine 60 mg 08/07/16 22:00 08/13/16 22:21 Procardia Xl - PO 60 mg HS DONAL Administration Pantoprazole Sodium 40 mg 08/08/16 10:00 08/14/16 10:21 Protonix - PO 40 mg DAILY DONAL Administration Polyethylene Glycol 17 gm 08/11/16 10:15 08/14/16 10:18 Miralax (For Daily Use) - PO 17 grams DAILY DONAL Administration ASSESSMENT/PLAN: 66M with history of sarcoidosis and hypertension presents to the ED with a 1 week history of fevers chills productive cough with weakness found to be in severe sepsis and acute hypoxic respiratory failure secondary to influenza type B. Severe sepsis: likely from influenza B but on he differential remains influenza pneumonia with a superimposed bacterial pneumonia. patient with a significant air space disease on CT chest at baseline and it is very difficult to differentiate pneumonia from lung parenchyma sepsis resolved continue Face mask f/u Mycoplasma-negative f/u urine antigens-negative tamiflu course completed ABx Azithromycin levaquin and zosyn completed ID consult appreciated started on vanco zosyn day 5 Leukocytosis: reactive due to steroids resolved f/u BCx-negative final UA negative Acute hypoxic respiratory failure: secondary to influenza and possible influenza PNA possible superimposed bacterial pneumonia and history of sarcoidosis Sarcoidosis is likely the cause of the patients respiratory status still tachypneic Nebulizers continue BiPAP HS and PRN-refusing. patient counselled on intermittent BiPAP use to decrease his work of breathing so he doesnt tire out. patient still refusing continue solumedrol 40mg IV [id number] down slowly per pulmonology Rheum consult appreciated on cellcept 500mg po BID patient had a CTA on admission which did not show PE and reepat CTA last night did not show PE ECHO noted with moderate pulmonary hypertension as elevated RV systolic pressure. no heart failure noted Sarcoidosis: Pulmonology consult appreciated on solumedrol 40mg IV [id number] slowly f/u Dr. Davis consult appreciated continue cellcept 500mg po BID hyponatremia: asymptomatic hypo-osmolar [id number] sodium improved 134 today which is significantly improved nephrology consult appreciated cause it likely multifactorial patient drink about 3 liters of water a day- polydipsia also fluid retention with steroids and given the fact the patient has sarcoidosis he may have an elevated ADH level. 1 liter fluid restriction AM cortisol level-6 stop normal saline Troponinemia: likely secondary to increased demand from dehydration and severe sepsis Troponin stable at 0.07 will stop trending unless patient becomes symptomatic no [place] on EKG Echo Noted BIANCA: from dehydration and decreased flow to the kidneys secondary to severe sepsis Cr now WNL Resolved HTN: well controlled at this time continue home dose of procardia XL 60mg po HS colon distention seen on lower cuts of Chest CT from ileus: Resolved constipation: give miralax FEN: off IVF-fluid restrict hyponatremia-see above for plan Soft diet PPx: HSQ/SCDs protonix while patient is on steroids PT consult for rehab placement-patient too Short of breath to participate in rehab and has been refusing. encouraged him to atleast try Dispo: needs inpatient pulmonary rehab Visit type - Emergency Visit Emergency Visit: Yes ED Registration Date: 07/27/16 Care time: The patient presented to the Emergency Department on the above date and was hospitalized for further evaluation of their emergent condition. - New Patient This patient is new to me today: No - Critical Care Critical Care patient: No - Discharge Referral Referred to [facility] Med [facility].C[facility] No
[2016-08-14] MEDS: ACETAMINOPHEN 325 MG TABLET (FP) PO PRN (14:24)
[2016-08-14] MEDS: traMADol HCL 50 MG TABLET PO PRN ×2 (15:03→23:06)
--- NOTE | 2016-08-14 15:12 | PN ---
Teaching Attending Note Name of Resident: Shiva Sidhu ATTENDING PHYSICIAN STATEMENT I saw and evaluated the patient. I reviewed the resident's note and discussed the case with the resident. I agree with the resident's findings and plan as documented. SUBJECTIVE: no fever or chills, feels his breathing is better today OBJECTIVE: NAD CV: RRR Lungs: bi-basilar crackles today Ext : no edema A/P 66 y/o man with h/o HTN, sarcoidosis , who presented with 5-day hx of fever , cough, runny nose and was found to have severe sepsis and Flu B . 1- Severe sepsis: from Flu B, and possible bacterial PNA with worsening infiltrates on chest CT . 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 improved with IVF due to volume depletion in past few days . - stop IVF as he is euvolemic again. . - resume fluid restriction to 1L /day 4- Trop leak: likely from sepsis . - echo with pulm HTN and mild vulvular regurgitation - stress test as out pt 5- BIANCA: resolved HLOC
--- NOTE | 2016-08-14 18:31 | PN ---
Progress Note, Physician History of Present Illness: patient looks slightly better accessory muscles less in use - Current Medication List Current Medications: Active Medications Acetaminophen (Tylenol -) 650 mg PO Q6H PRN PRN Reason: FEVER OR PAIN Last Admin: 08/14/16 14:24 Dose: 650 mg Albuterol Sulfate (Ventolin 0.083% Nebulizer Soln -) 1 amp NEB QIDR DONAL Last Admin: 08/14/16 16:45 Dose: Not Given Albuterol Sulfate (Ventolin 0.042trength) -) 1 amp NEB Q6H PRN PRN Reason: SHORT OF BREATH/WHEEZING Last Admin: 08/11/16 03:35 Dose: 1 amp Alprazolam (Xanax -) 0.5 mg PO Q8H PRN PRN Reason: ANXIETY Last Admin: 08/14/16 10:20 Dose: 0.5 mg Heparin Sodium (Porcine) (Heparin -) 5,000 unit SQ TID DONAL Last Admin: 08/14/16 14:21 Dose: 5,000 unit Piperacillin Sod/Tazobactam Sod (Zosyn 3.375gm Ivpb (Pre-Docked)) 50 mls @ 100 mls/hr IVPB Q8H-IV DONAL PRN Reason: Protocol Last Admin: 08/14/16 17:58 Dose: 100 mls/hr Vancomycin HCl 1,250 mg/ (Dextrose) 250 mls @ 166.667 mls/hr IVPB Q12H DONAL PRN Reason: Protocol Last Admin: 08/14/16 14:21 Dose: 166.667 mls/hr Methylprednisolone Sodium Succinate (Solu-Medrol -) 40 mg IVPB Q8H-IV DONAL Last Admin: 08/14/16 17:59 Dose: 40 mg Mycophenolate Mofetil (Cellcept -) 500 mg PO BID DONAL Last Admin: 08/14/16 10:21 Dose: 500 mg Nifedipine (Procardia Xl -) 60 mg PO HS DONAL Last Admin: 08/13/16 22:21 Dose: 60 mg Pantoprazole Sodium (Protonix -) 40 mg PO DAILY DONAL Last Admin: 08/14/16 10:21 Dose: 40 mg Polyethylene Glycol (Miralax (For Daily Use) -) 17 gm PO DAILY DONAL Last Admin: 08/14/16 10:18 Dose: 17 grams Tramadol HCl (Ultram -) 25 mg PO Q8H PRN PRN Reason: PAIN Last Admin: 08/14/16 15:03 Dose: 25 mg - Objective Vital Signs: Vital Signs Temperature 97.9 F 08/14/16 14:18 Pulse Rate 94 H 08/14/16 14:18 Respiratory Rate 22 08/14/16 14:18 Blood Pressure 137/71 08/14/16 14:18 O2 Sat by Pulse Oximetry (%) 96 08/14/16 11:36 Constitutional: Yes: Calm, Mild Distress Cardiovascular: Yes: Regular Rate and Rhythm Respiratory: Yes: Regular, Poor Air Entry Gastrointestinal: Yes: Normal Bowel Sounds, Soft Musculoskeletal: Yes: WNL Extremities: Yes: WNL Neurological: Yes: Alert, Oriented Psychiatric: Yes: Alert, Oriented Labs: CBC, BMP 08/14/16 06:50 08/14/16 06:50 INR, PTT INR 1.26 (0.82-1.09) H 07/27/16 14:15 Assessment/Plan pneumonia resp failure influenza sarcoidosis multilobar pneumonia plan conitnue current mgmt close watch on the patient resp physio ct chest will order tomorrow patient on mycophenalate
[2016-08-14] MEDS: NIFEdipine E.R. 30 MG TABLET (FP) PO SCH (22:06)
[2016-08-15] MEDS: ALBUTEROL SO4 0.083% IH SOL 2.5 MG/3 ML VIAL.NEB. NEB SCH ×4 (00:04→17:20)
[2016-08-15] MEDS: methylPREDNISolone NA SUCC 40 MG/1 ML VIAL IVPB SCH ×3 (01:05→18:21)
[2016-08-15] MEDS: ALPRAZolam 0.25 MG TABLET PO PRN ×3 (01:15→18:16)
[2016-08-15] MEDS: PIPERACILLIN/TAZOB 3.375 GM 50 ML IVPB SCH ×3 (01:39→18:24)
[2016-08-15] MEDS: VANCOMYCIN 1,250 MG in DEXTROSE 5%-WATER - 250 ML IVPB SCH ×2 (02:21→15:28)
[2016-08-15] MEDS: HEPARIN NA (PORCINE) 5,000 UNITS/ML 1ML VIAL SQ SCH ×3 (06:06→21:39)
[2016-08-15] MEDS: PANTOPRAZOLE 40 MG TABLET (FP) PO SCH (09:57)
[2016-08-15] MEDS: MYCOPHENOLATE MOFETIL 250 MG CAPSULE PO SCH ×2 (09:57→21:39)
[2016-08-15] MEDS: POLYETHYLENE GLYCOL 3350 119 GM BTL PO SCH (09:57)
--- NOTE | 2016-08-15 11:46 | PN ---
Progress Note (short form) - Note Progress Note: PULMONARY Remains short of breath especially with exertion, currently on 50% ventimask saturating high 80s. No fevers or chills. Denies cough or wheezing. Refusing BiPAP. Last Vital Signs Temp Pulse Resp BP Pulse Ox 97.7 F 79 18 120/83 89 L 08/15/16 06:08 08/15/16 11:16 08/15/16 06:08 08/15/16 06:08 08/15/16 11:16 Intake & Output 08/12/16 08/13/16 08/14/16 08/15/16 23:59 23:59 23:59 23:59 Intake Total 2175 450 1450 350 Output Total 2250 2500 1850 Balance -75 -0 -400 350 Weight 158 lb 4 oz 162 lb 165 lb 3 oz 150 lb 3.2 oz Gen: tachypneic at rest Heart: RRR Lung: scattered rales Abd: soft, nontender Ext: no edema CBC, BMP 08/14/16 06:50 08/14/16 06:50 Active Medications Acetaminophen (Tylenol -) 650 mg PO Q6H PRN PRN Reason: FEVER OR PAIN Last Admin: 08/14/16 14:24 Dose: 650 mg Albuterol Sulfate (Ventolin 0.083% Nebulizer Soln -) 1 amp NEB QIDR DONAL Last Admin: 08/15/16 11:16 Dose: Not Given Albuterol Sulfate (Ventolin 0.042trength) -) 1 amp NEB Q6H PRN PRN Reason: SHORT OF BREATH/WHEEZING Last Admin: 08/11/16 03:35 Dose: 1 amp Alprazolam (Xanax -) 0.5 mg PO Q8H PRN PRN Reason: ANXIETY Last Admin: 08/15/16 09:55 Dose: 0.5 mg Heparin Sodium (Porcine) (Heparin -) 5,000 unit SQ TID DONAL Last Admin: 08/15/16 06:06 Dose: 5,000 unit Piperacillin Sod/Tazobactam Sod (Zosyn 3.375gm Ivpb (Pre-Docked)) 50 mls @ 100 mls/hr IVPB Q8H-IV DONAL PRN Reason: Protocol Last Admin: 08/15/16 09:58 Dose: 100 mls/hr Vancomycin HCl 1,250 mg/ (Dextrose) 250 mls @ 166.667 mls/hr IVPB Q12H DONAL PRN Reason: Protocol Last Admin: 08/15/16 02:21 Dose: 166.667 mls/hr Methylprednisolone Sodium Succinate (Solu-Medrol -) 40 mg IVPB Q8H-IV DONAL Last Admin: 08/15/16 09:57 Dose: 40 mg Mycophenolate Mofetil (Cellcept -) 500 mg PO BID DONAL Last Admin: 08/15/16 09:57 Dose: 500 mg Nifedipine (Procardia Xl -) 60 mg PO HS DONAL Last Admin: 08/14/16 22:06 Dose: 60 mg Pantoprazole Sodium (Protonix -) 40 mg PO DAILY DONAL Last Admin: 08/15/16 09:57 Dose: 40 mg Polyethylene Glycol (Miralax (For Daily Use) -) 17 gm PO DAILY DONAL Last Admin: 08/15/16 09:57 Dose: 17 grams Tramadol HCl (Ultram -) 25 mg PO Q8H PRN PRN Reason: PAIN Last Admin: 08/14/16 23:06 Dose: 25 mg A/P Acute Hypoxic Respiratory Failure Influenza B treated Multilobar Pneumonia Sarcoidosis HTN Hyponatremia - on antibiotics per ID - slow medrol taper, continue at current dose today - inhaled bronchodilators - O2 to keep SpO2 >90% - BiPAP to assist in work of breathing if pt allows - agree with possible LTAC consideration
--- NOTE | 2016-08-15 11:57 | PN ---
Physical Exam: SUBJECTIVE: Patient seen and examined OBJECTIVE: Vital Signs Period Temp Pulse Resp BP Sys/Villalobos Pulse Ox Last 24 Hr 97.7 F-97.9 F 79-94 18-22 120-137/71-83 89-96 GENERAL: The patient is awake, alert, and fully oriented, mild distress. NECK: supple. LUNGS: tachypneic. mild amount of scattered rales ABDOMEN: Soft, nontender, nondistended, normoactive bowel sounds EXTREMITIES: warm, well-perfused, no edema. 2+ DP pulses bilaterally NEUROLOGICAL: Cranial nerves II through XII grossly intact. SKIN: Warm, dry Active Medications Generic Name Dose Route Start Last Admin Trade Name Freq PRN Reason Stop Dose Admin Acetaminophen 650 mg 08/07/16 18:54 08/14/16 14:24 Tylenol - PO 650 mg Q6H PRN Administration FEVER OR PAIN Albuterol Sulfate 1 amp 08/08/16 00:00 08/15/16 11:16 Ventolin 0.083% Nebulizer Soln - NEB Not Given QIDR DONAL Albuterol Sulfate 1 amp 08/07/16 18:54 08/11/16 03:35 Ventolin 0.042trength) - NEB 1 amp Q6H PRN Administration SHORT OF BREATH/WHEEZING Alprazolam 0.5 mg 08/10/16 11:26 08/15/16 09:55 Xanax - PO 0.5 mg Q8H PRN Administration ANXIETY Bisacodyl 20 mg 08/15/16 11:52 Dulcolax - PO 08/15/16 11:53 ONCE ONE Heparin Sodium (Porcine) 5,000 unit 08/07/16 22:00 08/15/16 06:06 Heparin - SQ 5,000 unit TID DONAL Administration Piperacillin Sod/Tazobactam Sod 50 mls @ 100 mls/hr 08/10/16 14:00 08/15/16 09: 58 Zosyn 3.375gm Ivpb (Pre-Docked) IVPB 100 mls/hr Q8H-IV DONAL Administration Protocol Vancomycin HCl 1,250 mg/ 250 mls @ 166.667 mls/hr 08/13/16 14:00 08/15/16 02:21 Dextrose IVPB 166.667 mls/hr Q12H DONAL Administration Protocol Methylprednisolone Sodium Succinate 40 mg 08/13/16 12:54 08/15/16 09:57 Solu-Medrol - IVPB 40 mg Q8H-IV DONAL Administration Mycophenolate Mofetil 500 mg 08/10/16 10:30 08/15/16 09:57 Cellcept - PO 500 mg BID DONAL Administration Nifedipine 60 mg 08/07/16 22:00 08/14/16 22:06 Procardia Xl - PO 60 mg HS DONAL Administration Pantoprazole Sodium 40 mg 08/08/16 10:00 08/15/16 09:57 Protonix - PO 40 mg DAILY DONAL Administration Polyethylene Glycol 17 gm 08/11/16 10:15 08/15/16 09:57 Miralax (For Daily Use) - PO 17 grams DAILY DONAL Administration Tramadol HCl 25 mg 08/14/16 14:29 08/14/16 23:06 Ultram - PO 25 mg Q8H PRN Administration PAIN ASSESSMENT/PLAN: 66M with history of sarcoidosis and hypertension presents to the ED with a 1 week history of fevers chills productive cough with weakness found to be in severe sepsis and acute hypoxic respiratory failure secondary to influenza type B. Severe sepsis: likely from influenza B but on he differential remains influenza pneumonia with a superimposed bacterial pneumonia. patient with a significant air space disease on CT chest at baseline and it is very difficult to differentiate pneumonia from lung parenchyma sepsis resolved continue Face mask f/u Mycoplasma-negative f/u urine antigens-negative tamiflu course completed ABx Azithromycin levaquin and zosyn completed ID consult appreciated started on vanco zosyn day 6 Leukocytosis: reactive due to steroids resolved f/u BCx-negative final UA negative Acute hypoxic hypoxemic respiratory failure: secondary to influenza and possible influenza PNA possible superimposed bacterial pneumonia and history of sarcoidosis tried the patient on 4L NC today for a few minutes while the patient had a pulse ox in place to monitor saturation he dropped to 81% and stayed there which is improved at patient was saturating in the 50's on nasal cannula placed back on FM 50% O2 where is saturating in high 80'/low 90's will assess and attempt to wean O2 as tolerated daily Sarcoidosis is likely the cause of the patients respiratory status still tachypneic Nebulizers continue BiPAP HS and PRN-refusing. patient counselled on intermittent BiPAP use to decrease his work of breathing so he doesnt tire out. spoke to patient with dairy powder mixer operator Dr. Alanis about the importance of using BiPAP and patient still refusing continue solumedrol 40mg IV [id number] down slowly per pulmonology Rheum consult appreciated on cellcept 500mg po BID patient had a CTA on admission which did not show PE and repeat CTA last night did not show PE ECHO noted with moderate pulmonary hypertension as elevated RV systolic pressure. no heart failure noted Sarcoidosis: Pulmonology consult appreciated on solumedrol 40mg IV Z2a-etfrc slowly f/u Dr. Davis consult appreciated continue cellcept 500mg po BID hyponatremia: asymptomatic hypo-osmolar [id number] sodium is improving repeat sodium level today nephrology consult appreciated cause is likely multifactorial patient drink about 3 liters of water a day- polydipsia also fluid retention with steroids and given the fact the patient has sarcoidosis he may have an elevated ADH level. 1 liter fluid restriction AM cortisol level-6 off IVF Troponinemia: likely secondary to increased demand from dehydration and severe sepsis Troponin stable at 0.07 will stop trending unless patient becomes symptomatic no [place] on EKG Echo Noted BIANCA: from dehydration and decreased flow to the kidneys secondary to severe sepsis Cr now WNL Resolved HTN: well controlled at this time continue home dose of procardia XL 60mg po HS colon distention seen on lower cuts of Chest CT from ileus: Resolved constipation:last BM 3 days ago continue miralax add dulcolax PO today FEN: off IVF-fluid restrict hyponatremia-see above for plan Soft diet PPx: HSQ/SCDs protonix while patient is on steroids PT consult for rehab placement-patient too Short of breath to participate in rehab and has been refusing. encouraged him to atleast try Dispo: needs inpatient pulmonary rehab . spoke to patient and his about LTAC at [place]. explained to the what an LTAC is and why he needs it. requesting more information. Spoke to registered nurse [facility] case manager eve [facility] who will speak to patient and . Visit type - Emergency Visit Emergency Visit: Yes ED Registration Date: 07/27/16 Care time: The patient presented to the Emergency Department on the above date and was hospitalized for further evaluation of their emergent condition. - New Patient This patient is new to me today: No - Critical Care Critical Care patient: No
[2016-08-15] MEDS ORDERED: BISACODYL 5 MG TABLET.DR (FP) PO ONE (12:45)
--- NOTE | 2016-08-15 14:07 | PN ---
Teaching Attending Note Name of Resident: Shiva Sidhu ATTENDING PHYSICIAN STATEMENT I saw and evaluated the patient. I reviewed the resident's note and discussed the case with the resident. I agree with the resident's findings and plan as documented. SUBJECTIVE: no fever [place], feels more SOB today , but he just moved to a chair OBJECTIVE: NAD CV: RRR Lungs: bi-basilar crackles today Ext: no edema A/P 66 y/o man with h/o HTN, sarcoidosis , who presented with 5-day hx of fever , cough, runny nose and was found to have severe sepsis and Flu B . 1- Severe sepsis: from Flu B, and possible bacterial PNA with worsening infiltrates on chest CT . - Cont abx vanc+ zosyn - vanco trough pending now. 2- Acute hypoxic resp failure: due to influenza and likely bacterial PNA , and possibly sarcoidosis is playing a role cont to require Venti mask - Abx -cont mycophynolate -cont steroids taper. 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 - Cont fluid restriction 1 L /day . 4- Trop leak: likely from sepsis . - echo with pulm HTN and mild vulvular regurgitation - stress test as out pt 5- BIANCA: resolved HLOC D/W case management Federico's placement
[2016-08-15 14:34] LABS: CALCIUM 8.9 mg/dL (8.5-10.1); CREATININE 0.5 mg/dL (0.7-1.3)
[2016-08-15] MEDS ORDERED: VANCOMYCIN 1,500 MG in DEXTROSE 5%-WATER - 500 ML IVPB SCH (15:30)
[2016-08-15] MEDS ORDERED: VANCOMYCIN 250 MG in DEXTROSE 5%-WATER - 100 ML IVPB ONE (15:41)
--- NOTE | 2016-08-15 16:38 | PN ---
Progress Note, Physician History of Present Illness: Pt seen and examined at bedside. He is awake. He says that his breathing is improved however he still requires the facemask. - Current Medication List Current Medications: Active Medications Acetaminophen (Tylenol -) 650 mg PO Q6H PRN PRN Reason: FEVER OR PAIN Last Admin: 08/14/16 14:24 Dose: 650 mg Albuterol Sulfate (Ventolin 0.083% Nebulizer Soln -) 1 amp NEB QIDR DONAL Last Admin: 08/15/16 11:16 Dose: Not Given Albuterol Sulfate (Ventolin 0.042trength) -) 1 amp NEB Q6H PRN PRN Reason: SHORT OF BREATH/WHEEZING Last Admin: 08/11/16 03:35 Dose: 1 amp Alprazolam (Xanax -) 0.5 mg PO Q8H PRN PRN Reason: ANXIETY Last Admin: 08/15/16 09:55 Dose: 0.5 mg Heparin Sodium (Porcine) (Heparin -) 5,000 unit SQ TID DONAL Last Admin: 08/15/16 14:33 Dose: 5,000 unit Piperacillin Sod/Tazobactam Sod (Zosyn 3.375gm Ivpb (Pre-Docked)) 50 mls @ 100 mls/hr IVPB Q8H-IV DONAL PRN Reason: Protocol Last Admin: 08/15/16 09:58 Dose: 100 mls/hr Vancomycin HCl 1,500 mg/ (Dextrose) 500 mls @ 250 mls/hr IVPB Q12H DONAL PRN Reason: Protocol Vancomycin HCl 250 mg/ (Dextrose) 100 mls @ 100 mls/hr IVPB ONCE ONE Stop: 08/15/16 16:40 Methylprednisolone Sodium Succinate (Solu-Medrol -) 40 mg IVPB Q8H-IV DONAL Last Admin: 08/15/16 09:57 Dose: 40 mg Mycophenolate Mofetil (Cellcept -) 500 mg PO BID DONAL Last Admin: 08/15/16 09:57 Dose: 500 mg Nifedipine (Procardia Xl -) 60 mg PO HS DONAL Last Admin: 08/14/16 22:06 Dose: 60 mg Pantoprazole Sodium (Protonix -) 40 mg PO DAILY DONAL Last Admin: 08/15/16 09:57 Dose: 40 mg Polyethylene Glycol (Miralax (For Daily Use) -) 17 gm PO DAILY DONAL Last Admin: 08/15/16 09:57 Dose: 17 grams Tramadol HCl (Ultram -) 25 mg PO Q8H PRN PRN Reason: PAIN Last Admin: 08/14/16 23:06 Dose: 25 mg - Objective Vital Signs: Vital Signs Temperature 97.4 F L 08/15/16 13:39 Pulse Rate 103 H 08/15/16 13:39 Respiratory Rate 20 08/15/16 13:39 Blood Pressure 138/81 08/15/16 13:39 O2 Sat by Pulse Oximetry (%) 89 L 08/15/16 11:16 Constitutional: Yes: Calm Eyes: Yes: Conjunctiva Clear HENT: Yes: Atraumatic Cardiovascular: Yes: S1 Respiratory: Yes: On Venti-Mask Gastrointestinal: Yes: Soft Genitourinary: Yes: WNL Musculoskeletal: Yes: WNL Edema: No Neurological: Yes: Oriented Psychiatric: Yes: Oriented Labs: CBC, BMP 08/14/16 06:50 08/15/16 12:45 INR, PTT INR 1.26 (0.82-1.09) H 07/27/16 14:15 Assessment/Plan Current Medications Generic Name Dose Route Start Last Admin Trade Name Freq PRN Reason Stop Dose Admin Acetaminophen 650 mg 08/07/16 18:54 08/14/16 14:24 Tylenol - PO 650 mg Q6H PRN Administration FEVER OR PAIN Albuterol Sulfate 1 amp 08/08/16 00:00 08/15/16 11:16 Ventolin 0.083% Nebulizer Soln - NEB Not Given QIDR DONAL Albuterol Sulfate 1 amp 08/07/16 18:54 08/11/16 03:35 Ventolin 0.042trength) - NEB 1 amp Q6H PRN Administration SHORT OF BREATH/WHEEZING Alprazolam 0.5 mg 08/10/16 11:26 08/15/16 09:55 Xanax - PO 0.5 mg Q8H PRN Administration ANXIETY Heparin Sodium (Porcine) 5,000 unit 08/07/16 22:00 08/15/16 14:33 Heparin - SQ 5,000 unit TID DONAL Administration Piperacillin Sod/Tazobactam Sod 50 mls @ 100 mls/hr 08/10/16 14:00 08/15/16 09: 58 Zosyn 3.375gm Ivpb (Pre-Docked) IVPB 100 mls/hr Q8H-IV DONAL Administration Protocol Vancomycin HCl 1,500 mg/ 500 mls @ 250 mls/hr 08/16/16 03:00 Dextrose IVPB Q12H DONAL Protocol Vancomycin HCl 250 mg/ 100 mls @ 100 mls/hr 08/15/16 15:41 Dextrose IVPB 08/15/16 16:40 ONCE ONE Methylprednisolone Sodium Succinate 40 mg 08/13/16 12:54 08/15/16 09:57 Solu-Medrol - IVPB 40 mg Q8H-IV DONAL Administration Mycophenolate Mofetil 500 mg 08/10/16 10:30 08/15/16 09:57 Cellcept - PO 500 mg BID DONAL Administration Nifedipine 60 mg 08/07/16 22:00 08/14/16 22:06 Procardia Xl - PO 60 mg HS DONAL Administration Pantoprazole Sodium 40 mg 08/08/16 10:00 08/15/16 09:57 Protonix - PO 40 mg DAILY DONAL Administration Polyethylene Glycol 17 gm 08/11/16 10:15 08/15/16 09:57 Miralax (For Daily Use) - PO 17 grams DAILY DONAL Administration Tramadol HCl 25 mg 08/14/16 14:29 08/14/16 23:06 Ultram - PO 25 mg Q8H PRN Administration PAIN Impression 1. hyponatremia SIADH 2. sarcoidosis 3. proteinuria 4. HTN 5. hypoxic respiratory failure 6. PNA 7. sepsis 8. proteinuria Plan - sodium is improving - siadh could be improving with improvement in pulmonary status - cont with fluid restriction - will follow - monitor pulse chidi - richard siadh from pulmonary process Dr Mccord
--- NOTE | 2016-08-15 19:23 | PN ---
Progress Note, Physician History of Present Illness: patient looks slightly better was out in chair today still requiring ventimask - Current Medication List Current Medications: Active Medications Acetaminophen (Tylenol -) 650 mg PO Q6H PRN PRN Reason: FEVER OR PAIN Last Admin: 08/14/16 14:24 Dose: 650 mg Albuterol Sulfate (Ventolin 0.083% Nebulizer Soln -) 1 amp NEB QIDR DONAL Last Admin: 08/15/16 17:20 Dose: Not Given Albuterol Sulfate (Ventolin 0.042trength) -) 1 amp NEB Q6H PRN PRN Reason: SHORT OF BREATH/WHEEZING Last Admin: 08/11/16 03:35 Dose: 1 amp Alprazolam (Xanax -) 0.5 mg PO Q8H PRN PRN Reason: ANXIETY Last Admin: 08/15/16 18:16 Dose: 0.5 mg Heparin Sodium (Porcine) (Heparin -) 5,000 unit SQ TID DONAL Last Admin: 08/15/16 14:33 Dose: 5,000 unit Piperacillin Sod/Tazobactam Sod (Zosyn 3.375gm Ivpb (Pre-Docked)) 50 mls @ 100 mls/hr IVPB Q8H-IV DONAL PRN Reason: Protocol Last Admin: 08/15/16 18:24 Dose: 100 mls/hr Vancomycin HCl 1,500 mg/ (Dextrose) 500 mls @ 250 mls/hr IVPB Q12H DONAL PRN Reason: Protocol Methylprednisolone Sodium Succinate (Solu-Medrol -) 40 mg IVPB Q8H-IV DONAL Last Admin: 08/15/16 18:21 Dose: 40 mg Mycophenolate Mofetil (Cellcept -) 500 mg PO BID DONAL Last Admin: 08/15/16 09:57 Dose: 500 mg Nifedipine (Procardia Xl -) 60 mg PO HS DONAL Last Admin: 08/14/16 22:06 Dose: 60 mg Pantoprazole Sodium (Protonix -) 40 mg PO DAILY DONAL Last Admin: 08/15/16 09:57 Dose: 40 mg Polyethylene Glycol (Miralax (For Daily Use) -) 17 gm PO DAILY DONAL Last Admin: 08/15/16 09:57 Dose: 17 grams Tramadol HCl (Ultram -) 25 mg PO Q8H PRN PRN Reason: PAIN Last Admin: 08/14/16 23:06 Dose: 25 mg - Objective Vital Signs: Vital Signs Temperature 97.4 F L 08/15/16 13:39 Pulse Rate 103 H 08/15/16 13:39 Respiratory Rate 20 08/15/16 13:39 Blood Pressure 138/81 08/15/16 13:39 O2 Sat by Pulse Oximetry (%) 89 L 08/15/16 11:16 Constitutional: Yes: Calm, Mild Distress Cardiovascular: Yes: Regular Rate and Rhythm Respiratory: Yes: Regular, On Venti-Mask, Poor Air Entry Gastrointestinal: Yes: Normal Bowel Sounds, Soft Musculoskeletal: Yes: WNL Extremities: Yes: WNL Neurological: Yes: Alert, Oriented Psychiatric: Yes: Alert, Oriented Labs: CBC, BMP 08/14/16 06:50 08/15/16 12:45 INR, PTT INR 1.26 (0.82-1.09) H 07/27/16 14:15 Assessment/Plan pneumonia resp failure influenza sarcoidosis multilobar pneumonia plan conitnue current mgmt close watch on the patient resp physio ct chest patient on mycophenalate
[2016-08-15] MEDS: NIFEdipine E.R. 30 MG TABLET (FP) PO SCH (21:39)
[2016-08-15] MEDS: traMADol HCL 50 MG TABLET PO PRN (21:40)
[2016-08-16] MEDS: ALBUTEROL SO4 0.083% IH SOL 2.5 MG/3 ML VIAL.NEB. NEB SCH ×4 (00:05→18:25)
[2016-08-16] MEDS: methylPREDNISolone NA SUCC 40 MG/1 ML VIAL IVPB SCH ×3 (01:28→17:50)
[2016-08-16] MEDS: PIPERACILLIN/TAZOB 3.375 GM 50 ML IVPB SCH ×3 (01:28→19:09)
[2016-08-16] MEDS: ALPRAZolam 0.25 MG TABLET PO PRN ×3 (02:10→17:51)
[2016-08-16] MEDS: VANCOMYCIN 1,500 MG in DEXTROSE 5%-WATER - 500 ML IVPB SCH ×2 (03:43→14:59)
[2016-08-16] MEDS: HEPARIN NA (PORCINE) 5,000 UNITS/ML 1ML VIAL SQ SCH ×3 (06:25→21:53)
[2016-08-16 08:24] LABS: CREATININE 0.5 mg/dL (0.7-1.3)
[2016-08-16] MEDS ORDERED: PT OWN MED DRAWER 7, Y5N ONE ×2 (09:33→20:59)
[2016-08-16] MEDS: traMADol HCL 50 MG TABLET PO PRN ×2 (09:40→17:49)
[2016-08-16] MEDS: MYCOPHENOLATE MOFETIL 250 MG CAPSULE PO SCH ×2 (09:41→21:53)
[2016-08-16] MEDS: PANTOPRAZOLE 40 MG TABLET (FP) PO SCH (09:41)
[2016-08-16] MEDS: POLYETHYLENE GLYCOL 3350 119 GM BTL PO SCH (11:07)
--- NOTE | 2016-08-16 11:39 | PN ---
Physical Exam: SUBJECTIVE: Patient seen and examined OBJECTIVE: Vital Signs Period Temp Pulse Resp BP Sys/Villalobos Pulse Ox Last 24 Hr 97.4 F-98.8 F 88-103 18-21 132-142/70-81 91-94 GENERAL: The patient is awake, alert, and fully oriented, mild distress. NECK: supple. LUNGS: tachypneic. mild amount of scattered rales ABDOMEN: Soft, nontender, nondistended, normoactive bowel sounds EXTREMITIES: warm, well-perfused, no edema. 2+ DP pulses bilaterally NEUROLOGICAL: Cranial nerves II through XII grossly intact. SKIN: Warm, dry Laboratory Results - last 24 hr 08/15/16 08/16/16 12:45 06:40 Sodium 136 136 Potassium 4.3 4.3 Chloride 97 L 96 L Carbon Dioxide 25 28 Anion Gap 14 12 BUN 17 D 18 Creatinine 0.5 L D 0.5 L Random Glucose 143 H D 147 H Calcium 8.9 9.0 Vancomycin Trough 6.870 D Active Medications Generic Name Dose Route Start Last Admin Trade Name Freq PRN Reason Stop Dose Admin Acetaminophen 650 mg 08/07/16 18:54 08/14/16 14:24 Tylenol - PO 650 mg Q6H PRN Administration FEVER OR PAIN Albuterol Sulfate 1 amp 08/08/16 00:00 08/16/16 11:21 Ventolin 0.083% Nebulizer Soln - NEB Not Given QIDR DONAL Albuterol Sulfate 1 amp 08/07/16 18:54 08/11/16 03:35 Ventolin 0.042trength) - NEB 1 amp Q6H PRN Administration SHORT OF BREATH/WHEEZING Alprazolam 0.5 mg 08/10/16 11:26 08/16/16 08:19 Xanax - PO 0.5 mg Q8H PRN Administration ANXIETY Heparin Sodium (Porcine) 5,000 unit 08/07/16 22:00 08/16/16 06:25 Heparin - SQ 5,000 unit TID DONAL Administration Piperacillin Sod/Tazobactam Sod 50 mls @ 100 mls/hr 08/10/16 14:00 08/16/16 09: 42 Zosyn 3.375gm Ivpb (Pre-Docked) IVPB 100 mls/hr Q8H-IV DONAL Administration Protocol Vancomycin HCl 1,500 mg/ 500 mls @ 250 mls/hr 08/16/16 03:00 08/16/16 03:43 Dextrose IVPB 250 mls/hr Q12H DONAL Administration Protocol Methylprednisolone Sodium Succinate 40 mg 08/13/16 12:54 08/16/16 09:42 Solu-Medrol - IVPB 40 mg Q8H-IV DONAL Administration Mycophenolate Mofetil 500 mg 08/10/16 10:30 08/16/16 09:41 Cellcept - PO 500 mg BID DONAL Administration Nifedipine 60 mg 08/07/16 22:00 08/15/16 21:39 Procardia Xl - PO 60 mg HS DONAL Administration Pantoprazole Sodium 40 mg 08/08/16 10:00 08/16/16 09:41 Protonix - PO 40 mg DAILY DONAL Administration Polyethylene Glycol 17 gm 08/11/16 10:15 08/16/16 11:07 Miralax (For Daily Use) - PO Not Given DAILY DONAL Tramadol HCl 25 mg 08/14/16 14:29 08/16/16 09:40 Ultram - PO 25 mg Q8H PRN Administration PAIN ASSESSMENT/PLAN: 66M with history of sarcoidosis and hypertension presents to the ED with a 1 week history of fevers chills productive cough with weakness found to be in severe sepsis and acute hypoxic respiratory failure secondary to influenza type B. Severe sepsis: likely from influenza B but on he differential remains influenza pneumonia with a superimposed bacterial pneumonia. patient with a significant air space disease on CT chest at baseline and it is very difficult to differentiate pneumonia from lung parenchyma sepsis resolved continue Face mask f/u Mycoplasma-negative f/u urine antigens-negative tamiflu course completed ABx Azithromycin levaquin and zosyn completed ID consult appreciated started on vanco zosyn day [address] scan ordered br Dr. Ibanez from ID CT scan read as possibly worsening PNA but reviewed CT scan with [employer] Dr. Anderson and it seems overall the same as previous CT scan done a few days ago. Leukocytosis: reactive due to steroids resolved f/u BCx-negative final UA negative Acute hypoxic hypoxemic respiratory failure: secondary to influenza and possible influenza PNA possible superimposed bacterial pneumonia and history of sarcoidosis Still requiring 50% FM O2 unable to wean will assess and attempt to wean O2 as tolerated daily Sarcoidosis is likely the cause of the patients respiratory status still tachypneic Nebulizers continue BiPAP HS and PRN-refusing. patient counselled on intermittent BiPAP use to decrease his work of breathing so he doesnt tire out. refusing continue solumedrol 40mg IV [id number] down slowly per pulmonology Rheum consult appreciated on cellcept 500mg po BID patient had a CTA on admission which did not show PE and repeat CTA last night did not show PE ECHO noted with moderate pulmonary hypertension as elevated RV systolic pressure. no heart failure noted Will do LDH to r/o opportunistic infection as patient has been on high dose steroids for a very long time Will do ABG Sarcoidosis: Pulmonology consult appreciated on solumedrol 40mg IV [id number] slowly f/u Dr. Davis consult appreciated continue cellcept 500mg po BID hyponatremia: asymptomatic hypo-osmolar [id number] hyponatremia resolved nephrology consult appreciated cause is likely multifactorial patient drink about 3 liters of water a day- polydipsia also fluid retention with steroids and given the fact the patient has sarcoidosis he may have an elevated ADH level. 1 liter fluid restriction AM cortisol level-6 off IVF Troponinemia: likely secondary to increased demand from dehydration and severe sepsis Troponin stable at 0.07 will stop trending unless patient becomes symptomatic no NV on EKG Echo Noted BIANCA: from dehydration and decreased flow to the kidneys secondary to severe sepsis Cr now WNL Resolved HTN: well controlled at this time continue home dose of procardia XL 60mg po HS colon distention seen on lower cuts of Chest CT from ileus: Resolved constipation:last BM 4 days ago continue miralax give more dulcolax PO today if does not have a BM will give enema FEN: off IVF-fluid restrict hyponatremia-see above for plan Soft diet PPx: HSQ/SCDs protonix while patient is on steroids PT consult for rehab placement-patient too Short of breath to participate in rehab and has been refusing. encouraged him to atleast try Dispo: needs inpatient pulmonary rehab . refusing LTAC at [facility] at this time Visit type - Emergency Visit Emergency Visit: Yes ED Registration Date: 07/27/16 Care time: The patient presented to the Emergency Department on the above date and was hospitalized for further evaluation of their emergent condition. - New Patient This patient is new to me today: No - Critical Care Critical Care patient: No
--- NOTE | 2016-08-16 11:51 | PN ---
Progress Note, Physician History of Present Illness: clinically patient still requiring oxygen repeat ct scan looked at patients accessory muscle use is less - Current Medication List Current Medications: Active Medications Acetaminophen (Tylenol -) 650 mg PO Q6H PRN PRN Reason: FEVER OR PAIN Last Admin: 08/14/16 14:24 Dose: 650 mg Albuterol Sulfate (Ventolin 0.083% Nebulizer Soln -) 1 amp NEB QIDR DONAL Last Admin: 08/16/16 11:21 Dose: Not Given Albuterol Sulfate (Ventolin 0.042trength) -) 1 amp NEB Q6H PRN PRN Reason: SHORT OF BREATH/WHEEZING Last Admin: 08/11/16 03:35 Dose: 1 amp Alprazolam (Xanax -) 0.5 mg PO Q8H PRN PRN Reason: ANXIETY Last Admin: 08/16/16 08:19 Dose: 0.5 mg Heparin Sodium (Porcine) (Heparin -) 5,000 unit SQ TID DONAL Last Admin: 08/16/16 06:25 Dose: 5,000 unit Piperacillin Sod/Tazobactam Sod (Zosyn 3.375gm Ivpb (Pre-Docked)) 50 mls @ 100 mls/hr IVPB Q8H-IV DONAL PRN Reason: Protocol Last Admin: 08/16/16 09:42 Dose: 100 mls/hr Vancomycin HCl 1,500 mg/ (Dextrose) 500 mls @ 250 mls/hr IVPB Q12H DONAL PRN Reason: Protocol Last Admin: 08/16/16 03:43 Dose: 250 mls/hr Methylprednisolone Sodium Succinate (Solu-Medrol -) 40 mg IVPB Q8H-IV DONAL Last Admin: 08/16/16 09:42 Dose: 40 mg Mycophenolate Mofetil (Cellcept -) 500 mg PO BID DONAL Last Admin: 08/16/16 09:41 Dose: 500 mg Nifedipine (Procardia Xl -) 60 mg PO HS DONAL Last Admin: 08/15/16 21:39 Dose: 60 mg Pantoprazole Sodium (Protonix -) 40 mg PO DAILY DONAL Last Admin: 08/16/16 09:41 Dose: 40 mg Polyethylene Glycol (Miralax (For Daily Use) -) 17 gm PO DAILY DONAL Last Admin: 08/16/16 11:07 Dose: Not Given Tramadol HCl (Ultram -) 25 mg PO Q8H PRN PRN Reason: PAIN Last Admin: 08/16/16 09:40 Dose: 25 mg - Objective Vital Signs: Vital Signs Temperature 97.9 F 08/16/16 06:08 Pulse Rate 95 H 08/16/16 11:20 Respiratory Rate 20 08/16/16 06:08 Blood Pressure 142/70 08/16/16 06:08 O2 Sat by Pulse Oximetry (%) 91 L 08/16/16 11:20 Constitutional: Yes: Calm Neck: Yes: Supple Cardiovascular: Yes: Regular Rate and Rhythm Respiratory: Yes: Poor Air Entry, Rhonchi Gastrointestinal: Yes: Normal Bowel Sounds, Soft Musculoskeletal: Yes: WNL Extremities: Yes: WNL Neurological: Yes: Alert, Oriented Psychiatric: Yes: Alert, Oriented Labs: CBC, BMP 08/14/16 06:50 08/16/16 06:40 INR, PTT INR 1.26 (0.82-1.09) H 07/27/16 14:15 - ....Imaging Cat Scan: Report Reviewed, Image Reviewed Assessment/Plan pneumonia resp failure influenza sarcoidosis multilobar pneumonia plan conitnue current mgmt close watch on the patient resp physio continue abx for now
--- NOTE | 2016-08-16 12:55 | PN ---
Progress Note, Physician History of Present Illness: Pt seen and examined at bedside. He is awake and alert. He feels that his breathing is improved. He still requires facemask. - Current Medication List Current Medications: Active Medications Acetaminophen (Tylenol -) 650 mg PO Q6H PRN PRN Reason: FEVER OR PAIN Last Admin: 08/14/16 14:24 Dose: 650 mg Albuterol Sulfate (Ventolin 0.083% Nebulizer Soln -) 1 amp NEB QIDR DONAL Last Admin: 08/16/16 11:21 Dose: Not Given Albuterol Sulfate (Ventolin 0.042trength) -) 1 amp NEB Q6H PRN PRN Reason: SHORT OF BREATH/WHEEZING Last Admin: 08/11/16 03:35 Dose: 1 amp Alprazolam (Xanax -) 0.5 mg PO Q8H PRN PRN Reason: ANXIETY Last Admin: 08/16/16 08:19 Dose: 0.5 mg Heparin Sodium (Porcine) (Heparin -) 5,000 unit SQ TID DONAL Last Admin: 08/16/16 06:25 Dose: 5,000 unit Piperacillin Sod/Tazobactam Sod (Zosyn 3.375gm Ivpb (Pre-Docked)) 50 mls @ 100 mls/hr IVPB Q8H-IV DONAL PRN Reason: Protocol Last Admin: 08/16/16 09:42 Dose: 100 mls/hr Vancomycin HCl 1,500 mg/ (Dextrose) 500 mls @ 250 mls/hr IVPB Q12H DONAL PRN Reason: Protocol Last Admin: 08/16/16 03:43 Dose: 250 mls/hr Methylprednisolone Sodium Succinate (Solu-Medrol -) 40 mg IVPB Q8H-IV DONAL Last Admin: 08/16/16 09:42 Dose: 40 mg Mycophenolate Mofetil (Cellcept -) 500 mg PO BID DONAL Last Admin: 08/16/16 09:41 Dose: 500 mg Nifedipine (Procardia Xl -) 60 mg PO HS DONAL Last Admin: 08/15/16 21:39 Dose: 60 mg Pantoprazole Sodium (Protonix -) 40 mg PO DAILY DONAL Last Admin: 08/16/16 09:41 Dose: 40 mg Polyethylene Glycol (Miralax (For Daily Use) -) 17 gm PO DAILY DONAL Last Admin: 08/16/16 11:07 Dose: Not Given Tramadol HCl (Ultram -) 25 mg PO Q8H PRN PRN Reason: PAIN Last Admin: 08/16/16 09:40 Dose: 25 mg - Objective Vital Signs: Vital Signs Temperature 97.9 F 08/16/16 06:08 Pulse Rate 95 H 08/16/16 11:20 Respiratory Rate 22 08/16/16 10:00 Blood Pressure 139/58 08/16/16 10:00 O2 Sat by Pulse Oximetry (%) 91 L 08/16/16 11:20 Constitutional: Yes: Calm Eyes: Yes: Conjunctiva Clear HENT: Yes: Atraumatic Cardiovascular: Yes: S1, S2 Respiratory: Yes: On Venti-Mask Gastrointestinal: Yes: Soft Genitourinary: Yes: WNL Musculoskeletal: Yes: WNL Edema: No Neurological: Yes: Oriented Psychiatric: Yes: Oriented Labs: CBC, BMP 08/14/16 06:50 08/16/16 06:40 INR, PTT INR 1.26 (0.82-1.09) H 07/27/16 14:15 Assessment/Plan Current Medications Generic Name Dose Route Start Last Admin Trade Name Freq PRN Reason Stop Dose Admin Acetaminophen 650 mg 08/07/16 18:54 08/14/16 14:24 Tylenol - PO 650 mg Q6H PRN Administration FEVER OR PAIN Albuterol Sulfate 1 amp 08/08/16 00:00 08/16/16 11:21 Ventolin 0.083% Nebulizer Soln - NEB Not Given QIDR DONAL Albuterol Sulfate 1 amp 08/07/16 18:54 08/11/16 03:35 Ventolin 0.042trength) - NEB 1 amp Q6H PRN Administration SHORT OF BREATH/WHEEZING Alprazolam 0.5 mg 08/10/16 11:26 08/16/16 08:19 Xanax - PO 0.5 mg Q8H PRN Administration ANXIETY Heparin Sodium (Porcine) 5,000 unit 08/07/16 22:00 08/16/16 06:25 Heparin - SQ 5,000 unit TID DONAL Administration Piperacillin Sod/Tazobactam Sod 50 mls @ 100 mls/hr 08/10/16 14:00 08/16/16 09: 42 Zosyn 3.375gm Ivpb (Pre-Docked) IVPB 100 mls/hr Q8H-IV DONAL Administration Protocol Vancomycin HCl 1,500 mg/ 500 mls @ 250 mls/hr 08/16/16 03:00 08/16/16 03:43 Dextrose IVPB 250 mls/hr Q12H DONAL Administration Protocol Methylprednisolone Sodium Succinate 40 mg 08/13/16 12:54 08/16/16 09:42 Solu-Medrol - IVPB 40 mg Q8H-IV DONAL Administration Mycophenolate Mofetil 500 mg 08/10/16 10:30 08/16/16 09:41 Cellcept - PO 500 mg BID DONAL Administration Nifedipine 60 mg 08/07/16 22:00 08/15/16 21:39 Procardia Xl - PO 60 mg HS DONAL Administration Pantoprazole Sodium 40 mg 08/08/16 10:00 08/16/16 09:41 Protonix - PO 40 mg DAILY DONAL Administration Polyethylene Glycol 17 gm 08/11/16 10:15 08/16/16 11:07 Miralax (For Daily Use) - PO Not Given DAILY DONAL Tramadol HCl 25 mg 08/14/16 14:29 08/16/16 09:40 Ultram - PO 25 mg Q8H PRN Administration PAIN Impression 1. hyponatremia SIADH 2. sarcoidosis 3. proteinuria 4. HTN 5. hypoxic respiratory failure 6. PNA 7. sepsis 8. proteinuria Plan - sodium has stabilizing - monitor lytes - steroids with taper as tolerated - pulm/ID follow up - will follow PRN - richard siadh from pulmonary process Dr Mccord
--- NOTE | 2016-08-16 13:10 | PN ---
Teaching Attending Note Name of Resident: Shiva Sidhu ATTENDING PHYSICIAN STATEMENT I saw and evaluated the patient. I reviewed the resident's note and discussed the case with the resident. I agree with the resident's findings and plan as documented. SUBJECTIVE:c/o overall weakness. states he has been unable to decrease his face mask due to SOB. denies CP, fever, chills, N/V/C/D. has not been able to get out of bed OBJECTIVE: Last Vital Signs Temp Pulse Resp BP Pulse Ox 97.9 F 95 H 22 139/58 91 L 08/16/16 06:08 08/16/16 11:20 08/16/16 10:00 08/16/16 10:00 08/16/16 11:20 General NAD CV S1 S2 RRR no murmur/rub/gallop Lungs coarse breath sounds anteriorly. +rales no wheezing ASSESSMENT AND PLAN: 66yo M with PMH HTN and sarcoidosis presented to the ER and was admitted for further evaluation of their emergent condition 1. Acute hypoxic respiratory failure- likely due to PNA with underlying sarcoidosis- currently on 50% face mask. repeat CT chest done this AM. await official read. started on mycophenolate this admission. on high dose IV steroids medrol 40mg Q8h. titrate steroids per Pulmonary. currently on Vanco/ zosyn. vanco adjusted yesterday due to subtherapeutic level. check vanco trough before 4th dose. ID and pulmonary on board 2. Hypotonic hyponatremia- likely due to SAIDH from Sarcoidosis. now resolved. cont 1L fluid restriction 3. Severe sepsos due to flu B+ and PNA. repeat CT done this AM. will need to f/ u results. on broad spectrum abx. legionella and mycoplasma negative. ID on board 4. DVT ppx- hep sq 5. would likely benefit from LTAC placement. referral sent to [facility]
[2016-08-16 14:11] LABS: ARTERIAL BLD GAS O2 SATURATION 95.5 % (90-98.9); ARTERIAL BLOOD GAS BASE EXCESS 4.6 meq/l (-2-2); ARTERIAL BLOOD GAS HCO3 27.7 meq/L (22-26)
[2016-08-16 14:12] LABS: ALLENS TEST POSITIVE; ART PUNCT SITE RIGHT RADIAL; LPM/O2% 50%; PT. ON O2? YES; TYPE OF O2 VENTI MASK
[2016-08-16 14:15] LABS: ARTERIAL BLOOD GAS PO2 73.6 mmHg (80-100); ARTERIAL BLOOD GAS pH 7.49 (7.35-7.45)
[2016-08-16] MEDS ORDERED: BISACODYL 5 MG TABLET.DR (FP) PO ONE (16:08)
--- NOTE | 2016-08-16 16:11 | PN ---
Progress Note, Physician History of Present Illness: pulmonary alert on vm o2 sat 96%,less dyspneic - Current Medication List Current Medications: Active Medications Acetaminophen (Tylenol -) 650 mg PO Q6H PRN PRN Reason: FEVER OR PAIN Last Admin: 08/14/16 14:24 Dose: 650 mg Albuterol Sulfate (Ventolin 0.083% Nebulizer Soln -) 1 amp NEB QIDR DONAL Last Admin: 08/16/16 11:21 Dose: Not Given Albuterol Sulfate (Ventolin 0.042trength) -) 1 amp NEB Q6H PRN PRN Reason: SHORT OF BREATH/WHEEZING Last Admin: 08/11/16 03:35 Dose: 1 amp Alprazolam (Xanax -) 0.5 mg PO Q8H PRN PRN Reason: ANXIETY Last Admin: 08/16/16 08:19 Dose: 0.5 mg Heparin Sodium (Porcine) (Heparin -) 5,000 unit SQ TID DONAL Last Admin: 08/16/16 15:03 Dose: 5,000 unit Piperacillin Sod/Tazobactam Sod (Zosyn 3.375gm Ivpb (Pre-Docked)) 50 mls @ 100 mls/hr IVPB Q8H-IV DONAL PRN Reason: Protocol Last Admin: 08/16/16 09:42 Dose: 100 mls/hr Vancomycin HCl 1,500 mg/ (Dextrose) 500 mls @ 250 mls/hr IVPB Q12H DONAL PRN Reason: Protocol Last Admin: 08/16/16 14:59 Dose: 250 mls/hr Methylprednisolone Sodium Succinate (Solu-Medrol -) 40 mg IVPB Q8H-IV DONAL Last Admin: 08/16/16 09:42 Dose: 40 mg Mycophenolate Mofetil (Cellcept -) 500 mg PO BID DONAL Last Admin: 08/16/16 09:41 Dose: 500 mg Nifedipine (Procardia Xl -) 60 mg PO HS DONAL Last Admin: 08/15/16 21:39 Dose: 60 mg Pantoprazole Sodium (Protonix -) 40 mg PO DAILY DONAL Last Admin: 08/16/16 09:41 Dose: 40 mg Polyethylene Glycol (Miralax (For Daily Use) -) 17 gm PO DAILY DONAL Last Admin: 08/16/16 11:07 Dose: Not Given Tramadol HCl (Ultram -) 25 mg PO Q8H PRN PRN Reason: PAIN Last Admin: 08/16/16 09:40 Dose: 25 mg - Objective Vital Signs: Vital Signs Temperature 98.0 F 08/16/16 13:57 Pulse Rate 100 H 08/16/16 13:57 Respiratory Rate 20 08/16/16 13:57 Blood Pressure 139/58 08/16/16 10:00 O2 Sat by Pulse Oximetry (%) 91 L 08/16/16 11:20 Constitutional: Yes: Calm, Thin Eyes: Yes: WNL HENT: Yes: WNL Neck: Yes: Supple Cardiovascular: Yes: Regular Rate and Rhythm, S1, S2 Respiratory: Yes: Rales (kameron crackles) Gastrointestinal: Yes: Normal Bowel Sounds, Soft Extremities: Yes: WNL Edema: No Labs: 08/16/16 06:40 INR, PTT INR 1.26 (0.82-1.09) H 07/27/16 14:15 - ....Imaging Cat Scan: Report Reviewed, Image Reviewed Assessment/Plan Assessment/Plan Hypoxemic respiratory failure Influenza Multilobar Pneumonia Sarcoidosis HTN Hyponatremia - Venti mask - pt refuses bipap - steroids - antibiotics as per id - monitor lytes,na - dvt prophylaxis - mycophenolate - agree with LTAC placement DR MOROCHO
[2016-08-16] MEDS: NIFEdipine E.R. 30 MG TABLET (FP) PO SCH (21:52)
[2016-08-16] MEDS: SULFAMETHOXAZOLE/TRIMETHOPRIM 800MG/160MG D.S. TABLET PO SCH (21:52)
[2016-08-17] MEDS: ALBUTEROL SO4 0.083% IH SOL 2.5 MG/3 ML VIAL.NEB. NEB SCH ×3 (00:09→11:31)
[2016-08-17] MEDS ORDERED: PT OWN MED DRAWER 7, Y5N ONE ×2 (01:03→10:02)
[2016-08-17] MEDS: methylPREDNISolone NA SUCC 40 MG/1 ML VIAL IVPB SCH ×2 (01:11→10:31)
[2016-08-17] MEDS: PIPERACILLIN/TAZOB 3.375 GM 50 ML IVPB SCH ×2 (01:15→10:31)
[2016-08-17] MEDS: traMADol HCL 50 MG TABLET PO PRN ×2 (01:36→10:30)
[2016-08-17] MEDS: VANCOMYCIN 1,500 MG in DEXTROSE 5%-WATER - 500 ML IVPB SCH ×2 (02:03→15:53)
[2016-08-17] MEDS: ALPRAZolam 0.25 MG TABLET PO PRN ×3 (03:08→16:25)
[2016-08-17] MEDS: HEPARIN NA (PORCINE) 5,000 UNITS/ML 1ML VIAL SQ SCH (05:53)
[2016-08-17] MEDS: PANTOPRAZOLE 40 MG TABLET (FP) PO SCH (10:30)
[2016-08-17] MEDS: MYCOPHENOLATE MOFETIL 250 MG CAPSULE PO SCH (10:31)
[2016-08-17] MEDS: POLYETHYLENE GLYCOL 3350 119 GM BTL PO SCH (10:36)
--- NOTE | 2016-08-17 10:48 | PN ---
Progress Note (short form) - Note Progress Note: PULMONARY Breathing slightly improved today. Saturating better on 50% ventimask. Last Vital Signs Temp Pulse Resp BP Pulse Ox 97.5 F L 93 H 24 132/63 99 08/17/16 06:00 08/17/16 06:00 08/17/16 06:00 08/17/16 06:00 08/16/16 22:00 Gen: tachypneic at rest Heart: RRR Lung: scattered rales Abd: soft, nontender Ext: no edema CBC, BMP 08/14/16 06:50 08/16/16 06:40 Active Medications Acetaminophen (Tylenol -) 650 mg PO Q6H PRN PRN Reason: FEVER OR PAIN Last Admin: 08/14/16 14:24 Dose: 650 mg Albuterol Sulfate (Ventolin 0.083% Nebulizer Soln -) 1 amp NEB QIDR DONAL Last Admin: 08/17/16 07:11 Dose: Not Given Albuterol Sulfate (Ventolin 0.042trength) -) 1 amp NEB Q6H PRN PRN Reason: SHORT OF BREATH/WHEEZING Last Admin: 08/11/16 03:35 Dose: 1 amp Alprazolam (Xanax -) 0.5 mg PO Q8H PRN PRN Reason: ANXIETY Last Admin: 08/17/16 03:08 Dose: 0.5 mg Heparin Sodium (Porcine) (Heparin -) 5,000 unit SQ TID DONAL Last Admin: 08/17/16 05:53 Dose: 5,000 unit Piperacillin Sod/Tazobactam Sod (Zosyn 3.375gm Ivpb (Pre-Docked)) 50 mls @ 100 mls/hr IVPB Q8H-IV DONAL PRN Reason: Protocol Last Admin: 08/17/16 10:31 Dose: 100 mls/hr Vancomycin HCl 1,500 mg/ (Dextrose) 500 mls @ 250 mls/hr IVPB Q12H DONAL PRN Reason: Protocol Last Admin: 08/17/16 02:03 Dose: 250 mls/hr Methylprednisolone Sodium Succinate (Solu-Medrol -) 40 mg IVPB Q8H-IV DONAL Last Admin: 08/17/16 10:31 Dose: 40 mg Mycophenolate Mofetil (Cellcept -) 500 mg PO BID [facility] Last Admin: 08/17/16 10:31 Dose: 500 mg Nifedipine (Procardia Xl -) 60 mg PO HS DONAL Last Admin: 08/16/16 21:52 Dose: 60 mg Pantoprazole Sodium (Protonix -) 40 mg PO DAILY DONAL Last Admin: 08/17/16 10:30 Dose: 40 mg Polyethylene Glycol (Miralax (For Daily Use) -) 17 gm PO DAILY [facility] Last Admin: 08/17/16 10:36 Dose: 17 grams Tramadol HCl (Ultram -) 25 mg PO Q8H PRN PRN Reason: PAIN Last Admin: 08/17/16 10:30 Dose: 25 mg Trimethoprim/Sulfamethoxazole (Bactrim Ds -) 1 each PO BID [facility] Last Admin: 08/16/16 21:52 Dose: 1 each A/P Acute Hypoxic Respiratory Failure Influenza B treated Multilobar Pneumonia Sarcoidosis HTN Hyponatremia - on antibiotics per ID - decrease ventimask to 40% - if saturations remain >95% on 40% ventimask, can decrease medrol to 30mg q8h - inhaled bronchodilators - O2 to keep SpO2 >90% - BiPAP to assist in work of breathing if pt allows - LTAC placement
[2016-08-17] MEDS: SULFAMETHOXAZOLE/TRIMETHOPRIM 800MG/160MG D.S. TABLET PO SCH (12:15)
--- NOTE | 2016-08-17 12:50 | DS ---
Physical Exam: SUBJECTIVE: Patient seen and examined OBJECTIVE: Vital Signs Period Temp Pulse Resp BP Sys/Villalobos Pulse Ox Last 24 Hr 97.5 F-98.0 F 60-100 20-24 120-140/63-81 90-99 PHYSICAL EXAM GENERAL: The patient is awake, alert, and fully oriented, in no acute distress. HEAD: Normal with no signs of trauma. EYES: PERRL, extraocular movements intact, sclera anicteric, conjunctiva clear. ENT: Ears normal, nares patent, oropharynx clear without exudates, moist mucous membranes. NECK: Trachea midline, full range of motion, supple. LUNGS: Breath sounds equal, clear to auscultation bilaterally, no wheezes, no crackles, no accessory muscle use. HEART: Regular rate and rhythm, S1, S2 without murmur, rub or gallop. ABDOMEN: Soft, nontender, nondistended, normoactive bowel sounds, no guarding, no rebound, no hepatosplenomegaly, no masses. EXTREMITIES: 2+ pulses, warm, well-perfused, no edema. NEUROLOGICAL: Cranial nerves II through XII grossly intact. Normal speech, gait not observed. PSYCH: Normal mood, normal affect. SKIN: Warm, dry, normal turgor, no rashes or lesions noted. LABS Laboratory Results - last 24 hr 08/16/16 08/16/16 06:40 14:05 Puncture Site Right radial ABG pH 7.49 H ABG pCO2 at Pt Temp 37.1 ABG pO2 at Pt Temp 73.6 L D ABG HCO3 27.7 H ABG O2 Sat (Measured) 95.5 ABG O2 Content 16.5 ABG Base Excess 4.6 H Vazquez Test Positive O2 Delivery Device Venti mask Oxygen Flow Rate 50% PEEP 0.0 LD Total 259 H HOSPITAL COURSE: Date of Admission:07/27/16 Date of Discharge: 08/17/16 66M with PMH of HTN and sarcoidosis presents to the hospital with shortness of breath found to have influenza B treated with tamiflu. Patient was in severe respiratory distress on presentation and was admitted to ICU. He was also treated with IV Abx for possible superimposed bacterial pneumonia superinfection and completed a course. About a week later he was also treated with another course of IV ABx with vanco and zosyn as he did not get better. We have been unable to wean him off of 50% FIO2 facemask. Patient has also been requiring high dose IV steroids and we have been unable to titrate him off. Patient also followed by pulmonology and ID. Seen by rheumatology and he was started on cellcept. Had multiple CT scans of the chest and it has been difficult to differentiate diseases lung tissue from pneumonia. Patient was also started on bactrim on day 20 of the hospitalization to cover for opportunitic infections such as PCP as he is immunocompromised since he has been on high dose steroids and on cellcept. Patient has had minimal improvement of his acute hypoxic hypoxemic respiratory failure. TO be discharge to LTAC for continued care. Patient needs to follow up with cylinder honer and ID doctors in LTAC for further care ACLS for transport since dependent on oxygen and might be needing further care. Minutes to complete discharge: 45 Discharge Summary Reason For Visit: INFLUENZA VIRUS, PULMONARY SARCOIDOSIS,HYPOXIA Current Active Problems Hypoxia (Acute) Influenza B (Acute) Pulmonary sarcoidosis (Acute) Condition: Improved - Instructions Diet, Activity, Other Instructions: Patient needs to follow up with cylinder honer and ID doctor Referrals: Lemuel Campuzano MD [Primary Care Provider] - Henrique Ibanez MD [Staff Physician] - [facility] - Home Medications Comprehensive Discharge Medication List: Ambulatory Orders Nifedipine ER [Procardia XL -] 60 mg PO HS 11/03/13 This patient is new to me today: No Emergency Visit: No Critical Care patient: No - Discharge Referral Referred to [facility] Med P.C.: No
[2016-08-17 13:30] VITALS: BP 132/72; PULSE 102; TEMP 97.7
--- NOTE | 2016-08-17 13:40 | PN ---
Progress Note, Physician History of Present Illness: continues to need ventimask patient still sob but looks and feels better no new events [facility] - Current Medication List Current Medications: Active Medications Acetaminophen (Tylenol -) 650 mg PO Q6H PRN PRN Reason: FEVER OR PAIN Last Admin: 08/14/16 14:24 Dose: 650 mg Albuterol Sulfate (Ventolin 0.083% Nebulizer Soln -) 1 amp NEB QIDR DONAL Last Admin: 08/17/16 11:31 Dose: Not Given Albuterol Sulfate (Ventolin 0.042trength) -) 1 amp NEB Q6H PRN PRN Reason: SHORT OF BREATH/WHEEZING Last Admin: 08/11/16 03:35 Dose: 1 amp Alprazolam (Xanax -) 0.5 mg PO Q8H PRN PRN Reason: ANXIETY Last Admin: 08/17/16 11:11 Dose: 0.5 mg Heparin Sodium (Porcine) (Heparin -) 5,000 unit SQ TID DONAL Last Admin: 08/17/16 05:53 Dose: 5,000 unit Piperacillin Sod/Tazobactam Sod (Zosyn 3.375gm Ivpb (Pre-Docked)) 50 mls @ 100 mls/hr IVPB Q8H-IV DONAL PRN Reason: Protocol Last Admin: 08/17/16 10:31 Dose: 100 mls/hr Vancomycin HCl 1,500 mg/ (Dextrose) 500 mls @ 250 mls/hr IVPB Q12H DONAL PRN Reason: Protocol Last Admin: 08/17/16 02:03 Dose: 250 mls/hr Methylprednisolone Sodium Succinate (Solu-Medrol -) 40 mg IVPB Q8H-IV DONAL Last Admin: 08/17/16 10:31 Dose: 40 mg Mycophenolate Mofetil (Cellcept -) 500 mg PO BID DONAL Last Admin: 08/17/16 10:31 Dose: 500 mg Nifedipine (Procardia Xl -) 60 mg PO HS DONAL Last Admin: 08/16/16 21:52 Dose: 60 mg Pantoprazole Sodium (Protonix -) 40 mg PO DAILY DONAL Last Admin: 08/17/16 10:30 Dose: 40 mg Polyethylene Glycol (Miralax (For Daily Use) -) 17 gm PO DAILY DONAL Last Admin: 08/17/16 10:36 Dose: 17 grams Tramadol HCl (Ultram -) 25 mg PO Q8H PRN PRN Reason: PAIN Last Admin: 08/17/16 10:30 Dose: 25 mg Trimethoprim/Sulfamethoxazole (Bactrim Ds -) 1 each PO BID [facility] [place] Last Admin: 08/17/16 12:15 Dose: Not Given - Objective Vital Signs: Vital Signs Temperature 97.7 F 08/17/16 13:27 Pulse Rate 102 H 08/17/16 13:27 Respiratory Rate 22 08/17/16 13:27 Blood Pressure 132/72 08/17/16 13:27 O2 Sat by Pulse Oximetry (%) 95 08/17/16 13:19 Constitutional: Yes: Calm, Moderate Distress Cardiovascular: Yes: Regular Rate and Rhythm Respiratory: Yes: On Venti-Mask, Poor Air Entry Gastrointestinal: Yes: Normal Bowel Sounds, Soft Musculoskeletal: Yes: WNL Extremities: Yes: WNL Neurological: Yes: Alert, Oriented Psychiatric: Yes: Alert, Oriented Labs: CBC, BMP 08/14/16 06:50 08/16/16 06:40 INR, PTT INR 1.26 (0.82-1.09) H 07/27/16 14:15 Assessment/Plan pneumonia resp failure influenza sarcoidosis multilobar pneumonia plan continue current mgmt [facility]
[2016-08-17 16:23] LABS: COCKROFT - GAULT 115.77; CREATININE 0.6 mg/dL (0.7-1.3)
[2016-08-17 20:48] LABS: BASOPHIL 0.1 % (0-2.0); EOSINOPHIL 0.3 % (0-4.5); MCHC 31.5 g/dl (32.0-35.9); MEAN CELL VOLUME 82.6 fl (80-96); MEAN PLT VOLUME 7.7 fl (7.5-11.1); NEUTROPHILS 95.4 % (42.8-82.8); PLATELET COUNT 430 K/MM3 (134-434); RDW 14.6 % (11.9-15.9); WHITE BLOOD COUNT 13.2 K/mm3 (4.0-10.0)
== END 2016-08-17 17:27 | DRG 871 ==
LOC: JER 13:54 → JERBED 19:51 → JICU 07-28 12:20 → J4W 07-30 14:43 → J6S 08-07 18:49
PROVIDERS: ADMIT Internal Medicine; ATTEND Internal Medicine
PROC: 5A09557 Assistance with Respiratory Ventilation, Greater than 96 Consecutive Hours, Continuous Positive Airway Pressure (ICD-10-PCS; principal; 2016-07-27)
DX: A41.9 Sepsis, unspecified organism (principal); J96.01 Acute respiratory failure with hypoxia; J10.08 Influenza due to other identified influenza virus with other specified pneumonia; J15.9 Unspecified bacterial pneumonia; N17.9 Acute kidney failure, unspecified; E87.1 Hypo-osmolality and hyponatremia; K56.7 Ileus, unspecified; R65.20 Severe sepsis without septic shock; J10.1 Influenza due to other identified influenza virus with other respiratory manifestations; D86.0 Sarcoidosis of lung; I10 Essential (primary) hypertension; D72.829 Elevated white blood cell count, unspecified; E86.0 Dehydration; K59.00 Constipation, unspecified
CPT/HCPCS: 36415; 36600; 71010-TC; 71250-TC; 71275-TC; 74000-TC; 80048; 80053; 80061; 81003; 81015; 82375; 82436; 82533; 82550; 82553; 82570; 82803; 83050; 83605; 83615; 83721; 83735; 83930; 83935; 84100; 84133; 84156; 84295; 84300; 84443; 84484; 85025; 85027; 85610; 85730; 86738; 87040; 87804; 87899; 93005; 93010; 93306-TC; 94640; 94660; 97116-GP; 97162-GP; 99285-25; G0480; J1644; J7517